=== PATIENT | female | born 1980 | race American Indian/Alaskan Native ===

== ENCOUNTER 2017-07-22 05:12 | Emergency (ER) | payer MEDICAID ==
[2017-07-22 05:52] LABS: Bacteria,Urine 1+ /HPF (Negative); Bilirubin,Urine NEG (Negative); Blood,Urine LG (Negative); Ketones,Urine TR mg/dL (Negative); Leukocyte Esterase,Urine NEG (Negative); Mucus,Urine FEW /HPF; Nitrite,Urine NEG (Negative); Urobilinogen,Urine < 2.0 mg/dL (<2.0)
[2017-07-22 05:56] LABS: RBC,Urine > 182.0 /HPF (0.0-6.0)
[2017-07-22 06:10] LABS: Basophils % (Auto) 0.3 % (0.0-1.8); Eosinophils % (Auto) 0.7 % (0.0-4.3); Hemoglobin 12.7 gm/dl (10.1-14.3); Mean Corpuscular HGB Conc 34 % (30-34); Mean Corpuscular Hemoglobin 32 pg (28-32); Mean Corpuscular Volume 93 fl (79-97); Platelet Count 180 K/mm3 (140-440); Red Blood Count 3.98 M/mm3 (3.65-5.03); Red Cell Distribution Width 14.4 % (13.2-15.2); White Blood Count 7.7 K/mm3 (4.5-11.0)
[2017-07-22 06:19] LABS: Alanine Aminotransferase 16 units/L (7-56); Albumin 4.5 g/dL (3.9-5); Albumin/Globulin Ratio 1.6 %; Alkaline Phosphatase 40 units/L (35-129); Anion Gap 21 mmol/L; BUN/Creatinine Ratio 13; Blood Urea Nitrogen 9 mg/dL (7-17); Calcium 9.1 mg/dL (8.4-10.2); Carbon Dioxide 21 mmol/L (22-30); Chloride 101.2 mmol/L (98-107); Glucose 139 mg/dL (65-100); Lipase 27 units/L (13-60); Potassium 3.6 mmol/L (3.6-5.0); Sodium 140 mmol/L (137-145); Total Protein 7.4 g/dL (6.3-8.2)
[2017-07-22] MEDS ORDERED: ZOFRAN IV ONE (06:39)
[2017-07-22] MEDS ORDERED: DILAUDID IV ONE ×2 (06:39→08:29)
[2017-07-22] MEDS ORDERED: BENADRYL IV ONE (06:39)
[2017-07-22] MEDS ORDERED: NACL 0.9% 1000 ML 1,000 ML IV ONE (06:40)
[2017-07-22 07:08] LABS: Urine Drugs of Abuse Note Disclamer
[2017-07-22 07:11] LABS: Creatine Kinase MB 1.2 ng/mL (0.0-4.0)
--- NOTE | 2017-07-22 08:29 | Emergency Department Report ---
ED General Adult HPI - General Chief complaint: Abdominal Pain Stated complaint: SEIZURE Time Seen by Provider: 07/22/17 06:23 Source: EMS Mode of arrival: Stretcher Limitations: No Limitations - History of Present Illness Initial comments: The patient presents via EMS. Apparently she had quite a bit of inappropriate behavior. She was given 2 mg of Ativan. According to EMS she was yelling. She was sticking her fingers in her mouth to induce vomiting and stated "I have to get it out". Upon my encounter the patient was gyrating in the bed. She and her significant other and child were in the room. He told me that she has had this problem with abdominal pain several times in the past. They deny chronic pain issues. They state that she has to this area from another town in [place] recently. Prior to that they were living in [place]. Apparently she has had multiple emergency department visits for similar presentation. They cannot tell me that she has been formally diagnosed with gastroparesis. They are claiming that she has "diverticulitis". -: hour(s) Location: abdomen Radiation: non-radiation Quality: aching (cramping) Consistency: constant Improves with: none Worsens with: none Associated Symptoms: nausea/vomiting Treatments Prior to Arrival: none - Related Data Previous Rx's Medication Instructions Recorded Last Taken Type Ondansetron [Zofran Odt] 4 mg PO Q6H #10 tab.rapdis 07/22/17 Unknown Rx traMADol [Ultram] 50 mg PO Q6HR PRN #10 tablet 07/22/17 Unknown Rx Allergies Allergy/AdvReac Type Severity Reaction Status Date / Time No Known Allergies Allergy Unverified 07/22/17 05:14 ED Review of Systems ROS: Stated complaint: SEIZURE Other details as noted in HPI Constitutional: denies: chills, fever Eyes: denies: eye pain, eye discharge, vision change ENT: denies: ear pain, throat pain Respiratory: denies: cough, shortness of breath, wheezing Cardiovascular: denies: chest pain, palpitations Endocrine: no symptoms reported Gastrointestinal: abdominal pain, nausea, vomiting. denies: diarrhea Genitourinary: denies: urgency, dysuria, discharge Musculoskeletal: denies: back pain, joint swelling, arthralgia Skin: denies: rash, lesions Neurological: denies: headache, weakness, paresthesias Psychiatric: denies: anxiety, depression Hematological/Lymphatic: denies: easy bleeding, easy bruising ED Past Medical Hx - Past Medical History Previous Medical History?: Yes Hx Seizures: Yes Hx Asthma: Yes - Surgical History Past Surgical History?: Yes Additional Surgical History: c - cect 07/25/06, diverticulitis - Social History Smoking Status: Former Smoker Substance Use Type: None - Medications Home Medications: Home Medications Medication Instructions Recorded Confirmed Last Taken Type Ondansetron [Zofran Odt] 4 mg PO Q6H #10 tab.rapdis 07/22/17 Unknown Rx traMADol [Ultram] 50 mg PO Q6HR PRN #10 tablet 07/22/17 Unknown Rx ED Physical Exam - General Limitations: Altered Mental Status (very hysterical) General appearance: alert, anxious - Head Head exam: Present: atraumatic, normocephalic - Eye Eye exam: Present: normal appearance, PERRL, EOMI. Absent: scleral icterus - ENT ENT exam: Present: mucous membranes moist - Neck Neck exam: Present: normal inspection - Respiratory Respiratory exam: Present: normal lung sounds bilaterally. Absent: respiratory distress - Cardiovascular Cardiovascular Exam: Present: regular rate, normal rhythm. Absent: systolic murmur, diastolic murmur, rubs, gallop - GI/Abdominal GI/Abdominal exam: Present: soft, normal bowel sounds, other (despite the patient's presentation and her abdominal exam is totally normal). Absent: distended, tenderness, guarding, rebound, rigid, organomegaly, mass, bruit, pulsatile mass, hernia - Extremities Exam Extremities exam: Present: normal inspection - Back Exam Back exam: Present: normal inspection. Absent: CVA tenderness (R), CVA tenderness (L), muscle spasm, paraspinal tenderness, vertebral tenderness - Neurological Exam Neurological exam: Present: alert, oriented X3, CN II-XII intact. Absent: motor sensory deficit - Psychiatric Psychiatric exam: Present: agitated, anxious - Skin Skin exam: Present: warm, dry, intact, normal color. Absent: rash ED Course Vital Signs 07/22/17 07/22/17 05:14 05:25 Temperature 98.7 F 98.0 F Pulse Rate 83 87 Respiratory 18 20 Rate Blood Pressure 138/68 Blood Pressure 136/68 [Left] O2 Sat by Pulse 99 100 Oximetry - Reevaluation(s) Reevaluation #1: She was given 0.5 of Dilaudid, Zofran and then a drip. This completely resolved her symptoms. Her labs were completely reassuring. She was discharged in improved condition. This apparently is an acute exacerbation of chronic abdominal problems. She will be referred to GI and a local clinic. She will be given anti-emetics and an analgesic. 07/22/17 09:43 ED Medical Decision Making - Lab Data Result diagrams: 07/22/17 05:40 07/22/17 05:40 Laboratory Results - last 24 hr 07/22/17 07/22/17 07/22/17 05:00 05:40 05:40 WBC 7.7 RBC 3.98 Hgb 12.7 Hct 37.0 MCV 93 MCH 32 MCHC 34 RDW 14.4 Plt Count 180 Lymph % (Auto) 15.5 [place] % (Auto) 3.6 Eos % (Auto) 0.7 Baso % (Auto) 0.3 Lymph # 1.2 [place] # 0.3 Eos # 0.1 Baso # 0.0 Seg Neutrophils % 79.9 H Seg Neutrophils # 6.2 Sodium 140 Potassium 3.6 Chloride 101.2 Carbon Dioxide 21 L Anion Gap 21 BUN 9 Creatinine 0.7 Estimated GFR > 60 BUN/Creatinine Ratio 13 Glucose 139 H Calcium 9.1 Total Bilirubin 0.20 AST 21 ALT 16 Alkaline Phosphatase 40 Total Protein 7.4 Albumin 4.5 Albumin/Globulin Ratio 1.6 Lipase 27 Urine Color Yellow Urine Turbidity Clear Urine pH 7.0 Ur Specific [place] 1.026 Urine Protein 30 mg/dl Urine Glucose (UA) Neg Urine Ketones Tr Urine Blood Lg Urine Nitrite Neg Urine Bilirubin Neg Urine Urobilinogen < 2.0 Ur Leukocyte Esterase Neg Urine WBC (Auto) 3.0 Urine RBC (Auto) > 182.0 U Epithel Cells (Auto) 6.0 Urine Bacteria (Auto) 1+ Urine Mucus Few Urine HCG, Qual Negative Laboratory Results - last 24 hr 07/22/17 07/22/17 07/22/17 05:00 05:00 05:40 WBC 7.7 RBC 3.98 Hgb 12.7 Hct 37.0 MCV 93 MCH 32 MCHC 34 RDW 14.4 Plt Count 180 Lymph % (Auto) 15.5 [place] % (Auto) 3.6 Eos % (Auto) 0.7 Baso % (Auto) 0.3 Lymph # 1.2 [place] # 0.3 Eos # 0.1 Baso # 0.0 Seg Neutrophils % 79.9 H Seg Neutrophils # 6.2 Sodium Potassium Chloride Carbon Dioxide Anion Gap BUN Creatinine Estimated GFR BUN/Creatinine Ratio Glucose Calcium Total Bilirubin AST ALT Alkaline Phosphatase Total Creatine Kinase CK-MB (CK-2) CK-MB (CK-2) Rel Index Total Protein Albumin Albumin/Globulin Ratio Lipase Urine Color Yellow Urine Turbidity Clear Urine pH 7.0 Ur Specific [place] 1.026 Urine Protein 30 mg/dl Urine Glucose (UA) Neg Urine Ketones Tr Urine Blood Lg Urine Nitrite Neg Urine Bilirubin Neg Urine Urobilinogen < 2.0 Ur Leukocyte Esterase Neg Urine WBC (Auto) 3.0 Urine RBC (Auto) > 182.0 U Epithel Cells (Auto) 6.0 Urine Bacteria (Auto) 1+ Urine Mucus Few Urine HCG, Qual Negative Urine Opiates Screen Presumptive negative Urine Methadone Screen Presumptive negative Ur Barbiturates Screen Presumptive negative Ur Phencyclidine Scrn Presumptive negative Ur Amphetamines Screen Presumptive negative U Benzodiazepines Scrn Presumptive negative Urine Cocaine Screen Presumptive negative U Marijuana (THC) Screen Presumptive positive Drugs of Abuse Note Disclamer 07/22/17 07/22/17 05:40 05:40 WBC RBC Hgb Hct MCV MCH MCHC RDW Plt Count Lymph % (Auto) [place] % (Auto) Eos % (Auto) Baso % (Auto) Lymph # [place] # Eos # Baso # Seg Neutrophils % Seg Neutrophils # Sodium 140 Potassium 3.6 Chloride 101.2 Carbon Dioxide 21 L Anion Gap 21 BUN 9 Creatinine 0.7 Estimated GFR > 60 BUN/Creatinine Ratio 13 Glucose 139 H Calcium 9.1 Total Bilirubin 0.20 AST 21 ALT 16 Alkaline Phosphatase 40 Total Creatine Kinase 161 H CK-MB (CK-2) 1.2 CK-MB (CK-2) Rel Index 0.7 Total Protein 7.4 Albumin 4.5 Albumin/Globulin Ratio 1.6 Lipase 27 Urine Color Urine Turbidity Urine pH Ur Specific [place] Urine Protein Urine Glucose (UA) Urine Ketones Urine Blood Urine Nitrite Urine Bilirubin Urine Urobilinogen Ur Leukocyte Esterase Urine WBC (Auto) Urine RBC (Auto) U Epithel Cells (Auto) Urine Bacteria (Auto) Urine Mucus Urine HCG, Qual Urine Opiates Screen Urine Methadone Screen Ur Barbiturates Screen Ur Phencyclidine Scrn Ur Amphetamines Screen U Benzodiazepines Scrn Urine Cocaine Screen U Marijuana (THC) Screen Drugs of Abuse Note Critical care attestation.: If time is entered above; I have spent that time in minutes in the direct care of this critically ill patient, excluding procedure time. ED Disposition Clinical Impression: Acute anxiety Abdominal pain Qualifiers: Abdominal location: generalized Qualified Code(s): R10.84 - Generalized abdominal pain Disposition: TO HOME OR SELFCARE Is pt being admited?: No Does the pt Need Aspirin: No Condition: Stable Instructions: Abdominal Pain (ED), Anxiety (ED) Additional Instructions: Follow up with the referral clinic. I have also given you information about stomach specialist. Rx as needed. Light diet and advance as tolerated. Prescriptions: Ondansetron [Zofran Odt] 4 mg PO Q6H #10 tab.rapdis traMADol [Ultram] 50 mg PO Q6HR PRN #10 tablet PRN Reason: Pain Referrals: [facility] [Provider Group] - 3-5 Days [facility] [Provider Group] - 3-5 Days Time of Disposition: 09:45
[2017-07-22 09:36] VITALS: BP 114/94
== END 2017-07-22 10:10 | disposition home or self-care (01) ==
LOC: ED 05:12
DX: F41.9 Anxiety disorder, unspecified (principal); R10.84 Generalized abdominal pain; J45.909 Unspecified asthma, uncomplicated; R56.9 Unspecified convulsions; Z87.891 Personal history of nicotine dependence; K57.92 Diverticulitis of intestine, part unspecified, without perforation or abscess without bleeding
CPT/HCPCS: 36415; 80053; 80307; 81001; 81025; 82550; 82553; 83690; 85025; 96361; 96374; 96375; 99284; J1170; J1200; J2405; J7030

== ENCOUNTER 2017-08-04 08:53 | Emergency (ER) | payer MEDICAID ==
[2017-08-04 09:38] LABS: Basophils % (Auto) 0.3 % (0.0-1.8); Eosinophils % (Auto) 0.3 % (0.0-4.3); Hemoglobin 13.7 gm/dl (10.1-14.3); Mean Corpuscular HGB Conc 33 % (30-34); Mean Corpuscular Hemoglobin 32 pg (28-32); Mean Corpuscular Volume 96 fl (79-97); Platelet Count 188 K/mm3 (140-440); Red Blood Count 4.29 M/mm3 (3.65-5.03); White Blood Count 10.1 K/mm3 (4.5-11.0)
[2017-08-04 09:52] LABS: Alanine Aminotransferase 14 units/L (7-56); Albumin 4.3 g/dL (3.9-5); Albumin/Globulin Ratio 1.2 %; Alkaline Phosphatase 39 units/L (35-129); Anion Gap 18 mmol/L; BUN/Creatinine Ratio 10; Blood Urea Nitrogen 6 mg/dL (7-17); Calcium 9.3 mg/dL (8.4-10.2); Carbon Dioxide 22 mmol/L (22-30); Chloride 101.6 mmol/L (98-107); Glucose 113 mg/dL (65-100); Potassium 3.7 mmol/L (3.6-5.0); Sodium 138 mmol/L (137-145); Total Protein 7.8 g/dL (6.3-8.2)
--- NOTE | 2017-08-04 10:21 | Cat Scan Report ---
CT scan of the without IV contrast: History: Seizure. Findings: Ventricles are normal in size and midline in location. No evidence of acute ischemia, hemorrhage or mass. No extra-axial fluid collection. Normal brainstem and cerebellum. Normal sinuses and mastoid air cells. Impression: No acute intracranial abnormality .
[2017-08-04] MEDS ORDERED: BENTYL PO ONE (10:42)
[2017-08-04] MEDS ORDERED: CARAFATE PO ONE (10:42)
[2017-08-04] MEDS ORDERED: PEPCID IV ONE (10:42)
[2017-08-04] MEDS ORDERED: ZOFRAN IV ONE (10:42)
[2017-08-04] MEDS ORDERED: NACL 0.9% 1000 ML 1,000 ML IV ONE (10:44)
--- NOTE | 2017-08-04 10:45 | Emergency Department Report ---
ED General Adult HPI - General Chief complaint: Seizure Stated complaint: SEIZURES Time Seen by Provider: 08/04/17 10:33 Source: patient, family, EMS (ems notes not available at time of chart dictation), RN notes reviewed, old records reviewed Mode of arrival: Stretcher Limitations: No Limitations - History of Present Illness Initial comments: This is a 37-year-old female who was previously unknown to this provider, patient recently moved here from [place], and endorses a history of "seizures" and "diverticulitis." Patient is brought to the hospital by EMS for apparent seizure disorder. As per triage documentation, patient had a seizure while lying on the couch at home , grandmother indicates patient foaming at the mouth, denies hitting her head. Patient states this is been going on for years, this is not new, worsening or different. Patient also complains of diffuse sharp abdominal pain and "body shaking." She reports the symptoms are intermittent, they increase with palpation and eating, and a decreased with IV medications such as hydromorphone. Of note, patient seen in this hospital a few days ago for similar symptoms, and was discharged with tramadol. Patient placed of generalized weakness, her symptoms are intermittent, they do not radiate anywhere. -: Gradual, Sudden Location: abdomen Quality: other (per hpi) Consistency: other (per hpi) Improves with: other (per hpi) Worsens with: other (per hpi) Associated Symptoms: loss of appetite, malaise, nausea/vomiting, weakness. denies: chest pain, cough, diaphoresis, fever/chills - Related Data Previous Rx's Medication Instructions Recorded Last Taken Type Ondansetron [Zofran Odt] 4 mg PO Q6H #10 tab.rapdis 07/22/17 Unknown Rx traMADol [Ultram] 50 mg PO Q6HR PRN #10 tablet 07/22/17 Unknown Rx Dicyclomine [Bentyl] 10 mg PO QID PRN #20 capsule 08/04/17 Unknown Rx Metoclopramide [Reglan] 10 mg PO QID PRN #30 tablet 08/04/17 Unknown Rx Promethazine [Phenergan SUPPOS] 50 mg SD Q6H PRN #20 supp.rect 08/04/17 Unknown Rx Allergies Allergy/AdvReac Type Severity Reaction Status Date / Time No Known Allergies Allergy Verified 08/04/17 10:43 ED Review of Systems ROS: Stated complaint: SEIZURES Other details as noted in HPI ED Past Medical Hx - Past Medical History Hx Seizures: Yes Hx Asthma: Yes - Surgical History Additional Surgical History: c - cect 07/25/06, diverticulitis - Social History Smoking Status: Current Some Day Smoker Substance Use Type: Marijuana - Medications Home Medications: Home Medications Medication Instructions Recorded Confirmed Last Taken Type Ondansetron [Zofran Odt] 4 mg PO Q6H #10 tab.rapdis 07/22/17 Unknown Rx traMADol [Ultram] 50 mg PO Q6HR PRN #10 tablet 07/22/17 Unknown Rx Dicyclomine [Bentyl] 10 mg PO QID PRN #20 capsule 08/04/17 Unknown Rx Metoclopramide [Reglan] 10 mg PO QID PRN #30 tablet 08/04/17 Unknown Rx Promethazine [Phenergan SUPPOS] 50 mg SD Q6H PRN #20 supp.rect 08/04/17 Unknown Rx ED Physical Exam - General Limitations: No Limitations General appearance: alert, in no apparent distress - Head Head exam: Present: atraumatic, normocephalic - Eye Eye exam: Present: normal appearance, PERRL, EOMI. Absent: nystagmus - ENT ENT exam: Present: normal exam, normal orophraynx, mucous membranes moist, normal external ear exam - Neck Neck exam: Present: normal inspection, full ROM - Respiratory Respiratory exam: Present: normal lung sounds bilaterally. Absent: respiratory distress - Cardiovascular Cardiovascular Exam: Present: regular rate, normal rhythm, normal heart sounds. Absent: systolic murmur, diastolic murmur, rubs, gallop - GI/Abdominal GI/Abdominal exam: Present: soft, normal bowel sounds. Absent: distended, tenderness, guarding, rebound, rigid, pulsatile mass - Extremities Exam Extremities exam: Present: normal inspection, full ROM, normal capillary refill. Absent: pedal edema, joint swelling, calf tenderness - Back Exam Back exam: Present: normal inspection, full ROM. Absent: tenderness, CVA tenderness (R), paraspinal tenderness, vertebral tenderness - Neurological Exam Neurological exam: Present: alert, oriented X3, CN II-XII intact, normal gait, other (Extraocular movements intact. Tongue midline. No facial droop. Facial sensation intact to light touch in the V1, V2, V3 distribution bilaterally. 5 and 5 strength in 4 extremities.. Sensation is intact to light touch in 4 extremities.). Absent: motor sensory deficit - Psychiatric Psychiatric exam: Present: anxious - Skin Skin exam: Present: warm, dry, intact, normal color. Absent: rash ED Course Vital Signs 08/04/17 09:36 Temperature 98.8 F Pulse Rate 79 Respiratory 25 H Rate Blood Pressure 141/79 [Left] O2 Sat by Pulse 100 Oximetry - Reevaluation(s) Reevaluation #1: 08/04/17 12:31 Patient's abdomen is actually soft and benign with no rebound, guarding or peritoneal signs, based on her history and physical exam, I do not believe the patient requires advanced imaging of her abdomen this time, her presentation today appears to be similar to her prior presentation from 07/22/2017. ED Medical Decision Making - Lab Data Result diagrams: 08/04/17 09:22 08/04/17 09:22 Vital Signs 08/04/17 09:36 Temperature 98.8 F Pulse Rate 79 Respiratory 25 H Rate Blood Pressure 141/79 [Left] O2 Sat by Pulse 100 Oximetry Lab Results 08/04/17 08/04/17 08/04/17 Range/Units 09:22 09:22 09:42 WBC 10.1 (4.5-11.0) K/mm3 RBC 4.29 (3.65-5.03) M/mm3 Hgb 13.7 (10.1-14.3) gm/dl Hct 41.0 (30.3-42.9) % MCV 96 (79-97) fl MCH 32 (28-32) pg MCHC 33 (30-34) % RDW 14.0 (13.2-15.2) % Plt Count 188 (140-440) K/mm3 Lymph % (Auto) 19.6 (13.4-35.0) % [place] % (Auto) 6.2 (0.0-7.3) % Eos % (Auto) 0.3 (0.0-4.3) % Baso % (Auto) 0.3 (0.0-1.8) % Lymph # 2.0 (1.2-5.4) K/mm3 [place] # 0.6 (0.0-0.8) K/mm3 Eos # 0.0 (0.0-0.4) K/mm3 Baso # 0.0 (0.0-0.1) K/mm3 Seg Neutrophils % 73.6 H (40.0-70.0) % Seg Neutrophils # 7.4 (1.8-7.7) K/mm3 Sodium 138 (137-145) mmol/L Potassium 3.7 (3.6-5.0) mmol/L Chloride 101.6 (98-107) mmol/L Carbon Dioxide 22 (22-30) mmol/L Anion Gap 18 mmol/L BUN 6 L (7-17) mg/dL Creatinine 0.6 L (0.7-1.2) mg/dL Estimated GFR > 60 ml/min BUN/Creatinine Ratio 10 % Glucose 113 H (65-100) mg/dL Calcium 9.3 (8.4-10.2) mg/dL Total Bilirubin 0.30 (0.1-1.2) mg/dL AST 28 (5-40) units/L ALT 14 (7-56) units/L Alkaline Phosphatase 39 (35-129) units/L Total Creatine Kinase 435 H (30-135) units/L Total Protein 7.8 (6.3-8.2) g/dL Albumin 4.3 (3.9-5) g/dL Albumin/Globulin Ratio 1.2 % Urine Color (Yellow) Urine Turbidity (Clear) Urine pH (5.0-7.0) Ur Specific [place] (1.003-1.030) Urine Protein (Negative) mg/dL Urine Glucose (UA) (Negative) mg/dL Urine Ketones (Negative) mg/dL Urine Blood (Negative) Urine Nitrite (Negative) Urine Bilirubin (Negative) Urine Urobilinogen (<2.0) mg/dL Ur Leukocyte Esterase (Negative) Urine WBC (Auto) (0.0-6.0) /HPF Urine RBC (Auto) (0.0-6.0) /HPF U Epithel Cells (Auto) (0-13.0) /HPF Urine Mucus /HPF Salicylates (2.8-20.0) mg/dL Acetaminophen (10.0-30.0) ug/mL 08/04/17 08/04/17 08/04/17 Range/Units 11:00 11:00 11:03 WBC (4.5-11.0) K/mm3 RBC (3.65-5.03) M/mm3 Hgb (10.1-14.3) gm/dl Hct (30.3-42.9) % MCV (79-97) fl MCH (28-32) pg MCHC (30-34) % RDW (13.2-15.2) % Plt Count (140-440) K/mm3 Lymph % (Auto) (13.4-35.0) % [place] % (Auto) (0.0-7.3) % Eos % (Auto) (0.0-4.3) % Baso % (Auto) (0.0-1.8) % Lymph # (1.2-5.4) K/mm3 [place] # (0.0-0.8) K/mm3 Eos # (0.0-0.4) K/mm3 Baso # (0.0-0.1) K/mm3 Seg Neutrophils % (40.0-70.0) % Seg Neutrophils # (1.8-7.7) K/mm3 Sodium (137-145) mmol/L Potassium (3.6-5.0) mmol/L Chloride (98-107) mmol/L Carbon Dioxide (22-30) mmol/L Anion Gap mmol/L BUN (7-17) mg/dL Creatinine (0.7-1.2) mg/dL Estimated GFR ml/min BUN/Creatinine Ratio % Glucose (65-100) mg/dL Calcium (8.4-10.2) mg/dL Total Bilirubin (0.1-1.2) mg/dL AST (5-40) units/L ALT (7-56) units/L Alkaline Phosphatase (35-129) units/L Total Creatine Kinase (30-135) units/L Total Protein (6.3-8.2) g/dL Albumin (3.9-5) g/dL Albumin/Globulin Ratio % Urine Color Yellow (Yellow) Urine Turbidity Clear (Clear) Urine pH 9.0 H (5.0-7.0) Ur Specific [place] 1.023 (1.003-1.030) Urine Protein 100 mg/dl (Negative) mg/dL Urine Glucose (UA) Neg (Negative) mg/dL Urine Ketones Neg (Negative) mg/dL Urine Blood Neg (Negative) Urine Nitrite Neg (Negative) Urine Bilirubin Neg (Negative) Urine Urobilinogen < 2.0 (<2.0) mg/dL Ur Leukocyte Esterase Neg (Negative) Urine WBC (Auto) 1.0 (0.0-6.0) /HPF Urine RBC (Auto) 1.0 (0.0-6.0) /HPF U Epithel Cells (Auto) 9.0 (0-13.0) /HPF Urine Mucus Few /HPF Salicylates < 0.3 L (2.8-20.0) mg/dL Acetaminophen < 15.0 (10.0-30.0) ug/mL - Radiology Data Radiology results: report reviewed, image reviewed Noncontrast CT scan of the brain: Negative for acute disease - Medical Decision Making Differential diagnosis, including but not limited to: Seizure, pseudoseizure, psychogenic seizure, urinary tract infection, nonspecific convulsion, cannabinoid hyperemesis syndrome, medication side effect ( tramadol) Assessment and plan: 37-year-old female with complaints of seizure and abdominal pain. In terms of the patient's seizure, there is been no convulsive events in the ER 4 hours, patient has not loss consciousness, patient is having episodes of body shaking but she is awake and conversant. There may be a psychogenic component to this. Urine toxicology screen a few days ago was positive for marijuana, and patient and grandmother admits to marijuana consumption. Patient is encouraged to discontinue cannabis consumption, and is also encouraged to discontinue tramadol consumption. Patient initially would not walk for me, she was then medicated, and is noted by myself and staff to be walking with a steady gait. Patient alert to name, place, location with a nonfocal neurologic examination, and is tolerating oral feeds. It is not appear to be an emergent condition at this time, patient should follow up with outpatient neurology and primary care, and she is also instructed to not drive or operate motor vehicles. Given her history and chronic cannabis use, I do not believe the patient will benefit from antiepileptic drug therapy, and will defer this to outpatient management. Critical care attestation.: If time is entered above; I have spent that time in minutes in the direct care of this critically ill patient, excluding procedure time. ED Disposition Clinical Impression: Abdominal pain, History of convulsions Disposition: TO HOME OR SELFCARE Is pt being admited?: No Does the pt Need Aspirin: No Condition: Stable Additional Instructions: I recommended the patient discontinue consumption of marijuana, and any illegal drugs of the patient may be consuming. Marijuana is most likely a significant concern being factor to the patient's presentation. Do not drive or operate motor vehicles for the next 6 months. Follow up with the neurology specialist within the next 7-10 days. Local neurology specialists include the following Sam.: Anthony Rosa Kozin Discontinue the tramadol prescription that was prescribed few the other day, this medication may make the patient more prone to having convulsions. Instead, take the prescribed pain medication and nausea medication as needed/ directed. Follow up with a primary care doctor or mat weaver within the next 2 weeks. [facility] has a local patient service hotline which can be contacted to obtain expedited appointment: [phone] ([phone]) Return to the ER right away with new pain, worsened pain, migration of pain, fevers, chills, lethargy, irritability, projectile vomiting, change in mental status, confusion, inability to tolerate liquid feeds. Referrals: TEENA PAULA MD [Primary Care Provider] - 3-5 Days [facility] [Provider Group] - 3-5 Days DMITRY ROSA MD [Referring] - 3-5 Days PIETRO MEZA MD [Staff Physician] - 3-5 Days NAUN BERG MD [Staff Physician] - 3-5 Days
[2017-08-04 11:37] LABS: Bilirubin,Urine NEG (Negative); Blood,Urine NEG (Negative); Ketones,Urine NEG (Negative); Leukocyte Esterase,Urine NEG (Negative); Mucus,Urine FEW /HPF; Nitrite,Urine NEG (Negative); Urobilinogen,Urine < 2.0 mg/dL (<2.0)
[2017-08-04 12:48] VITALS: BP 145/90
== END 2017-08-04 12:47 | disposition home or self-care (01) ==
LOC: ED 08:53
DX: R10.9 Unspecified abdominal pain (principal); R56.9 Unspecified convulsions; R53.1 Weakness; J45.909 Unspecified asthma, uncomplicated; F12.10 Cannabis abuse, uncomplicated; F17.200 Nicotine dependence, unspecified, uncomplicated
CPT/HCPCS: 36415; 70450; 80053; 81001; 82550; 85025; 96361; 96374; 96375; 99285; G0480; J2405; J7030; 80320

== ENCOUNTER 2017-12-19 10:44 | Emergency (ER) | payer MEDICAID ==
[2017-12-19 13:19] LABS: Basophils % (Auto) 0.2 % (0.0-1.8); Hematocrit 40.7 % (30.3-42.9); Hemoglobin 13.6 gm/dl (10.1-14.3); Lymphocytes # (Auto) 1.3 K/mm3 (1.2-5.4); Mean Corpuscular HGB Conc 33 % (30-34); Mean Corpuscular Hemoglobin 31 pg (28-32); Mean Corpuscular Volume 93 fl (79-97); Monocytes # (Auto) 0.7 K/mm3 (0.0-0.8); Monocytes % (Auto) 6.6 % (0.0-7.3); Platelet Count 197 K/mm3 (140-440); Red Blood Count 4.37 M/mm3 (3.65-5.03); Red Cell Distribution Width 13.8 % (13.2-15.2)
--- NOTE | 2017-12-19 13:32 | Emergency Department Report ---
<TEQUILA ALONSO - Last Filed: 12/19/17 16:11> ED Abdominal Pain HPI - General Chief Complaint: Abdominal Pain Stated Complaint: ABDOMINAL PAIN Time Seen by Provider: 12/19/17 13:32 Source: patient Mode of arrival: Wheelchair Limitations: No Limitations - History of Present Illness Initial Comments: Patient is said she's been having left upper quadrant abdominal pain for the past 60 days. She has been evaluated multiple times without finding the cause. Patient says she has an [employer] appointment in February for surgery. She has a sister vomited several times today and had seizures today. MD Complaint: abdominal pain -: year(s) (6 years) Location: LUQ Radiation: LLQ Migration to: no migration Severity: moderate Severity scale (0 -10): 7 Quality: sharp Consistency: constant Improves With: nothing Worsens With: nothing Associated Symptoms: nausea, vomiting. denies: diarrhea, constipation - Related Data LMP (females 10-50): unknown Previous Rx's Medication Instructions Recorded Last Taken Type Ondansetron [Zofran Odt] 4 mg PO Q6H #10 tab.rapdis 07/22/17 Unknown Rx traMADol [Ultram] 50 mg PO Q6HR PRN #10 tablet 07/22/17 Unknown Rx Dicyclomine [Bentyl] 10 mg PO QID PRN #20 capsule 08/04/17 Unknown Rx Metoclopramide [Reglan] 10 mg PO QID PRN #30 tablet 08/04/17 Unknown Rx Promethazine [Phenergan SUPPOS] 50 mg [place] Q6H PRN #20 supp.rect 08/04/17 Unknown Rx Allergies Allergy/AdvReac Type Severity Reaction Status Date / Time No Known Allergies Allergy Verified 08/04/17 10:43 ED Review of Systems ROS: Stated complaint: ABDOMINAL PAIN Other details as noted in HPI Comment: All other systems reviewed and negative Constitutional: denies: chills, diaphoresis, fever, weakness Eyes: denies: eye pain ENT: denies: ear pain Respiratory: denies: cough, shortness of breath Cardiovascular: denies: chest pain, palpitations, edema, syncope Endocrine: no symptoms reported Gastrointestinal: abdominal pain, nausea, vomiting. denies: diarrhea Genitourinary: denies: urgency, frequency Musculoskeletal: denies: back pain, joint swelling Skin: denies: rash, change in color Neurological: denies: headache, numbness, paresthesias Psychiatric: anxiety, depression Hematological/Lymphatic: denies: easy bleeding, easy bruising ED Past Medical Hx - Past Medical History Hx Seizures: Yes Hx Asthma: Yes - Surgical History Additional Surgical History: c - cect 07/25/06, diverticulitis - Social History Smoking Status: Never Smoker Substance Use Type: None - Medications Home Medications: Home Medications Medication Instructions Recorded Confirmed Last Taken Type Ondansetron [Zofran Odt] 4 mg PO Q6H #10 tab.rapdis 07/22/17 Unknown Rx traMADol [Ultram] 50 mg PO Q6HR PRN #10 tablet 07/22/17 Unknown Rx Dicyclomine [Bentyl] 10 mg PO QID PRN #20 capsule 08/04/17 Unknown Rx Metoclopramide [Reglan] 10 mg PO QID PRN #30 tablet 08/04/17 Unknown Rx Promethazine [Phenergan SUPPOS] 50 mg [place] Q6H PRN #20 supp.rect 08/04/17 Unknown Rx ED Physical Exam - General Limitations: No Limitations General appearance: alert, in no apparent distress - Head Head exam: Present: atraumatic, normocephalic, normal inspection - Eye Eye exam: Present: normal appearance, PERRL, EOMI Pupils: Present: normal accommodation - ENT ENT exam: Present: normal exam, normal orophraynx, mucous membranes moist - Neck Neck exam: Present: normal inspection, full ROM. Absent: tenderness - Respiratory Respiratory exam: Present: normal lung sounds bilaterally. Absent: respiratory distress, rhonchi - Cardiovascular Cardiovascular Exam: Present: regular rate, normal rhythm, normal heart sounds - GI/Abdominal GI/Abdominal exam: Present: soft, tenderness (LUQ), normal bowel sounds. Absent : guarding, rebound - Extremities Exam Extremities exam: Present: normal inspection, normal capillary refill. Absent: tenderness - Back Exam Back exam: Present: normal inspection. Absent: full ROM, tenderness, muscle spasm, vertebral tenderness - Neurological Exam Neurological exam: Present: alert, oriented X3, CN II-XII intact - Psychiatric Psychiatric exam: Present: normal affect, anxious - Skin Skin exam: Present: warm, dry, intact, normal color. Absent: rash ED Course Vital Signs 12/19/17 12/19/17 12/19/17 10:50 13:12 15:53 Temperature 98.0 F 98.8 F Pulse Rate 91 H 63 Respiratory 17 16 Rate Blood Pressure 119/64 Blood Pressure 115/55 [Left] O2 Sat by Pulse 99 100 Oximetry - Reevaluation(s) Reevaluation #1: 12/19/17 16:11 Patient care was transferred to Dr Underwood at shift change pending CT of the abdomen and pelvis with PO and IV contrast. ED Medical Decision Making - Lab Data Result diagrams: 12/19/17 13:05 12/19/17 13:05 - Radiology Data Radiology results: report reviewed - Medical Decision Making Chronic abdominal pain. Critical care attestation.: If time is entered above; I have spent that time in minutes in the direct care of this critically ill patient, excluding procedure time. ED Disposition Clinical Impression: Abdominal pain Qualifiers: Abdominal location: left upper quadrant Qualified Code(s): R10.12 - Left upper quadrant pain Disposition: Z-07 ELOPED Does the pt Need Aspirin: No Condition: Stable Instructions: Abdominal Pain (ED) Referrals: [facility] [Outside] - 3-5 Days PRIMARY CARE, [Referring] - 3-5 Days <HUMA UNDERWOOD - Last Filed: 12/19/17 17:28> ED Course - Reevaluation(s) Reevaluation #2: 12/19/17 17:20 pt left the department, I was informed by RN that nurse refused ct, removed IV, and left the dept ED Medical Decision Making - Lab Data Result diagrams: 12/19/17 13:05 12/19/17 13:05 ED Disposition Is pt being admited?: No Time of Disposition: 17:20 (pt refused ct, took out line and left)
[2017-12-19 13:44] LABS: Alanine Aminotransferase 15 units/L (7-56); Albumin 4.9 g/dL (3.9-5); BUN/Creatinine Ratio 17; Blood Urea Nitrogen 10 mg/dL (7-17); Calcium 9.7 mg/dL (8.4-10.2); Hemolysis Index 6
[2017-12-19] MEDS ORDERED: NACL 0.9% 1000 ML 1,000 ML IV ONE (13:44)
[2017-12-19] MEDS ORDERED: REGLAN IV ONE (13:57)
[2017-12-19] MEDS ORDERED: TORADOL IV ONE (13:57)
[2017-12-19 14:08] LABS: Bilirubin,Urine NEG (Negative); Blood,Urine NEG (Negative); Color,Urine Yellow (Yellow); Mucus,Urine 2+ /HPF; Urobilinogen,Urine < 2.0 mg/dL (<2.0)
[2017-12-19] MEDS ORDERED: POTASSIUM CHLORIDE FEEDTUBE ONE (15:36)
[2017-12-19 15:54] VITALS: BP 115/55
== END 2017-12-19 17:21 | disposition left against medical advice (07) ==
LOC: EDBD → ED 10:44
DX: R10.12 Left upper quadrant pain (principal); J45.909 Unspecified asthma, uncomplicated
CPT/HCPCS: 36415; 80053; 81001; 83690; 84703; 85025; 96361; 96374; 96375; 99283; J1885; J2765; J7030

== ENCOUNTER 2018-01-31 09:59 | Emergency (ER) | payer MEDICAID ==
[2018-01-31 11:11] LABS: Basophils % (Auto) 0.3 % (0.0-1.8); Eosinophils % (Auto) 0.6 % (0.0-4.3); Hematocrit 38.3 % (30.3-42.9); Hemoglobin 12.7 gm/dl (10.1-14.3); Lymphocytes # (Auto) 1.7 K/mm3 (1.2-5.4); Lymphocytes % (Auto) 23.7 % (13.4-35.0); Mean Corpuscular HGB Conc 33 % (30-34); Mean Corpuscular Hemoglobin 31 pg (28-32); Mean Corpuscular Volume 94 fl (79-97); Monocytes # (Auto) 0.4 K/mm3 (0.0-0.8); Platelet Count 171 K/mm3 (140-440); Red Blood Count 4.05 M/mm3 (3.65-5.03); Red Cell Distribution Width 13.6 % (13.2-15.2)
[2018-01-31 11:22] LABS: Alanine Aminotransferase 11 units/L (7-56); Albumin 3.9 g/dL (3.9-5); BUN/Creatinine Ratio 13; Blood Urea Nitrogen 9 mg/dL (7-17); Hemolysis Index 36
[2018-01-31 11:31] LABS: Bacteria,Urine 1+ /HPF (Negative); Bilirubin,Urine NEG (Negative); Blood,Urine NEG (Negative); Color,Urine Yellow (Yellow); Mucus,Urine FEW /HPF; Protein,Urine <15 mg/dL mg/dL (Negative); Urobilinogen,Urine < 2.0 mg/dL (<2.0)
[2018-01-31 11:58] VITALS: BP 127/64
[2018-01-31] MEDS ORDERED: KEPPRA 1,000 MG/NS 0.75% 100ML 1,000 MG/100 ML BAG IV ONE ×2 (12:13→12:21)
[2018-01-31] MEDS ORDERED: KEPPRA PO ONE (12:20)
[2018-01-31] MEDS ORDERED: NACL 0.9% 1000 ML 1,000 ML IV ONE (12:21)
--- NOTE | 2018-01-31 12:21 | Emergency Department Report ---
ED Seizure HPI - General Chief Complaint: Seizure Stated Complaint: SEIZURES, Time Seen by Provider: 01/31/18 12:19 Source: patient, EMS Mode of arrival: Stretcher Limitations: No Limitations - History of Present Illness Initial Comments: Patient said she has been taking "old" Keppra for her seizure disorder. Complaint: seizure -: Sudden Description of Episode: tonic-clonic movement -: minutes(s) (1) Witnessed:: Yes Trauma: No Seizure History: known seizure disorder Place: home Possible Precipitating Event: none Associated Symptoms: other (abdominal pain) Treatments Prior to Arrival: other (Ativan) - Related Data Previous Rx's Medication Instructions Recorded Last Taken Type Ondansetron [Zofran Odt] 4 mg PO Q6H #10 tab.rapdis 07/22/17 Unknown Rx traMADol [Ultram] 50 mg PO Q6HR PRN #10 tablet 07/22/17 Unknown Rx Dicyclomine [Bentyl] 10 mg PO QID PRN #20 capsule 08/04/17 Unknown Rx Metoclopramide [Reglan] 10 mg PO QID PRN #30 tablet 08/04/17 Unknown Rx Promethazine [Phenergan SUPPOS] 50 mg [place] Q6H PRN #20 supp.rect 08/04/17 Unknown Rx levETIRAcetam [Keppra TAB] 750 mg PO BID #60 tablet 01/31/18 Unknown Rx Allergies Allergy/AdvReac Type Severity Reaction Status Date / Time No Known Allergies Allergy Verified 08/04/17 10:43 ED Review of Systems ROS: Stated complaint: SEIZURES, Other details as noted in HPI Comment: All other systems reviewed and negative Constitutional: denies: chills, fever Eyes: denies: eye pain ENT: denies: ear pain Respiratory: denies: cough, shortness of breath Cardiovascular: denies: chest pain, palpitations Endocrine: no symptoms reported Gastrointestinal: abdominal pain. denies: nausea, vomiting, diarrhea Genitourinary: denies: dysuria, frequency Musculoskeletal: denies: back pain, joint swelling Skin: denies: rash, change in color Neurological: denies: headache, weakness Psychiatric: denies: anxiety, depression Hematological/Lymphatic: denies: easy bleeding, easy bruising ED Past Medical Hx - Past Medical History Hx Seizures: Yes Hx Asthma: Yes - Surgical History Additional Surgical History: c - cect 07/25/06, diverticulitis - Social History Smoking Status: Current Every Day Smoker Substance Use Type: Marijuana, Prescribed - Medications Home Medications: Home Medications Medication Instructions Recorded Confirmed Last Taken Type Ondansetron [Zofran Odt] 4 mg PO Q6H #10 tab.rapdis 07/22/17 Unknown Rx traMADol [Ultram] 50 mg PO Q6HR PRN #10 tablet 07/22/17 Unknown Rx Dicyclomine [Bentyl] 10 mg PO QID PRN #20 capsule 08/04/17 Unknown Rx Metoclopramide [Reglan] 10 mg PO QID PRN #30 tablet 08/04/17 Unknown Rx Promethazine [Phenergan SUPPOS] 50 mg [place] Q6H PRN #20 supp.rect 08/04/17 Unknown Rx levETIRAcetam [Keppra TAB] 750 mg PO BID #60 tablet 01/31/18 Unknown Rx ED Physical Exam - General Limitations: No Limitations General appearance: alert, in no apparent distress - Head Head exam: Present: atraumatic, normocephalic, normal inspection - Eye Eye exam: Present: normal appearance, PERRL, EOMI Pupils: Present: normal accommodation - ENT ENT exam: Present: normal exam, normal orophraynx, mucous membranes moist - Neck Neck exam: Present: normal inspection, full ROM. Absent: tenderness - Respiratory Respiratory exam: Present: normal lung sounds bilaterally. Absent: respiratory distress, wheezes, rhonchi - Cardiovascular Cardiovascular Exam: Present: regular rate, normal rhythm, normal heart sounds - GI/Abdominal GI/Abdominal exam: Present: soft, normal bowel sounds. Absent: distended, tenderness, guarding, rebound - Extremities Exam Extremities exam: Present: normal inspection, full ROM, normal capillary refill - Back Exam Back exam: Present: normal inspection, full ROM. Absent: tenderness - Neurological Exam Neurological exam: Present: alert, oriented X3, CN II-XII intact - Psychiatric Psychiatric exam: Present: normal affect, normal mood. Absent: depressed - Skin Skin exam: Present: warm, dry, intact, normal color ED Course Vital Signs 01/31/18 01/31/18 01/31/18 10:50 11:00 11:16 Temperature Pulse Rate 68 73 57 L Respiratory 11 L 13 Rate Blood Pressure [Right] O2 Sat by Pulse 100 100 Oximetry 01/31/18 01/31/18 01/31/18 11:30 11:46 11:57 Temperature 99.2 F Pulse Rate 58 L 46 L 66 Respiratory 10 L 22 18 Rate Blood Pressure 127/64 [Right] O2 Sat by Pulse 100 99 100 Oximetry - Reevaluation(s) Reevaluation #1: 01/31/18 13:[address] scan of the abdomen and pelvis. She signed and left against medical advice.She verbalized understanding the risks which I explained to her. She is A & O x 4 and she has a medical decision making capacity. ED Medical Decision Making - Lab Data Result diagrams: 01/31/18 10:45 01/31/18 10:45 - Radiology Data Radiology results: report reviewed, image reviewed - Medical Decision Making Abdominal Pain. Seizure Disorder. Critical care attestation.: If time is entered above; I have spent that time in minutes in the direct care of this critically ill patient, excluding procedure time. ED Disposition Clinical Impression: Seizure disorder Abdominal pain Qualifiers: Abdominal location: generalized Qualified Code(s): R10.84 - Generalized abdominal pain Disposition: DC-07 LEFT AGAINST MED ADVICE Is pt being admited?: No Does the pt Need Aspirin: No Condition: Stable Instructions: Recurrent Seizures Adult (ED), Abdominal Pain (ED) Additional Instructions: Return to the ED for evaluation as soon as possible. Prescriptions: levETIRAcetam [Keppra TAB] 750 mg PO BID #60 tablet Referrals: PRIMARY CARE, [Primary Care Provider] - 3-5 Days Time of Disposition: 13:51
[2018-01-31] MEDS ORDERED: K-DUR PO NR (12:24)
--- NOTE | 2018-01-31 13:05 | XRay Report ---
PORTABLE CHEST: SOB. An AP portable view of the chest demonstrates a normal cardiac contour considering the limits of this technique. The lungs are clear with no evidence of infiltrate, fluid or failure. IMPRESSION: Normal portable chest.
== END 2018-01-31 13:57 | disposition left against medical advice (07) ==
LOC: ED 09:59
DX: G40.909 Epilepsy, unspecified, not intractable, without status epilepticus (principal); R10.84 Generalized abdominal pain; J45.909 Unspecified asthma, uncomplicated; F17.200 Nicotine dependence, unspecified, uncomplicated; F12.90 Cannabis use, unspecified, uncomplicated
CPT/HCPCS: 36415; 71045; 80053; 81001; 82962; 83690; 85025; 96361; 96374; 99285; J1953; J7030

== ENCOUNTER 2018-02-08 16:27 | Emergency (ER) | payer MEDICAID ==
[2018-02-08] MEDS ORDERED: DILAUDID IM ONE (18:02)
[2018-02-08] MEDS ORDERED: NACL 0.9% 1000 ML 1,000 ML IV ONE (18:02)
[2018-02-08] MEDS ORDERED: HALDOL IM ONE (18:02)
[2018-02-08 18:55] LABS: Basophils # (Auto) 0.1 K/mm3 (0.0-0.1); Basophils % (Auto) 0.9 % (0.0-1.8); Eosinophils # (Auto) 0.1 K/mm3 (0.0-0.4); Eosinophils % (Auto) 1.1 % (0.0-4.3); Hematocrit 36.8 % (30.3-42.9); Hemoglobin 12.4 gm/dl (10.1-14.3); Lymphocytes # (Auto) 2.3 K/mm3 (1.2-5.4); Lymphocytes % (Auto) 27.9 % (13.4-35.0); Mean Corpuscular HGB Conc 34 % (30-34); Mean Corpuscular Hemoglobin 31 pg (28-32); Mean Corpuscular Volume 93 fl (79-97); Monocytes # (Auto) 0.4 K/mm3 (0.0-0.8); Monocytes % (Auto) 5.1 % (0.0-7.3); Platelet Count 169 K/mm3 (140-440); Red Blood Count 3.95 M/mm3 (3.65-5.03); Red Cell Distribution Width 13.5 % (13.2-15.2)
[2018-02-08 19:40] LABS: Bilirubin,Urine NEG (Negative); Blood,Urine NEG (Negative); Color,Urine Yellow (Yellow); Mucus,Urine FEW /HPF; Protein,Urine <15 mg/dL mg/dL (Negative); Urobilinogen,Urine < 2.0 mg/dL (<2.0)
--- NOTE | 2018-02-08 19:47 | XRay Report ---
FINAL REPORT EXAM: XR CHEST 1V AP HISTORY: chest pain TECHNIQUE: upright single view chest PRIORS: None. FINDINGS: Cardiac and mediastinal contours are unremarkable. No focal pulmonary infiltrate is identified. No pleural fluid collection seen. Pulmonary vasculature is unremarkable. IMPRESSION: Negative single-view chest
--- NOTE | 2018-02-08 19:47 | XRay Report ---
FINAL REPORT EXAM: XR ABDOMEN 1V AP HISTORY: LUQ abd pain TECHNIQUE: Supine abdomen PRIORS: None. FINDINGS: Moderate amount of stool and gas present within the colon. No evidence of colonic or small bowel dilatation. No signs of free air. No abnormal calcifications are identified. IMPRESSION: Nonobstructive bowel gas pattern. No acute abnormality seen.
[2018-02-08 20:00] LABS: Alanine Aminotransferase 10 units/L (7-56); Albumin 4.3 g/dL (3.9-5); BUN/Creatinine Ratio 10; Blood Urea Nitrogen 6 mg/dL (7-17); Calcium 8.9 mg/dL (8.4-10.2); Hemolysis Index 2; Lipase 67 units/L (13-60)
[2018-02-08] MEDS ORDERED: K-DUR PO ONE (20:01)
--- NOTE | 2018-02-08 20:02 | Emergency Department Report ---
ED Abdominal Pain HPI - General Chief Complaint: Abdominal Pain Stated Complaint: SEIZURE Time Seen by Provider: 02/08/18 16:48 Source: patient, EMS Mode of arrival: Stretcher Limitations: No Limitations - History of Present Illness Severity scale (0 -10): 0 - Related Data Previous Rx's Medication Instructions Recorded Last Taken Type Ondansetron [Zofran Odt] 4 mg PO Q6H #10 tab.rapdis 07/22/17 Unknown Rx traMADol [Ultram] 50 mg PO Q6HR PRN #10 tablet 07/22/17 Unknown Rx Dicyclomine [Bentyl] 10 mg PO QID PRN #20 capsule 08/04/17 Unknown Rx Metoclopramide [Reglan] 10 mg PO QID PRN #30 tablet 08/04/17 Unknown Rx Promethazine [Phenergan SUPPOS] 50 mg [place] Q6H PRN #20 supp.rect 08/04/17 Unknown Rx levETIRAcetam [Keppra TAB] 750 mg PO BID #60 tablet 01/31/18 Unknown Rx Allergies Allergy/AdvReac Type Severity Reaction Status Date / Time No Known Allergies Allergy Verified 08/04/17 10:43 ED Review of Systems ROS: Stated complaint: SEIZURE Other details as noted in HPI ED Past Medical Hx - Past Medical History Hx Seizures: Yes Hx Asthma: Yes - Surgical History Additional Surgical History: c - cect 07/25/06, diverticulitis - Social History Smoking Status: Never Smoker Substance Use Type: None - Medications Home Medications: Home Medications Medication Instructions Recorded Confirmed Last Taken Type Ondansetron [Zofran Odt] 4 mg PO Q6H #10 tab.rapdis 07/22/17 Unknown Rx traMADol [Ultram] 50 mg PO Q6HR PRN #10 tablet 07/22/17 Unknown Rx Dicyclomine [Bentyl] 10 mg PO QID PRN #20 capsule 08/04/17 Unknown Rx Metoclopramide [Reglan] 10 mg PO QID PRN #30 tablet 08/04/17 Unknown Rx Promethazine [Phenergan SUPPOS] 50 mg [place] Q6H PRN #20 supp.rect 08/04/17 Unknown Rx levETIRAcetam [Keppra TAB] 750 mg PO BID #60 tablet 01/31/18 Unknown Rx ED Physical Exam - General Limitations: No Limitations General appearance: alert, in no apparent distress - Head Head exam: Present: atraumatic, normocephalic - Eye Eye exam: Present: normal appearance - ENT ENT exam: Present: mucous membranes moist - Neck Neck exam: Present: normal inspection - Respiratory Respiratory exam: Present: normal lung sounds bilaterally. Absent: respiratory distress - Cardiovascular Cardiovascular Exam: Present: regular rate, normal rhythm. Absent: systolic murmur, diastolic murmur, rubs, gallop - GI/Abdominal GI/Abdominal exam: Present: soft, tenderness (LUQ), normal bowel sounds. Absent : guarding, rebound - Extremities Exam Extremities exam: Present: normal inspection - Back Exam Back exam: Present: normal inspection - Neurological Exam Neurological exam: Present: alert, oriented X3 - Psychiatric Psychiatric exam: Present: normal mood, anxious - Skin Skin exam: Present: warm, dry, intact, normal color. Absent: rash ED Course Vital Signs 02/08/18 02/08/18 16:59 20:03 Temperature 98.3 F Pulse Rate 55 L 74 Respiratory 17 16 Rate Blood Pressure 124/73 Blood Pressure 127/57 [Left] O2 Sat by Pulse 100 97 Oximetry ED Medical Decision Making - Lab Data Result diagrams: 02/08/18 18:28 02/08/18 18:28 - Medical Decision Making 27-year-old female with past medical history of chronic abdominal pain that presents with acute on chronic abdominal pain. Vital signs stable. Patient is in severe distress on presentation. She was crying and rolling around in the bed screaming that her belly hurt. 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 Her abdominal pain seems to be distractible. Lab work significant for potassium at 3.1. I gave the patient oral potassium for repletion, but she refused it. Chest and abdominal x -rays were unremarkable. An concern for possible drug-seeking behavior versus conversion disorder. Patient has had these episodes every day for the past 6 years. Low concern for emergent pathology. Patient was given 5 mg IM Haldol and 1 mg IM Dilaudid. On reevaluation, patient says that she feels much better. She has a follow-up appointment scheduled with the pain clinic, as well as [employer] [employer]. Patient is cleared for discharge. I told her to take potassium supplements [id number] daily for the next week. - Differential Diagnosis ischemic colitis versus gastritis, hiatal hernia, GERD, uti, pyelo, acs Critical care attestation.: If time is entered above; I have spent that time in minutes in the direct care of this critically ill patient, excluding procedure time. ED Disposition Clinical Impression: Hypokalemia, Abdominal pain Disposition: TO HOME OR SELFCARE Is pt being admited?: No Does the pt Need Aspirin: No Condition: Stable Instructions: Abdominal Pain (ED) Additional Instructions: Please follow up with your family doctor and your team of specialists for further work up of your abdominal pain. Referrals: PRIMARY CARE, [Primary Care Provider] - 3-5 Days
[2018-02-08 20:03] VITALS: BP 127/57
== END 2018-02-08 21:07 | disposition left against medical advice (07) ==
LOC: ED 16:27 → EDBD 16:27 → ED 21:07
DX: E87.6 Hypokalemia (principal); R10.12 Left upper quadrant pain; J45.909 Unspecified asthma, uncomplicated
CPT/HCPCS: 36415; 71045; 74018; 80053; 81001; 82140; 83690; 84703; 85025; 96372; 99284; J1170; J1630; J7030

== ENCOUNTER 2018-02-11 04:35 | Emergency (ER) | payer MEDICAID ==
[2018-02-11] MEDS ORDERED: NACL 0.9% 1000 ML 1,000 ML IV ONE ×2 (04:45→07:31)
[2018-02-11 05:36] LABS: Basophils # (Auto) 0.1 K/mm3 (0.0-0.1); Basophils % (Auto) 0.7 % (0.0-1.8); Eosinophils # (Auto) 0.1 K/mm3 (0.0-0.4); Eosinophils % (Auto) 0.7 % (0.0-4.3); Hematocrit 39.2 % (30.3-42.9); Hemoglobin 13.5 gm/dl (10.1-14.3); Lymphocytes # (Auto) 4.1 K/mm3 (1.2-5.4); Lymphocytes % (Auto) 39.8 % (13.4-35.0); Mean Corpuscular HGB Conc 34 % (30-34); Mean Corpuscular Hemoglobin 32 pg (28-32); Mean Corpuscular Volume 94 fl (79-97); Monocytes # (Auto) 0.8 K/mm3 (0.0-0.8); Monocytes % (Auto) 8.1 % (0.0-7.3); Red Blood Count 4.18 M/mm3 (3.65-5.03); Red Cell Distribution Width 13.8 % (13.2-15.2)
[2018-02-11 05:49] LABS: Platelet Count 173 K/mm3 (140-440)
[2018-02-11 05:57] LABS: Alanine Aminotransferase 12 units/L (7-56); Albumin 3.3 g/dL (3.9-5); BUN/Creatinine Ratio 9; Blood Urea Nitrogen 6 mg/dL (7-17); Calcium 9.7 mg/dL (8.4-10.2)
[2018-02-11 06:16] LABS: Bilirubin,Urine NEG (Negative); Blood,Urine NEG (Negative); Color,Urine Yellow (Yellow); Mucus,Urine FEW /HPF; Urobilinogen,Urine < 2.0 mg/dL (<2.0)
[2018-02-11] MEDS ORDERED: PEPCID IV ONE (07:19)
[2018-02-11] MEDS ORDERED: MORPHINE IV ONE (07:19)
[2018-02-11] MEDS ORDERED: ZOFRAN IV ONE (07:19)
[2018-02-11] MEDS ORDERED: ATIVAN IV ONE (07:19)
--- NOTE | 2018-02-11 07:29 | Emergency Department Report ---
ED Abdominal Pain HPI - General Chief Complaint: Abdominal Pain Stated Complaint: SEIZURES/ABD PAIN Source: patient, EMS Mode of arrival: Stretcher Limitations: No Limitations - History of Present Illness Initial Comments: Ms. Rich has hx of seizure and recurrent abdominal pain. Pain is present for 6 years. She does not yet have a diagnosis. She has seen multiple specialists. She recently changed from PCP Dr. Gabby Bailey. She had previously been followed by the [facility] system. She is attempting to establish primary care with a new physician. She also has been referred to pain management. Currently she has severe left upper quadrant pain. Gradual onset over the few days. MD Complaint: abdominal pain -: Gradual, year(s) (6) Location: LUQ Radiation: none Severity: severe Severity scale (0 -10): 10 Quality: cramping, sharp Consistency: constant Improves With: nothing Worsens With: nothing Associated Symptoms: nausea, vomiting - Related Data Previous Rx's Medication Instructions Recorded Last Taken Type Ondansetron [Zofran Odt] 4 mg PO Q6H #10 tab.rapdis 07/22/17 Unknown Rx traMADol [Ultram] 50 mg PO Q6HR PRN #10 tablet 07/22/17 Unknown Rx Dicyclomine [Bentyl] 10 mg PO QID PRN #20 capsule 08/04/17 Unknown Rx Metoclopramide [Reglan] 10 mg PO QID PRN #30 tablet 08/04/17 Unknown Rx Promethazine [Phenergan SUPPOS] 50 mg [place] Q6H PRN #20 supp.rect 08/04/17 Unknown Rx levETIRAcetam [Keppra TAB] 750 mg PO BID #60 tablet 01/31/18 Unknown Rx traMADol [Ultram 50 MG tab] 50 mg PO Q6HR PRN #10 tablet 02/11/18 Unknown Rx Allergies Allergy/AdvReac Type Severity Reaction Status Date / Time No Known Allergies Allergy Verified 08/04/17 10:43 ED Review of Systems ROS: Stated complaint: SEIZURES/ABD PAIN Other details as noted in HPI Comment: All other systems reviewed and negative Constitutional: denies: fever, malaise Cardiovascular: denies: chest pain Gastrointestinal: abdominal pain, nausea, vomiting ED Past Medical Hx - Past Medical History Previous Medical History?: Yes Hx Seizures: Yes Hx Asthma: Yes - Surgical History Additional Surgical History: c - cect 12/13/06, diverticulitis - Social History Smoking Status: Current Every Day Smoker Substance Use Type: None - Medications Home Medications: Home Medications Medication Instructions Recorded Confirmed Last Taken Type Ondansetron [Zofran Odt] 4 mg PO Q6H #10 tab.rapdis 07/22/17 Unknown Rx traMADol [Ultram] 50 mg PO Q6HR PRN #10 tablet 07/22/17 Unknown Rx Dicyclomine [Bentyl] 10 mg PO QID PRN #20 capsule 08/04/17 Unknown Rx Metoclopramide [Reglan] 10 mg PO QID PRN #30 tablet 08/04/17 Unknown Rx Promethazine [Phenergan SUPPOS] 50 mg AL Q6H PRN #20 supp.rect 08/04/17 Unknown Rx levETIRAcetam [Keppra TAB] 750 mg PO BID #60 tablet 01/31/18 Unknown Rx traMADol [Ultram 50 MG tab] 50 mg PO Q6HR PRN #10 tablet 02/11/18 Unknown Rx ED Physical Exam - General Limitations: No Limitations General appearance: alert, other (appears in severe pain, actively vomiting, sitting up rocking tearful) - Head Head exam: Present: atraumatic, normocephalic - Eye Eye exam: Present: normal appearance. Absent: scleral icterus, conjunctival injection - ENT ENT exam: Present: mucous membranes moist - Neck Neck exam: Present: normal inspection. Absent: tenderness, meningismus - Respiratory Respiratory exam: Present: normal lung sounds bilaterally. Absent: respiratory distress, wheezes, rales, rhonchi - Cardiovascular Cardiovascular Exam: Present: regular rate, normal rhythm, normal heart sounds - GI/Abdominal GI/Abdominal exam: Present: soft. Absent: distended, tenderness, guarding, rebound - Neurological Exam Neurological exam: Present: alert, oriented X3 - Psychiatric Psychiatric exam: Present: normal affect, normal mood, other (appropriate to situation) - Skin Skin exam: Present: warm, dry, intact, normal color ED Course Vital Signs 02/11/18 02/11/18 05:08 05:25 Temperature 97.7 F Pulse Rate 89 Respiratory 22 20 Rate Blood Pressure 148/91 [Left] O2 Sat by Pulse 95 95 Oximetry ED Medical Decision Making - Lab Data Result diagrams: 02/11/18 04:57 02/11/18 04:57 Laboratory Results - last 24 hr 02/11/18 02/11/18 02/11/18 04:57 04:57 05:24 WBC 10.4 RBC 4.18 Hgb 13.5 Hct 39.2 MCV 94 MCH 32 MCHC 34 RDW 13.8 Plt Count 173 Lymph % (Auto) 39.8 H [place] % (Auto) 8.1 H Eos % (Auto) 0.7 Baso % (Auto) 0.7 Lymph # 4.1 [place] # 0.8 Eos # 0.1 Baso # 0.1 Seg Neutrophils % 50.7 Seg Neutrophils # 5.3 Sodium 141 Potassium 3.6 Chloride 102.5 Carbon Dioxide 16 L D Anion Gap 26 BUN 6 L Creatinine 0.7 Estimated GFR > 60 BUN/Creatinine Ratio 9 Glucose 123 H Calcium 9.7 Total Bilirubin 0.50 AST 23 ALT 12 Alkaline Phosphatase 37 Total Protein 7.2 Albumin 3.3 L Albumin/Globulin Ratio 0.8 Urine Color Yellow Urine Turbidity Clear Urine pH 7.0 Ur Specific [place] 1.017 Urine Protein 30 mg/dl Urine Glucose (UA) Neg Urine Ketones 20 Urine Blood Neg Urine Nitrite Neg Urine Bilirubin Neg Urine Urobilinogen < 2.0 Ur Leukocyte Esterase Tr Urine WBC (Auto) 2.0 Urine RBC (Auto) 3.0 U Epithel Cells (Auto) 14.0 H Urine Mucus Few Vital Signs - 24 hr 02/11/18 02/11/18 05:08 05:25 Temperature 97.7 F Pulse Rate 89 Respiratory 22 20 Rate Blood Pressure 148/91 [Left] O2 Sat by Pulse 95 95 Oximetry - Medical Decision Making Ms. Redd is presents with recurrent abdominal pain. Has a history of similar pain. She does have elevated anion gap with ketonuria indicative of mild starvation ketosis. Grandmother is here. She was able to give the hx provided above. Grandmother requested prescription for tramadol. Klarissa has referral to pain mamagement. I have referred her to outpatient clinics. Critical care attestation.: If time is entered above; I have spent that time in minutes in the direct care of this critically ill patient, excluding procedure time. ED Disposition Clinical Impression: Abdominal pain Disposition: DC-01 TO HOME OR SELFCARE Is pt being admited?: No Does the pt Need Aspirin: No Condition: Stable Instructions: Abdominal Pain (ED) Prescriptions: traMADol [Ultram 50 MG tab] 50 mg PO Q6HR PRN #10 tablet PRN Reason: Pain Referrals: [facility] [Outside] - 3-5 Days JANETH BATEMAN MD [Staff Physician] - 3-5 Days Time of Disposition: 10:38
[2018-02-11 14:09] VITALS: BP 134/74
== END 2018-02-11 10:50 | disposition home or self-care (01) ==
LOC: ED 04:35
DX: R10.12 Left upper quadrant pain (principal); J45.909 Unspecified asthma, uncomplicated; F17.200 Nicotine dependence, unspecified, uncomplicated
CPT/HCPCS: 36415; 80053; 81001; 85025; 96361; 96374; 96375; 99284; J2060; J2270; J2405; J7030

== ENCOUNTER 2018-03-21 07:42 | Emergency (ER) | payer MEDICAID ==
[2018-03-21 09:37] LABS: Hematocrit 37.3 % (30.3-42.9); Hemoglobin 12.6 gm/dl (10.1-14.3); Mean Corpuscular HGB Conc 34 % (30-34); Mean Corpuscular Hemoglobin 32 pg (28-32); Mean Corpuscular Volume 95 fl (79-97); Platelet Count 168 K/mm3 (140-440); Red Blood Count 3.95 M/mm3 (3.65-5.03); Red Cell Distribution Width 13.8 % (13.2-15.2)
[2018-03-21 09:49] LABS: BUN/Creatinine Ratio 12; Blood Urea Nitrogen 7 mg/dL (7-17); Calcium 8.8 mg/dL (8.4-10.2); Hemolysis Index 20
[2018-03-21] MEDS ORDERED: KEPPRA 1,000 MG/NS 0.75% 100ML 1,000 MG/100 ML BAG IV ONE (10:27)
[2018-03-21] MEDS ORDERED: K-DUR PO ONE (10:29)
[2018-03-21] MEDS ORDERED: ZOFRAN IV ONE (10:44)
[2018-03-21] MEDS ORDERED: DILAUDID IV ONE (10:44)
--- NOTE | 2018-03-21 12:15 | Emergency Department Report ---
ED Seizure HPI - General Chief Complaint: Seizure Stated Complaint: SEIZURE Time Seen by Provider: 03/21/18 10:26 Source: patient, EMS, old records reviewed (several visits in the last 3 months for either abdominal pain or seizure ) Mode of arrival: Stretcher Limitations: Other - History of Present Illness Initial Comments: 28-year-old female with a past medical history of asthma, seizures, and chronic abdominal pain currently under pain management presents to Hospital with complaints of seizure and abdominal pain. Patient had one seizure prior to arrival and one in route witnessed by EMS. Patient received Ativan 2 mg IM prior to arrival him drowsy. History of present illness is obtained from grandmother at the bedside. Patient initially with eyes closed and not waking up to answer questions with intermittent shaking due to her chronic left upper quadrant abdominal pain. Patient has received recent injections due to this pain. Grandmother reports the patient is not currently taking any seizure medication and not currently taking any pain medication at home. Patient does wake up to ask for pain medication otherwise not have a conversation at this time. Grandmother states that the pain seems to trigger her seizures. - Related Data Previous Rx's Medication Instructions Recorded Last Taken Type Ondansetron [Zofran Odt] 4 mg PO Q6H #10 tab.rapdis 07/22/17 Unknown Rx traMADol [Ultram] 50 mg PO Q6HR PRN #10 tablet 07/22/17 Unknown Rx Dicyclomine [Bentyl] 10 mg PO QID PRN #20 capsule 08/04/17 Unknown Rx Metoclopramide [Reglan] 10 mg PO QID PRN #30 tablet 08/04/17 Unknown Rx Promethazine [Phenergan SUPPOS] 50 mg ID Q6H PRN #20 supp.rect 08/04/17 Unknown Rx traMADol [Ultram 50 MG tab] 50 mg PO Q6HR PRN #10 tablet 02/11/18 Unknown Rx levETIRAcetam [Keppra TAB] 750 mg PO BID #60 tablet 03/21/18 Unknown Rx Allergies Allergy/AdvReac Type Severity Reaction Status Date / Time No Known Allergies Allergy Verified 08/04/17 10:43 ED Review of Systems ROS: Stated complaint: SEIZURE Other details as noted in HPI Comment: All other systems reviewed and negative ED Past Medical Hx - Past Medical History Previous Medical History?: Yes Hx Seizures: Yes (Not taking meds at present - has new appt with neurologist) Hx Asthma: Yes - Surgical History Past Surgical History?: No Additional Surgical History: c - cect 07/25/06, diverticulitis - Social History Smoking Status: Former Smoker Substance Use Type: None - Medications Home Medications: Home Medications Medication Instructions Recorded Confirmed Last Taken Type Ondansetron [Zofran Odt] 4 mg PO Q6H #10 tab.rapdis 07/22/17 Unknown Rx traMADol [Ultram] 50 mg PO Q6HR PRN #10 tablet 07/22/17 Unknown Rx Dicyclomine [Bentyl] 10 mg PO QID PRN #20 capsule 08/04/17 Unknown Rx Metoclopramide [Reglan] 10 mg PO QID PRN #30 tablet 08/04/17 Unknown Rx Promethazine [Phenergan SUPPOS] 50 mg ID Q6H PRN #20 supp.rect 08/04/17 Unknown Rx traMADol [Ultram 50 MG tab] 50 mg PO Q6HR PRN #10 tablet 02/11/18 Unknown Rx levETIRAcetam [Keppra TAB] 750 mg PO BID #60 tablet 03/21/18 Unknown Rx ED Physical Exam - General Limitations: Other - Other Other exam information: General: No limitations, patient is alert in no acute distress Head exam: Atraumatic, normocephalic Eyes exam: Normal appearance, pupils equal reactive to light, extraocular movements intact ENT: Moist mucous membrane, normal oropharynx Neck exam: Normal inspection, full range of motion, no meningismus nontender Respiratory exam: Clear to auscultation bilateral, no wheezes, rales, crackles Cardiovascular: Normal rate and rhythm, normal heart sounds Abdomen: Soft, nondistended, left upper quadrant tenderness, with normal bowel sounds, no rebound, or guarding Extremity: Full range of motion normal inspection no deformity Back: Normal Inspection, full range of motion, no tenderness Neurologic: Drowsy but arousable. No facial droop. Speech clear. Equal hand pearl peller and foot dorsiflexion. Sensation grossly intact Psychiatric: normal affect, normal mood Skin: Warm, dry, intact ED Course Vital Signs 03/21/18 03/21/18 03/21/18 07:54 08:00 08:20 Temperature 98.2 F Pulse Rate 66 75 Respiratory 29 H 22 Rate Blood Pressure 138/77 147/80 O2 Sat by Pulse 100 99 100 Oximetry 03/21/18 03/21/18 03/21/18 08:30 09:58 10:00 Temperature Pulse Rate 67 69 68 Respiratory 21 24 13 Rate Blood Pressure 133/89 133/89 133/89 O2 Sat by Pulse 99 94 99 Oximetry 03/21/18 03/21/18 03/21/18 11:00 12:00 12:32 Temperature 98.4 F Pulse Rate 86 50 L Respiratory 21 17 Rate Blood Pressure 131/86 126/68 O2 Sat by Pulse 99 100 Oximetry 03/21/18 03/21/18 13:00 14:00 Temperature Pulse Rate 67 58 L Respiratory 22 15 Rate Blood Pressure 105/44 105/44 O2 Sat by Pulse 99 98 Oximetry - Reevaluation(s) Reevaluation #1: 03/21/18 16:37 She has been resting in the ED and now feels better and gait was stable after receiving 1 L of normal saline. ED Medical Decision Making - Lab Data Result diagrams: 03/21/18 09:16 03/21/18 09:16 Lab Results 03/21/18 03/21/18 03/21/18 Range/Units 09:16 09:16 09:16 WBC 8.7 (4.5-11.0) K/mm3 RBC 3.95 (3.65-5.03) M/mm3 Hgb 12.6 (10.1-14.3) gm/dl Hct 37.3 (30.3-42.9) % MCV 95 (79-97) fl MCH 32 (28-32) pg MCHC 34 (30-34) % RDW 13.8 (13.2-15.2) % Plt Count 168 (140-440) K/mm3 Sodium 140 (137-145) mmol/L Potassium 3.3 L (3.6-5.0) mmol/L Chloride 103.3 (98-107) mmol/L Carbon Dioxide 20 L (22-30) mmol/L Anion Gap 20 mmol/L BUN 7 (7-17) mg/dL Creatinine 0.6 L (0.7-1.2) mg/dL Estimated GFR > 60 ml/min BUN/Creatinine Ratio 12 % Glucose 116 H (65-100) mg/dL Calcium 8.8 (8.4-10.2) mg/dL Magnesium 1.90 (1.7-2.3) mg/dL HCG, Qual (Negative) 03/21/18 Range/Units 10:31 WBC (4.5-11.0) K/mm3 RBC (3.65-5.03) M/mm3 Hgb (10.1-14.3) gm/dl Hct (30.3-42.9) % MCV (79-97) fl MCH (28-32) pg MCHC (30-34) % RDW (13.2-15.2) % Plt Count (140-440) K/mm3 Sodium (137-145) mmol/L Potassium (3.6-5.0) mmol/L Chloride (98-107) mmol/L Carbon Dioxide (22-30) mmol/L Anion Gap mmol/L BUN (7-17) mg/dL Creatinine (0.7-1.2) mg/dL Estimated GFR ml/min BUN/Creatinine Ratio % Glucose (65-100) mg/dL Calcium (8.4-10.2) mg/dL Magnesium (1.7-2.3) mg/dL HCG, Qual Negative (Negative) - Medical Decision Making Seizure Noncompliant with seizure medication Patient alert and oriented at time of discharge was stable gait Received IV Keppra in the ED Be discharged on additional meds Chronic pain Chronic left upper quadrant abdominal pain Treated with Dilaudid and Zofran in the ED 1 dose Will be encouraged to continue her pain management follow-up Hypokalemia received kcl 40 meq - Differential Diagnosis seizure, conversion disorder, chronic pain, medication noncompliance Critical Care Time: No Critical care attestation.: If time is entered above; I have spent that time in minutes in the direct care of this critically ill patient, excluding procedure time. ED Disposition Clinical Impression: Seizure, Chronic abdominal pain, Hypokalemia Disposition: - TO HOME OR SELFCARE Is pt being admited?: No Does the pt Need Aspirin: No Condition: Stable Instructions: Epilepsy (ED), Chronic Pain (ED), Hypokalemia (ED) Additional Instructions: Take the medication as prescribed. Follow up with neurology. Return is symptoms worsen as indicated by your discharge instructions Prescriptions: levETIRAcetam [Keppra TAB] 750 mg PO BID #60 tablet Referrals: NAUN BERG MD [Staff Physician] - 3-5 Days (neurology) PIETRO MEZA MD [Staff Physician] - 3-5 Days (neurology) KARLIE DELAROSA MD [Staff Physician] - 3-5 Days (primary care doctor) [facility] [Provider Group] - 3-5 Days (primary care clinic) Time of Disposition: 16:40
[2018-03-21] MEDS ORDERED: NACL 0.9% 1000 ML 1,000 ML IV ONE (15:28)
[2018-03-21 16:10] VITALS: BP 105/44
== END 2018-03-21 17:24 | disposition home or self-care (01) ==
LOC: ED 07:42
DX: E87.6 Hypokalemia (principal); R56.9 Unspecified convulsions; G89.29 Other chronic pain; R10.12 Left upper quadrant pain; J45.909 Unspecified asthma, uncomplicated; Z87.891 Personal history of nicotine dependence
CPT/HCPCS: 36415; 80048; 83735; 84703; 85027; 96361; 96374; 96375; 99284; J1170; J1953; J2405

== ENCOUNTER 2018-03-26 08:46 | Emergency (ER) | payer MEDICAID ==
[2018-03-26 09:21] VITALS: BP 160/110
== END 2018-03-26 10:15 | disposition left against medical advice (07) ==
LOC: ED 08:46
DX: R10.9 Unspecified abdominal pain (principal); R11.2 Nausea with vomiting, unspecified; Z53.21 Procedure and treatment not carried out due to patient leaving prior to being seen by health care provider

== ENCOUNTER 2018-11-24 07:49 | Emergency (ER) | payer MEDICAID ==
[2018-11-24 07:54] VITALS: BP 127/67
--- NOTE | 2018-11-24 09:39 | Emergency Department Report ---
ED ENT HPI - General Chief complaint: Earache Stated complaint: CANT HEAR IN LEFT EAR Time Seen by Provider: 11/24/18 09:21 Source: patient Mode of arrival: Ambulatory Limitations: No Limitations - History of Present Illness Initial comments: Klarissa is a healthy 20-year-old female who has had her left ear plugged for 2 days. After washing and showering, she felt that her left ear was congested. She had decreased hearing. No trauma to the area. She did use Q-tips. She also uses hairdryer and hydroperoxide to dry and clean out her ear. MD complaint: other (ear pressure decreased hearing) -: Gradual, days(s) (2) Location: L ear Severity: moderate Improves with: none Worsens with: none Context- Ear: other (recent shower) Associated Symptoms: denies: fever, cough, toothache, pain with swallowing, tinnitus, hearing loss, discharge from ear, rhinorrhea - Related Data Previous Rx's Medication Instructions Recorded Last Taken Type Ondansetron [Zofran Odt] 4 mg PO Q6H #10 tab.rapdis 07/22/17 Unknown Rx traMADol [Ultram] 50 mg PO Q6HR PRN #10 tablet 07/22/17 Unknown Rx Dicyclomine [Bentyl] 10 mg PO QID PRN #20 capsule 08/04/17 Unknown Rx Metoclopramide [Reglan] 10 mg PO QID PRN #30 tablet 08/04/17 Unknown Rx Promethazine [Phenergan SUPPOS] 50 mg ID Q6H PRN #20 supp.rect 08/04/17 Unknown Rx traMADol [Ultram 50 MG tab] 50 mg PO Q6HR PRN #10 tablet 02/11/18 Unknown Rx levETIRAcetam [Keppra TAB] 750 mg PO BID #60 tablet 03/21/18 Unknown Rx Allergies Allergy/AdvReac Type Severity Reaction Status Date / Time No Known Allergies Allergy Verified 11/24/18 07:52 ED Dental HPI - General Chief complaint: Earache Stated complaint: CANT HEAR IN LEFT EAR Time Seen by Provider: 11/24/18 09:21 Source: patient Mode of arrival: Ambulatory Limitations: No Limitations - Related Data Previous Rx's Medication Instructions Recorded Last Taken Type Ondansetron [Zofran Odt] 4 mg PO Q6H #10 tab.rapdis 07/22/17 Unknown Rx traMADol [Ultram] 50 mg PO Q6HR PRN #10 tablet 07/22/17 Unknown Rx Dicyclomine [Bentyl] 10 mg PO QID PRN #20 capsule 08/04/17 Unknown Rx Metoclopramide [Reglan] 10 mg PO QID PRN #30 tablet 08/04/17 Unknown Rx Promethazine [Phenergan SUPPOS] 50 mg ID Q6H PRN #20 supp.rect 08/04/17 Unknown Rx traMADol [Ultram 50 MG tab] 50 mg PO Q6HR PRN #10 tablet 02/11/18 Unknown Rx levETIRAcetam [Keppra TAB] 750 mg PO BID #60 tablet 03/21/18 Unknown Rx Allergies Allergy/AdvReac Type Severity Reaction Status Date / Time No Known Allergies Allergy Verified 11/24/18 07:52 ED Review of Systems ROS: Stated complaint: CANT HEAR IN LEFT EAR Other details as noted in HPI Constitutional: denies: fever, malaise ENT: hearing loss. denies: ear pain, throat pain, dental pain Respiratory: denies: cough, shortness of breath ED Past Medical Hx - Past Medical History Hx Seizures: Yes Hx Asthma: Yes - Surgical History Additional Surgical History: c/s - Social History Smoking Status: Never Smoker Substance Use Type: None - Medications Home Medications: Home Medications Medication Instructions Recorded Confirmed Last Taken Type Ondansetron [Zofran Odt] 4 mg PO Q6H #10 tab.rapdis 07/22/17 Unknown Rx traMADol [Ultram] 50 mg PO Q6HR PRN #10 tablet 07/22/17 Unknown Rx Dicyclomine [Bentyl] 10 mg PO QID PRN #20 capsule 08/04/17 Unknown Rx Metoclopramide [Reglan] 10 mg PO QID PRN #30 tablet 08/04/17 Unknown Rx Promethazine [Phenergan SUPPOS] 50 mg ID Q6H PRN #20 supp.rect 08/04/17 Unknown Rx traMADol [Ultram 50 MG tab] 50 mg PO Q6HR PRN #10 tablet 02/11/18 Unknown Rx levETIRAcetam [Keppra TAB] 750 mg PO BID #60 tablet 03/21/18 Unknown Rx ED Physical Exam - General Limitations: No Limitations General appearance: alert, in no apparent distress - Eye Eye exam: Present: normal appearance. Absent: scleral icterus, conjunctival injection - ENT ENT exam: Present: other (right tympanic membrane within normal limits, cerumen impaction left ear) - Respiratory Respiratory exam: Absent: respiratory distress - Neurological Exam Neurological exam: Present: alert, oriented X3 - Psychiatric Psychiatric exam: Present: normal affect, normal mood - Skin Skin exam: Present: warm, dry, intact, normal color ED Course Vital Signs 11/24/18 07:52 Temperature 98.6 F Pulse Rate 88 Respiratory 18 Rate Blood Pressure 127/67 O2 Sat by Pulse 99 Oximetry - Ear Wax Removal Left Ear Cerumenolytic Used: 5-10% Sodium Bicarb solution (use prior to arrival by patient) Ear Canal Irrigated by: Ear Canal(s) Curettaged: plastic scoops Results: Re-examined: cerumen removed completel TM Visible: TM(s) intact, normal appe Ear Canal: bleeding Noted Patient Tolerated Procedure: well Complications: no problems Additional Comments: Large amount 3 ml of dense cerumen removed from right ear ED Medical Decision Making - Medical Decision Making Left ear cerumen impaction: Please see procedure note for earwax removal. Tympanic membrane intact with mild irritation and bleeding of the left auditory canal. Patient's hearing has returned completely. Supportive home therapy recommended. Critical care attestation.: If time is entered above; I have spent that time in minutes in the direct care of this critically ill patient, excluding procedure time. ED Disposition Clinical Impression: Impacted cerumen of left ear Disposition: - TO HOME OR SELFCARE Is pt being admited?: No Does the pt Need Aspirin: No Condition: Stable Instructions: Cerumen Impaction (ED) Referrals: COREY HANSON [Primary Care Provider] - 3-5 Days
== END 2018-11-24 09:45 | disposition home or self-care (01) ==
LOC: ED 07:49
DX: H61.22 Impacted cerumen, left ear (principal); J45.909 Unspecified asthma, uncomplicated

== ENCOUNTER 2018-12-22 06:15 | Emergency (ER) | payer MEDICAID ==
[2018-12-22] MEDS ORDERED: ATIVAN IV ONE (06:30)
[2018-12-22] MEDS ORDERED: ATIVAN ONE (06:32)
[2018-12-22] MEDS ORDERED: NACL 0.9% 1000 ML 1,000 ML IV ONE (06:50)
[2018-12-22 07:13] LABS: Basophils % (Auto) 0.4 % (0.0-1.8); Eosinophils % (Auto) 0.6 % (0.0-4.3); Hematocrit 37.9 % (30.3-42.9); Hemoglobin 13.1 gm/dl (10.1-14.3); Lymphocytes % (Auto) 13.8 % (13.4-35.0); Mean Corpuscular HGB Conc 35 % (30-34); Mean Corpuscular Volume 94 fl (79-97); Monocytes # (Auto) 0.4 K/mm3 (0.0-0.8); Monocytes % (Auto) 5.8 % (0.0-7.3); Platelet Count 173 K/mm3 (140-440); Red Blood Count 4.02 M/mm3 (3.65-5.03); Red Cell Distribution Width 13.8 % (13.2-15.2)
--- NOTE | 2018-12-22 07:30 | Emergency Department Report ---
ED General Adult HPI - General Chief complaint: Seizure Stated complaint: SEIZURE Time Seen by Provider: 12/22/18 06:48 Source: family, EMS Mode of arrival: Stretcher Limitations: No Limitations - History of Present Illness Initial comments: Patient presents to the ED via EMS. Initial call was for abdominal pain but the patient had a seizure. Patient received IV Versed and Ativan intranasally. The patient has a history of seizures and has not been taking her Keppra. Patient otherwise still have a seizure activity and received 2 Ativan for anesthesia. All the medications given for seizures the patient remained lucid and was able to give me history. Patient complains of abdominal pain that she's had for the last 7 years and states that no one has been able to find out why she is having the pain. Patient has a EGD scheduled for this coming Sunday at [facility]. -: Gradual Location: abdomen Radiation: non-radiation Severity scale (0 -10): 3 Quality: dull Consistency: constant Improves with: none Worsens with: none Associated Symptoms: denies other symptoms Treatments Prior to Arrival: none - Related Data Previous Rx's Medication Instructions Recorded Last Taken Type Ondansetron [Zofran Odt] 4 mg PO Q6H #10 tab.rapdis 07/22/17 Unknown Rx traMADol [Ultram] 50 mg PO Q6HR PRN #10 tablet 07/22/17 Unknown Rx Dicyclomine [Bentyl] 10 mg PO QID PRN #20 capsule 08/04/17 Unknown Rx Metoclopramide [Reglan] 10 mg PO QID PRN #30 tablet 08/04/17 Unknown Rx Promethazine [Phenergan SUPPOS] 50 mg MO Q6H PRN #20 supp.rect 08/04/17 Unknown Rx traMADol [Ultram 50 MG tab] 50 mg PO Q6HR PRN #10 tablet 02/11/18 Unknown Rx levETIRAcetam [Keppra TAB] 750 mg PO BID #60 tablet 03/21/18 Unknown Rx Allergies Allergy/AdvReac Type Severity Reaction Status Date / Time No Known Allergies Allergy Verified 11/24/18 07:52 ED Review of Systems ROS: Stated complaint: SEIZURE Other details as noted in HPI Comment: All other systems reviewed and negative Constitutional: denies: chills, fever Eyes: denies: eye pain, eye discharge, vision change ENT: denies: ear pain, throat pain Respiratory: denies: cough, shortness of breath, wheezing Cardiovascular: denies: chest pain, palpitations Endocrine: no symptoms reported Gastrointestinal: abdominal pain. denies: nausea, diarrhea Genitourinary: denies: urgency, dysuria, discharge Musculoskeletal: denies: back pain, joint swelling, arthralgia Skin: denies: rash, lesions Neurological: denies: headache, weakness, paresthesias Psychiatric: denies: anxiety, depression Hematological/Lymphatic: denies: easy bleeding, easy bruising ED Past Medical Hx - Past Medical History Previous Medical History?: Yes Hx Seizures: Yes Hx Asthma: Yes - Surgical History Past Surgical History?: Yes Additional Surgical History: c/s x 2 - Social History Smoking Status: Current Every Day Smoker Substance Use Type: None, Marijuana - Medications Home Medications: Home Medications Medication Instructions Recorded Confirmed Last Taken Type Ondansetron [Zofran Odt] 4 mg PO Q6H #10 tab.rapdis 07/22/17 Unknown Rx traMADol [Ultram] 50 mg PO Q6HR PRN #10 tablet 07/22/17 Unknown Rx Dicyclomine [Bentyl] 10 mg PO QID PRN #20 capsule 08/04/17 Unknown Rx Metoclopramide [Reglan] 10 mg PO QID PRN #30 tablet 08/04/17 Unknown Rx Promethazine [Phenergan SUPPOS] 50 mg MO Q6H PRN #20 supp.rect 08/04/17 Unknown Rx traMADol [Ultram 50 MG tab] 50 mg PO Q6HR PRN #10 tablet 02/11/18 Unknown Rx levETIRAcetam [Keppra TAB] 750 mg PO BID #60 tablet 03/21/18 Unknown Rx ED Physical Exam - General Limitations: No Limitations General appearance: alert, in no apparent distress - Head Head exam: Present: atraumatic, normocephalic - Eye Eye exam: Present: normal appearance, PERRL, EOMI - ENT ENT exam: Present: mucous membranes dry - Neck Neck exam: Present: normal inspection - Respiratory Respiratory exam: Present: normal lung sounds bilaterally. Absent: respiratory distress, wheezes, rales - Cardiovascular Cardiovascular Exam: Present: regular rate, normal rhythm. Absent: systolic murmur, diastolic murmur, rubs, gallop - GI/Abdominal GI/Abdominal exam: Present: soft, normal bowel sounds. Absent: distended, tenderness - Extremities Exam Extremities exam: Present: normal inspection - Back Exam Back exam: Present: normal inspection - Neurological Exam Neurological exam: Present: alert, oriented X3, CN II-XII intact. Absent: motor sensory deficit - Psychiatric Psychiatric exam: Present: normal affect, normal mood - Skin Skin exam: Present: warm, dry, intact, normal color. Absent: rash ED Course Vital Signs 12/22/18 12/22/18 12/22/18 06:33 06:41 06:45 Temperature 97.9 F Pulse Rate 79 78 80 Respiratory 8 L 16 17 Rate Blood Pressure 105/82 Blood Pressure 105/82 [Left] O2 Sat by Pulse 100 100 Oximetry 12/22/18 12/22/18 12/22/18 07:00 07:15 07:30 Temperature Pulse Rate 75 68 72 Respiratory 14 18 23 Rate Blood Pressure 116/60 116/60 106/57 Blood Pressure [Left] O2 Sat by Pulse 100 100 Oximetry 12/22/18 12/22/18 12/22/18 07:45 08:00 08:15 Temperature Pulse Rate 68 72 80 Respiratory 22 20 21 Rate Blood Pressure 111/58 114/65 115/67 Blood Pressure [Left] O2 Sat by Pulse 100 100 100 Oximetry 12/22/18 12/22/18 12/22/18 08:30 08:45 09:08 Temperature Pulse Rate 76 88 Respiratory 14 13 Rate Blood Pressure 112/63 116/65 116/65 Blood Pressure [Left] O2 Sat by Pulse 99 100 98 Oximetry 12/22/18 12/22/18 09:15 09:30 Temperature Pulse Rate Respiratory 10 L 23 Rate Blood Pressure 116/62 110/56 Blood Pressure [Left] O2 Sat by Pulse 100 97 Oximetry ED Medical Decision Making - Lab Data Result diagrams: 12/22/18 07:02 12/22/18 07:02 - Medical Decision Making The patient was informed of the findings of bilateral pulmonary emboli and the mass on the left ovary at approximately 9:55 AM at that time the patient became very belligerent and began to curse at staff and her grandmother. Patient refused any IV heparin and threatened to leave. The patient's workup was prolonged because the patient continued to be belligerent with staff and would not allow them to do the orders that were requested. She was verbally aggressive with her grandmother as well condition and her and threatening her. Patient stated that she was on a leave AGAINST MEDICAL ADVICE because she was tired of being here and does not want to wait for her results I discussed in detail with patient my concerns about her medical condition and she voiced understanding of her medical condition to stated that she was still going to leave and stated almost touch her or she was not signing paperwork. I discussed with patient again that her condition could lead to was verbally stated she understood and that was not going change her mind about leaving. The patient out her IV's and would not allow anybody to take them out Critical care attestation.: If time is entered above; I have spent that time in minutes in the direct care of this critically ill patient, excluding procedure time. ED Disposition Clinical Impression: Bilateral pulmonary embolism, Ovarian mass, left, Seizure Disposition: [id number] LEFT AGAINST MED ADVICE Is pt being admited?: No Does the pt Need Aspirin: No Condition: Stable Referrals: JUAN LUIS REAL MD [Primary Care Provider] - 3-5 Days
[2018-12-22 07:37] LABS: Alanine Aminotransferase 8 units/L (7-56); Albumin 3.9 g/dL (3.9-5); BUN/Creatinine Ratio 11; Blood Urea Nitrogen 8 mg/dL (7-17); Calcium 8.6 mg/dL (8.4-10.2); Hemolysis Index 9
[2018-12-22 08:34] LABS: Bacteria,Urine 1+ /HPF (Negative); Bilirubin,Urine NEG (Negative); Blood,Urine LG (Negative); Color,Urine Yellow (Yellow); Mucus,Urine FEW /HPF; Protein,Urine <15 mg/dL mg/dL (Negative); Urobilinogen,Urine < 2.0 mg/dL (<2.0)
[2018-12-22 08:36] LABS: HCG Qualitative,Urine Negative (Negative)
[2018-12-22 09:31] VITALS: BP 110/56
--- NOTE | 2018-12-22 09:55 | Cat Scan Report ---
EXAM: CT ABDOMEN PELVIS W CON HISTORY: abdominal pain TECHNIQUE: Spiral axial CT images are obtained through the abdomen and pelvis with the administration of oral contrast and with intravenous contrast. Additional coronal and sagittal reformatted images a re reconstructed. DOSIMETRY: Total DLP: 1169 mGycm COMPARISON: None available. FINDINGS: GASTROINTESTINAL TRACT: There are no stigmata of bowel obstruction, colitis or diverticulitis. A norm al-appearing appendix is seen. GENITOURINARY SYSTEM: The kidneys are unremarkable. There is no ureteral calculus or stigmata of obst ructive uropathy. The urinary bladder is grossly unremarkable for a non-dedicated exam. CT ABDOMEN: The liver, spleen, pancreas, adrenal glands, gallbladder, aorta, and inferior vena cava a re within normal limits for a noncontrast CT scan. There is no intra-abdominal or retroperitoneal ly mphadenopathy, free fluid, or free air seen. No abdominal herniation is noted. CT PELVIS: There is a large (approximately 5.7 cm transverse by 5.3 cm CC by 5.3 cm AP) left ovarian cyst, in keeping with a pathological lesion based on size criteria. Consider [facility] for further characterization as clinically warranted. Small amount of free fluid withi n the dependent pelvis/cul-de-sac; DDX includes (but is not limited to) physiologic change and/or seq uela of occult ovarian cyst leakage or rupture in the appropriate clinical setting. Clinical correlat ion is advised. The visualized bony structures are within normal limits. No pelvic sidewall or ingui nal lymphadenopathy is seen. No inguinal herniation is noted. No free air is seen. LUNG BASES: There are intravascular filling defects/PE is seen within the visualized posterior right lower lobe pulmonary arteries. There is a small subpleural parenchymal consolidation in the posterior lateral right lung base in keeping with atelectasis, but cannot rule out developing pulmonary infarc tion in the appropriate clinical setting. IMPRESSION: 1. Large (approximately 5.7 cm transverse by 5.3 cm CC by 5.3 cm AP) left ovarian cyst, in keeping w ith a pathological lesion based on size criteria. Consider correlation with a followup ultrasound for further characterization as clinically warranted. 2. Small amount of free fluid within the dependent pelvis/cul-de-sac; DDX includes (but is not limit ed to) physiologic change and/or sequela of occult ovarian cyst leakage or rupture in the appropriate clinical setting. Clinical correlation is advised. 3. No evidence for renal stone disease or obstructive uropathy. 4. No evidence for acute appendicitis, bowel obstruction, colitis or diverticulitis seen. 5. No free air, mass lesions, or lymphadenopathy seen. 6. Intravascular filling defects/PE is seen within the visualized posterior right lower lobe pulmona ry arteries. 7. Small subpleural parenchymal consolidation in the posterior lateral right lung base in keeping wi th atelectasis, but cannot rule out developing pulmonary infarction in the appropriate clinical setti ng. This document is electronically signed by Avinash Albert MD., Dec 22 2018 09:53:59 AM ET
[2018-12-22] MEDS ORDERED: PERCOCET 5/325 PO ONE (11:30)
[2018-12-22] MEDS ORDERED: PERCOCET 5/325 ONE (11:43)
--- NOTE | 2018-12-22 15:22 | Ultrasound Report ---
PROCEDURE: US TRANSVAGINAL, US PELVIC COMPLETE TECHNIQUE: Real-time transabdominal sonography in multiple planes of the pelvis was performed. The p elvic structures, especially the ovaries, were not optimally visualized. Transvaginal sonography was then performed to better evaluate the structures and/or abnormalities described below with image docu mentation. HISTORY: ovarian mass COMPARISONS: CT of the abdomen and pelvis performed on 12/22/2018 . FINDINGS: UTERUS Size: 10.4 x 3.4 x 4.6 cm. Endometrial thickness: 3 mm. Orientation: anteverted. Cervix: Normal. Fibroids/masses: None. RIGHT Ovary: 2.5 x 1 x 1.6 cm. Appearance: Normal morphology. Intact flow on color Doppler imaging. LEFT Ovary: The left ovary is not definitively identified. There is an irregular, ill-defined 6 x 3.2 x 4.5 cm lesion in the left adnexa with posterior shadowing. Pelvic fluid: Small amount of free fluid in the cul-de-sac. Other: None. IMPRESSION: Left ovary is not definitively identified. Irregular, ill-defined 6 x 3.2 x 4.5 cm lesion in the left adnexa with posterior shadowing. Different ial diagnosis includes a dermoid, ill-defined hemorrhagic cyst or endometrioma, or adjacent bowel loo p with internal air. Recommend further evaluation with MRI. Uterus and right ovary are normal in appearance. Small amount of free fluid in the cul-de-sac. This document is electronically signed by Genet Mazariegos MD., Dec 22 2018 03:20:52 PM ET
== END 2018-12-22 15:45 | disposition left against medical advice (07) ==
LOC: ED 06:15
DX: R56.9 Unspecified convulsions (principal); N83.202 Unspecified ovarian cyst, left side; I26.99 Other pulmonary embolism without acute cor pulmonale; J45.909 Unspecified asthma, uncomplicated; F17.200 Nicotine dependence, unspecified, uncomplicated; F12.10 Cannabis abuse, uncomplicated; Z79.899 Other long term (current) drug therapy
CPT/HCPCS: 36415; 74177; 76830; 76856; 80053; 81001; 81025; 82962; 83690; 85025; 93005; 93010; 96374; 99285; J2060; J7030; Q9967

== ENCOUNTER 2019-01-10 11:46 | Emergency (ER) | payer MEDICAID ==
--- NOTE | 2019-01-10 12:10 | Event Note ---
ED Screening Note ED Screening Note: HERE FOR LLQ PAIN DX WITH 5.3 CM CYST 12/26 HERE SAW PCP REFERRED TO NEW [facility]; SHES NOT SEEN CANT TAKE THE PAIN N/V NO FEVER STARTED BLEEDING THIS AM ALSO NEED RX FOR HER LIQUID KEPPRA RX ELOQUIS FOR PE DX HERE RECENTLY PMH PE SZ- OFF KEPPRA OVARIAN CYSTS THC NO CIG NO ETOH ALLERGIES LATEX PSH CSEC ECTOPIC This initial assessment/diagnostic orders/clinical plan/treatment(s) is/are subject to change based on patients health status, clinical progression and re- assessment by fellow clinical providers in the ED. Further treatment and workup at subsequent clinical providers discretion. Patient/guardian urged not to elope from the ED as their condition may be serious if not clinically assessed and hellen boland. Initial orders include: URINE BLOOD AJAY JOSE
[2019-01-10 12:13] VITALS: BP 117/53
[2019-01-10 12:52] LABS: Hematocrit 39.6 % (30.3-42.9); Hemoglobin 13.6 gm/dl (10.1-14.3); Mean Corpuscular HGB Conc 34 % (30-34); Mean Corpuscular Volume 96 fl (79-97); Platelet Count 172 K/mm3 (140-440); Red Blood Count 4.12 M/mm3 (3.65-5.03); Red Cell Distribution Width 13.6 % (13.2-15.2)
[2019-01-10 13:01] LABS: HCG Qualitative,Urine Negative (Negative)
[2019-01-10 13:07] LABS: Bacteria,Urine 1+ /HPF (Negative); Bilirubin,Urine NEG (Negative); Blood,Urine MOD (Negative); Color,Urine Yellow (Yellow); Mucus,Urine FEW /HPF; Protein,Urine <15 mg/dL mg/dL (Negative); Urobilinogen,Urine < 2.0 mg/dL (<2.0)
[2019-01-10 13:13] LABS: BUN/Creatinine Ratio 13; Blood Urea Nitrogen 8 mg/dL (7-17); Calcium 9.1 mg/dL (8.4-10.2); Hemolysis Index 28
[2019-01-10] MEDS ORDERED: PERCOCET 5/325 PO STA (14:56)
--- NOTE | 2019-01-10 17:25 | Emergency Department Report ---
ED Female HPI - General Chief complaint: Abdominal Pain Stated complaint: CYST ON L OVARIES/PAIN/BLEEDING Time Seen by Provider: 01/10/19 12:10 Source: patient Mode of arrival: Ambulatory Limitations: No Limitations - History of Present Illness MD Complaint: pelvic pain -: month(s) Location: suprapubic Radiation: non-radiating Severity: mild, moderate Quality: sharp, aching Consistency: constant Improves with: none Worsens with: none Are you Now?: No - Related Data Previous Rx's Medication Instructions Recorded Last Taken Type levETIRAcetam [Keppra TAB] 750 mg PO BID #60 tablet 02/16/19 Unknown Rx levETIRAcetam [Keppra] 750 mg PO BID #450 ml 02/16/19 Unknown Rx Allergies Allergy/AdvReac Type Severity Reaction Status Date / Time latex Allergy Rash Verified 02/16/19 14:21 ED Review of Systems ROS: Stated complaint: CYST ON L OVARIES/PAIN/BLEEDING Other details as noted in HPI Comment: All other systems reviewed and negative ED Past Medical Hx - Past Medical History Previous Medical History?: Yes Hx Pulmonary Embolism: Yes (2019) Hx Seizures: Yes Hx Asthma: Yes Additional medical history: DIVERTICULITIS, OVARIAN CYST, - Surgical History Past Surgical History?: Yes Additional Surgical History: c/s x 2, ectopic - Social History Smoking Status: Never Smoker Substance Use Type: Marijuana - Medications Home Medications: Home Medications Medication Instructions Recorded Confirmed Last Taken Type levETIRAcetam [Keppra TAB] 750 mg PO BID #60 tablet 02/16/19 Unknown Rx levETIRAcetam [Keppra] 750 mg PO BID #450 ml 02/16/19 Unknown Rx ED Physical Exam - General Limitations: No Limitations General appearance: alert, in no apparent distress - Head Head exam: Present: atraumatic, normocephalic - Eye Eye exam: Present: normal appearance, PERRL, EOMI - ENT ENT exam: Present: mucous membranes moist - Neck Neck exam: Present: normal inspection - Respiratory Respiratory exam: Present: normal lung sounds bilaterally. Absent: respiratory distress - Cardiovascular Cardiovascular Exam: Present: regular rate, normal rhythm. Absent: systolic murmur, diastolic murmur, rubs, gallop - GI/Abdominal GI/Abdominal exam: Present: soft, normal bowel sounds - Extremities Exam Extremities exam: Present: normal inspection - Back Exam Back exam: Present: normal inspection - Neurological Exam Neurological exam: Present: alert, oriented X3 - Psychiatric Psychiatric exam: Present: normal affect, normal mood - Skin Skin exam: Present: warm, dry, intact, normal color. Absent: rash ED Course Vital Signs 01/10/19 12:11 Temperature 98.5 F Pulse Rate 64 Respiratory 16 Rate Blood Pressure 117/53 [Right] O2 Sat by Pulse 100 Oximetry ED Medical Decision Making - Lab Data Result diagrams: 01/10/19 12:21 01/10/19 12:21 Critical care attestation.: If time is entered above; I have spent that time in minutes in the direct care of this critically ill patient, excluding procedure time. ED Disposition Clinical Impression: Pelvic pain Disposition: DC-07 LEFT AGAINST MED ADVICE Condition: Undetermined Instructions: Abdominal Pain (ED) Referrals: COREY HANSON [Primary Care Provider] - 3-5 Days Forms: AMA Form
--- NOTE | 2019-01-10 17:26 | Ultrasound Report ---
PROCEDURE: Transabdominal pelvic ultrasound. TECHNIQUE: Real-time transabdominal sonography in multiple planes of pelvis was performed with image documentation. HISTORY: severe adnexa pain. hx of large cyst COMPARISONS: Pelvic ultrasound 12/26/2018. FINDINGS: The uterus measures approximately 7.7 cm x 3.4 cm x 4.8 cm. The myometrium is unremarkable. The endom etrial echo complex appears normal. The right ovary appears normal in size and contains small follicl es. There is a large cyst in the left ovary measuring 7.6 cm in maximum dimension. There is no free f luid in the cul-de-sac. IMPRESSION: Large simple left ovarian cyst. This document is electronically signed by Pb Walden MD., Jan 10 2019 06:24:26 PM ET
--- NOTE | 2019-01-10 17:29 | Ultrasound Report ---
PROCEDURE: Transvaginal pelvic ultrasound with Doppler. TECHNIQUE: Real-time transvaginal sonography in multiple planes of the pelvis was performed with wilfredo ge documentation. Grayscale, color flow Doppler imaging and velocity spectral waveform analysis of th e ovaries was employed (duplex imaging). HISTORY: severe adnexa pain. hx of large cyst COMPARISONS: Pelvic ultrasound 12/26/2018. FINDINGS: The uterine myometrium appears homogeneous. There are no focal uterine masses. The endometrial echo c omplex is thin and uniform. The endometrium measures 2.4 mm. The right ovary appears normal in size. There is a large cyst in the left ovary with a maximum diameter of 6.3 cm. There is normal ovarian bl ood flow demonstrated in the left ovary by Doppler spectral analysis. There is a small amount of free fluid in the cul-de-sac. IMPRESSION: Large simple left ovarian cyst. This document is electronically signed by Pb Walden MD., Jan 10 2019 06:28:05 PM ET
== END 2019-01-10 17:25 ==
LOC: ED 11:46
DX: R10.32 Left lower quadrant pain (principal); R10.2 Pelvic and perineal pain; J45.909 Unspecified asthma, uncomplicated; F12.10 Cannabis abuse, uncomplicated; Z86.711 Personal history of pulmonary embolism; Z87.42 Personal history of other diseases of the female genital tract; Z91.040 Latex allergy status
CPT/HCPCS: 36415; 76830; 76856; 80048; 81001; 81025; 85027

== ENCOUNTER 2019-02-16 14:05 | Emergency (ER) | payer MEDICAID ==
[2019-02-16] MEDS ORDERED: KEPPRA 1,000 MG/NS 0.75% 100ML 1,000 MG/100 ML BAG IV ONE ×2 (14:13→14:22)
[2019-02-16] MEDS ORDERED: ATIVAN ONE (14:14)
[2019-02-16] MEDS ORDERED: ATIVAN IV ONE (14:21)
--- NOTE | 2019-02-16 16:36 | Emergency Department Report ---
HPI - General Chief Complaint: Seizure Time Seen by Provider: 02/16/19 16:25 - HPI HPI: Room 2 The patient is a 28-year-old female presenting with a chief complaint of seizure. The patient reportedly told family to call EMS because she felt as if she was going to have seizure. The patient was brought in by EMS to the ED having active seizure. Patient was administered 2 mg Ativan IV and 1 g of Keppra right to my evaluation. Patient is currently postictal and history is obtained from grandmother who lives with the patient. Grandmother states the patient has not had her Keppra approximately one year Location: [facility] Duration: [See above] Quality: [See above] Severity: [See above] Modifying factors: [see above] Context: [see above] Mode of transportation: [not driving] ED Past Medical Hx - Past Medical History Hx Pulmonary Embolism: Yes (2019) Hx Seizures: Yes Hx Asthma: Yes Additional medical history: DIVERTICULITIS, OVARIAN CYST, - Surgical History Past Surgical History?: Yes Additional Surgical History: c/s x 2, ectopic - Family History Family history: no significant - Social History Smoking Status: Never Smoker Substance Use Type: Marijuana - Medications Home Medications: Home Medications Medication Instructions Recorded Confirmed Last Taken Type levETIRAcetam [Keppra TAB] 750 mg PO BID #60 tablet 02/16/19 Unknown Rx ED Review of Systems ROS: Stated complaint: SEIZURES Other details as noted in HPI Comment: Unobtainable due to pts medical conditions (postictal) Physical Exam - Physical Exam Vital Signs: Vital Signs 02/16/19 14:11 Temperature 98.1 F Pulse Rate 56 L Respiratory 16 Rate Blood Pressure 147/69 O2 Sat by Pulse 100 Oximetry Physical Exam: GENERAL: The patient is well-developed well-nourished female lying on stretcher postictal. [] HEENT: Normocephalic. Atraumatic. Extraocular motions are intact. Patient has moist mucous membranes. NECK: Supple. Trachea midline CHEST/LUNGS: Clear to auscultation. There is no respiratory distress noted. HEART/CARDIOVASCULAR: Regular. There is no tachycardia. There is no gallop rub or murmur. ABDOMEN: Abdomen is soft, nontender. Patient has normal bowel sounds. There is no abdominal distention. SKIN: There is no rash. There is no edema. There is no diaphoresis. NEURO: The patient is postictal MUSCULOSKELETAL: There is no evidence of acute injury. ED Course Vital Signs 02/16/19 14:11 Temperature 98.1 F Pulse Rate 56 L Respiratory 16 Rate Blood Pressure 147/69 O2 Sat by Pulse 100 Oximetry - Reevaluation(s) Reevaluation #1: 02/16/19 17:33 Patient remains postictal. Patient arousable but very groggy. Will continue to observe Reevaluation #2: 02/16/19 18:31 Patient now awake and able to cooperate with neurologic exam. Cranial nerves II through XII grossly intact, no drift ED Medical Decision Making - Lab Data Result diagrams: 02/16/19 16:44 02/16/19 16:44 Laboratory Tests 02/16/19 02/16/19 02/16/19 16:44 16:44 16:44 WBC 8.1 RBC 3.80 Hgb 12.4 Hct 36.4 MCV 96 MCH 33 H MCHC 34 RDW 13.1 L Plt Count 143 Lymph % (Auto) Careers Adviser [place] % (Auto) Careers Adviser Eos % (Auto) Careers Adviser Baso % (Auto) Careers Adviser Lymph # Careers Adviser [place] # Careers Adviser Eos # Careers Adviser Baso # Careers Adviser Seg Neutrophils % Careers Adviser Seg Neutrophils # Careers Adviser Sodium 139 Potassium 3.8 Chloride 104.0 Carbon Dioxide 26 Anion Gap 13 BUN 8 Creatinine 0.7 Estimated GFR > 60 BUN/Creatinine Ratio 11 Glucose 103 H Calcium 9.3 Magnesium 2.20 HCG, Qual Negative - Differential Diagnosis seizure Critical care attestation.: If time is entered above; I have spent that time in minutes in the direct care of this critically ill patient, excluding procedure time. ED Disposition Clinical Impression: Seizure Disposition: DC-01 TO HOME OR SELFCARE Is pt being admited?: No Does the pt Need Aspirin: No Condition: Stable Instructions: Epilepsy (ED) Additional Instructions: Return to the emergency department immediately should you develop worsening symptoms, fever, inability to tolerate food or liquid or any other concerns. Prescriptions: levETIRAcetam [Keppra TAB] 750 mg PO BID #60 tablet Referrals: TRENT HERRERA MD [Primary Care Provider] - 3-5 Days NAUN SOMMER MD [Staff Physician] - 3-5 Days (Dr Sommer is a neurologist. Please follow-up with him to be established as a patient) Time of Disposition: 18:32
[2019-02-16 16:50] VITALS: BP 122/66
[2019-02-16 17:02] LABS: Hematocrit 36.4 % (30.3-42.9); Hemoglobin 12.4 gm/dl (10.1-14.3); Mean Corpuscular HGB Conc 34 % (30-34); Mean Corpuscular Volume 96 fl (79-97); Platelet Count 143 K/mm3 (140-440); Red Cell Distribution Width 13.1 % (13.2-15.2)
[2019-02-16 17:29] LABS: BUN/Creatinine Ratio 11; Blood Urea Nitrogen 8 mg/dL (7-17); Calcium 9.3 mg/dL (8.4-10.2); Hemolysis Index 6
== END 2019-02-16 18:56 | disposition home or self-care (01) ==
LOC: ED 14:05
DX: R56.9 Unspecified convulsions (principal); J45.909 Unspecified asthma, uncomplicated; F12.90 Cannabis use, unspecified, uncomplicated; Z79.899 Other long term (current) drug therapy; Z91.040 Latex allergy status
CPT/HCPCS: 36415; 80048; 83735; 84703; 85025; 96374; 96375; 99283; J1953; J2060

== ENCOUNTER 2019-03-20 07:08 | Emergency (ER) | payer MEDICAID ==
[2019-03-20 07:18] VITALS: BP 121/37
[2019-03-20 07:56] LABS: Basophils % (Auto) 0.6 % (0.0-1.8); Eosinophils # (Auto) 0.1 K/mm3 (0.0-0.4); Eosinophils % (Auto) 1.5 % (0.0-4.3); Hematocrit 37.2 % (30.3-42.9); Hemoglobin 12.8 gm/dl (10.1-14.3); Lymphocytes # (Auto) 2.2 K/mm3 (1.2-5.4); Lymphocytes % (Auto) 42.4 % (13.4-35.0); Mean Corpuscular HGB Conc 34 % (30-34); Mean Corpuscular Volume 94 fl (79-97); Monocytes # (Auto) 0.6 K/mm3 (0.0-0.8); Monocytes % (Auto) 10.7 % (0.0-7.3); Platelet Count 164 K/mm3 (140-440); Red Blood Count 3.96 M/mm3 (3.65-5.03); Red Cell Distribution Width 13.1 % (13.2-15.2)
[2019-03-20] MEDS ORDERED: NACL 0.9% 1000 ML 1,000 ML IV ONE (08:01)
[2019-03-20] MEDS ORDERED: ZOFRAN IV ONE (08:01)
[2019-03-20 08:07] LABS: INR 1.09 (0.87-1.13); Partial Thromboplastin Time 28.6 Sec. (24.2-36.6)
--- NOTE | 2019-03-20 08:07 | Emergency Department Report ---
ED General Adult HPI - General Chief complaint: Dizziness Stated complaint: /PE/DIZZINESS/LOWER ABD/VAG BLEEDING Time Seen by Provider: 03/20/19 07:48 Source: patient, old records reviewed Mode of arrival: Ambulatory Limitations: No Limitations - History of Present Illness Initial comments: 29-year-old female currently with a recently diagnosed pulmonary embolism, asthma, and seizures presents to the hospital with multiple complaints. She complains of dizziness, intermittent chest pain with shortness of breath, and abdominal cramps with vaginal bleeding. Dizziness. Patient has been feeling lightheaded and dizzy for several days. She complains of mild intermittent spinning sensation worse with sitting up. She feels rather than lying supine. Positive nausea with decreased fluid intake. Patient states she is drinking a lot of liquids. No vomiting or diarrhea reported. She also also reports history of a hiatal hernia. Chest pain and shortness of breath: Patient had an intermittent sternal sharp chest pain with shortness of breath worse on exertion. Symptoms have been intermittent since diagnosis of pulmonary embolism. Patient was diagnosed with a pulmonary embolism December 2018. She is a marijuana smoker and was on control during her ED diagnosis. She is currently on Elquis and has been compliant. Patient expresses concern that she is unsure if she still has a clot in her lung. Abdominal cramps with vaginal bleeding: Patient has had intermittent suprapubic cramping with vaginal spotting times one week. Patient has a history of C- section 2 and ectopic with unilateral salpingectomy. She was recently treated with vaginal suppositories for the bacterial vaginosis. Patient was seen here on March 11 had a hCG Quant of 512 and a right ovarian cyst on ultrasound. Patient had a repeat Quant as outpatient with her FIELD AGENT last week and reports a Quant of 814 at that time. She is unsure of her blood type. FIELD AGENT: Dr. Cook with mild FIELD AGENT Patient also takes Keppra for seizures - Related Data Previous Rx's Medication Instructions Recorded Last Taken Type levETIRAcetam [Keppra TAB] 750 mg PO BID #60 tablet 02/16/19 Unknown Rx levETIRAcetam [Keppra] 750 mg PO BID #450 ml 02/16/19 Unknown Rx Ondansetron [Zofran Odt] 4 mg PO Q8HR PRN #20 tab.rapdis 03/20/19 Unknown Rx Allergies Allergy/AdvReac Type Severity Reaction Status Date / Time latex Allergy Rash Verified 02/16/19 14:21 ED Review of Systems ROS: Stated complaint: /PE/DIZZINESS/LOWER ABD/VAG BLEEDING Other details as noted in HPI Comment: All other systems reviewed and negative ED Past Medical Hx - Past Medical History Hx Pulmonary Embolism: Yes (2019) Hx Seizures: Yes Hx Asthma: Yes Additional medical history: DIVERTICULITIS, OVARIAN CYST, - Surgical History Additional Surgical History: c/s x 2, ectopic - Social History Smoking Status: Never Smoker Substance Use Type: Marijuana - Medications Home Medications: Home Medications Medication Instructions Recorded Confirmed Last Taken Type levETIRAcetam [Keppra TAB] 750 mg PO BID #60 tablet 02/16/19 Unknown Rx levETIRAcetam [Keppra] 750 mg PO BID #450 ml 02/16/19 Unknown Rx Ondansetron [Zofran Odt] 4 mg PO Q8HR PRN #20 tab.rapdis 03/20/19 Unknown Rx ED Physical Exam - General Limitations: No Limitations - Other Other exam information: General: No limitations, patient is alert in no acute distress Head exam: Atraumatic, normocephalic Eyes exam: Normal appearance, pupils equal reactive to light, extraocular movements intact ENT: Moist mucous membrane, normal oropharynx Neck exam: Normal inspection, full range of motion, no meningismus nontender Respiratory exam: Clear to auscultation bilateral, no wheezes, rales, crackles Cardiovascular: Normal rate and rhythm, normal heart sounds, sternum nontender Abdomen: Soft, nondistended, and nontender, with normal bowel sounds, no rebound, or guarding Extremity: Full range of motion normal inspection no deformity Back: Normal Inspection, full range of motion, no tenderness Neurologic: Alert, oriented x3, cranial nerves intact, no motor or sensory deficit Psychiatric: normal affect, normal mood Skin: Warm, dry, intact ED Course Vital Signs 03/20/19 07:16 Temperature 98.2 F Pulse Rate 73 Respiratory 16 Rate Blood Pressure 121/37 O2 Sat by Pulse 98 Oximetry - Consultations Consultation #1: 03/20/19 11:18 case d/w Louise (covering Dr ortiz who is covering dr Bonds for My/OBgyn). INformed of ed tx, diagnosis and plan. Diagnosis of threatened ab, will d/c with f/u. She has an apt scheduled for 03/27/19. ED Medical Decision Making - Lab Data Result diagrams: 03/20/19 07:29 03/20/19 07:29 Lab Results 03/20/19 03/20/19 03/20/19 Range/Units 07:29 07:29 07:29 WBC 5.2 (4.5-11.0) K/mm3 RBC 3.96 (3.65-5.03) M/mm3 Hgb 12.8 (10.1-14.3) gm/dl Hct 37.2 (30.3-42.9) % MCV 94 (79-97) fl MCH 32 (28-32) pg MCHC 34 (30-34) % RDW 13.1 L (13.2-15.2) % Plt Count 164 (140-440) K/mm3 Lymph % (Auto) 42.4 H (13.4-35.0) % [place] % (Auto) 10.7 H (0.0-7.3) % Eos % (Auto) 1.5 (0.0-4.3) % Baso % (Auto) 0.6 (0.0-1.8) % Lymph # 2.2 (1.2-5.4) K/mm3 [place] # 0.6 (0.0-0.8) K/mm3 Eos # 0.1 (0.0-0.4) K/mm3 Baso # 0.0 (0.0-0.1) K/mm3 Seg Neutrophils % 44.8 (40.0-70.0) % Seg Neutrophils # 2.3 (1.8-7.7) K/mm3 PT 13.8 (12.2-14.9) Sec. INR 1.09 (0.87-1.13) APTT 28.6 (24.2-36.6) Sec. Sodium 136 L (137-145) mmol/L Potassium 3.6 (3.6-5.0) mmol/L Chloride 103.7 (98-107) mmol/L Carbon Dioxide 23 (22-30) mmol/L Anion Gap 13 mmol/L BUN 7 (7-17) mg/dL Creatinine 0.6 L (0.7-1.2) mg/dL Estimated GFR > 60 ml/min BUN/Creatinine Ratio 12 % Glucose 70 (65-100) mg/dL Calcium 8.9 (8.4-10.2) mg/dL Total Creatine Kinase 111 (30-135) units/L CK-MB (CK-2) 1.1 (0.0-4.0) ng/mL CK-MB (CK-2) Rel Index 0.9 (0-4) Troponin T < 0.010 (0.00-0.029) ng/mL HCG, Quant (0-4) mIU/mL Blood Type Antibody Screen 03/20/19 03/20/19 Range/Units 07:29 07:29 WBC (4.5-11.0) K/mm3 RBC (3.65-5.03) M/mm3 Hgb (10.1-14.3) gm/dl Hct (30.3-42.9) % MCV (79-97) fl MCH (28-32) pg MCHC (30-34) % RDW (13.2-15.2) % Plt Count (140-440) K/mm3 Lymph % (Auto) (13.4-35.0) % [place] % (Auto) (0.0-7.3) % Eos % (Auto) (0.0-4.3) % Baso % (Auto) (0.0-1.8) % Lymph # (1.2-5.4) K/mm3 [place] # (0.0-0.8) K/mm3 Eos # (0.0-0.4) K/mm3 Baso # (0.0-0.1) K/mm3 Seg Neutrophils % (40.0-70.0) % Seg Neutrophils # (1.8-7.7) K/mm3 PT (12.2-14.9) Sec. INR (0.87-1.13) APTT (24.2-36.6) Sec. Sodium (137-145) mmol/L Potassium (3.6-5.0) mmol/L Chloride (98-107) mmol/L Carbon Dioxide (22-30) mmol/L Anion Gap mmol/L BUN (7-17) mg/dL Creatinine (0.7-1.2) mg/dL Estimated GFR ml/min BUN/Creatinine Ratio % Glucose (65-100) mg/dL Calcium (8.4-10.2) mg/dL Total Creatine Kinase (30-135) units/L CK-MB (CK-2) (0.0-4.0) ng/mL CK-MB (CK-2) Rel Index (0-4) Troponin T (0.00-0.029) ng/mL HCG, Quant 70884 H (0-4) mIU/mL Blood Type O POSITIVE Antibody Screen Negative - EKG Data -: EKG Interpreted by Me EKG shows normal: sinus rhythm, axis (qrs 49), QRS complexes (qrsd 79) Rate: normal (69) - Radiology Data Radiology results: report reviewed CHEST 1 VIEW INDICATION: chest pain. COMPARISON: FINDINGS: Support devices: None. Heart: Within normal limits. Lungs/Pleura: No acute air space or interstitial disease. Additional findings: Mild thoracolumbar scoliosis is suspected. IMPRESSION: No acute findings. - Medical Decision Making Other differential: Threatened AB Patient complains of intermittent chest pain and shortness of breath. EKG, chest x-ray, troponin unremarkable. She is currently on Eliquis for recent diagnosis of pulmonary embolism. Patient has normal pulse ox, heart rate, a BP does not warrant any further imaging at this time. Patient received 1 L normal saline portable [facility]. She reports improvement in symptoms with IV fluid. Zofran for nausea. She declined offer for pain medication and did not have any abdominal tenderness, pain, or chest pain during my examination. Patient with intermittent cramps with associated perisplenic with diagnosis of threatened miscarriage. She is O+ and does not require RhoGAM. Hemoglobin is normal. Patient has increased hCG Quant with a intrauterine gestational sac with yolk sac on ultrasound. Case discussed with ONCOLOGY NAVIGATOR and follow up as scheduled for March 27. - Differential Diagnosis pneumonia, pneumothorax, pulmonary embolism, dehydration, anemia, ectopic Critical Care Time: No Critical care attestation.: If time is entered above; I have spent that time in minutes in the direct care of this critically ill patient, excluding procedure time. ED Disposition Clinical Impression: Intrauterine , Threatened , Light-headed feeling, History of pulmonary embolism, Anticoagulant long-term use Disposition: - TO HOME OR SELFCARE Is pt being admited?: No Does the pt Need Aspirin: No Condition: Stable Instructions: Threatened Miscarriage (ED), Pulmonary Embolism (GEN), Lightheadedness (ED) Additional Instructions: Take the medication as prescribed. Take Tylenol as needed for pain. Follow up with your doctor or the clinic/doctor provided. Return if symptoms worsen as indicated by your discharge instructions Prescriptions: Ondansetron [Zofran Odt] 4 mg PO Q8HR PRN #20 tab.rapdis PRN Reason: Nausea And Vomiting Referrals: CODI GARCIA MD [Staff Physician] - 03/27/19 Time of Disposition: 11:28
[2019-03-20] MEDS ORDERED: PEPCID IV ONE (08:08)
[2019-03-20 08:12] LABS: BUN/Creatinine Ratio 12; Blood Urea Nitrogen 7 mg/dL (7-17); Calcium 8.9 mg/dL (8.4-10.2); Creatine Kinase MB 1.1 ng/mL (0.0-4.0); Hemolysis Index 6
--- NOTE | 2019-03-20 10:03 | XRay Report ---
CHEST 1 VIEW INDICATION: chest pain. COMPARISON: FINDINGS: Support devices: None. Heart: Within normal limits. Lungs/Pleura: No acute air space or interstitial disease. Additional findings: Mild thoracolumbar scoliosis is suspected. IMPRESSION: No acute findings. Signer Name: Isaiah Harris Jr, MD Signed: 03/20/2019 9:59 AM Workstation Name: [id number]
--- NOTE | 2019-03-20 10:45 | Ultrasound Report ---
ULTRASOUND OB LESS THAN 14 WEEKS FETUS ULTRASOUND OB TRANSVAGINAL HISTORY: Abdominal pain and bleeding during , history of ectopic. COMPARISON: 03/11/2019 TECHNIQUE: Routine transabdominal and transvaginal OB ultrasound performed. FINDINGS: Uterus: Mildly enlarged measuring 8.9 x 4.7 x 5.8 cm. Gestational Sac: Well-defined oval shape and intrauterine in location. Yolk Sac: Normal in appearance. Fetus/Embryo: No pole is confidently identified at this time. No heart tones could be dem onstrated. Placenta: Too small for evaluation. Amniotic fluid volume: Subjectively appropriate for gestational age. Ovaries: The right ovary is normal in size and appearance with normal blood flow, measuring 3.4 x 1. 6 x 2.5 cm. The left ovary is normal in size and appearance with normal blood flow, measuring 2.3 x 1.2 x 1.6 cm. Hypoechoic space-occupying mass in the left ovary with peripheral vascularity is most likely the corpus luteum. Additional findings: None. IMPRESSION An intrauterine gestational sac containing a yolk sac is identified. No convincing pole or feta l cardiac activity could be demonstrated at this time. This could represent a normal early . Close interval follow-up is recommended. Signer Name: Isaiah Harris Jr, MD Signed: 03/20/2019 10:41 AM Workstation Name: [id number]
== END 2019-03-20 11:48 | disposition home or self-care (01) ==
LOC: ED 07:08
DX: O20.0 Threatened abortion (principal); O26.891 Other specified pregnancy related conditions, first trimester; R42 Dizziness and giddiness; O99.511 Diseases of the respiratory system complicating pregnancy, first trimester; J45.909 Unspecified asthma, uncomplicated; O99.321 Drug use complicating pregnancy, first trimester; F12.90 Cannabis use, unspecified, uncomplicated; Z86.711 Personal history of pulmonary embolism; Z79.01 Long term (current) use of anticoagulants; Z98.890 Other specified postprocedural states; Z91.040 Latex allergy status; Z3A.01 Less than 8 weeks gestation of pregnancy
CPT/HCPCS: 36415; 71045; 76801; 76817; 80048; 82550; 82553; 84484; 84702; 85025; 85610; 85730; 86850; 86900; 86901; 93005; 93010; 96361; 96374; 96375; 99284; J2405; J7030

== ENCOUNTER 2019-03-29 06:50 | Emergency (ER) | payer MEDICAID ==
[2019-03-29] MEDS ORDERED: NACL 0.9% 1000 ML 1,000 ML IV ONE (07:01)
[2019-03-29] MEDS ORDERED: MORPHINE IV ONE (07:01)
[2019-03-29] MEDS ORDERED: ZOFRAN IV ONE (07:01)
--- NOTE | 2019-03-29 07:08 | Emergency Department Report ---
ED Abdominal Pain HPI - General Stated Complaint: ABD PAIN/POSSIBLY Time Seen by Provider: 03/29/19 07:00 Source: patient Mode of arrival: Stretcher Limitations: No Limitations - History of Present Illness Initial Comments: Klarissa is a 29 yo female with hx of pulmonary embolism on lovenox, seizure, asthma, ovarian cyst, chronic abdominal pain who presents with severe LUQ pain. She recently discovered that she is present. Sharp pain in LUQ. Denies chest pain. Denies dyspnea. +vaginal spotting MD Complaint: abdominal pain -: Gradual, days(s) (1) Location: LUQ Radiation: none Migration to: no migration Severity scale (0 -10): 10 Quality: aching, sharp Consistency: constant Improves With: nothing Worsens With: nothing Associated Symptoms: other (vaginal spotting) - Related Data Previous Rx's Medication Instructions Recorded Last Taken Type levETIRAcetam [Keppra TAB] 750 mg PO BID #60 tablet 02/16/19 Unknown Rx levETIRAcetam [Keppra] 750 mg PO BID #450 ml 02/16/19 Unknown Rx Ondansetron [Zofran Odt] 4 mg PO Q8HR PRN #20 tab.rapdis 03/20/19 Unknown Rx Enoxaparin [Lovenox] 40 mg SQ QDAY #30 syringe 03/22/19 Unknown Rx Pyridoxine [Vitamin B-6 50MG TAB] 100 mg PO QDAY #30 tablet 03/23/19 Unknown Rx Allergies Allergy/AdvReac Type Severity Reaction Status Date / Time latex Allergy Rash Verified 03/22/19 02:52 ED Review of Systems ROS: Stated complaint: ABD PAIN/POSSIBLY Other details as noted in HPI Comment: All other systems reviewed and negative Constitutional: denies: fever, malaise Respiratory: denies: cough, shortness of breath Cardiovascular: denies: chest pain Gastrointestinal: abdominal pain Genitourinary: abnormal menses ED Past Medical Hx - Past Medical History Previous Medical History?: Yes Hx Congestive Heart Failure: No Hx Diabetes: No Hx Pulmonary Embolism: Yes (2019) Hx Seizures: Yes Hx Asthma: Yes Hx COPD: No Additional medical history: DIVERTICULITIS, OVARIAN CYST, - Surgical History Additional Surgical History: c/s x 2, ectopic - Social History Smoking Status: Never Smoker - Medications Home Medications: Home Medications Medication Instructions Recorded Confirmed Last Taken Type levETIRAcetam [Keppra TAB] 750 mg PO BID #60 tablet 02/16/19 03/22/19 Unknown Rx levETIRAcetam [Keppra] 750 mg PO BID #450 ml 02/16/19 03/22/19 Unknown Rx Ondansetron [Zofran Odt] 4 mg PO Q8HR PRN #20 tab.rapdis 03/20/19 03/22/19 Unknown Rx Enoxaparin [Lovenox] 40 mg SQ QDAY #30 syringe 03/22/19 Unknown Rx Pyridoxine [Vitamin B-6 50MG TAB] 100 mg PO QDAY #30 tablet 03/23/19 Unknown Rx ED Physical Exam - General General appearance: alert, other (appears in severe pain, crying, yelling, constantly pounding LUQ) - Head Head exam: Present: atraumatic, normocephalic - Eye Eye exam: Present: normal appearance - ENT ENT exam: Present: mucous membranes moist - Neck Neck exam: Present: normal inspection - Respiratory Respiratory exam: Present: normal lung sounds bilaterally. Absent: respiratory distress, wheezes, rales, rhonchi - Cardiovascular Cardiovascular Exam: Present: regular rate, normal rhythm, normal heart sounds. Absent: systolic murmur, diastolic murmur, rubs, gallop - GI/Abdominal GI/Abdominal exam: Present: soft, normal bowel sounds. Absent: distended, tenderness, guarding, rebound - Extremities Exam Extremities exam: Present: normal inspection - Back Exam Back exam: Present: normal inspection - Neurological Exam Neurological exam: Present: alert, oriented X3 - Psychiatric Psychiatric exam: Present: agitated, anxious, other (extremely tearful, yelling) - Skin Skin exam: Present: warm, dry, intact, normal color. Absent: rash ED Course Vital Signs 03/29/19 03/29/19 03/29/19 07:15 07:18 07:46 Temperature 98.1 F Pulse Rate 88 Respiratory 18 Rate Blood Pressure 121/70 103/75 115/60 O2 Sat by Pulse 96 Oximetry 03/29/19 08:00 Temperature Pulse Rate Respiratory Rate Blood Pressure 121/70 O2 Sat by Pulse Oximetry ED Medical Decision Making - Lab Data Result diagrams: 03/29/19 07:31 03/29/19 07:31 - Radiology Data Ultrasound reveals single living intrauterine which estimated 6 sonographic age 6 weeks 1 day - Medical Decision Making Accordance electronic medical record, blood type O+. Klarissa presents with recurrent LUQ pain. No indication of peritonitis or acute thoracic condition. She has been compliant with lovenox therapy. Threatened miscarriage with reported spotting IUP present, LEAH according to US November 23, 2019 dc'd home Critical care attestation.: If time is entered above; I have spent that time in minutes in the direct care of this critically ill patient, excluding procedure time. ED Disposition Clinical Impression: Threatened , Recurrent abdominal pain Disposition: DC-01 TO HOME OR SELFCARE Is pt being admited?: No Does the pt Need Aspirin: No Condition: Stable Instructions: Threatened Miscarriage (ED) Referrals: COREY HANSON [Primary Care Provider] - 3-5 Days ARELIS SHAIKH MD [Staff Physician] - 3-5 Days
[2019-03-29] MEDS ORDERED: ATIVAN IV ONE (07:18)
[2019-03-29 08:00] LABS: Basophils # (Auto) 0.1 K/mm3 (0.0-0.1); Eosinophils % (Auto) 0.7 % (0.0-4.3); Hematocrit 39.5 % (30.3-42.9); Hemoglobin 13.5 gm/dl (10.1-14.3); Lymphocytes # (Auto) 2.7 K/mm3 (1.2-5.4); Lymphocytes % (Auto) 37.5 % (13.4-35.0); Mean Corpuscular HGB Conc 34 % (30-34); Mean Corpuscular Volume 94 fl (79-97); Monocytes # (Auto) 0.9 K/mm3 (0.0-0.8); Monocytes % (Auto) 12.7 % (0.0-7.3); Platelet Count 183 K/mm3 (140-440); Red Blood Count 4.22 M/mm3 (3.65-5.03)
[2019-03-29 08:26] LABS: BUN/Creatinine Ratio 2; Blood Urea Nitrogen 2 mg/dL (7-17); Calcium 9.7 mg/dL (8.4-10.2); Hemolysis Index 8
--- NOTE | 2019-03-29 10:02 | Ultrasound Report ---
ULTRASOUND OBSTETRIC INDICATION / CLINICAL INFORMATION: new vaginal spotting. TECHNIQUE: Transabdominal and transvaginal. COMPARISON: None available. FINDINGS: GESTATIONAL SAC: Well-defined oval shape and intrauterine in location. YOLK SAC: No significant abnormality. EMBRYO/FETUS: No significant abnormality. - [place]-Rump Length = 0.72 cm = 6 weeks, 1 day(s). - Heart Rate, beats per minute (if present) = 124 ADNEXA: No significant abnormality. FREE FLUID: None. ADDITIONAL FINDINGS: None. IMPRESSION: 1. Single, living intrauterine with estimated sonographic age of 6 weeks, 1 day(s). Signer Name: Esteban Antonio MD Signed: 03/29/2019 9:57 AM Workstation Name: [id number]
--- NOTE | 2019-03-29 10:02 | Ultrasound Report ---
ULTRASOUND OBSTETRIC INDICATION / CLINICAL INFORMATION: new vaginal spotting. TECHNIQUE: Transabdominal and transvaginal. COMPARISON: None available. FINDINGS: GESTATIONAL SAC: Well-defined oval shape and intrauterine in location. YOLK SAC: No significant abnormality. EMBRYO/FETUS: No significant abnormality. - [place]Rump Length = 0.72 cm = 6 weeks, 1 day(s). - Heart Rate, beats per minute (if present) = 124 ADNEXA: No significant abnormality. FREE FLUID: None. ADDITIONAL FINDINGS: None. IMPRESSION: 1. Single, living intrauterine with estimated sonographic age of 6 weeks, 1 day(s). Signer Name: Esteban Antonio MD Signed: 03/29/2019 9:57 AM Workstation Name: [id number]
[2019-03-29 10:16] LABS: Alanine Aminotransferase 15 units/L (7-56); Albumin 4.5 g/dL (3.9-5)
[2019-03-29 10:26] LABS: Bilirubin,Direct < 0.2 mg/dL (0-0.2)
[2019-03-29 10:55] LABS: Bilirubin,Urine NEG (Negative); Blood,Urine SM (Negative); Color,Urine Yellow (Yellow); Mucus,Urine FEW /HPF; Protein,Urine <15 mg/dL mg/dL (Negative); Urobilinogen,Urine < 2.0 mg/dL (<2.0)
[2019-03-29 11:10] LABS: Amphetamine Screen,Urine PRESUMPTIVE NEGATIVE; Benzodiazepines Screen,Urine PRESUMPTIVE NEGATIVE; Cocaine Screen,Urine PRESUMPTIVE NEGATIVE; Methadone Screen,Urine PRESUMPTIVE NEGATIVE
[2019-03-29 11:15] VITALS: BP 99/46
[2019-03-29 11:22] LABS: Cannabinoid Screen,Urine PRESUMPTIVE POSITIVE; Opiate Screen,Urine PRESUMPTIVE POSITIVE
== END 2019-03-29 12:16 | disposition home or self-care (01) ==
LOC: ED 06:50
DX: O20.0 Threatened abortion (principal); O99.511 Diseases of the respiratory system complicating pregnancy, first trimester; J45.909 Unspecified asthma, uncomplicated; O34.81 Maternal care for other abnormalities of pelvic organs, first trimester; N83.209 Unspecified ovarian cyst, unspecified side; Z86.711 Personal history of pulmonary embolism; Z91.040 Latex allergy status; Z3A.01 Less than 8 weeks gestation of pregnancy
CPT/HCPCS: 36415; 76801; 76817; 80048; 80076; 80307; 81001; 83690; 84702; 85025; 96374; 96375; 99285; J2060; J2270; J2405; J7030

== ENCOUNTER 2019-03-31 01:41 | Emergency (ER) | payer MEDICAID ==
[2019-03-31] MEDS ORDERED: KEPPRA 1,000 MG/NS 0.75% 100ML 1,000 MG/100 ML BAG IV ONE (02:04)
[2019-03-31 02:22] LABS: Hematocrit 35.6 % (30.3-42.9); Hemoglobin 12.5 gm/dl (10.1-14.3); Mean Corpuscular HGB Conc 35 % (30-34); Mean Corpuscular Volume 92 fl (79-97); Platelet Count 170 K/mm3 (140-440); Red Blood Count 3.86 M/mm3 (3.65-5.03)
--- NOTE | 2019-03-31 02:32 | Emergency Department Report ---
ED General Adult HPI - General Chief complaint: Abdominal Pain Stated complaint: ABDOMINAL PAIN Time Seen by Provider: 03/31/19 01:59 Source: patient, EMS Mode of arrival: Stretcher Limitations: No Limitations - History of Present Illness Initial comments: 29-year-old female 6 weeks presents admitting brought in by EMS with complaint of abdominal pain and seizures. Patient initially had called EMS with complaint of abdominal pain in route had a seizure and was given Ativan therapy. Patient is 6 weeks had multiple visits to the emergency department was she's been given a diagnosis of threatened miscarriage. Patient is compliant with her Lovenox therapy she statesthat she missed her Keppra dose earlier today. Patient states that she has a follow-up with her OB tomorrow. Patient continues to complain of vaginal spotting for which she received an ultrasound yesterday which showed 6 week . Per EMS patient had no head trauma during the seizure activity. - Related Data Previous Rx's Medication Instructions Recorded Last Taken Type levETIRAcetam [Keppra TAB] 750 mg PO BID #60 tablet 02/16/19 Unknown Rx levETIRAcetam [Keppra] 750 mg PO BID #450 ml 02/16/19 Unknown Rx Ondansetron [Zofran Odt] 4 mg PO Q8HR PRN #20 tab.rapdis 03/20/19 Unknown Rx Enoxaparin [Lovenox] 40 mg SQ QDAY #30 syringe 03/22/19 Unknown Rx Pyridoxine [Vitamin B-6 50MG TAB] 100 mg PO QDAY #30 tablet 03/23/19 Unknown Rx Allergies Allergy/AdvReac Type Severity Reaction Status Date / Time latex Allergy Rash Verified 03/22/19 02:52 ED Review of Systems ROS: Stated complaint: ABDOMINAL PAIN Other details as noted in HPI Constitutional: denies: chills, fever Eyes: denies: eye pain, eye discharge, vision change ENT: denies: ear pain, throat pain Respiratory: denies: cough, shortness of breath, wheezing Cardiovascular: denies: chest pain, palpitations Endocrine: no symptoms reported Gastrointestinal: abdominal pain Genitourinary: denies: urgency, dysuria, discharge Musculoskeletal: denies: back pain, joint swelling, arthralgia Skin: denies: rash, lesions Neurological: other (seizure) Psychiatric: denies: anxiety, depression Hematological/Lymphatic: denies: easy bleeding, easy bruising ED Past Medical Hx - Past Medical History Previous Medical History?: Yes Hx Congestive Heart Failure: No Hx Diabetes: No Hx Pulmonary Embolism: Yes (2019) Hx Seizures: Yes Hx Asthma: Yes Hx COPD: No Additional medical history: DIVERTICULITIS, OVARIAN CYST, - Surgical History Past Surgical History?: Yes Additional Surgical History: c/s x 2, ectopic - Social History Smoking Status: Never Smoker Substance Use Type: Marijuana - Medications Home Medications: Home Medications Medication Instructions Recorded Confirmed Last Taken Type levETIRAcetam [Keppra TAB] 750 mg PO BID #60 tablet 02/16/19 03/22/19 Unknown Rx levETIRAcetam [Keppra] 750 mg PO BID #450 ml 02/16/19 03/22/19 Unknown Rx Ondansetron [Zofran Odt] 4 mg PO Q8HR PRN #20 tab.rapdis 03/20/19 03/22/19 Unknown Rx Enoxaparin [Lovenox] 40 mg SQ QDAY #30 syringe 03/22/19 Unknown Rx Pyridoxine [Vitamin B-6 50MG TAB] 100 mg PO QDAY #30 tablet 03/23/19 Unknown Rx ED Physical Exam - General Limitations: No Limitations General appearance: alert, in no apparent distress - Head Head exam: Present: atraumatic, normocephalic - Eye Eye exam: Present: normal appearance - ENT ENT exam: Present: mucous membranes moist - Neck Neck exam: Present: normal inspection - Respiratory Respiratory exam: Present: normal lung sounds bilaterally. Absent: respiratory distress - Cardiovascular Cardiovascular Exam: Present: regular rate, normal rhythm. Absent: systolic murmur, diastolic murmur, rubs, gallop - GI/Abdominal GI/Abdominal exam: Present: soft, tenderness (mild tenderness noted in LUQ), normal bowel sounds. Absent: guarding, rebound - Extremities Exam Extremities exam: Present: normal inspection - Back Exam Back exam: Present: normal inspection - Neurological Exam Neurological exam: Present: alert, oriented X3 - Psychiatric Psychiatric exam: Present: normal affect, normal mood - Skin Skin exam: Present: warm, dry, intact, normal color. Absent: rash ED Course Vital Signs 03/31/19 03/31/19 03/31/19 01:56 02:00 02:07 Temperature 98.3 F Pulse Rate 84 78 Respiratory 23 15 Rate Blood Pressure 118/82 119/81 Blood Pressure 119/81 [Left] O2 Sat by Pulse 92 99 100 Oximetry 03/31/19 03/31/19 03/31/19 02:30 03:00 03:30 Temperature Pulse Rate 82 81 84 Respiratory 22 24 24 Rate Blood Pressure 118/79 111/67 108/66 Blood Pressure [Left] O2 Sat by Pulse 100 100 100 Oximetry 03/31/19 03/31/19 03/31/19 04:00 04:30 05:00 Temperature Pulse Rate 91 H 103 H 85 Respiratory 14 24 24 Rate Blood Pressure 112/71 120/70 109/67 Blood Pressure [Left] O2 Sat by Pulse 99 100 100 Oximetry ED Medical Decision Making - Lab Data Result diagrams: 03/31/19 02:07 03/31/19 02:07 - Medical Decision Making Patient is resting comfortably. No acute distress. Patient's had no subsequent seizure activity or vomiting while in the emergency department. The patient to be discharged to follow up with her [facility]. - Differential Diagnosis electrolyte abnormality; anemia; seizures; Critical care attestation.: If time is entered above; I have spent that time in minutes in the direct care of this critically ill patient, excluding procedure time. ED Disposition Clinical Impression: Abdominal pain, Threatened , Seizure Disposition: -01 TO HOME OR SELFCARE Is pt being admited?: No Condition: Stable Instructions: Abdominal Pain (ED) Referrals: PRIMARY CARE, [Primary Care Provider] - 3-5 Days Time of Disposition: 06:37 Print Language: AMHARIC
[2019-03-31 02:35] LABS: Alanine Aminotransferase 13 units/L (7-56); Albumin 3.9 g/dL (3.9-5); BUN/Creatinine Ratio 14; Blood Urea Nitrogen 7 mg/dL (7-17); Calcium 9.3 mg/dL (8.4-10.2); Hemolysis Index 5
[2019-03-31] MEDS ORDERED: TYLENOL PO ONE (05:05)
[2019-03-31 05:32] VITALS: BP 109/67
== END 2019-03-31 05:10 | disposition home or self-care (01) ==
LOC: ED 01:41
DX: O20.0 Threatened abortion (principal); O99.351 Diseases of the nervous system complicating pregnancy, first trimester; G40.909 Epilepsy, unspecified, not intractable, without status epilepticus; O99.511 Diseases of the respiratory system complicating pregnancy, first trimester; J45.909 Unspecified asthma, uncomplicated; F12.10 Cannabis abuse, uncomplicated; Z91.040 Latex allergy status; Z79.899 Other long term (current) drug therapy; Z86.711 Personal history of pulmonary embolism; Z3A.01 Less than 8 weeks gestation of pregnancy
CPT/HCPCS: 36415; 80053; 83690; 85027; 96374; 99283; J1953

== ENCOUNTER 2019-04-01 13:24 | Emergency (ER) | payer MEDICAID ==
--- NOTE | 2019-04-01 13:35 | Emergency Department Report ---
Blank Doc - Documentation Documentation: This is a 29-year-old female that presents with left sided abdominal pain. St deepika is 6 weeks . This initial assessment/diagnostic orders/clinical plan/treatment(s) is/are subject to change based on patient's health status, clinical progression and re- assessment by fellow clinical providers in the ED. Further treatment and workup at subsequent clinical providers discretion. Patient/guardians urged not to elope from the ED as their condition may be serious if not clinically assessed and managed. Initial orders include: 1- Patient sent to [facility] for further evaluation and treatment 2- labs 3- US OB 4- UA
[2019-04-01] MEDS ORDERED: ZOFRAN ODT PO ONE (13:36)
[2019-04-01] MEDS ORDERED: ZOFRAN ODT ONE (13:39)
[2019-04-01 13:55] LABS: Bacteria,Urine 1+ /HPF (Negative); Bilirubin,Urine NEG (Negative); Blood,Urine NEG (Negative); Color,Urine Yellow (Yellow); Mucus,Urine 2+ /HPF; Protein,Urine <15 mg/dL mg/dL (Negative); Urobilinogen,Urine < 2.0 mg/dL (<2.0)
[2019-04-01 14:03] LABS: Basophils # (Auto) 0.1 K/mm3 (0.0-0.1); Basophils % (Auto) 0.6 % (0.0-1.8); Eosinophils % (Auto) 0.3 % (0.0-4.3); Hematocrit 37.9 % (30.3-42.9); Hemoglobin 13.2 gm/dl (10.1-14.3); Lymphocytes # (Auto) 2.6 K/mm3 (1.2-5.4); Lymphocytes % (Auto) 29.3 % (13.4-35.0); Mean Corpuscular HGB Conc 35 % (30-34); Mean Corpuscular Volume 93 fl (79-97); Monocytes % (Auto) 11.8 % (0.0-7.3); Platelet Count 207 K/mm3 (140-440); Red Blood Count 4.06 M/mm3 (3.65-5.03)
[2019-04-01 14:15] LABS: Alanine Aminotransferase 16 units/L (7-56); Albumin 4.2 g/dL (3.9-5); BUN/Creatinine Ratio 13; Blood Urea Nitrogen 8 mg/dL (7-17); Calcium 9.7 mg/dL (8.4-10.2); Hemolysis Index 2
[2019-04-01] MEDS ORDERED: NACL 0.9% 1000 ML 1,000 ML IV ONE (14:19)
[2019-04-01] MEDS ORDERED: REGLAN IV ONE (14:19)
[2019-04-01] MEDS ORDERED: MORPHINE IV ONE (14:20)
--- NOTE | 2019-04-01 16:07 | Emergency Department Report ---
ED Abdominal Pain HPI - General Chief Complaint: Seizure Stated Complaint: 6WKS /VOMITING/BLEEDING Time Seen by Provider: 04/01/19 13:34 Source: patient Mode of arrival: Ambulatory Limitations: No Limitations - History of Present Illness Initial Comments: 29-year-old female with history of chronic abdominal pain and is currently 6 weeks presents to ED with her usual abdominal pain, nausea and vomiting. Patient has history of seizures, states she had a seizure on yesterday while being evaluated at [place] for her abdominal pain. Patient reports she has been having vaginal spotting for the last 4 weeks. States ultrasound done yesterday show "bleeding around the ." Patient is unsure if a heartbeat was detected, has been previously detected on her previous ultrasounds. Patient states she is considering terminating the due to the increased amount of pain on top of her chronic abdominal pain that she has been experiencing since she found out she was . OB: Lindsay AVELAR Complaint: abdominal pain -: days(s) (1) Location: diffuse Migration to: no migration Severity: severe Severity scale (0 -10): 5 Quality: cramping, aching Consistency: constant Improves With: nothing Worsens With: nothing Context: other (chronic abdominal pain, ) Associated Symptoms: nausea, vomiting. denies: diarrhea - Related Data Previous Rx's Medication Instructions Recorded Last Taken Type levETIRAcetam [Keppra TAB] 750 mg PO BID #60 tablet 02/16/19 Unknown Rx levETIRAcetam [Keppra] 750 mg PO BID #450 ml 02/16/19 Unknown Rx Ondansetron [Zofran Odt] 4 mg PO Q8HR PRN #20 tab.rapdis 03/20/19 Unknown Rx Enoxaparin [Lovenox] 40 mg SQ QDAY #30 syringe 03/22/19 Unknown Rx Pyridoxine [Vitamin B-6 50MG TAB] 100 mg PO QDAY #30 tablet 03/23/19 Unknown Rx Allergies Allergy/AdvReac Type Severity Reaction Status Date / Time latex Allergy Rash Verified 03/22/19 02:52 ED Review of Systems ROS: Stated complaint: 6WKS /VOMITING/BLEEDING Other details as noted in HPI Comment: All other systems reviewed and negative Constitutional: denies: chills, fever Gastrointestinal: abdominal pain, nausea, vomiting Genitourinary: other (reports vag spotting) ED Past Medical Hx - Past Medical History Previous Medical History?: Yes Hx Congestive Heart Failure: No Hx Diabetes: No Hx Pulmonary Embolism: (2019) Hx Seizures: Yes Hx Asthma: Yes Hx COPD: No Additional medical history: DIVERTICULITIS, OVARIAN CYST, - Surgical History Past Surgical History?: Yes Additional Surgical History: c/s x 2, ectopic - Social History Smoking Status: Never Smoker Substance Use Type: None - Medications Home Medications: Home Medications Medication Instructions Recorded Confirmed Last Taken Type levETIRAcetam [Keppra TAB] 750 mg PO BID #60 tablet 02/16/19 03/22/19 Unknown Rx levETIRAcetam [Keppra] 750 mg PO BID #450 ml 02/16/19 03/22/19 Unknown Rx Ondansetron [Zofran Odt] 4 mg PO Q8HR PRN #20 tab.rapdis 03/20/19 03/22/19 Unknown Rx Enoxaparin [Lovenox] 40 mg SQ QDAY #30 syringe 03/22/19 Unknown Rx Pyridoxine [Vitamin B-6 50MG TAB] 100 mg PO QDAY #30 tablet 03/23/19 Unknown Rx ED Physical Exam - General Limitations: No Limitations ED Course Vital Signs 04/01/19 04/01/19 04/01/19 11:17 11:30 11:54 Temperature Pulse Rate 79 76 Respiratory 20 13 Rate Blood Pressure 126/79 126/79 111/64 Blood Pressure [Left] O2 Sat by Pulse 100 98 79 L Oximetry 04/01/19 04/01/19 04/01/19 13:34 14:00 14:08 Temperature 98.5 F Pulse Rate 104 H Respiratory 24 17 Rate Blood Pressure 124/79 111/64 Blood Pressure [Left] O2 Sat by Pulse 99 100 100 Oximetry 04/01/19 04/01/19 04/01/19 14:15 14:24 14:30 Temperature Pulse Rate 112 H 69 105 H Respiratory 28 H 18 14 Rate Blood Pressure 134/78 Blood Pressure 125/62 [Left] O2 Sat by Pulse 100 100 100 Oximetry 04/01/19 04/01/19 04/01/19 14:45 15:00 15:15 Temperature Pulse Rate 76 76 74 Respiratory 17 20 19 Rate Blood Pressure 132/82 126/76 124/74 Blood Pressure [Left] O2 Sat by Pulse 100 100 100 Oximetry 04/01/19 04/01/19 04/01/19 15:30 15:45 16:01 Temperature Pulse Rate 91 H 88 105 H Respiratory 13 18 13 Rate Blood Pressure 144/75 134/70 134/67 Blood Pressure [Left] O2 Sat by Pulse 98 98 100 Oximetry ED Medical Decision Making - Lab Data Result diagrams: 04/01/19 13:43 04/01/19 13:43 - Medical Decision Making - pt feeling much better at this time, no further emesis, pain improved - pt had US on yesterday at [place], will not repeat today - pt has appt w/ OB tomorrow - return precautions given - Differential Diagnosis gastroparesis, chronic abdominal pain, threatened miscarriage Critical care attestation.: If time is entered above; I have spent that time in minutes in the direct care of this critically ill patient, excluding procedure time. ED Disposition Clinical Impression: Threatened , Recurrent abdominal pain Disposition: - TO HOME OR SELFCARE Is pt being admited?: No Condition: Stable Instructions: Threatened Miscarriage (ED), Abdominal Pain (ED) Referrals: BEATRIZ PERDOMO MD [Staff Physician] - 04/02/19 Time of Disposition: 16:06
[2019-04-01 16:41] VITALS: BP 134/67
== END 2019-04-01 16:59 | disposition home or self-care (01) ==
LOC: ED 13:24
DX: O20.0 Threatened abortion (principal); O21.9 Vomiting of pregnancy, unspecified; O99.351 Diseases of the nervous system complicating pregnancy, first trimester; G40.909 Epilepsy, unspecified, not intractable, without status epilepticus; O99.511 Diseases of the respiratory system complicating pregnancy, first trimester; J45.909 Unspecified asthma, uncomplicated; Z91.040 Latex allergy status; Z3A.01 Less than 8 weeks gestation of pregnancy; Z79.899 Other long term (current) drug therapy; Z86.711 Personal history of pulmonary embolism
CPT/HCPCS: 36415; 80053; 81001; 84702; 85025; 96361; 96374; 96375; 99284; J2270; J2765; J7030; Q0162

== ENCOUNTER 2019-04-02 10:08 | Inpatient (IN) | payer MEDICAID ==
[2019-04-02] MEDS ORDERED: REGLAN IV SCH (11:00)
[2019-04-02] MEDS ORDERED: D5LR 1,000 ML IV SCH ×2 (11:00→15:00)
[2019-04-02 11:54] LABS: BUN/Creatinine Ratio 14; Blood Urea Nitrogen 7 mg/dL (7-17); Calcium 9.6 mg/dL (8.4-10.2); Hemolysis Index 1
--- NOTE | 2019-04-02 13:04 | History and Physical Report ---
<MERCEDES FERRIS - Last Filed: 04/02/19 16:24> History of Present Illness Date of examination: 04/02/19 Date of admission: 04/02/19 10:26 Chief complaint: severe n/v, sent from office History of present illness: . 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 no EDC Calculations LMP: 11/17/2019 EDC Confirmation: 11/17/2019 Gestational Age: 4 2/7 weeks Past History : 4 Term Births: 2 Living Children: 2 Para: 2 Ectopics: 1 # 1 Delivery date: 2006 Weeks Gestation: 38 Delivery type: Anesthesia type: epidural Delivery location: [place] Infant Sex: Male weight: 7-14 # 2 Delivery date: 2012 Weeks Gestation: 5-0 Delivery type: Anesthesia type: epidural Delivery location: [place] Infant Sex: Male weight: 5-0 Comments: hyperemesis Past Medical History: Seizures- taking [id number] [place] Asthma-no meds pulmonary embolism-on blood thinners now. diagnosed was taking OCPs Past Surgical History: Past Medical History Surgery (Non-supervisor hydrochloric area): Abnormal PAP: negative EFRAÍN Exposure: negative Infertility: negative Uterine Anomaly: negative Uterine Surgery (not C/S): negative Other Gynecologic Problems: negative Medical History Comments: seiures Infection History Hx of STD: chlamydia, gc,trich Partner hx. of genital herpes: no Varicella/Chicken Pox Status: Previous Disease Genetic History Congenital Heart Defect: Mom: no Dad: unknown Neli Disease: Mom: no Dad: unknown Thalassemia Mom: no Dad: unknown Neural Tube Defect Mom: no Dad: unknown Down's Syndrome Mom: no Dad: unknown Alonso-Sachs Mom: no Dad: unknown Sickle Cell Disease/Trait Mom: no Dad: unknown Hemophilia Mom: no Dad: unknown Muscular Dystrophy Mom: no Dad: unknown Cystic Fibrosis Mom: no Dad: unknown Dewey Chorea Mom: no Dad: unknown Mental Retardation Mom: no Dad: unknown Fragile X Mom: no Dad: unknown Other Genetic/Chromosomal Disorder Mom: no Dad: unknown Child w/other defect Mom: no Dad: unknown Enviromental Exposures Xray Exposure: no Medication, drug, or alcohol use since LMP: no Chemical/Other Exposure: no Exposure to Cat Liter: no Hx of Parvovirus (Fifth Disease): no Occupational Exposure to Children: none Comments: MRI Active Medications (reviewed today): ELIQUIS TABLET (APIXABAN TABS) KEPPRA TABLET (LEVETIRACETAM TABS) Current Allergies (reviewed today): No known allergies Past History Past Medical History: asthma (h/o. last exacerbation/inhaler use "over 10 years ago"), seizure (Pt reports followed by Dr. Henry Maharaj in [place]. Takes keppra 500mg PO BID. last dose was give to her while she was admitted at [place] on 03/31. She reports "I don't take it at home like I'm supposed to"), thyroid disease (was managed by Tasha Suárez at [facility], not taking medications since November d/t PE, meds discontinued by PCP Gabby Bailey), deep vein thrombosis (followed by sourcing manager at [place], pt does not know providers name. last dose of lovenox was lastnight at 5 pm), other (depression- pt reports history of. denies any current thoughts or self harm or harm to others.) Past Surgical History: other (see HPI) FORMING ACID DUMPER History: other (see HPI) Family/Genetic History: other (see HPI) Social history: other (see HPI) - Obstetrical History Expected Date of Delivery: 11/17/19 Actual Gestation: 7 Week(s) 2 Day(s) : 4 Para: 2 Medications and Allergies Allergies Allergy/AdvReac Type Severity Reaction Status Date / Time latex Allergy Rash Verified 03/22/19 02:52 Home Medications Medication Instructions Recorded Confirmed Last Taken Type levETIRAcetam [Keppra TAB] 750 mg PO BID #60 tablet 02/16/19 03/22/19 Unknown Rx levETIRAcetam [Keppra] 750 mg PO BID #450 ml 02/16/19 03/22/19 Unknown Rx Ondansetron [Zofran Odt] 4 mg PO Q8HR PRN #20 tab.rapdis 03/20/19 03/22/19 Unkn own Rx Enoxaparin [Lovenox] 40 mg SQ QDAY #30 syringe 03/22/19 Unknown Rx Pyridoxine [Vitamin B-6 50MG TAB] 100 mg PO QDAY #30 tablet 03/23/19 Unknown Rx Active Meds: Active Medications Dextrose/Lactated Ringer's (D5lr) 1,000 mls @ 500 mls/hr IV DIRECT MARIUM Stop: 04/03/19 12:59 Dextrose/Lactated Ringer's (D5lr) 1,000 mls @ 150 mls/hr IV DIRECT MARIUM Metoclopramide HCl (Reglan) 10 mg IV Q6H MARIUM Review of Systems All systems: negative Constitutional: chronic pain Gastrointestinal: nausea, vomiting Genitourinary: vaginal bleeding ("spotting for 4 weeks") Psychiatric: no suicidal ideation, no hallucinations, no paranoia, no depression - Physical Exam Breasts: Cardiovascular: Regular rate, Normal S1, Normal S2 Lungs: Positive: Clear to auscultation, Normal air movement Abdomen: Positive: normal appearance, soft, normal bowel sounds. Negative: distention, tenderness Vagina: Negative: discharge Cervix: Negative: lesion, discharge Uterus: Positive: normal size, normal contour Anus/Rectum: Negative: rectal mass, hemorrhoids Extremities: Positive: normal Deep Tendon Reflex Grade: Normal +2 Results Result Diagrams: 04/02/19 10:49 Abnormal lab results 04/02/19 Range/Units 10:49 Sodium 136 L (137-145) mmol/L Creatinine 0.5 L (0.7-1.2) mg/dL All other labs normal. Assessment and Plan 29 y.o. IUP at 7 w 2d presents to office for f/u appointment from hospital admission at [place] 2 days ago for n/v. Pt reports while she was in the ambulance being transported from her home to [place] she had a seizure. During office appointment this morning, patient found lying on her side on exam table holding her abdomen, retching and complaining of nonstop n/v for more than 3 days, inability to keep any food or fluids down. She reports severe abdominal pain "its the same pain I've felt for years, it doesn't feel like anything to do with the baby, its the pain that I had before I was , if this is going to continue I can't continue this ". Patient reports she "cant deal with the chronic pain and the n/v at the same time". Discussed pt assessment and c/o with Dr. Mercado and POC determined. will direct admit pt to [facility] MB unit. hyperemesis orders placed in chart. will continue keppra and lovenox as pt prescribed. pt to be on telemetry for uncontrolled seizures. neuro consult placed. On f/u assessment at [facility], patient is sitting upright in bed, reports she just finished eating eggs, sausage, with apple juice and multiple cups of w ater and she denies any n/v at this time. Reports she has not vomited since office appt this morning and currently rates her abdominal pain 3/10 stating "I feel better". At this time, no IV started and no medications given. Assessment of CMP results WNL, reviewed with pt. Patient states she would like to go home at this time since she was able to eat and her pain is lower. Discussed pt assessment with Dr Mercado, orders to DC patient home to f/u with providers outpatient. RN then reports to Dr. Mercado that patient is now c/o severe pain again, and is now vomiting. Updated orders placed in EMR. <DESTINY MERCADO D - Last Filed: 04/02/19 21:48> History of Present Illness Date of admission: 04/02/19 14:41 Medications and Allergies Active Meds: Active Medications Enoxaparin Sodium (Lovenox) 40 mg SUB-Q DAILY MARIUM Dextrose/Lactated Ringer's (D5lr) 1,000 mls @ 500 mls/hr IV DIRECT MARIUM Stop: 04/03/19 12:59 Last Admin: 04/02/19 16:48 Dose: 500 mls/hr Documented by: Dextrose/Lactated Ringer's (D5lr) 1,000 mls @ 500 mls/hr IV DIRECT MARIUM Stop: 04/03/19 16:59 Dextrose/Lactated Ringer's (D5lr) 1,000 mls @ 150 mls/hr IV DIRECT MARIUM Levetiracetam (Keppra) 500 mg PO BID MARIUM Ondansetron HCl (Zofran) 4 mg IV Q6H PRN PRN Reason: N/V unrelieved by Reglan Promethazine HCl (Phenergan) 12.5 mg NC Q6H PRN PRN Reason: Nausea And Vomiting Propylthiouracil (Propylthiouracil) 100 mg PO TID MARIUM - Vital Signs Vital signs: Vital Signs Temp Pulse Resp BP 97.8 F 87 18 107/77 04/02/19 10:10 04/02/19 10:10 04/02/19 10:10 04/02/19 10:10 Temp Pulse Resp BP Pulse Ox 98.5 F 102 H 18 124/69 99 04/02/19 15:56 04/02/19 15:56 04/02/19 15:56 04/02/19 15:56 04/02/19 15:56 Results Result Diagrams: 04/02/19 10:49 Abnormal lab results 04/02/19 04/02/19 04/02/19 Range/Units 10:49 13:16 13:16 Sodium 136 L (137-145) mmol/L Creatinine 0.5 L (0.7-1.2) mg/dL TSH 0.031 L (0.270-4.200) mlU/mL Free T4 1.49 H (0.76-1.46) ng/dL Urine WBC (Auto) (0.0-6.0) /HPF U Epithel Cells (Auto) (0-13.0) /HPF 04/02/19 Range/Units 13:59 Sodium (137-145) mmol/L Creatinine (0.7-1.2) mg/dL TSH (0.270-4.200) mlU/mL Free T4 (0.76-1.46) ng/dL Urine WBC (Auto) 7.0 H (0.0-6.0) /HPF U Epithel Cells (Auto) 22.0 H (0-13.0) /HPF All other labs normal. Assessment and Plan Pat - Patient Problems (1) Nausea and vomiting during Current Visit: Yes Status: Acute Plan to address problem: Continue NPO, patient's pain along with N/V appears to return after she eats, start Pepcid (2) History of pulmonary embolism Current Visit: Yes Status: Chronic Plan to address problem: Continue Lovernox (3) Seizure Current Visit: Yes Status: Chronic Plan to address problem: Continue Keppra (4) Thyroid disorder Current Visit: Yes Status: Chronic Plan to address problem: Now states she had been on "thyroid medication" that was stopped after she was diagnosed with the pulmonary embolism Now with significantly low TSH and slightly elevated Free T4, will start PTU (5) Abdominal pain Current Visit: No Status: Acute Qualifiers: Abdominal location: left upper quadrant Qualified Code(s): R10.12 - Left upper quadrant pain Plan to address problem: Uncertain etiology, this pain is chronic, surgery consulted (6) Asthma Current Visit: No Status: Acute Qualifiers: Asthma severity: mild
[2019-04-02] MEDS ORDERED: LOVENOX SUB-Q ONE (14:05)
[2019-04-02] MEDS ORDERED: PHENERGAN PR PRN (14:12)
[2019-04-02 14:31] LABS: Bacteria,Urine 2+ /HPF (Negative); Bilirubin,Urine NEG (Negative); Blood,Urine SM (Negative); Color,Urine Yellow (Yellow); Mucus,Urine 1+ /HPF; Protein,Urine <15 mg/dL mg/dL (Negative); Urobilinogen,Urine < 2.0 mg/dL (<2.0)
[2019-04-02 14:38] LABS: Amphetamine Screen,Urine PRESUMPTIVE NEGATIVE; Benzodiazepines Screen,Urine PRESUMPTIVE NEGATIVE; Cocaine Screen,Urine PRESUMPTIVE NEGATIVE; Methadone Screen,Urine PRESUMPTIVE NEGATIVE; Opiate Screen,Urine PRESUMPTIVE NEGATIVE
[2019-04-02 14:53] LABS: Cannabinoid Screen,Urine PRESUMPTIVE POSITIVE
[2019-04-02] MEDS ORDERED: MORPHINE IV ONE (16:13)
[2019-04-02] MEDS: D5LR 1,000 ML IV SCH ×2 (16:48→19:02)
--- NOTE | 2019-04-02 17:33 | Consultation ---
History of Present Illness Consult date: 04/02/19 Reason for consult: abdominal pain Requesting physician: DESTINY SEO Chief complaint: recurrent left sided abdominal pain - History of present illness History of present illness: 29yo F who is 7 weeks has a recurrent history of left-sided abdominal pain since 2011. She reports that it began about 3 months into her last . There was no specific complication or trauma at that time. Does not recall any illnesses. However, even after the delivery, she continued to have episodic bouts of severe pain. There being no specific triggers. She would have pain and cramping ultimately followed by vomiting. Vomiting is described as being yellow. On occasion this would trigger a seizure. The only thing that would help would be very hot moist towels and strong patting on the back. Medicines have not helped. She has tried ibuprofen, naproxen, gabapentin. She does not recall the dose of gabapentin. She used it for only a month. She has also been seen by pain management. A DEON block was attempted but that caused her severe pain of a different nature. It ultimately required her to go to the emergency room. She has had multiple imaging studies including a CT scan. She has had colonoscopies and upper scopes. She has also had a pelvic MRI. No specific etiology was found for her pain. She does report chills and sweats. She has not had foreign travel. He does not recall any sick contacts. Interestingly, between the years of 2013 and 2015 when she was incarcerated, she may have had only one episode of pain. She cannot say what was different. However, her pain had essentially resolved during the time that she was in jail. We are being asked to see her for evaluation and management of her pain. Past History Past Medical History: pulmonary embolism, seizures, other (asthma, thyroid ab normality, ) Past Surgical History: (times 2), Other (ectopic; cyst removal) Social history: other (see HPI). denies: smoking, alcohol abuse Family history: no significant family history Medications and Allergies Allergies Allergy/AdvReac Type Severity Reaction Status Date / Time latex Allergy Rash Verified 03/22/19 02:52 Home Medications Medication Instructions Recorded Confirmed Last Taken Type RX: levETIRAcetam [Keppra TAB] 750 mg PO BID #60 tablet 02/16/19 03/22/19 Unknown Rx levETIRAcetam [Keppra] 750 mg PO BID #450 ml 02/16/19 03/22/19 Unknown Rx Ondansetron [Zofran Odt] 4 mg PO Q8HR PRN #20 tab.rapdis 03/20/19 03/22/19 Unknown Rx Enoxaparin [Lovenox] 40 mg SQ QDAY #30 syringe 03/22/19 Unknown Rx RX: Pyridoxine [Vitamin B-6 50MG 100 mg PO QDAY #30 tablet 03/23/19 Unknown Rx TAB] Active Meds: Active Medications Enoxaparin Sodium (Lovenox) 40 mg SUB-Q DAILY MARIUM Dextrose/Lactated Ringer's (D5lr) 1,000 mls @ 500 mls/hr IV DIRECT MARIUM Stop: 04/03/19 12:59 Last Admin: 04/02/19 16:48 Dose: 500 mls/hr Documented by: Dextrose/Lactated Ringer's (D5lr) 1,000 mls @ 500 mls/hr IV DIRECT MARIUM Stop: 04/03/19 16:59 Dextrose/Lactated Ringer's (D5lr) 1,000 mls @ 150 mls/hr IV DIRECT MARIUM Levetiracetam (Keppra) 500 mg PO BID MARIUM Ondansetron HCl (Zofran) 4 mg IV Q6H PRN PRN Reason: N/V unrelieved by Regmike Promethazine HCl (Phenergan) 12.5 mg [place] Q6H PRN PRN Reason: Nausea And Vomiting Propylthiouracil (Propylthiouracil) 100 mg PO TID [facility] Review of Systems - Constitutional chills, sweats, chronic pain, no weight loss, no weight gain, no fever - Cardiovascular no chest pain, no shortness of breath - Respiratory no cough - Gastrointestinal abdominal pain, nausea, vomiting, no hematemesis, no coffee ground emesis, no BRBPR, no melena, no hematochezia - Genitourinary Genitourinary: pelvic pain, flank pain (left sided) - Muskuloskeletal no low back pain - Integumentary no rash, no pruritis, no sores, no wounds, no boils - Neurological head injury Exam Vital Signs Temp Pulse Resp BP 97.8 F 87 18 107/77 04/02/19 10:10 04/02/19 10:10 04/02/19 10:10 04/02/19 10:10 - General physical appearance Positive: well developed, well nourished, no distress, no pain - Eyes Positive: normal occular movement - Respiratory Positive: normal expansion, normal respiratory effort - Cardiovascular Rhythm: regular - Abdomen Abdomen: Present: soft. Absent: tender, distended, masses, rebound, guarding, rigid, wound - Integumentary no rash, no growths, no abnormal pigmentation - Neurologic Neurologic: alert and oriented to time, place and person, motor strength and sensation are grossly intact - Psychiatric Psychiatric: appropriate mood/affect, intact judgment & insight, cooperative Results - Labs 04/02/19 10:49 Abnormal lab results 04/02/19 04/02/19 04/02/19 Range/Units 10:49 13:16 13:16 Sodium 136 L (137-145) mmol/L Creatinine 0.5 L (0.7-1.2) mg/dL TSH 0.031 L (0.270-4.200) mlU/mL Free T4 1.49 H (0.76-1.46) ng/dL Urine WBC (Auto) (0.0-6.0) /HPF U Epithel Cells (Auto) (0-13.0) /HPF 04/02/19 Range/Units 13:59 Sodium (137-145) mmol/L Creatinine (0.7-1.2) mg/dL TSH (0.270-4.200) mlU/mL Free T4 (0.76-1.46) ng/dL Urine WBC (Auto) 7.0 H (0.0-6.0) /HPF U Epithel Cells (Auto) 22.0 H (0-13.0) /HPF Diabetes panel 04/02/19 Range/Units 10:49 Sodium 136 L (137-145) mmol/L Potassium 3.8 (3.6-5.0) mmol/L Chloride 102.1 (98-107) mmol/L Carbon Dioxide 22 (22-30) mmol/L BUN 7 (7-17) mg/dL Creatinine 0.5 L (0.7-1.2) mg/dL Glucose 86 (65-100) mg/dL Calcium 9.6 (8.4-10.2) mg/dL Thyroid panel 04/02/19 Range/Units 13:16 TSH 0.031 L (0.270-4.200) mlU/mL Calcium panel 04/02/19 Range/Units 10:49 Calcium 9.6 (8.4-10.2) mg/dL Pituitary panel 04/02/19 04/02/19 Range/Units 10:49 13:16 Sodium 136 L (137-145) mmol/L Potassium 3.8 (3.6-5.0) mmol/L Chloride 102.1 (98-107) mmol/L Carbon Dioxide 22 (22-30) mmol/L BUN 7 (7-17) mg/dL Creatinine 0.5 L (0.7-1.2) mg/dL Glucose 86 (65-100) mg/dL Calcium 9.6 (8.4-10.2) mg/dL TSH 0.031 L (0.270-4.200) mlU/mL Adrenal panel 04/02/19 Range/Units 10:49 Sodium 136 L (137-145) mmol/L Potassium 3.8 (3.6-5.0) mmol/L Chloride 102.1 (98-107) mmol/L Carbon Dioxide 22 (22-30) mmol/L BUN 7 (7-17) mg/dL Creatinine 0.5 L (0.7-1.2) mg/dL Glucose 86 (65-100) mg/dL Calcium 9.6 (8.4-10.2) mg/dL - Imaging CT scan - abdomen: report reviewed CT scan - pelvis: report reviewed Assessment and Plan - Patient Problems (1) Recurrent abdominal pain Current Visit: No Status: Acute Plan to address problem: Pt stable. Her history suggests that the pain is not related to internal organ abnormality. Pain seems to be related to some process in the wall of the torso on the left. I think our answer lies in figuring out what was different during the time of her incarceration that essentially resolved her pain. The pain was present prior and after the incarceration. I have asked her to think about what may have been different and to compile a list. We will review that tomorrow. I am unable to see the images on this computer. I will find another computer and review the CT images as well. For now, I would treat the pain as we normally do with pain medications until we hopefully are able to get a better handle on the situation. Case discussed with Dr. Seo. We'll follow along. Please call with questions. Time=45min
[2019-04-02] MEDS: PROPYLTHIOURACIL PO SCH (19:02)
[2019-04-02] MEDS: PEPCID PO SCH (21:11)
[2019-04-02] MEDS: KEPPRA PO SCH ×2 (21:11→21:15)
[2019-04-02] MEDS ORDERED: KEPPRA PO SCH (22:00)
[2019-04-03] MEDS ORDERED: ATIVAN ONE (00:36)
[2019-04-03] MEDS: ZOFRAN IV PRN ×2 (00:45→06:14)
[2019-04-03] MEDS ORDERED: ATIVAN IV PRN (01:06)
[2019-04-03] MEDS: KEPPRA 1,000 MG in D5W 100 ML IV SCH ×3 (01:23→23:19)
[2019-04-03] MEDS: ATIVAN IV ONE ×2 (01:24→01:27)
--- NOTE | 2019-04-03 01:44 | Event Note ---
Date: 04/03/19 Received call at 1231 from KENN Frazier stating patient had a seizure, when asked if she was stable the phone was given to Dr. Figueroa who stated the patient was actively seizing. Explained she has a 7week IUP and may have Ativan and Keppra, En route to hospital again called and spoke with Karin HAWK who stated patient seized again, ordered hospitalist consultation. At my arrival patient had been transferred to 4th floor telemetry and receiving Keppra IV bolus, she was postictal with normal vital signs, normal O2 sat 100% on 2L NC. She was obtunded but responded to command to inhale deeply. No incontinence, no bleeding. S/w Dr. Hopper who agreed with transfer to ICU for close observation. Patient transferred to 262. Moved to ICU with minimal assistance. Once again in bed lying on her left side complaining of severe pain and requesting pain "strong" medication. States she ate some wings although she was given instructions not to eat anything d/t n/v. States she LUQ pain started suddenly and unprovoked ~7years ago. She usually takes Tramadol for her pain with she is not . She states she does smoke marijuana. Explained concern for narcotic interaction with marijuana and unknown /maternal risks with marijuana use. Instructed to stop using marijuana immediately.
[2019-04-03] MEDS: D5LR 1,000 ML IV SCH ×2 (02:23→09:54)
[2019-04-03] MEDS: PROPYLTHIOURACIL PO SCH ×4 (08:10→20:26)
--- NOTE | 2019-04-03 09:16 | Progress Note ---
Assessment and Plan - Patient Problems (1) Recurrent abdominal pain Current Visit: No Status: Acute Plan to address problem: Pt stable. Her chronic pain persists. Patient had another seizure last night. No surgical intervention is recommended at this time. It may be helpful to have a psychiatric evaluation as well. We'll follow along. Please call with questions. Time=10min Subjective Date of service: 04/03/19 Patient Reports: Positive: no new complaints, still having pain Objective Vital Signs - 12hr 04/02/19 04/03/19 04/03/19 23:23 00:27 00:35 Temperature 98.9 F Pulse Rate 92 H 124 H 91 H Respiratory 16 Rate Blood Pressure 135/60 Blood Pressure 138/88 141/84 [Left] O2 Sat by Pulse 98 100 Oximetry 04/03/19 04/03/19 04/03/19 01:00 01:36 01:40 Temperature 98.5 F Pulse Rate 101 H 96 H 82 Respiratory 17 25 H Rate Blood Pressure 140/80 Blood Pressure 140/80 [Left] O2 Sat by Pulse 100 Oximetry 04/03/19 04/03/19 04/03/19 01:51 01:56 02:01 Temperature Pulse Rate 91 H 82 Respiratory 22 18 25 H Rate Blood Pressure 73/40 Blood Pressure [Left] O2 Sat by Pulse 100 100 100 Oximetry 04/03/19 04/03/19 04/03/19 02:10 02:21 02:31 Temperature Pulse Rate 99 H 83 110 H Respiratory 17 28 H 15 Rate Blood Pressure 129/69 129/69 Blood Pressure [Left] O2 Sat by Pulse 100 100 99 Oximetry 04/03/19 04/03/19 04/03/19 02:41 02:51 03:01 Temperature Pulse Rate 132 H 144 H 112 H Respiratory 22 28 H 23 Rate Blood Pressure 129/69 129/69 129/69 Blood Pressure [Left] O2 Sat by Pulse 99 97 99 Oximetry 04/03/19 04/03/19 04/03/19 03:11 03:21 03:31 Temperature Pulse Rate 92 H 97 H 92 H Respiratory 28 H 25 H 18 Rate Blood Pressure 129/69 129/69 129/69 Blood Pressure [Left] O2 Sat by Pulse 100 100 100 Oximetry 04/03/19 04/03/19 04/03/19 03:41 03:51 03:55 Temperature 97.9 F Pulse Rate 101 H 96 H Respiratory 26 H 21 Rate Blood Pressure 129/69 129/69 Blood Pressure [Left] O2 Sat by Pulse 100 100 Oximetry 04/03/19 04/03/19 04/03/19 04:01 04:11 04:21 Temperature Pulse Rate 80 101 H 90 Respiratory 28 H 21 25 H Rate Blood Pressure 129/69 129/69 129/69 Blood Pressure [Left] O2 Sat by Pulse 100 98 100 Oximetry 04/03/19 04/03/19 04/03/19 04:31 04:41 04:51 Temperature Pulse Rate 84 100 H 107 H Respiratory 22 32 H 19 Rate Blood Pressure 129/69 129/69 129/69 Blood Pressure [Left] O2 Sat by Pulse 100 99 100 Oximetry 04/03/19 04/03/19 04/03/19 05:01 05:11 05:21 Temperature Pulse Rate 130 H 108 H 92 H Respiratory 27 H 28 H 19 Rate Blood Pressure 129/69 129/69 133/85 Blood Pressure [Left] O2 Sat by Pulse 98 96 99 Oximetry 04/03/19 04/03/19 04/03/19 05:31 05:41 05:51 Temperature Pulse Rate 93 H 134 H 139 H Respiratory 36 H 14 18 Rate Blood Pressure 117/72 133/85 133/85 Blood Pressure [Left] O2 Sat by Pulse 98 98 97 Oximetry 04/03/19 04/03/19 04/03/19 05:56 06:01 06:11 Temperature Pulse Rate 92 H Respiratory 18 13 17 Rate Blood Pressure 126/72 114/75 Blood Pressure [Left] O2 Sat by Pulse 100 85 Oximetry 04/03/19 04/03/19 04/03/19 06:21 06:30 06:41 Temperature Pulse Rate 91 H 90 86 Respiratory 29 H 29 H 27 H Rate Blood Pressure 114/75 130/71 114/75 Blood Pressure [Left] O2 Sat by Pulse 100 100 Oximetry 04/03/19 04/03/19 04/03/19 06:51 07:01 07:03 Temperature 98.1 F Pulse Rate 82 86 Respiratory 26 H 25 H Rate Blood Pressure 114/75 103/54 Blood Pressure [Left] O2 Sat by Pulse 99 99 Oximetry 04/03/19 04/03/19 04/03/19 07:11 07:21 07:30 Temperature Pulse Rate 85 86 100 H Respiratory 25 H 25 H 23 Rate Blood Pressure 130/71 130/71 106/61 Blood Pressure [Left] O2 Sat by Pulse 100 100 100 Oximetry 04/03/19 04/03/19 04/03/19 07:41 07:51 08:00 Temperature Pulse Rate 79 86 112 H Respiratory 25 H 24 25 H Rate Blood Pressure 106/61 106/61 102/61 Blood Pressure [Left] O2 Sat by Pulse 100 100 100 Oximetry 04/03/19 04/03/19 04/03/19 08:11 08:21 08:30 Temperature Pulse Rate 89 79 83 Respiratory 22 24 23 Rate Blood Pressure 102/61 102/61 105/66 Blood Pressure [Left] O2 Sat by Pulse 100 100 99 Oximetry - General physical appearance moderate distress, moderate pain - Respiratory normal expansion, normal respiratory effort - Abdomen soft - Psychiatric oriented to time, oriented to person, oriented to place, speech is normal, memory intact - Labs 04/02/19 10:49 Diabetes panel 04/02/19 Range/Units 10:49 Sodium 136 L (137-145) mmol/L Potassium 3.8 (3.6-5.0) mmol/L Chloride 102.1 (98-107) mmol/L Carbon Dioxide 22 (22-30) mmol/L BUN 7 (7-17) mg/dL Creatinine 0.5 L (0.7-1.2) mg/dL Glucose 86 (65-100) mg/dL Calcium 9.6 (8.4-10.2) mg/dL Thyroid panel 04/02/19 Range/Units 13:16 TSH 0.031 L (0.270-4.200) mlU/mL Calcium panel 04/02/19 Range/Units 10:49 Calcium 9.6 (8.4-10.2) mg/dL Pituitary panel 04/02/19 04/02/19 Range/Units 10:49 13:16 Sodium 136 L (137-145) mmol/L Potassium 3.8 (3.6-5.0) mmol/L Chloride 102.1 (98-107) mmol/L Carbon Dioxide 22 (22-30) mmol/L BUN 7 (7-17) mg/dL Creatinine 0.5 L (0.7-1.2) mg/dL Glucose 86 (65-100) mg/dL Calcium 9.6 (8.4-10.2) mg/dL TSH 0.031 L (0.270-4.200) mlU/mL Adrenal panel 04/02/19 Range/Units 10:49 Sodium 136 L (137-145) mmol/L Potassium 3.8 (3.6-5.0) mmol/L Chloride 102.1 (98-107) mmol/L Carbon Dioxide 22 (22-30) mmol/L BUN 7 (7-17) mg/dL Creatinine 0.5 L (0.7-1.2) mg/dL Glucose 86 (65-100) mg/dL Calcium 9.6 (8.4-10.2) mg/dL
[2019-04-03] MEDS ORDERED: TYLENOL PO PRN (09:26)
--- NOTE | 2019-04-03 09:31 | History and Physical Report ---
History of Present Illness Date of examination: 04/03/19 Date of admission: 04/02/19 14:41 Chief complaint: Breakthrough seizure History of present illness: 29-year-old -Nepalese female with a history of seizure disorder on Keppra, chronic abdominal pain since 2011 status post extensive workup including endoscopy - EGD/colonoscopy, CT and MRI abdomen and pelvis without any obvious cause, chronic pain syndrome was on pain management, substance abuse with jose carlos lopez, history of incarceration, who is currently 7 weeks was admitted under WHEEL ROLLER service for intractable nausea and vomiting. Following admission last night she noted to have witnessed seizure, she was given Ativan and started on Keppra IV. Off note per obg/offbearer patient stopped taking Keppra but currently she denies that and states that she has been compliant with her medications. Hospitalist medicine service requested to take over her care as her admission now got complicated with intractable abdominal pain and the breakthrough seizure. Patient's UDS was positive for marijuana and she admits taking marijuana and states she doesn't have to stop it as she believes that has nothing to do with any abnormalities. Dr. Riojas evaluated the patient for abdominal pain and recommended medical Mx. Patient is currently alert and oriented, continue to seek for pain medications. No further nausea vomiting has been observed. Discussed with Grandmother in details about plan of care. Review of System: Constitutional: no fever, no chills, Ears, eyes, nose, mouth and throat: no nasal congestion, no nasal discharge, no sinus pressure, no vision change, no red eye. Neck: No neck pain or rigidity. Cardiovascular: No chest pain, no orthopnea, no palpitations, no leg swelling Respiratory: No shortness of breath, no cough, no congestion, no wheezing Gastrointestinal: + abdominal pain, + nausea, + vomiting Genitourinary : no dysuria, no hematuria Musculoskeletal: no joint swelling or muscle ache Integumentary: no rash, no pruritis Neurological: no parathesias, no numbness, no tingling, + seizure Endocrine: no cold or heat intolerance, no polyuria or polydipsia Hematologic/Lymphatic: no easy bruising, no easy bleeding, no gland swelling Allergic/Immunologic: no urticaria, no angioedema. Past History Past Medical History: pulmonary embolism, seizures, other (asthma, thyroid abnormality, ) Past Surgical History: (times 2), Other (ectopic; cyst removal) Social history: other (marijuana). denies: smoking, alcohol abuse Family history: denies: CAD, cancer, diabetes, stroke Medications and Allergies Allergies Allergy/AdvReac Type Severity Reaction Status Date / Time latex Allergy Rash Verified 03/22/19 02:52 Home Medications Medication Instructions Recorded Confirmed Last Taken Type levETIRAcetam [Keppra TAB] 750 mg PO BID #60 tablet 02/16/19 03/22/19 Unknown Rx levETIRAcetam [Keppra] 750 mg PO BID #450 ml 02/16/19 03/22/19 Unknown Rx Ondansetron [Zofran Odt] 4 mg PO Q8HR PRN #20 tab.rapdis 03/20/19 03/22/19 Unkn own Rx Enoxaparin [Lovenox] 40 mg SQ QDAY #30 syringe 03/22/19 Unknown Rx Pyridoxine [Vitamin B-6 50MG TAB] 100 mg PO QDAY #30 tablet 03/23/19 Unknown Rx Active Meds: Active Medications Acetaminophen (Tylenol) 650 mg PO Q4H PRN PRN Reason: Pain MILD(1-3)/Fever >100.5/TRONCOSO Enoxaparin Sodium (Lovenox) 40 mg SUB-Q DAILY [facility] Famotidine (Pepcid) 20 mg PO BID [facility] Last Admin: 04/02/19 21:11 Dose: 20 mg Documented by: Folic Acid (Folvite) 1 mg PO QDAY [facility] Dextrose/Lactated Ringer's (D5lr) 1,000 mls @ 500 mls/hr IV DIRECT [facility] Stop: 04/03/19 16:59 Dextrose/Lactated Ringer's (D5lr) 1,000 mls @ 150 mls/hr IV DIRECT [facility] Last Admin: 04/03/19 02:23 Dose: 150 mls/hr Documented by: Levetiracetam 1,000 mg/ (Dextrose) 110 mls @ 400 mls/hr IV Q12HR [facility] Last Admin: 04/03/19 01:23 Dose: 400 mls/hr Documented by: Lorazepam (Ativan) 2 mg IV Q4H PRN PRN Reason: Agitation Last Admin: 04/03/19 06:10 Dose: 2 mg Documented by: Ondansetron HCl (Zofran) 4 mg IV Q6H PRN PRN Reason: N/V unrelieved by Reglan Last Admin: 04/03/19 06:14 Dose: 4 mg Documented by: Promethazine HCl (Phenergan) 12.5 mg [place] Q6H PRN PRN Reason: Nausea And Vomiting Propylthiouracil (Propylthiouracil) 100 mg PO TID [facility] Last Admin: 04/02/19 19:02 Dose: 100 mg Documented by: Exam - Constitutional Vitals: Temp Pulse Resp BP Pulse Ox 98.1 F 83 23 105/66 99 04/03/19 07:03 04/03/19 08:30 04/03/19 08:30 04/03/19 08:30 04/03/19 08:30 General appearance: Present: well-nourished, other (restless) - EENT Eyes: Present: PERRL ENT: hearing intact, clear oral mucosa - Neck Neck: Present: supple, normal ROM - Respiratory Respiratory effort: normal Respiratory: bilateral: CTA - Cardiovascular Heart Sounds: Present: S1 & S2. Absent: rub, click - Extremities Extremities: pulses symmetrical, No edema Peripheral Pulses: within normal limits - Abdominal General gastrointestinal: Present: soft, non-distended, normal bowel sounds, other (diffuse tenderness whereever palpated but no rebound or guarding) - Integumentary Integumentary: Present: clear, warm, dry - Musculoskeletal Musculoskeletal: gait normal, strength equal bilaterally - Psychiatric Psychiatric: memory intact, other (very restless) - Neurologic Neurologic: CNII-XII intact, moves all extremities Results - Labs CBC & Chem 7: 04/02/19 10:49 Labs: Abnormal lab results 04/02/19 04/02/19 04/02/19 Range/Units 10:49 13:16 13:16 Sodium 136 L (137-145) mmol/L Creatinine 0.5 L (0.7-1.2) mg/dL TSH 0.031 L (0.270-4.200) mlU/mL Free T4 1.49 H (0.76-1.46) ng/dL Urine WBC (Auto) (0.0-6.0) /HPF U Epithel Cells (Auto) (0-13.0) /HPF 04/02/19 Range/Units 13:59 Sodium (137-145) mmol/L Creatinine (0.7-1.2) mg/dL TSH (0.270-4.200) mlU/mL Free T4 (0.76-1.46) ng/dL Urine WBC (Auto) 7.0 H (0.0-6.0) /HPF U Epithel Cells (Auto) 22.0 H (0-13.0) /HPF Assessment and Plan Intractable nausea and vomiting - Treat with antiemetics as needed, start on GI soft diet Breakthrough seizure - Doubt about compliance - Start back on Keppra, Ativan as needed Consult neurology if any medication dose adjustment necessary Severe abdominal pain, appears to be chronic - Pain going on form 2011, status post extensive workup in the past showed no clear etiology - Patient also exhausted Sarvice from different pain management clinic - Dr. Riojas following, appreciate recommendation Substance abuse, counseled, but patient did not promise to quit DVT prophylaxis, SCD
[2019-04-03] MEDS ORDERED: LOVENOX SUB-Q SCH ×2 (10:00→22:00)
--- NOTE | 2019-04-03 10:45 | Event Note ---
Date: 04/03/19 Phone call received at office from RN, patient requesting to speak to me. Pt is on the phone screaming hysterically stating "I'm in so much pain and I had 3 huge seizures last night and everyone is just trying to send me home". Explained to patient that consults have been placed to appropriate specialties to assist in managing her care, including pain management, as deemed appropriate. Encouraged pt to follow orders from providers, including NPO if ordered, as it was reported that she continues to eat despite being aware of orders not to and that her complaints of severe abdominal pain seems to follow eating, which she agrees. Patient is calmed. Assured patient that I would notify population health coach MD of her complaints and forward her request to appropriate care provider. Dr. Lindsay gates.
[2019-04-03] MEDS: PEPCID PO SCH ×2 (11:10→23:40)
[2019-04-03] MEDS: FOLVITE PO SCH (11:10)
--- NOTE | 2019-04-03 11:37 | Consultation ---
History of Present Illness Consult date: 04/03/19 Requesting physician: DESTINY MERCADO Reason for consult: other (Seizures) History of present illness: PULMONARY/CCM CONSULT NOTE (Full dictation # [id number]) Please see dictated notes for full details Past History Past Medical History: pulmonary embolism, seizures, other (asthma, thyroid abnormality, ) Past Surgical History: (times 2), Other (ectopic; cyst removal) Social history: other (marijuana). denies: smoking, alcohol abuse Family history: denies: CAD, cancer, diabetes, stroke Medications and Allergies Allergies Allergy/AdvReac Type Severity Reaction Status Date / Time latex Allergy Rash Verified 03/22/19 02:52 Home Medications Medication Instructions Recorded Confirmed Last Taken Type levETIRAcetam [Keppra TAB] 750 mg PO BID #60 tablet 02/16/19 03/22/19 Unknown Rx levETIRAcetam [Keppra] 750 mg PO BID #450 ml 02/16/19 03/22/19 Unknown Rx Ondansetron [Zofran Odt] 4 mg PO Q8HR PRN #20 tab.rapdis 03/20/19 03/22/19 Unknown Rx Enoxaparin [Lovenox] 40 mg SQ QDAY #30 syringe 03/22/19 Unknown Rx Pyridoxine [Vitamin B-6 50MG TAB] 100 mg PO QDAY #30 tablet 03/23/19 Unknown Rx Active Meds: Active Medications Acetaminophen (Tylenol) 650 mg PO Q4H PRN PRN Reason: Pain MILD(1-3)/Fever >100.5/TRONCOSO Enoxaparin Sodium (Lovenox) 40 mg SUB-Q DAILY [facility] Last Admin: 04/03/19 10:57 Dose: 40 mg Documented by: Famotidine (Pepcid) 20 mg PO BID [facility] Last Admin: 04/03/19 11:10 Dose: Not Given Documented by: Folic Acid (Folvite) 1 mg PO QDAY [facility] Last Admin: 04/03/19 11:10 Dose: Not Given Documented by: Dextrose/Lactated Ringer's (D5lr) 1,000 mls @ 500 mls/hr IV DIRECT [facility] Stop: 04/03/19 16:59 Dextrose/Lactated Ringer's (D5lr) 1,000 mls @ 150 mls/hr IV DIRECT [facility] Last Admin: 04/03/19 02:23 Dose: 150 mls/hr Documented by: Levetiracetam 1,000 mg/ (Dextrose) 110 mls @ 400 mls/hr IV Q12HR [facility] Last Admin: 04/03/19 10:56 Dose: 400 mls/hr Documented by: Lorazepam (Ativan) 2 mg IV Q4H PRN PRN Reason: Agitation Last Admin: 04/03/19 06:10 Dose: 2 mg Documented by: Ondansetron HCl (Zofran) 4 mg IV Q6H PRN PRN Reason: N/V unrelieved by Reglan Last Admin: 04/03/19 06:14 Dose: 4 mg Documented by: Promethazine HCl (Phenergan) 12.5 mg [place] Q6H PRN PRN Reason: Nausea And Vomiting Propylthiouracil (Propylthiouracil) 100 mg PO TID [facility] Last Admin: 04/03/19 08:10 Dose: Not Given Documented by: Physical Examination Vital signs: Vital Signs Temp Pulse Resp BP 97.8 F 87 18 107/77 04/02/19 10:10 04/02/19 10:10 04/02/19 10:10 04/02/19 10:10 Results - Laboratory Findings CBC and BMP: 04/02/19 10:49 Abnormal lab findings: Abnormal Labs 04/02/19 04/02/19 04/02/19 10:49 13:16 13:16 Sodium 136 L Creatinine 0.5 L TSH 0.031 L Free T4 1.49 H Urine WBC (Auto) U Epithel Cells (Auto) 04/02/19 13:59 Sodium Creatinine TSH Free T4 Urine WBC (Auto) 7.0 H U Epithel Cells (Auto) 22.0 H
[2019-04-03 15:19] LABS: Alanine Aminotransferase 12 units/L (7-56); Albumin 3.6 g/dL (3.9-5); Bilirubin,Direct < 0.2 mg/dL (0-0.2)
[2019-04-03 15:40] LABS: Hematocrit 35.3 % (30.3-42.9); Hemoglobin 11.7 gm/dl (10.1-14.3); Mean Corpuscular HGB Conc 33 % (30-34); Mean Corpuscular Volume 96 fl (79-97); Platelet Count 171 K/mm3 (140-440); Red Blood Count 3.66 M/mm3 (3.65-5.03)
--- NOTE | 2019-04-03 17:40 | Event Note ---
Date: 04/03/19 Patient eating bed with family members. Patient states she feels better. This patient's with him multiple chronic medical problems unrelated to her . Appreciate help from the hospitalist team, surgery and pulmonary injury this patient would complex problems.
--- NOTE | 2019-04-03 20:10 | Consultation ---
History of Present Illness Consult date: 04/03/19 Chief complaint: seizure History of present illness: This is a 29 YO F who presented to the hospital with seizure. Pt is 7 weeks . She is also having severe abdominal pain, for 7 years now but worse on admission. Says when the abdominal pain is bad it throws her into a seizure. Also admits to non compliance with Keppra. Says that she does not keep up with meds when she is in pain. Past History Past Medical History: pulmonary embolism, seizures, other (asthma, thyroid abnormality, ) Past Surgical History: (times 2), Other (ectopic; cyst removal) Social history: other (marijuana). denies: smoking, alcohol abuse Family history: denies: CAD, cancer, diabetes, stroke Medications and Allergies Allergies Allergy/AdvReac Type Severity Reaction Status Date / Time latex Allergy Rash Verified 03/22/19 02:52 Home Medications Medication Instructions Recorded Confirmed Last Taken Type levETIRAcetam [Keppra TAB] 750 mg PO BID #60 tablet 02/16/19 03/22/19 Unknown Rx levETIRAcetam [Keppra] 750 mg PO BID #450 ml 02/16/19 03/22/19 Unknown Rx Ondansetron [Zofran Odt] 4 mg PO Q8HR PRN #20 tab.rapdis 03/20/19 03/22/19 Unknown Rx Enoxaparin [Lovenox] 40 mg SQ QDAY #30 syringe 03/22/19 Unknown Rx Pyridoxine [Vitamin B-6 50MG TAB] 100 mg PO QDAY #30 tablet 03/23/19 Unknown Rx Active Meds: Active Medications Acetaminophen (Tylenol) 650 mg PO Q4H PRN PRN Reason: Pain MILD(1-3)/Fever >100.5/TRONCOSO Enoxaparin Sodium (Lovenox) 40 mg SUB-Q DAILY [facility] Last Admin: 04/03/19 10:57 Dose: 40 mg Documented by: Famotidine (Pepcid) 20 mg PO BID [facility] Last Admin: 04/03/19 11:10 Dose: Not Given Documented by: Folic Acid (Folvite) 1 mg PO QDAY [facility] Last Admin: 04/03/19 11:10 Dose: Not Given Documented by: Dextrose/Lactated Ringer's (D5lr) 1,000 mls @ 150 mls/hr IV DIRECT [facility] Last Admin: 04/03/19 09:54 Dose: 150 mls/hr Documented by: Levetiracetam 1,000 mg/ (Dextrose) 110 mls @ 400 mls/hr IV Q12HR [facility] Last Admin: 04/03/19 10:56 Dose: 400 mls/hr Documented by: Lorazepam (Ativan) 2 mg IV Q4H PRN PRN Reason: Agitation Last Admin: 04/03/19 06:10 Dose: 2 mg Documented by: Ondansetron HCl (Zofran) 4 mg IV Q6H PRN PRN Reason: N/V unrelieved by Reglan Last Admin: 04/03/19 06:14 Dose: 4 mg Documented by: Promethazine HCl (Phenergan) 12.5 mg [place] Q6H PRN PRN Reason: Nausea And Vomiting Propylthiouracil (Propylthiouracil) 100 mg PO TID [facility] Last Admin: 04/03/19 13:53 Dose: 100 mg Documented by: Review of Systems Gastrointestinal: abdominal pain Neurological: seizures Physical Examination - Vital Signs Vital Signs: Vital Signs Temp Pulse Resp BP 97.8 F 87 18 107/77 04/02/19 10:10 04/02/19 10:10 04/02/19 10:10 04/02/19 10:10 - Constitutional General appearance: comfortable - EENT EENT: Present: PERRL, mucous membranes moist - Respiratory Respiratory: Present: lungs clear - Cardiovascular Cardiovascular: Present: regular rate - Gastrointestinal Gastrointestinal: Present: normoactive bowel sounds - Neurologic Cranial nerve examination: PERRL, EOMI, V1/V2/V3 grossly intact, face symmetric, tongue midline Motor examination - right side: 5/5: biceps, triceps, wrist flexion, wrist extension, collection team lead, hip flexors, knee extensors, dorsiflexion, toe extension (EHL), plantarflexion Motor examination - left side: 5/5: biceps, triceps, wrist flexion, wrist extension, collection team lead, hip flexors, knee extensors, dorsiflexion, toe extension (EHL), plantarflexion Reflexes: 1+: ankle, bicep, knee, tricep Results - Laboratory Findings CBC and BMP: 04/03/19 14:45 04/02/19 10:49 Abnormal Lab Findings: Abnormal Labs 04/02/19 04/02/19 04/02/19 10:49 13:16 13:16 RDW Sodium 136 L Creatinine 0.5 L Alkaline Phosphatase Albumin TSH 0.031 L Free T4 1.49 H Urine WBC (Auto) U Epithel Cells (Auto) 04/02/19 04/03/19 04/03/19 13:59 14:45 14:45 RDW 13.0 L Sodium Creatinine Alkaline Phosphatase 28 L Albumin 3.6 L TSH Free T4 Urine WBC (Auto) 7.0 H U Epithel Cells (Auto) 22.0 H Assessment and Plan This is a 29 YO F who presented with abdominal pain and seizures. Admits to medication non compliance. Recommend: Agree with Keppra 1 g BID, continue at discharge Pt does not need work up for seizures, had had these for some time now Continue work up for abdominal pain as you are doing No further neuro work up needed. Follow up with neurology outpatient.
--- NOTE | 2019-04-04 00:47 | Consultation ---
CONSULTING PHYSICIAN: Dr. Seo. REASON FOR CONSULTATION: Seizure disorder. CHIEF COMPLAINT AND HISTORY OF PRESENT ILLNESS: The patient is a 29-year-old -[place] female with past medical history significant for a diagnosis of seizure disorder for which she is on Keppra, but also with a history of abdominal pain since about 2011 for which she has had a workup that includes endoscopy, colonoscopy, CT and MRI of the abdomen and pelvis according to the records. The patient denies any history of that being done at least in this particular hospital. She also has a history of chronic pain syndrome, had been on pain management in the past. She has a history of polysubstance abuse. She is currently 7 weeks , admitted under TELEPHONE REPAIRER for intractable nausea and vomiting. During the admission on the night of consult which is last night she was found to have a witnessed seizure. She was given Ativan, started on IV Keppra and it sounds that the patient had stopped taking her Keppra according to the notes, but the patient denies this and states that she has been taking the Keppra. Whatever the case, because of the seizures, , she was brought into the Intensive Care Unit for close observation. She did have a positive drug screen for marijuana and admitted to using that. When I stopped by to see her, she was feeling better. She did not have any more seizure activity. She said the pain was better, it does come and go, but at the time I saw her, it was better. She denied any real alleviating or relieving factors. She kind of describes the pain as in the left subcostal/left lower chest wall region. She denied any pleuritic nature to the pain when it does come out. When asked about tobacco use or abuse history, she denied history of tobacco use or abuse. This really is as much of the history of presentation as I have. PAST MEDICAL HISTORY: History of pulmonary embolism, history of seizure disorder, history of asthma and history of thyroid abnormality. PAST SURGICAL HISTORY: She has had sections in the past and she has had an ectopic cyst removed. MEDICATIONS: She was on at the time I stopped by to see were reviewed, pertinent medications include the following: Tylenol 650 mg p.o. q. 4 hours p.r.n. mild pain or fevers, she had been on a dextrose LR at 150 mL per hour, Lovenox 40 mg subcutaneous daily, Pepcid 20 mg p.o. b.i.d., Folvite 1 mg p.o. daily, Keppra 1 gram IV q. 12 hours, Ativan 2 mg IV q.4 hours p.r.n. agitation, Zofran 4 mg IV q. 6 hours p.r.n. nausea and vomiting and propylthiouracil PTU 100 mg p.o. t.i.d. ALLERGIES: LATEX. Nature of this allergy is unknown. DIET: Well-built lady. Denies acute weight loss or gain history in the preceding few weeks to months. FAMILY AND SOCIAL HISTORY: Lives in the community now. Denies current alcohol or tobacco use or abuse. She denies any IV drug use or abuse or prescription medication abuse. Otherwise noncontributory. REVIEW OF SYSTEMS: No loss of consciousness. No new onset focal weakness. Denies gross hematochezia or melena. Denies gross hematuria or dysuria. She has had the abdominal pain. She had a witnessed seizure reportedly. There was a question of pseudoseizures. Denies heat or cold intolerance. Denies polydipsia or polyuria. Denies any new rash on her body. Denies orthopnea. Denies paroxysmal nocturnal dyspnea. Complete 13-system review of systems obtained. Pertinent positives and/or negatives as in body of history above, otherwise noncontributory. PHYSICAL EXAMINATION: VITAL SIGNS: At presentation, she was afebrile, temperature 97.8 degrees Fahrenheit, pulse 87, respiratory rate 18, blood pressure 107/77, O2 sats were 99%, inspired oxygen concentration at that time was not recorded. When I stopped by to see her, O2 sats were 99% initially on 2 liters nasal cannula. GENERAL: Well-built young female, normocephalic, atraumatic, talking to me in full sentences without significant respiratory distress. HEAD, EYES, EARS, NOSE AND THROAT: She is anicteric. No conjunctival erythema. Oropharynx is moist. Mallampati #2 oropharynx. No gross jugular venous distention, no thyromegaly. Grossly, no palpable lymph nodes in the supraclavicular or submandibular lymph node chains. LUNGS: Auscultation of both lung lópez unremarkable. Lungs were clear bilaterally. HEART: Heart sounds 1 and 2 are heard. They were regular in rate and rhythm at the time of my evaluation without overt rubs or murmurs. ABDOMEN: Soft, full, bowel sounds are positive. Mild tenderness in the left upper quadrant region. Otherwise, no palpable hepatosplenomegaly. EXTREMITIES: Without overt digital clubbing, no cyanosis and no pedal edema. Pedal pulses are strong 2+ bilaterally. NEUROLOGIC: Pupils are equal, round, about 4 mm, reactive to light. Extraocular muscle movements are intact. She moves all 4 extremities spontaneously. No fasciculations, no spasticity. SKIN: Normal turgor without overt cellulitis or rash. LABORATORY DATA: From my review are as follows: Serum sodium 136, potassium 3.8, chloride 102, bicarbonate 22, BUN 7, creatinine 0.5, glucose was 86. TSH was low at 0.031. Free T4 was high at 1.49. Urinalysis showed small leukocyte esterase, 7 white cells per high power field, 2+ bacteremia. Urine drug screen presumptive positive for THC. No radiographic studies for my review. ASSESSMENT: 1. Seizure disorder with breakthrough seizure. 2. Likely medication noncompliance. 3. Chronic abdominal pain. 4. Chronic pain syndrome. 5. History of venous thromboembolic disorder, pulmonary embolism. 6. History of asthma. PLAN: I do feel that this is likely breakthrough seizure as a result of medication noncompliance. She has responded to the reinstitution of Keppra and she has p.r.n. Ativan. I will leave any further workup to a neurologist. I will defer to the attending physician in terms of her consult. I do believe that consult has been placed. Analgesic will be p.r.n. Continued tobacco abstinence has been counseled. She is appropriately on GI prophylaxis as well as DVT prophylaxis. Flu and pneumonia vaccination will be addressed per protocol. Thank you very much for the consult. We will follow along and make further recommendations as picture progresses/becomes clearer. She is stable enough to be transferred out of the Intensive Care Unit. JOB# [id number] CLAUDIO/VAN
[2019-04-04 06:35] VITALS: BP 119/41
[2019-04-04] MEDS: PROPYLTHIOURACIL PO SCH (08:36)
--- NOTE | 2019-04-04 08:41 | Discharge Summary ---
Providers - Providers Date of Admission: 04/02/19 14:41 Date of discharge: 04/04/19 Attending physician: LAILA HOUSER 04/02/19 10:13 Consult to Dietitian/Nutrition [CONS] Routine Physician Instructions: Reason For Exam: Reason for Consult: hyper grav Reason for Consult: Diet education 04/02/19 14:53 Consult to Physician [CONS] Routine Comment: Consulting Provider: JODI STRANGE Physician Instructions: Reason For Exam: abdominal pain 04/03/19 01:27 Consult to Physician [CONS] Stat Comment: Consulting Provider: ASIYA MCGINNIS Physician Instructions: Reason For Exam: seizures Consult to Physician [CONS] Stat Comment: Consulting Provider: GURWINDER BOTELLO Physician Instructions: Reason For Exam: seizures 04/03/19 11:07 Consult to Physician [CONS] Routine Comment: Consulting Provider: BOSTON ZAPIEN Physician Instructions: Reason For Exam: breakthrough seizure Primary care physician: JUAN LUIS REAL Hospitalization Hospital course: 29-year-old -[place] female with a history of seizure disorder on Keppra, chronic abdominal pain since 2011 status post extensive workup including endoscopy - EGD/colonoscopy, CT and MRI abdomen and pelvis without any obvious cause, chronic pain syndrome was on pain management, substance abuse with marijuana, history of incarceration, who is currently 7 weeks was admitted under [facility] service for intractable nausea and vomiting. Following admission last night she noted to have witnessed seizure, she was given Ativan and started on Keppra IV. Off note per obg/supervisor webbing patient stopped taking Keppra but currently she denies that and states that she has been compliant with her medications. Hospitalist medicine service requested to take over her care as her admission now got complicated with intractable abdominal pain and the breakthrough seizure. Patient's UDS was positive for marijuana and she admits taking marijuana and states she doesn't have to stop it as she believes that has nothing to do with any abnormalities. Dr. Riojas evaluated the patient for abdominal pain and recommended medical Mx. Patient is currently alert and oriented, continue to seek for pain medications. No further nausea vomiting has been observed. Discussed with Grandmother in details about plan of care. Discharge diagnosis: Intractable nausea and vomiting - Treat with antiemetics as needed, start on GI soft diet Breakthrough seizure - Doubt about compliance - Start back on Keppra, Ativan as needed Consult neurology if any medication dose adjustment necessary Severe abdominal pain, appears to be chronic - Pain going on form 2011, status post extensive workup in the past showed no clear etiology - Patient also exhausted Tamrae from different pain management clinic - Dr. Riojas following, appreciate recommendation Hyperthyroidism, started on propylthiouracil, further mx outpt Substance abuse, counseled, but patient did not promise to quit DVT prophylaxis, SCD Disposition: DC- TO HOME OR SELFCARE Time spent for discharge: 34 minutes Core Measure Documentation - Palliative Care Palliative Care/ Comfort Measures: Not Applicable - Core Measures Any of the following diagnoses?: none Exam - Physical Exam Narrative exam: General appearance: Present: well-nourished, - EENT Eyes: Present: PERRL ENT: hearing intact, clear oral mucosa - Neck Neck: Present: supple, normal ROM - Respiratory Respiratory effort: normal Respiratory: bilateral: CTA - Cardiovascular Heart Sounds: Present: S1 & S2. Absent: rub, click - Extremities Extremities: pulses symmetrical, No edema Peripheral Pulses: within normal limits - Abdominal General gastrointestinal: Present: soft, non-distended, normal bowel sounds, - Integumentary Integumentary: Present: clear, warm, dry - Musculoskeletal Musculoskeletal: gait normal, strength equal bilaterally - Psychiatric Psychiatric: memory intact, - Neurologic Neurologic: CNII-XII intact, moves all extremities - Constitutional Vitals: Temp Pulse Resp BP Pulse Ox 98.9 F 70 23 119/41 99 04/04/19 05:14 04/04/19 05:31 04/04/19 05:31 04/04/19 05:31 04/04/19 05:31 Plan Activity: advance as tolerated, fall precautions Weight Bearing Status: Non-Weight Bearing Diet: advance as tolerated Follow up with: JUAN LUIS REAL MD [Primary Care Provider] - 7 Days Prescriptions: Folic Acid [Folvite] 1 mg PO QDAY #30 tablet levETIRAcetam [Keppra] 1,000 mg PO BID #450 ml Propylthiouracil 100 mg PO TID #90 tablet Pyridoxine [Vitamin B-6 50MG TAB] 100 mg PO QDAY #30 tablet Ondansetron [Zofran ODT TAB] 4 mg PO Q8HR PRN #20 tab.rapdis PRN Reason: Nausea And Vomiting
[2019-04-04] MEDS: FOLVITE PO SCH (09:36)
[2019-04-04] MEDS: KEPPRA 1,000 MG in D5W 100 ML IV SCH (09:36)
[2019-04-04] MEDS: PEPCID PO SCH (09:37)
[2019-04-04] MEDS ORDERED: LOVENOX SUB-Q SCH (10:00)
== END 2019-04-04 11:40 | disposition home or self-care (01) | DRG 781 ==
LOC: UNDOADMIN 10:08 → 3A 10:08 → OB 10:26 → INTOOBSV 10:26 → OBSVTOIN 14:41 → OB 14:41 → 3A 14:51 → 4A 04-03 00:42 → CC1 04-03 01:16 → 3A 04-03 12:26
PROVIDERS: ADMIT Obstetrics & Gynecology; ATTEND Internal Medicine
DX: O99.351 Diseases of the nervous system complicating pregnancy, first trimester (principal); O26.891 Other specified pregnancy related conditions, first trimester; O99.281 Endocrine, nutritional and metabolic diseases complicating pregnancy, first trimester; O99.511 Diseases of the respiratory system complicating pregnancy, first trimester; O21.9 Vomiting of pregnancy, unspecified; G40.909 Epilepsy, unspecified, not intractable, without status epilepticus; J45.909 Unspecified asthma, uncomplicated; G89.4 Chronic pain syndrome; F19.10 Other psychoactive substance abuse, uncomplicated; E05.90 Thyrotoxicosis, unspecified without thyrotoxic crisis or storm; Z91.040 Latex allergy status; Z3A.01 Less than 8 weeks gestation of pregnancy; Z86.711 Personal history of pulmonary embolism; Z79.899 Other long term (current) drug therapy; Z71.51 Drug abuse counseling and surveillance of drug abuser
CPT/HCPCS: 36415; 80048; 80076; 80307; 81001; 82150; 83690; 84439; 84443; 84481; 85027; G0378; G0379; J1650; J1953; J2060; J2270; J2405; J7121

== ENCOUNTER 2019-04-04 15:33 | Inpatient (IN) | payer MEDICAID ==
[2019-04-04] MEDS ORDERED: KEPPRA 1,000 MG/NS 0.75% 100ML 1,000 MG/100 ML BAG IV ONE (15:35)
[2019-04-04] MEDS ORDERED: NACL 0.9% 1000 ML 1,000 ML IV ONE (15:38)
[2019-04-04 16:08] LABS: Basophils % (Auto) 0.5 % (0.0-1.8); Eosinophils % (Auto) 0.4 % (0.0-4.3); Hematocrit 34.9 % (30.3-42.9); Hemoglobin 12.2 gm/dl (10.1-14.3); Lymphocytes # (Auto) 2.6 K/mm3 (1.2-5.4); Lymphocytes % (Auto) 25.2 % (13.4-35.0); Mean Corpuscular HGB Conc 35 % (30-34); Mean Corpuscular Volume 93 fl (79-97); Monocytes # (Auto) 0.9 K/mm3 (0.0-0.8); Monocytes % (Auto) 8.9 % (0.0-7.3); Platelet Count 199 K/mm3 (140-440); Red Blood Count 3.76 M/mm3 (3.65-5.03)
[2019-04-04 16:23] LABS: Alanine Aminotransferase 12 units/L (7-56); Albumin 3.5 g/dL (3.9-5); BUN/Creatinine Ratio 10; Blood Urea Nitrogen 5 mg/dL (7-17); Calcium 8.7 mg/dL (8.4-10.2); Hemolysis Index 35
[2019-04-04] MEDS ORDERED: MORPHINE IV ONE ×2 (16:50→17:42)
[2019-04-04] MEDS ORDERED: ZOFRAN IV ONE ×2 (16:57→22:49)
--- NOTE | 2019-04-04 17:25 | Emergency Department Report ---
HPI - General Chief Complaint: Seizure Time Seen by Provider: 04/04/19 15:35 - HPI HPI: 29-year-old female presents to the emergency department EMS from home with a complaint of seizures and severe abdominal pain. The patient is about 7 weeks' and she just was discharged from this facility yesterday after spending 2 days here for the same symptoms. At that time she saw medicine, STEWARD/STEWARDESS NIGHT, neurology and Gen. surgery. Neurology recommended increasing Keppra to 1000 g twice daily. The patient has a known history of chronic pain syndrome with this abdominal pain going on for the past 7 years but it has been worsened or exacerbated since the patient became . The patient says that the pain causes the seizures to come on. She was given 2.5 mg of Versed in route with EMS. ED Past Medical Hx - Past Medical History Previous Medical History?: Yes Hx Congestive Heart Failure: No Hx Diabetes: No Hx Pulmonary Embolism: Yes (Present) Hx Seizures: Yes Hx Asthma: Yes Hx COPD: No Additional medical history: DIVERTICULITIS, OVARIAN CYST, - Surgical History Past Surgical History?: Yes Additional Surgical History: c/s x 2, ectopic - Social History Smoking Status: Unknown if ever smoked - Medications Home Medications: Home Medications Medication Instructions Recorded Confirmed Last Taken Type Folic Acid [Folvite] 1 mg PO QDAY #30 tablet 04/04/19 04/04/19 04/03/19 Rx Propylthiouracil 100 mg PO TID #90 tablet 04/04/19 04/04/19 04/03/19 Rx Pyridoxine [Vitamin B-6 50MG TAB] 100 mg PO QDAY #30 tablet 04/04/19 04/04/19 04/03/19 Rx levETIRAcetam [Keppra] 1,000 mg PO BID #450 ml 04/04/19 04/04/19 04/03/19 Rx ED Review of Systems ROS: Stated complaint: SEIZURE Other details as noted in HPI Comment: All other systems reviewed and negative Constitutional: denies: chills, fever Eyes: denies: eye pain, vision change ENT: denies: ear pain, throat pain Respiratory: denies: cough, shortness of breath Cardiovascular: denies: chest pain, palpitations Gastrointestinal: abdominal pain, nausea, vomiting Genitourinary: denies: dysuria, discharge Musculoskeletal: denies: joint swelling, arthralgia Skin: denies: rash, lesions Neurological: other (seizures). denies: numbness, paresthesias Physical Exam - Physical Exam Vital Signs: Vital Signs 04/04/19 15:35 Temperature 98.7 F Pulse Rate 100 H Respiratory 16 Rate Blood Pressure 160/88 O2 Sat by Pulse 100 Oximetry Physical Exam: GENERAL: The patient is rolling around on the gurney, screaming out. HENT: Normocephalic. Atraumatic. Patient has moist mucous membranes. EYES: Extraocular motions are intact. NECK: Supple. Trachea is midline. CHEST/LUNGS: Clear to auscultation. There is no respiratory distress noted. HEART/CARDIOVASCULAR: Regular. There is no tachycardia. There is no murmur. ABDOMEN: Abdomen is soft. Upper TTP to palpation. No guarding. Patient has normal bowel sounds. There is no abdominal distention. SKIN: Skin is warm and dry. NEURO: The patient is awake, alert. The patient has no obvious focal neurologic deficits. Normal speech. MUSCULOSKELETAL: No tenderness to palpation of the extremities or any deformity. Full ROM. ED Course Vital Signs 04/04/19 15:35 Temperature 98.7 F Pulse Rate 100 H Respiratory 16 Rate Blood Pressure 160/88 O2 Sat by Pulse 100 Oximetry - Consultations Consultation #1: 04/04/19 22:47 I spoke earlier in the evening with Dr Seo, the patient's OBGYN. She is familiar with the patient and says she is happy to consult but since the patient is not having any vaginal bleeding and has been recently evaluated regarding her , the patient should be admitted to the medicine service. ED Medical Decision Making - Lab Data Result diagrams: 04/04/19 15:55 04/04/19 15:55 - EKG Data -: EKG Interpreted by Nc EKG shows normal: sinus rhythm, axis, intervals, QRS complexes, ST-T waves Rate: normal - EKG Data When compared to previous EKG there are: previous EKG unavailable Interpretation: normal EKG - Radiology Data Radiology results: report reviewed ULTRASOUND OBSTETRIC INDICATION: Abdominal and pelvic pain. Clinical gestational age of 7 weeks. TECHNIQUE: Transvaginal. COMPARISON: Pelvic ultrasound from 03/29/2019. FINDINGS: GESTATIONAL SAC: Well-defined oval shape and intrauterine in location. YOLK SAC: No significant abnormality. EMBRYO/FETUS: No significant abnormality. - [place]-Rump Length = 1.39 cm = 7 weeks, 5 day(s). - Heart Rate = 156 beats per minute. ADNEXA: No significant abnormality. FREE FLUID: None. ADDITIONAL FINDINGS: None. IMPRESSION: 1. Single, living intrauterine with estimated sonographic age of 7 weeks, 5 day(s). - Medical Decision Making Initially this patient presented with a seizure at home, and then two seizures, or seizure like activity in the emergency department. The patient allgedly has a seizure disorder history and was also just seen by neurology two days ago for similar symptoms. The neurologist at the time says the patient has a seizure disorder and no new seizure workup was warranted. The patient may very well have a seizure disorder, but her seizures witnessed in the ED were atypical as she appeared to stop seizing when she was asked something by the nursing staff, and when she was asked a question about pain medication. After the seizures stopped, the patient began screaming and writhing around on the gurney regarding her abdominal pain. This continued despite pain medication being given. Labs were mostly unremarkable except for mild hypokalemia, that was replaced with potassium chloride, mile ketones in the U/A and positive . I obtained a U/S that shows IUP without any obvious abnormalities. Given the recurrent seizures, or seizure like activity, and her intractable abdominal pain, the patient will be re-admitted to the hospital. - Differential Diagnosis pseudoseizures, pain syndrome, epilepsy, Critical Care Time: No Critical care attestation.: If time is entered above; I have spent that time in minutes in the direct care of this critically ill patient, excluding procedure time. ED Disposition Clinical Impression: Seizure, Intractable abdominal pain Abdominal pain Qualifiers: Abdominal location: left upper quadrant Qualified Code(s): R10.12 - Left upper quadrant pain Nausea & vomiting Qualifiers: Vomiting type: unspecified Vomiting Intractability: intractable Qualified Code(s): R11.2 - Nausea with vomiting, unspecified Qualifiers: Weeks of gestation: less than 8 weeks Qualified Code(s): Z3A.01 - Less than 8 weeks gestation of Disposition: OP ADMIT IP TO THIS HOSP Is pt being admited?: Yes Condition: Fair Referrals: PRIMARY CARE, [Primary Care Provider] - 3-5 Days Time of Disposition: 22:56
[2019-04-04] MEDS: KCL 10MEQ/100ML 10 MEQ/100 ML BAG IV SCH ×2 (17:38→19:58)
[2019-04-04 20:00] LABS: Bacteria,Urine 2+ /HPF (Negative); Bilirubin,Urine NEG (Negative); Blood,Urine NEG (Negative); Color,Urine Yellow (Yellow); Mucus,Urine FEW /HPF; Protein,Urine <15 mg/dL mg/dL (Negative); Urobilinogen,Urine < 2.0 mg/dL (<2.0)
[2019-04-04 20:03] LABS: WBC,Urine < 1.0 /HPF (0.0-6.0)
[2019-04-04 20:08] LABS: Amphetamine Screen,Urine PRESUMPTIVE NEGATIVE; Cocaine Screen,Urine PRESUMPTIVE NEGATIVE; Methadone Screen,Urine PRESUMPTIVE NEGATIVE; Opiate Screen,Urine PRESUMPTIVE NEGATIVE
[2019-04-04 20:22] LABS: Benzodiazepines Screen,Urine PRESUMPTIVE POSITIVE; Cannabinoid Screen,Urine PRESUMPTIVE POSITIVE
--- NOTE | 2019-04-04 20:29 | Ultrasound Report ---
ULTRASOUND OBSTETRIC INDICATION: Abdominal and pelvic pain. Clinical gestational age of 7 weeks. TECHNIQUE: Transvaginal. COMPARISON: Pelvic ultrasound from 03/29/2019. FINDINGS: GESTATIONAL SAC: Well-defined oval shape and intrauterine in location. YOLK SAC: No significant abnormality. EMBRYO/FETUS: No significant abnormality. - [place]-Rump Length = 1.39 cm = 7 weeks, 5 day(s). - Heart Rate = 156 beats per minute. ADNEXA: No significant abnormality. FREE FLUID: None. ADDITIONAL FINDINGS: None. IMPRESSION: 1. Single, living intrauterine with estimated sonographic age of 7 weeks, 5 day(s). Signer Name: Avinash Baptiste MD Signed: 04/04/2019 8:25 PM Workstation Name: [id number]
--- NOTE | 2019-04-04 22:08 | History and Physical Report ---
<KELLY FLORES - Last Filed: 04/05/19 04:02> History of Present Illness Date of examination: 04/04/19 History of present illness: 29-year-old lady with a history of seizure, 7 weeks' , chronic abdominal pain 7 years, hypothyroidism, PE on Lovenox, who have undergone numerous workup, but no causes found for the abdominal pain. She was admitted on April 02 and discharged this morning for abdominal pain and seizure. She comes back to the emergency room today because she stated that she had multiple seizures today. Also state that her pain in the left upper abdomen/chest, sharp pain, intermittent. Hours, intensity 02/19 final radiation patient stated that when she gets the pain, she gets worked up and then have a seizure. She takes tramadol for the pain at home, sometimes she'll buy Percocet from her friends or smoke marijuana. Stated that she'll continue to smoke ma rijuana because it will not affect her baby, she smoked marijuana what her previous and her baby turned out fine Review Of Systems: Constitutional: no weight loss, fever, chills Ears, eyes, nose, mouth and throat: no nasal congestion, no nasal discharge, no sinus pressure, blurry vision, diplopia Neck: No neck pain or rigidity. Cardiovascular: No palpitations, chest pain Respiratory: No shortness of breath, cough Gastrointestinal: No hematochezia Genitourinary : no dysuria, frequency , hematuria Musculoskeletal: no muscle ache , joint pain Integumentary: no rash, no pruritis Neurological: no parathesias, focal weakness Endocrine: no cold or heat intolerance, no polyuria or polydipsia Hematologic/Lymphatic: no easy bruising, no easy bleeding, no gland swelling Allergic/Immunologic: no urticaria, no angioedema. PAST MEDICAL HISTORY:seizure, 7 weeks' , chronic abdominal pain 7 years, hypothyroidism, PE on Lovenox, PAST SURGICAL HISTORY: c/Section x2 FAMILY HISTORY:hypertension, diabetes SOCIAL HISTORY: Denies tobacco, melena, alcohol Medications and Allergies Allergies Allergy/AdvReac Type Severity Reaction Status Date / Time latex Allergy Rash Verified 03/22/19 02:52 Home Medications Medication Instructions Recorded Confirmed Last Taken Type Folic Acid [Folvite] 1 mg PO QDAY #30 tablet 04/04/19 04/04/19 04/03/19 Rx Propylthiouracil 100 mg PO TID #90 tablet 04/04/19 04/04/19 04/03/19 Rx Pyridoxine [Vitamin B-6 50MG TAB] 100 mg PO QDAY #30 tablet 04/04/19 04/04/19 04/03/19 Rx levETIRAcetam [Keppra] 1,000 mg PO BID #450 ml 04/04/19 04/04/19 04/03/19 Rx Active Meds: Active Medications Enoxaparin Sodium (Lovenox) 80 mg 1 mg/kg (80 mg) SUB-Q Q12H MARIUM Morphine Sulfate (Morphine) 2 mg IV Q4H PRN PRN Reason: Pain, Moderate (4-6) Exam - Physical Exam Narrative exam: Physical exam - Constitutional Vitals: Temp Pulse Resp BP Pulse Ox 98.7 F 79 17 112/77 98 04/04/19 15:35 04/04/19 22:07 04/04/19 22:07 04/04/19 22:07 04/04/19 22:07 Results - Labs CBC & Chem 7: 04/04/19 15:55 04/04/19 15:55 Labs: Abnormal lab results 04/04/19 04/04/19 04/04/19 Range/Units 15:55 15:55 15:55 MCH 33 H (28-32) pg MCHC 35 H (30-34) % RDW 13.0 L (13.2-15.2) % [place] % (Auto) 8.9 H (0.0-7.3) % [place] # 0.9 H (0.0-0.8) K/mm3 Sodium 134 L (137-145) mmol/L Potassium 3.3 L (3.6-5.0) mmol/L Carbon Dioxide 18 L (22-30) mmol/L BUN 5 L (7-17) mg/dL Creatinine 0.5 L (0.7-1.2) mg/dL Alkaline Phosphatase 30 L (35-129) units/L Albumin 3.5 L (3.9-5) g/dL TSH (0.270-4.200) mlU/mL Urine pH (5.0-7.0) Acetaminophen < 5.0 L (10.0-30.0) ug/mL 04/04/19 04/04/19 Range/Units 19:30 Unknown MCH (28-32) pg MCHC (30-34) % RDW (13.2-15.2) % [place] % (Auto) (0.0-7.3) % [place] # (0.0-0.8) K/mm3 Sodium (137-145) mmol/L Potassium (3.6-5.0) mmol/L Carbon Dioxide (22-30) mmol/L BUN (7-17) mg/dL Creatinine (0.7-1.2) mg/dL Alkaline Phosphatase (35-129) units/L Albumin (3.9-5) g/dL TSH 0.023 L (0.270-4.200) mlU/mL Urine pH 8.0 H (5.0-7.0) Acetaminophen (10.0-30.0) ug/mL Assessment and Plan ultrasound. Assessment Seizure vs pseudoseizure, acute on chronic, most likely secondary to noncompliance chronic pain Asthma Hypothyroidism pulmonary emboli Continue IV Keppra, consult neurology Continue appropiate medications, IV morphine DVT prophylaxis, marijuana cessation discussed with patient <ZACHERY NUNEZ S - Last Filed: 04/06/19 21:58> History of Present Illness Date of admission: 04/04/19 22:05 Exam - Constitutional Vitals: Temp Pulse Resp BP Pulse Ox 99.9 F H 89 18 119/64 97 04/05/19 05:59 04/05/19 05:59 04/05/19 05:59 04/05/19 05:59 04/05/19 05:59 Results - Labs CBC & Chem 7: 04/04/19 15:55 04/04/19 15:55
--- NOTE | 2019-04-04 22:45 | Consultation ---
History of Present Illness Consult date: 04/04/19 Reason for consult: other (seizures, LUQ pain w/ nausea and vomiting) History of present illness: 29-year-old female presents to the emergency department EMS from home with a complaint of seizures and severe abdominal pain. She has a 7week viable IUP and has no obstetric complaints. Past History : 4 Term Births: 2 Living Children: 2 Para: 2 Ectopics: 1 # 1 Delivery date: 2005 Weeks Gestation: 38 Delivery type: Anesthesia type: epidural Delivery location: [place] Sex: Male weight: 7-14 # 2 Delivery date: 2011 Weeks Gestation: 5-0 Delivery type: Anesthesia type: epidural Delivery location: [place] Infant Sex: Male weight: 5-0 Comments: hyperemesis Past Medical History: Seizures- taking [id number]-[facility]. [facility] [place] Asthma-no meds pulmonary embolism-on blood thinners now. diagnosed was taking OCPs Thyroid disease Diverticulosis Chronic LUQ pain since 2011 Depression Past Surgical History: C-sectionx2 Past Medical History Surgery (Non-rehab liaison): Abnormal PAP: negative EFRAÍN Exposure: negative Infertility: negative Uterine Anomaly: negative Uterine Surgery (not C/S): negative Other Gynecologic Problems: negative Medical History Comments: seiures Infection History Hx of STD: chlamydia, gc,trich Partner hx. of genital herpes: no Varicella/Chicken Pox Status: Previous Disease Genetic History Congenital Heart Defect: Mom: no Dad: unknown Neli Disease: Mom: no Dad: unknown Thalassemia Mom: no Dad: unknown Neural Tube Defect Mom: no Dad: unknown Down's Syndrome Mom: no Dad: unknown Alonso-Sachs Mom: no Dad: unknown Sickle Cell Disease/Trait Mom: no Dad: unknown Hemophilia Mom: no Dad: unknown Muscular Dystrophy Mom: no Dad: unknown Cystic Fibrosis Mom: no Dad: unknown [place] Chorea Mom: no Dad: unknown Mental Retardation Mom: no Dad: unknown Fragile X Mom: no Dad: unknown Other Genetic/Chromosomal Disorder Mom: no Dad: unknown Child w/other defect Mom: no Dad: unknown Enviromental Exposures Xray Exposure: no Medication, drug, or alcohol use since LMP: no Chemical/Other Exposure: no Exposure to Cat Liter: no Hx of Parvovirus (Fifth Disease): no Occupational Exposure to Children: none Comments: MRI Active Medications (reviewed today): LOVENOX 40MG SQ DAILY KEPPRA TABLET (LEVETIRACETAM TABS) PROPYLTHIOURACIL 100MG PO TID VITAMINS Current Allergies (reviewed today): No known allergies Past History - Obstetrical History : 4 Medications and Allergies Allergies Allergy/AdvReac Type Severity Reaction Status Date / Time latex Allergy Rash Verified 03/22/19 02:52 Home Medications Medication Instructions Recorded Confirmed Last Taken Type Folic Acid [Folvite] 1 mg PO QDAY #30 tablet 04/04/19 04/04/19 04/03/19 Rx Propylthiouracil 100 mg PO TID #90 tablet 04/04/19 04/04/19 04/03/19 Rx Pyridoxine [Vitamin B-6 50MG TAB] 100 mg PO QDAY #30 tablet 04/04/19 04/04/19 04/03/19 Rx levETIRAcetam [Keppra] 1,000 mg PO BID #450 ml 04/04/19 04/04/19 04/03/19 Rx Active Meds: Active Medications Enoxaparin Sodium (Lovenox) 80 mg SUB-Q Q12HR MARIUM Sodium Chloride (Nacl 0.9% 1000 Ml) 1,000 mls @ 100 mls/hr IV DIRECT MARIUM Morphine Sulfate (Morphine) 2 mg IV Q4H PRN PRN Reason: Pain, Moderate (4-6) - Vital Signs Vital signs: Vital Signs Pulse Ox 100 04/04/19 15:34 Temp Pulse Resp BP Pulse Ox 98.7 F 79 17 112/77 98 04/04/19 15:35 04/04/19 22:07 04/04/19 22:07 04/04/19 22:07 04/04/19 22:07 Results Result Diagrams: 04/04/19 15:55 04/04/19 15:55 Abnormal lab results 04/04/19 04/04/19 04/04/19 Range/Units 15:55 15:55 15:55 MCH 33 H (28-32) pg MCHC 35 H (30-34) % RDW 13.0 L (13.2-15.2) % [place] % (Auto) 8.9 H (0.0-7.3) % [place] # 0.9 H (0.0-0.8) K/mm3 Sodium 134 L (137-145) mmol/L Potassium 3.3 L (3.6-5.0) mmol/L Carbon Dioxide 18 L (22-30) mmol/L BUN 5 L (7-17) mg/dL Creatinine 0.5 L (0.7-1.2) mg/dL Alkaline Phosphatase 30 L (35-129) units/L Albumin 3.5 L (3.9-5) g/dL TSH (0.270-4.200) mlU/mL Urine pH (5.0-7.0) Acetaminophen < 5.0 L (10.0-30.0) ug/mL 04/04/19 04/04/19 Range/Units 19:30 Unknown MCH (28-32) pg MCHC (30-34) % RDW (13.2-15.2) % [place] % (Auto) (0.0-7.3) % [place] # (0.0-0.8) K/mm3 Sodium (137-145) mmol/L Potassium (3.6-5.0) mmol/L Carbon Dioxide (22-30) mmol/L BUN (7-17) mg/dL Creatinine (0.7-1.2) mg/dL Alkaline Phosphatase (35-129) units/L Albumin (3.9-5) g/dL TSH 0.023 L (0.270-4.200) mlU/mL Urine pH 8.0 H (5.0-7.0) Acetaminophen (10.0-30.0) ug/mL All other labs normal. Ultrasound: report reviewed Assessment and Plan - Patient Problems (1) 7 weeks gestation of Current Visit: Yes Status: Acute Plan to address problem: No obstetric complaints US revealed viable normal appearing IUP@7 7wga Please do no hesitate to call for any questions or obstetric concerns (2) Seizure Current Visit: No Status: Chronic (3) Asthma Current Visit: No Status: Acute Qualifiers: Asthma severity: mild (4) History of depression Current Visit: No Status: Acute (5) Thyroid disorder Current Visit: No Status: Chronic
[2019-04-04] MEDS ORDERED: ZOFRAN ONE (22:46)
[2019-04-04] MEDS: MORPHINE IV PRN (22:48)
[2019-04-04] MEDS ORDERED: NACL 0.9% 1000 ML 1,000 ML IV SCH (23:00)
[2019-04-04] MEDS ORDERED: NACL 0.9% 1000 ML 1,000 ML ONE (23:07)
[2019-04-04] MEDS ORDERED: LOVENOX SUB-Q ONE (23:07)
[2019-04-04] MEDS: LOVENOX SUB-Q SCH (23:08)
[2019-04-05 06:01] VITALS: BP 119/64
[2019-04-05] MEDS: MORPHINE IV PRN (06:26)
[2019-04-05] MEDS ORDERED: PROPYLTHIOURACIL PO SCH (08:00)
[2019-04-05] MEDS: LOVENOX SUB-Q SCH (09:55)
[2019-04-05] MEDS ORDERED: VITAMIN B-6 PO SCH (10:00)
[2019-04-05] MEDS ORDERED: KEPPRA PO SCH (10:00)
[2019-04-05] MEDS ORDERED: FOLVITE PO SCH (10:00)
--- NOTE | 2019-04-05 10:38 | Progress Note ---
Subjective Date of service: 04/05/19 Interval history: see my note these are likely not seizures suspect she is emotionally deranged based on lengthy interview... there is a subtype of pseudoseizures thta present with uncontrolable abdominal pain ( Charcot described as vignette ) Objective - Vital Sign Vital Signs - 12hr 04/04/19 04/04/19 04/05/19 22:47 23:00 00:14 Temperature 97.6 F Pulse Rate 67 Respiratory 18 Rate Blood Pressure 136/70 116/50 118/53 O2 Sat by Pulse 100 Oximetry 04/05/19 05:59 Temperature 99.9 F H Pulse Rate 89 Respiratory 18 Rate Blood Pressure 119/64 O2 Sat by Pulse 97 Oximetry - Laboratory Findings CBC and BMP: 04/04/19 15:55 04/04/19 15:55 Abnormal Lab Findings: Abnormal Labs 04/04/19 04/04/19 04/04/19 15:55 15:55 15:55 MCH 33 H MCHC 35 H RDW 13.0 L [place] % (Auto) 8.9 H [place] # 0.9 H Sodium 134 L Potassium 3.3 L Carbon Dioxide 18 L BUN 5 L Creatinine 0.5 L Alkaline Phosphatase 30 L Albumin 3.5 L TSH Urine pH Acetaminophen < 5.0 L 04/04/19 04/04/19 19:30 Unknown MCH MCHC RDW [place] % (Auto) [place] # Sodium Potassium Carbon Dioxide BUN Creatinine Alkaline Phosphatase Albumin TSH 0.023 L Urine pH 8.0 H Acetaminophen
--- NOTE | 2019-04-05 12:01 | Consultation ---
HISTORY OF PRESENT ILLNESS: This is a 29-year-old black female who I had previously seen. Prior to admission, the patient at the point I saw her during her last admission had a very unusual history of starting to have left upper abdominal pain and underwent many medical evaluations over the ensuing years when she was living in [place], [place]. She was recently moved to the [place] and area does not have any local family members. During her prior admission, it was found that she was and she began then to complain of this abdominal pain again and sees OB doctors about this. She also states that she has been on Keppra therapy for seizures. What is interesting was while I was talking to her, she began to get really agitated and got a phone call from was described as her boyfriend and she began to get extremely agitated, cursing and acting very belligerent towards him over the phone. Grandmother was in the room and did communicate to me that she felt that this were some of the issues with emotional lability, agitation overall, but I would call a rage attack directed at other individuals. During that time, the patient was also observed to having a shaking in her legs, which was rhythmical, which was clearly not a seizure, but some form of agitated behavior. IMPRESSION: From a direct observation, this patient is emotionally very disturbed obviously has anger issues and directing verbal verbiage at other individuals, which I would consider to be inappropriate. Given the medical setting in the midst of neurological assessment engaged in a phone call with her boyfriend, so given her situation it is not really clear that she is cooperative. I do not think she has insight into her issue, is quite unaware of her problem with maintaining emotional control and whether this is somewhat related to her epilepsy is not clear. Usually patients of this type are best managed in an epilepsy monitoring center and have a psychiatric evaluation because there is a very strong possibility that these are pseudoseizures or some other form of what I would call intentional display of rage, which the epilepsy medicines have very little potential for helping and I think this patient is by my direct observation of her behavior is emotionally very labile and not in control of her behavior, which makes her care difficult because of lack of insight into her mood control. JOB# [id number] SHAWN/VAN
--- NOTE | 2019-04-06 21:55 | Discharge Summary ---
Providers - Providers Date of Admission: 04/04/19 22:05 Date of discharge: 04/06/19 Attending physician: ZACHERY NUNEZ 04/04/19 21:02 Consult to Physician [CONS] Routine Comment: Dr. Cooley spoke with Dr. Seo @ 1861 (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 Hospitalization Condition: Fair Hospital course: Seizure vs pseudoseizure, acute on chronic, most likely secondary to noncompliance chronic pain Asthma Hypothyroidism pulmonary emboli Patient left AMA without any prescriptions Disposition: DC-07 LEFT AGAINST MED ADVICE Core Measure Documentation - Palliative Care Palliative Care/ Comfort Measures: Not Applicable - Core Measures Any of the following diagnoses?: none, history only Exam - Constitutional Vitals: Temp Pulse Resp BP Pulse Ox 99.9 F H 89 18 119/64 97 04/05/19 05:59 04/05/19 05:59 04/05/19 05:59 04/05/19 05:59 04/05/19 05:59 General appearance: Present: no acute distress, well-nourished - EENT Eyes: Present: PERRL ENT: hearing intact, clear oral mucosa - Neck Neck: Present: supple, normal ROM - Respiratory Respiratory effort: normal Respiratory: bilateral: CTA - Cardiovascular Heart rate: 78 Rhythm: regular Heart Sounds: Present: S1 & S2. Absent: rub, click - Extremities Extremities: pulses symmetrical, No edema Peripheral Pulses: within normal limits - Abdominal General gastrointestinal: Present: soft, non-tender, non-distended, normal bowel sounds Female genitourinary: Present: normal - Integumentary Integumentary: Present: clear, warm, dry - Musculoskeletal Musculoskeletal: gait normal, strength equal bilaterally - Psychiatric Psychiatric: appropriate mood/affect, intact judgment & insight - Neurologic Neurologic: CNII-XII intact, moves all extremities Plan Activity: no restrictions Diet: regular Follow up with: PRIMARY MD SAI [Primary Care Provider] - 3-5 Days SINAI ROCK MD [Staff Physician] - 7 Days
--- NOTE | 2019-04-06 21:56 | Progress Note ---
Assessment and Plan ultrasound. Assessment Seizure vs pseudoseizure, acute on chronic, most likely secondary to noncompliance chronic pain Asthma Hypothyroidism pulmonary emboli Continue IV Keppra, consult neurology Continue appropiate medications, IV morphine DVT prophylaxis, marijuana cessation discussed with patient Subjective Date of service: 04/05/19 Principal diagnosis: Seizures Interval history: 29-year-old lady with a history of seizure, 7 weeks' , chronic abdominal pain 7 years, hypothyroidism, PE on Lovenox, who have undergone numerous workup, but no causes found for the abdominal pain. She was admitted on April 02 and discharged this morning for abdominal pain and seizure. She comes back to the emergency room today because she stated that she had multiple seizures today. Also state that her pain in the left upper abdomen/chest, sharp pain, intermittent. Hours, intensity 7/10 final radiation patient stated that when she gets the pain, she gets worked up and then have a seizure. She takes tramadol for the pain at home, sometimes she'll buy Percocet from her friends or smoke marijuana. Stated that she'll continue to smoke marijuana because it will not affect her baby, she smoked marijuana what her previous and her baby turned out fine Objective - Constitutional General appearance: Present: no acute distress, well-nourished - EENT Eyes: PERRL, EOM intact ENT: hearing intact, clear oral mucosa Ears: bilateral: normal - Neck Neck: supple, normal ROM - Respiratory Respiratory effort: normal Respiratory: bilateral: CTA - Breasts Breasts: normal - Cardiovascular Heart rate: 78 Rhythm: regular Heart Sounds: Present: S1 & S2. Absent: gallop, rub Extremities: no ischemia, pulses intact, No edema, normal color, Full ROM - Gastrointestinal General gastrointestinal: Present: soft, non-tender, non-distended, normal bowel sounds - Genitourinary Female genitourinary: normal - Integumentary Integumentary: clear, warm, dry - Musculoskeletal Musculoskeletal: 1, strength equal bilaterally - Neurologic Neurologic: moves all extremities - Psychiatric Psychiatric: memory intact, appropriate mood/affect, intact judgment & insight - Labs CBC & Chem 7: 04/04/19 15:55 04/04/19 15:55
== END 2019-04-05 11:17 | disposition left against medical advice (07) | DRG 781 ==
LOC: ED 15:33 → 3A 22:05
PROVIDERS: ADMIT Internal Medicine; ATTEND Internal Medicine
DX: O99.351 Diseases of the nervous system complicating pregnancy, first trimester (principal); G89.4 Chronic pain syndrome; G40.89 Other seizures; J45.909 Unspecified asthma, uncomplicated; R10.12 Left upper quadrant pain; E03.9 Hypothyroidism, unspecified; O99.321 Drug use complicating pregnancy, first trimester; O99.513 Diseases of the respiratory system complicating pregnancy, third trimester; O99.281 Endocrine, nutritional and metabolic diseases complicating pregnancy, first trimester; Z53.21 Procedure and treatment not carried out due to patient leaving prior to being seen by health care provider; O99.341 Other mental disorders complicating pregnancy, first trimester; F32.9 Major depressive disorder, single episode, unspecified; F12.90 Cannabis use, unspecified, uncomplicated; Z3A.01 Less than 8 weeks gestation of pregnancy; Z86.711 Personal history of pulmonary embolism; Z82.49 Family history of ischemic heart disease and other diseases of the circulatory system; Z83.3 Family history of diabetes mellitus; Z79.01 Long term (current) use of anticoagulants; Z91.19 Patient's noncompliance with other medical treatment and regimen
CPT/HCPCS: 36415; 76801; 80053; 80307; 80320; 81001; 82962; 84443; 84703; 85025; 93005; 93010; 96365; 96375; G0378; G0480; J1650; J1953; J2270; J2405; J3480; J7030

== ENCOUNTER 2019-04-08 01:29 | Emergency (ER) | payer MEDICAID ==
[2019-04-08 01:48] VITALS: BP 124/79
[2019-04-08] MEDS ORDERED: BENADRYL IV ONE (02:09)
[2019-04-08] MEDS ORDERED: NACL 0.9% 1000 ML 1,000 ML IV ONE (02:09)
[2019-04-08] MEDS ORDERED: REGLAN IV ONE (02:09)
[2019-04-08 02:30] LABS: Basophils % (Auto) 0.3 % (0.0-1.8); Eosinophils % (Auto) 0.4 % (0.0-4.3); Hemoglobin 12.4 gm/dl (10.1-14.3); Lymphocytes # (Auto) 2.1 K/mm3 (1.2-5.4); Mean Corpuscular HGB Conc 35 % (30-34); Mean Corpuscular Volume 93 fl (79-97); Monocytes # (Auto) 0.8 K/mm3 (0.0-0.8); Monocytes % (Auto) 8.3 % (0.0-7.3); Red Blood Count 3.88 M/mm3 (3.65-5.03)
[2019-04-08 02:42] LABS: BUN/Creatinine Ratio 13; Blood Urea Nitrogen 8 mg/dL (7-17); Calcium 9.3 mg/dL (8.4-10.2); Hemolysis Index 4
[2019-04-08 03:07] LABS: Platelet Count 225 K/mm3 (140-440)
--- NOTE | 2019-04-08 06:49 | Emergency Department Report ---
ED General Adult HPI - General Chief complaint: Seizure Stated complaint: SEIZURE Time Seen by Provider: 04/08/19 01:40 Source: EMS Mode of arrival: Stretcher Limitations: No Limitations - History of Present Illness Initial comments: 29 yo F w/ hx seizures, chronic abdominal pain, and . Pt has had multiple ER visits and admissions for her abdominal pain. EMS states they were called out for seizure. Pt reportedly had multiple seizures at home, also had a seizure while in their care. They gave magnesium, did not want to give ativan b/c pt is . Upon seeing pt, pt is awake and alert, crying, rocking back and forth in bed, complaining of her usual abdominal pain, N/V. Pt is currently 8 wks . OB: Rayray -: This evening Location: abdomen Severity scale (0 -10): 10 Quality: aching Consistency: constant Improves with: none Worsens with: none Associated Symptoms: nausea/vomiting - Related Data Previous Rx's Medication Instructions Recorded Last Taken Type Folic Acid [Folvite] 1 mg PO QDAY #30 tablet 04/04/19 04/03/19 Rx Propylthiouracil 100 mg PO TID #90 tablet 04/04/19 04/03/19 Rx Pyridoxine [Vitamin B-6 50MG TAB] 100 mg PO QDAY #30 tablet 04/04/19 04/03/19 Rx levETIRAcetam [Keppra] 1,000 mg PO BID #450 ml 04/04/19 04/03/19 Rx Allergies Allergy/AdvReac Type Severity Reaction Status Date / Time latex Allergy Rash Verified 03/22/19 02:52 ED Review of Systems ROS: Stated complaint: SEIZURE Other details as noted in HPI Comment: All other systems reviewed and negative Constitutional: denies: chills, fever Gastrointestinal: abdominal pain, nausea, vomiting Neurological: other (reports seizure) ED Past Medical Hx - Past Medical History Hx Congestive Heart Failure: No Hx Diabetes: No Hx Pulmonary Embolism: Yes (Present) Hx Seizures: Yes Hx Asthma: Yes Hx COPD: No Additional medical history: DIVERTICULITIS, OVARIAN CYST, - Surgical History Past Surgical History?: Yes Additional Surgical History: c/s x 2, ectopic - Social History Smoking Status: Light Tobacco Smoker Substance Use Type: Marijuana - Medications Home Medications: Home Medications Medication Instructions Recorded Confirmed Last Taken Type Folic Acid [Folvite] 1 mg PO QDAY #30 tablet 04/04/19 04/04/19 04/03/19 Rx Propylthiouracil 100 mg PO TID #90 tablet 04/04/19 04/04/19 04/03/19 Rx Pyridoxine [Vitamin B-6 50MG TAB] 100 mg PO QDAY #30 tablet 04/04/19 04/04/19 04/03/19 Rx levETIRAcetam [Keppra] 1,000 mg PO BID #450 ml 04/04/19 04/04/19 04/03/19 Rx ED Physical Exam - General Limitations: No Limitations General appearance: alert, in no apparent distress, other (appears uncomfortable) - Head Head exam: Present: atraumatic, normocephalic - Eye Eye exam: Present: normal appearance, PERRL, EOMI - ENT ENT exam: Present: mucous membranes moist - Neck Neck exam: Present: normal inspection - Respiratory Respiratory exam: Present: normal lung sounds bilaterally. Absent: respiratory distress - Cardiovascular Cardiovascular Exam: Present: normal rhythm, tachycardia - GI/Abdominal GI/Abdominal exam: Present: soft, tenderness (diffuse tenderness). Absent: distended - Extremities Exam Extremities exam: Present: normal inspection - Neurological Exam Neurological exam: Present: alert, oriented X3. Absent: motor sensory deficit - Psychiatric Psychiatric exam: Present: normal affect, normal mood - Skin Skin exam: Present: warm, dry, intact, normal color ED Course Vital Signs 04/08/19 01:36 Temperature 98.5 F Pulse Rate 112 H Respiratory 22 Rate Blood Pressure 124/79 Blood Pressure 124/79 [Right] O2 Sat by Pulse 100 Oximetry ED Medical Decision Making - Lab Data Result diagrams: 04/08/19 02:16 04/08/19 02:16 - Medical Decision Making Pt eloped. Reglan, benadryl, IV fluids were ordered for pt. RN states pt became angry and belligerent, was screaming and yelling because there were no pain meds ordered. Before RN could come and inform me, pt left the ER. - Differential Diagnosis gastroparesis, drug-seeking behavior, pseudoseizures Critical care attestation.: If time is entered above; I have spent that time in minutes in the direct care of this critically ill patient, excluding procedure time. ED Disposition Clinical Impression: Recurrent abdominal pain Disposition: Z-07 ELOPED Is pt being admited?: No Condition: Stable Referrals: PRIMARY CARE, [Primary Care Provider] - 3-5 Days
== END 2019-04-08 03:19 | disposition left against medical advice (07) ==
LOC: ED 01:29
DX: O99.351 Diseases of the nervous system complicating pregnancy, first trimester (principal); R56.9 Unspecified convulsions; O99.511 Diseases of the respiratory system complicating pregnancy, first trimester; J45.909 Unspecified asthma, uncomplicated; O99.331 Smoking (tobacco) complicating pregnancy, first trimester; O21.9 Vomiting of pregnancy, unspecified; Z86.711 Personal history of pulmonary embolism; Z3A.08 8 weeks gestation of pregnancy; Z91.040 Latex allergy status
CPT/HCPCS: 36415; 80048; 84702; 85025; 99283; J1200; J2765; J7030

== ENCOUNTER 2019-04-15 17:35 | Emergency (ER) | payer MEDICAID ==
[2019-04-15] MEDS ORDERED: ATIVAN ONE (17:42)
[2019-04-15] MEDS ORDERED: ATIVAN IV ONE (17:49)
[2019-04-15] MEDS ORDERED: KEPPRA 1,000 MG/NS 0.75% 100ML 1,000 MG/100 ML BAG IV ONE (17:49)
[2019-04-15 19:05] LABS: Basophils # (Auto) 0.1 K/mm3 (0.0-0.1); Basophils % (Auto) 0.8 % (0.0-1.8); Eosinophils # (Auto) 0.1 K/mm3 (0.0-0.4); Eosinophils % (Auto) 0.8 % (0.0-4.3); Lymphocytes # (Auto) 1.9 K/mm3 (1.2-5.4); Lymphocytes % (Auto) 23.4 % (13.4-35.0); Mean Corpuscular HGB Conc 34 % (30-34); Mean Corpuscular Volume 93 fl (79-97); Monocytes % (Auto) 12.6 % (0.0-7.3); Platelet Count 222 K/mm3 (140-440); Red Blood Count 3.75 M/mm3 (3.65-5.03); Red Cell Distribution Width 13.4 % (13.2-15.2)
--- NOTE | 2019-04-15 19:11 | Emergency Department Report ---
ED General Adult HPI - General Chief complaint: Seizure Stated complaint: SEIZURES Time Seen by Provider: 04/15/19 17:45 Source: patient, EMS Mode of arrival: Stretcher Limitations: No Limitations - History of Present Illness Initial comments: Patient presents to the emergency department with seizure activity. Patient has a history of seizures and was also possibly 9 weeks . Upon arrival the patient still seizing after receiving 0.5 mg of Ativan and 2.5 mg of Versed via EMS. -: Sudden Consistency: constant Improves with: none Worsens with: none Associated Symptoms: denies other symptoms Treatments Prior to Arrival: none - Related Data Previous Rx's Medication Instructions Recorded Last Taken Type Folic Acid [Folvite] 1 mg PO QDAY #30 tablet 04/04/19 04/03/19 Rx Propylthiouracil 100 mg PO TID #90 tablet 04/04/19 04/03/19 Rx Pyridoxine [Vitamin B-6 50MG TAB] 100 mg PO QDAY #30 tablet 04/04/19 04/03/19 Rx levETIRAcetam [Keppra] 1,000 mg PO BID #450 ml 04/04/19 04/03/19 Rx Allergies Allergy/AdvReac Type Severity Reaction Status Date / Time latex Allergy Rash Verified 03/22/19 02:52 ED Review of Systems ROS: Stated complaint: SEIZURES Other details as noted in HPI Comment: Unobtainable due to pts medical conditions ED Past Medical Hx - Past Medical History Previous Medical History?: Yes Hx Congestive Heart Failure: No Hx Diabetes: No Hx Pulmonary Embolism: Yes (Present) Hx Seizures: Yes Hx Asthma: Yes Hx COPD: No Additional medical history: DIVERTICULITIS, OVARIAN CYST, - Surgical History Past Surgical History?: Yes Additional Surgical History: c/s x 2, ectopic - Social History Smoking Status: Unknown if ever smoked Substance Use Type: None - Medications Home Medications: Home Medications Medication Instructions Recorded Confirmed Last Taken Type Folic Acid [Folvite] 1 mg PO QDAY #30 tablet 04/04/19 04/04/19 04/03/19 Rx Propylthiouracil 100 mg PO TID #90 tablet 04/04/19 04/04/19 04/03/19 Rx Pyridoxine [Vitamin B-6 50MG TAB] 100 mg PO QDAY #30 tablet 04/04/19 04/04/19 04/03/19 Rx levETIRAcetam [Keppra] 1,000 mg PO BID #450 ml 04/04/19 04/04/19 04/03/19 Rx ED Physical Exam - General Limitations: No Limitations General appearance: other (active seizures) - Head Head exam: Present: atraumatic, normocephalic - Eye Eye exam: Present: PERRL - ENT ENT exam: Present: mucous membranes moist - Neck Neck exam: Present: normal inspection - Respiratory Respiratory exam: Present: normal lung sounds bilaterally, respiratory distress. Absent: wheezes, rales - Cardiovascular Cardiovascular Exam: Present: regular rate, normal rhythm - GI/Abdominal GI/Abdominal exam: Present: soft, normal bowel sounds. Absent: distended, tenderness - Extremities Exam Extremities exam: Present: normal inspection - Back Exam Back exam: Present: normal inspection - Neurological Exam Neurological exam: Present: other (not able to assess due to the patient's seizure activity) - Psychiatric Psychiatric exam: Present: other (able to assess due to the patient's seizure activity) - Skin Skin exam: Present: warm, dry, intact, normal color. Absent: rash ED Course Vital Signs 04/15/19 17:59 Temperature 99.5 F Pulse Rate 99 H Respiratory 16 Rate Blood Pressure 113/51 O2 Sat by Pulse 100 Oximetry ED Medical Decision Making - Lab Data Result diagrams: 04/15/19 18:22 04/15/19 18:22 Lab Results 04/15/19 04/15/19 04/15/19 Range/Units 17:47 18:22 18:22 WBC 8.3 (4.5-11.0) K/mm3 RBC 3.75 (3.65-5.03) M/mm3 Hgb 12.0 (10.1-14.3) gm/dl Hct 35.0 (30.3-42.9) % MCV 93 (79-97) fl MCH 32 (28-32) pg MCHC 34 (30-34) % RDW 13.4 (13.2-15.2) % Plt Count 222 (140-440) K/mm3 Lymph % (Auto) 23.4 (13.4-35.0) % [place] % (Auto) 12.6 H (0.0-7.3) % Eos % (Auto) 0.8 (0.0-4.3) % Baso % (Auto) 0.8 (0.0-1.8) % Lymph # 1.9 (1.2-5.4) K/mm3 [place] # 1.0 H (0.0-0.8) K/mm3 Eos # 0.1 (0.0-0.4) K/mm3 Baso # 0.1 (0.0-0.1) K/mm3 Seg Neutrophils % 62.4 (40.0-70.0) % Seg Neutrophils # 5.2 (1.8-7.7) K/mm3 PT 12.9 (12.2-14.9) Sec. INR 1.00 (0.87-1.13) APTT 24.5 (24.2-36.6) Sec. Sodium (137-145) mmol/L Potassium (3.6-5.0) mmol/L Chloride (98-107) mmol/L Carbon Dioxide (22-30) mmol/L Anion Gap mmol/L BUN (7-17) mg/dL Creatinine (0.7-1.2) mg/dL Estimated GFR ml/min BUN/Creatinine Ratio % Glucose (65-100) mg/dL POC Glucose 165 H (70-105) Calcium (8.4-10.2) mg/dL Total Bilirubin (0.1-1.2) mg/dL AST (5-40) units/L ALT (7-56) units/L Alkaline Phosphatase (35-129) units/L Total Protein (6.3-8.2) g/dL Albumin (3.9-5) g/dL Albumin/Globulin Ratio % HCG, Quant (0-4) mIU/mL Urine Bilirubin (Negative) Urine RBC (Auto) (0.0-6.0) /HPF U Epithel Cells (Auto) (0-13.0) /HPF 04/15/19 04/15/19 04/15/19 Range/Units 18:22 18:22 19:02 WBC (4.5-11.0) K/mm3 RBC (3.65-5.03) M/mm3 Hgb (10.1-14.3) gm/dl Hct (30.3-42.9) % MCV (79-97) fl MCH (28-32) pg MCHC (30-34) % RDW (13.2-15.2) % Plt Count (140-440) K/mm3 Lymph % (Auto) (13.4-35.0) % [place] % (Auto) (0.0-7.3) % Eos % (Auto) (0.0-4.3) % Baso % (Auto) (0.0-1.8) % Lymph # (1.2-5.4) K/mm3 [place] # (0.0-0.8) K/mm3 Eos # (0.0-0.4) K/mm3 Baso # (0.0-0.1) K/mm3 Seg Neutrophils % (40.0-70.0) % Seg Neutrophils # (1.8-7.7) K/mm3 PT (12.2-14.9) Sec. INR (0.87-1.13) APTT (24.2-36.6) Sec. Sodium 133 L (137-145) mmol/L Potassium 3.3 L (3.6-5.0) mmol/L Chloride 97.3 L (98-107) mmol/L Carbon Dioxide 22 (22-30) mmol/L Anion Gap 17 mmol/L BUN 5 L (7-17) mg/dL Creatinine 0.5 L (0.7-1.2) mg/dL Estimated GFR > 60 ml/min BUN/Creatinine Ratio 10 % Glucose 64 L (65-100) mg/dL POC Glucose (70-105) Calcium 9.3 (8.4-10.2) mg/dL Total Bilirubin 0.20 (0.1-1.2) mg/dL AST 17 (5-40) units/L ALT 10 (7-56) units/L Alkaline Phosphatase 30 L (35-129) units/L Total Protein 6.8 (6.3-8.2) g/dL Albumin 4.0 (3.9-5) g/dL Albumin/Globulin Ratio 1.4 % HCG, Quant [id number] H (0-4) mIU/mL Urine Bilirubin Neg (Negative) Urine RBC (Auto) 2.0 (0.0-6.0) /HPF U Epithel Cells (Auto) 2.0 (0-13.0) /HPF 04/15/19 Range/Units 20:16 WBC (4.5-11.0) K/mm3 RBC (3.65-5.03) M/mm3 Hgb (10.1-14.3) gm/dl Hct (30.3-42.9) % MCV (79-97) fl MCH (28-32) pg MCHC (30-34) % RDW (13.2-15.2) % Plt Count (140-440) K/mm3 Lymph % (Auto) (13.4-35.0) % [place] % (Auto) (0.0-7.3) % Eos % (Auto) (0.0-4.3) % Baso % (Auto) (0.0-1.8) % Lymph # (1.2-5.4) K/mm3 [place] # (0.0-0.8) K/mm3 Eos # (0.0-0.4) K/mm3 Baso # (0.0-0.1) K/mm3 Seg Neutrophils % (40.0-70.0) % Seg Neutrophils # (1.8-7.7) K/mm3 PT (12.2-14.9) Sec. INR (0.87-1.13) APTT (24.2-36.6) Sec. Sodium (137-145) mmol/L Potassium (3.6-5.0) mmol/L Chloride (98-107) mmol/L Carbon Dioxide (22-30) mmol/L Anion Gap mmol/L BUN (7-17) mg/dL Creatinine (0.7-1.2) mg/dL Estimated GFR ml/min BUN/Creatinine Ratio % Glucose (65-100) mg/dL POC Glucose 103 (70-105) Calcium (8.4-10.2) mg/dL Total Bilirubin (0.1-1.2) mg/dL AST (5-40) units/L ALT (7-56) units/L Alkaline Phosphatase (35-129) units/L Total Protein (6.3-8.2) g/dL Albumin (3.9-5) g/dL Albumin/Globulin Ratio % HCG, Quant (0-4) mIU/mL Urine Bilirubin (Negative) Urine RBC (Auto) (0.0-6.0) /HPF U Epithel Cells (Auto) (0-13.0) /HPF - Radiology Data Radiology results: report reviewed - Medical Decision Making Upon the patient's seizures resolving the patient's tells us that she has not taken her Keppra as prescribed Patient also smokes marijuana Discussed with patient that no one can cause increase in seizure threshold and hyperemesis Patient denies any pelvic pain, abdominal pain, vaginal discharge or bleeding patient has Zofran, Reglan, Phenergan at home Critical care attestation.: If time is entered above; I have spent that time in minutes in the direct care of this critically ill patient, excluding procedure time. ED Disposition Clinical Impression: Seizure, Disposition: DC- TO HOME OR SELFCARE Is pt being admited?: No Does the pt Need Aspirin: No Condition: Stable Instructions: Recurrent Seizures Adult (ED), (ED) Additional Instructions: return if worse Referrals: PRIMARY CAREMD [Primary Care Provider] - 3-5 Days [facility] [Provider Group] - 3-5 Days [facility] [Provider Group] - 3-5 Days DMITRY ROSA MD [Referring] - 3-5 Days Time of Disposition: 20:52
[2019-04-15 19:15] LABS: Partial Thromboplastin Time 24.5 Sec. (24.2-36.6)
[2019-04-15 19:38] LABS: Alanine Aminotransferase 10 units/L (7-56); BUN/Creatinine Ratio 10; Blood Urea Nitrogen 5 mg/dL (7-17); Calcium 9.3 mg/dL (8.4-10.2); Hemolysis Index 27
[2019-04-15 20:46] LABS: Amorphous Crystals,Urine Few; Bilirubin,Urine NEG (Negative); Blood,Urine NEG (Negative); Color,Urine Yellow (Yellow); Protein,Urine <15 mg/dL mg/dL (Negative); Urobilinogen,Urine < 2.0 mg/dL (<2.0)
[2019-04-15 20:48] LABS: WBC,Urine < 1.0 /HPF (0.0-6.0)
[2019-04-15 20:53] LABS: Amphetamine Screen,Urine PRESUMPTIVE NEGATIVE; Cocaine Screen,Urine PRESUMPTIVE NEGATIVE; Methadone Screen,Urine PRESUMPTIVE NEGATIVE; Opiate Screen,Urine PRESUMPTIVE NEGATIVE
[2019-04-15 21:07] LABS: Benzodiazepines Screen,Urine PRESUMPTIVE POSITIVE; Cannabinoid Screen,Urine PRESUMPTIVE POSITIVE
[2019-04-15 21:48] VITALS: BP 97/68
== END 2019-04-15 21:25 | disposition home or self-care (01) ==
LOC: ED 17:35
DX: O26.891 Other specified pregnancy related conditions, first trimester (principal); R56.9 Unspecified convulsions; O99.511 Diseases of the respiratory system complicating pregnancy, first trimester; J45.909 Unspecified asthma, uncomplicated; Z79.899 Other long term (current) drug therapy; Z91.040 Latex allergy status; Z3A.09 9 weeks gestation of pregnancy
CPT/HCPCS: 36415; 80053; 80307; 81001; 82962; 84702; 85025; 85610; 85730; 96374; 96375; 99284; J1953; J2060

== ENCOUNTER 2019-04-17 14:32 | Emergency (ER) | payer MEDICAID ==
[2019-04-17] MEDS ORDERED: KEPPRA PO ONE (15:36)
[2019-04-17] MEDS ORDERED: ATIVAN PO ONE (15:36)
--- NOTE | 2019-04-17 15:45 | Emergency Department Report ---
ED General Adult HPI - General Chief complaint: Seizure Stated complaint: SEIZURE/10 WKS PREG Time Seen by Provider: 04/17/19 15:13 Source: EMS Mode of arrival: Stretcher Limitations: No Limitations - History of Present Illness Initial comments: H and presents to the emergency department with a chief complaint of seizures. Patient was brought by EMS was seen at this facility yesterday for seizures as well. Patient is known to this physician and the pt has a history of marijuana use and noncompliance with seizure medications -: Sudden Severity scale (0 -10): 0 Improves with: none Worsens with: none Associated Symptoms: denies other symptoms Treatments Prior to Arrival: none - Related Data Previous Rx's Medication Instructions Recorded Last Taken Type Folic Acid [Folvite] 1 mg PO QDAY #30 tablet 04/04/19 04/03/19 Rx Propylthiouracil 100 mg PO TID #90 tablet 04/04/19 04/03/19 Rx Pyridoxine [Vitamin B-6 50MG TAB] 100 mg PO QDAY #30 tablet 04/04/19 04/03/19 Rx levETIRAcetam [Keppra] 1,000 mg PO BID #450 ml 04/04/19 04/03/19 Rx Allergies Allergy/AdvReac Type Severity Reaction Status Date / Time latex Allergy Rash Verified 03/22/19 02:52 ED Review of Systems ROS: Stated complaint: SEIZURE/10 WKS PREG Other details as noted in HPI Comment: All other systems reviewed and negative Constitutional: denies: chills, fever Eyes: denies: eye pain, eye discharge, vision change ENT: denies: ear pain, throat pain Respiratory: denies: cough, shortness of breath, wheezing Cardiovascular: denies: chest pain, palpitations Endocrine: no symptoms reported Gastrointestinal: denies: abdominal pain, nausea, diarrhea Genitourinary: denies: urgency, dysuria, discharge Musculoskeletal: denies: back pain, joint swelling, arthralgia Skin: denies: rash, lesions Neurological: denies: headache, weakness, paresthesias Psychiatric: denies: anxiety, depression Hematological/Lymphatic: denies: easy bleeding, easy bruising ED Past Medical Hx - Past Medical History Previous Medical History?: Yes Hx Congestive Heart Failure: No Hx Diabetes: No Hx Pulmonary Embolism: Yes (Present) Hx Seizures: Yes Hx Asthma: Yes Hx COPD: No Additional medical history: DIVERTICULITIS, OVARIAN CYST, - Surgical History Past Surgical History?: Yes Additional Surgical History: c/s x 2, ectopic - Social History Smoking Status: Former Smoker Substance Use Type: None - Medications Home Medications: Home Medications Medication Instructions Recorded Confirmed Last Taken Type Folic Acid [Folvite] 1 mg PO QDAY #30 tablet 04/04/19 04/04/19 04/03/19 Rx Propylthiouracil 100 mg PO TID #90 tablet 04/04/19 04/04/19 04/03/19 Rx Pyridoxine [Vitamin B-6 50MG TAB] 100 mg PO QDAY #30 tablet 04/04/19 04/04/19 04/03/19 Rx levETIRAcetam [Keppra] 1,000 mg PO BID #450 ml 04/04/19 04/04/19 04/03/19 Rx ED Physical Exam - General Limitations: No Limitations General appearance: alert, in no apparent distress - Head Head exam: Present: atraumatic, normocephalic - Eye Eye exam: Present: normal appearance, PERRL, EOMI - ENT ENT exam: Present: mucous membranes moist - Neck Neck exam: Present: normal inspection - Respiratory Respiratory exam: Present: normal lung sounds bilaterally. Absent: respiratory distress - Cardiovascular Cardiovascular Exam: Present: regular rate, normal rhythm. Absent: systolic murmur, diastolic murmur, rubs, gallop - GI/Abdominal GI/Abdominal exam: Present: soft, normal bowel sounds. Absent: distended, tenderness - Extremities Exam Extremities exam: Present: normal inspection - Back Exam Back exam: Present: normal inspection - Neurological Exam Neurological exam: Present: alert, oriented X3, CN II-XII intact, normal gait. Absent: motor sensory deficit - Psychiatric Psychiatric exam: Present: normal affect, normal mood - Skin Skin exam: Present: warm, dry, intact, normal color. Absent: rash ED Course Vital Signs 04/17/19 14:35 Temperature 98.1 F Pulse Rate 84 Respiratory 16 Rate Blood Pressure 121/69 O2 Sat by Pulse 99 Oximetry ED Medical Decision Making - Medical Decision Making The patient is back to her baseline was seen in the emergency department and states this seizure is no different than the seizures she's had in the past Critical care attestation.: If time is entered above; I have spent that time in minutes in the direct care of this critically ill patient, excluding procedure time. ED Disposition Clinical Impression: Seizure Disposition: DC-01 TO HOME OR SELFCARE Is pt being admited?: No Does the pt Need Aspirin: No Condition: Stable Instructions: Recurrent Seizures Adult (ED) Additional Instructions: return if worse Referrals: [facility] [Provider Group] - 3-5 Days [facility] [Provider Group] - 3-5 Days DMITRY ROSA MD [Referring] - 3-5 Days Time of Disposition: 15:45
[2019-04-17 16:20] VITALS: BP 112/68
== END 2019-04-17 15:55 | disposition home or self-care (01) ==
LOC: ED 14:32
DX: O26.891 Other specified pregnancy related conditions, first trimester (principal); R56.9 Unspecified convulsions; Z3A.10 10 weeks gestation of pregnancy

== ENCOUNTER 2019-04-25 02:41 | Emergency (ER) | payer MEDICAID ==
[2019-04-25] MEDS ORDERED: NORCO 10/325 PO ONE (03:35)
[2019-04-25] MEDS ORDERED: NORCO 10/325 ONE (03:38)
== END 2019-04-25 03:43 | disposition left against medical advice (07) ==
LOC: ED 02:41
DX: R07.89 Other chest pain (principal); Z53.21 Procedure and treatment not carried out due to patient leaving prior to being seen by health care provider
CPT/HCPCS: 93005; 93010

== ENCOUNTER 2019-10-15 03:12 | Inpatient (IN) | payer MEDICAID ==
[2019-10-15] MEDS ORDERED: LACTATED RINGERS 2,000 ML ONE (03:27)
[2019-10-15] MEDS ORDERED: ONDANSETRON 4 MG/2 ML INJ ONE (03:28)
[2019-10-15] MEDS ORDERED: LACTATED RINGERS 1,000 ML IV ONE (03:44)
[2019-10-15] MEDS ORDERED: ONDANSETRON 4 MG/2 ML INJ IV PRN (03:45)
[2019-10-15 03:49] LABS: Hemoglobin 11.3 gm/dl (10.1-14.3); Mean Corpuscular HGB Conc 34 % (30-34); Mean Corpuscular Volume 97 fl (79-97); Platelet Count 258 K/mm3 (140-440); Red Cell Distribution Width 15.2 % (13.2-15.2)
[2019-10-15] MEDS ORDERED: LACTATED RINGERS 1,000 ML IV SCH ×2 (04:00→08:00)
[2019-10-15] MEDS ORDERED: TERBUTALINE 1 MG/1 ML INJ SUB-Q ONE (04:09)
[2019-10-15] MEDS ORDERED: METOCLOPRAMIDE 10 MG/2 ML INJ IV ONE (04:09)
[2019-10-15 04:16] LABS: Alanine Aminotransferase 10 units/L (7-56); Albumin 3.6 g/dL (3.9-5); BUN/Creatinine Ratio 13; Blood Urea Nitrogen 5 mg/dL (7-17); Hemolysis Index 18
--- NOTE | 2019-10-15 04:48 | Ultrasound Report ---
ULTRASOUND ABDOMEN, LIMITED (RIGHT UPPER QUADRANT) INDICATION: severe nausea/vomiting. COMPARISON: None available. FINDINGS: Pancreas: Visualized portion shows no significant abnormality. Liver: Normal. Gallbladder: Normal. Bile ducts: Normal. Common Bile Duct measures 3.6 mm. Free fluid: None. Additional Findings: None. IMPRESSION: 1. No sonographic abnormality of the right upper quadrant. Signer Name: Michael Biggs MD Signed: 10/15/2019 4:43 AM Workstation Name: [id number]
[2019-10-15 05:32] LABS: Amorphous Crystals,Urine 1+; Bacteria,Urine 4+ /HPF (Negative); Bilirubin,Urine NEG (Negative); Blood,Urine NEG (Negative); Color,Urine Yellow (Yellow); Mucus,Urine 1+ /HPF; Urobilinogen,Urine < 2.0 mg/dL (<2.0)
[2019-10-15] MEDS ORDERED: ACETAMINOPHEN 325 MG TAB PO ONE (05:37)
[2019-10-15] MEDS ORDERED: ACETAMINOPHEN 325 MG TAB PO PRN ×2 (06:06→08:00)
--- NOTE | 2019-10-15 07:20 | History and Physical Report ---
History of Present Illness Date of examination: 10/15/19 History of present illness: Patient states that she recently moved back to [place] from [place] to live with her sister and her boyfriend, who were both very ill with a "stomach bug" when she came. Now she has been vomiting and unable to keep anything down in the last two days, and has begun having painful contractions and pressure in her lower abd. She received Reglan and felt better but then complained of severe diffuse body aches. She was moaning and writhing in bed. On review of her VS she was noted to have elevaed BP's andis admitted now to evaluate for GHTN/PreE. She states she received PNC at [place] and [place] however she did not bring th e records with her. States she was admitted for PTL and Pre E evaluation either in [facility] or [place]. 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 no EDC Calculations LMP: 11/19/2019 EDC Confirmation: 11/17/2019 Gestational Age: 4 2/7 weeks Past History : 4 Term Births: 2 Living Children: 2 Para: 2 Ectopics: 1 # 1 Delivery date: 2005 Weeks Gestation: 38 Delivery type: Anesthesia type: epidural Delivery location: [place] Infant Sex: Male weight: 7-14 # 2 Delivery date: 2012 Weeks Gestation: 5-0 Delivery type: Anesthesia type: epidural Delivery location: [place] Infant Sex: Male weight: 5-0 Comments: hyperemesis Past Medical History: Seizures- taking uenrsm-eyanbctodhu-Eq. [facility] [place] Asthma-no meds pulmonary embolism-on blood thinners now. diagnosed was taking OCPs Graves disease Past Surgical History: x2 Past Medical History Surgery (Non-strategic solutions consultant): Abnormal PAP: negative EFRAÍN Exposure: negative Infertility: negative Uterine Anomaly: negative Uterine Surgery (not C/S): negative Other Gynecologic Problems: negative Medical History Comments: seiures Infection History Hx of STD: chlamydia, gc,trich Partner hx. of genital herpes: no Varicella/Chicken Pox Status: Previous Disease Genetic History Congenital Heart Defect: Mom: no Dad: unknown Neli Disease: Mom: no Dad: unknown Thalassemia Mom: no Dad: unknown Neural Tube Defect Mom: no Dad: unknown Down's Syndrome Mom: no Dad: unknown Alonso-Sachs Mom: no Dad: unknown Sickle Cell Disease/Trait Mom: no Dad: unknown Hemophilia Mom: no Dad: unknown Muscular Dystrophy Mom: no Dad: unknown Cystic Fibrosis Mom: no Dad: unknown Josie Chorea Mom: no Dad: unknown Mental Retardation Mom: no Dad: unknown Fragile X Mom: no Dad: unknown Other Genetic/Chromosomal Disorder Mom: no Dad: unknown Child w/other defect Mom: no Dad: unknown Enviromental Exposures Xray Exposure: no Medication, drug, or alcohol use since LMP: no Chemical/Other Exposure: no Exposure to Cat Liter: no Hx of Parvovirus (Fifth Disease): no Occupational Exposure to Children: none Comments: MRI Active Medications (reviewed today): Methimazole 5mg daily KEPPRA TABLET (LEVETIRACETAM TABS) 500mg oral liquid bid Lovenox 40m daily Current Allergies (reviewed today): Latex Past History - Obstetrical History : 4 Medications and Allergies Allergies Allergy/AdvReac Type Severity Reaction Status Date / Time latex Allergy Rash Verified 03/22/19 02:52 Home Medications Medication Instructions Recorded Confirmed Last Taken Type Folic Acid [Folvite] 1 mg PO QDAY #30 tablet 04/04/19 04/04/19 04/03/19 Rx Pyridoxine [Vitamin B-6 50MG TAB] 100 mg PO QDAY #30 tablet 04/04/19 04/04/19 04/03/19 Rx levETIRAcetam [Keppra] 1,000 mg PO BID #450 ml 04/04/19 04/04/19 04/03/19 Rx propylthiouraciL [Propylthiouracil] 100 mg PO TID #90 tablet 04/04/19 04/04/19 04/03/19 Rx Active Meds: Active Medications Acetaminophen (Tylenol) 650 mg PO Q6H PRN PRN Reason: Pain MILD(1-3)/Fever >100.5/TRONCOSO Acetaminophen (Tylenol) 650 mg PO Q6H PRN PRN Reason: Pain, Mild (1-3) Betamethasone Acet/Betameth SodPhos (Celestone Soluspan) 12 mg IM Q24HR MARIUM Stop: 03/05/20 10:01 Docusate Sodium (Colace) 100 mg PO Q12H PRN PRN Reason: Constipation Enoxaparin Sodium (Enoxaparin) 40 mg SUB-Q QDAY MARIUM Famotidine (Pepcid) 20 mg PO BID MARIUM Hydralazine HCl (Apresoline) 5 mg IV ONCE PRN PRN Reason: Hypertension Lactated Ringer's (Lactated Ringers) 1,000 mls @ 125 mls/hr IV DIRECT MARIUM Last Admin: 10/15/19 05:30 Dose: 125 mls/hr Documented by: Lactated Ringer's (Lactated Ringers) 1,000 mls @ 125 mls/hr IV DIRECT MARIUM Magnesium Sulfate (Magnesium Sulfate 4gm/100ml) 4 gm in 100 mls @ 300 mls/hr IV ONCE ONE Stop: 10/15/19 06:25 Magnesium Sulfate (Magnesium Sulfate 40gm/1000ml) 40 gm in 1,000 mls @ 50 mls/hr IV DIRECT MARIUM Levetiracetam (Keppra) 500 mg PO BID MARIUM Methimazole (Tapazole) 5 mg PO DAILY ONE Stop: 10/15/19 06:38 Multivitamins/Iron/Calcium ( Vitamin) 1 each PO QDAY [facility] Ondansetron HCl (Zofran) 4 mg IV Q4H PRN PRN Reason: Nausea And Vomiting - Vital Signs Vital signs: Vital Signs Pulse BP 98 H 179/92 10/15/19 03:17 10/15/19 03:17 Temp Pulse Resp BP Pulse Ox 97.4 F L 110 H 132/62 93 10/15/19 03:45 10/15/19 06:43 10/15/19 06:43 10/15/19 04:15 Results Result Diagrams: 10/15/19 03:43 10/15/19 03:43 Abnormal lab results 10/15/19 10/15/19 10/15/19 Range/Units 03:43 03:43 05:00 RBC 3.40 L (3.65-5.03) M/mm3 MCH 33 H (28-32) pg Sodium 136 L (137-145) mmol/L Chloride 97.6 L (98-107) mmol/L BUN 5 L (7-17) mg/dL Creatinine 0.4 L (0.7-1.2) mg/dL Alkaline Phosphatase 153 H (35-129) units/L Total Protein 6.2 L (6.3-8.2) g/dL Albumin 3.6 L (3.9-5) g/dL Urine WBC (Auto) 15.0 H (0.0-6.0) /HPF All other labs normal. Assessment and Plan - Patient Problems (1) Elevated blood pressure affecting in third trimester, antepartum Status: Acute Plan to address problem: Admit to evaluate for pre E (2) Chronic pain Status: Chronic (3) Graves disease Status: Chronic Plan to address problem: Continue Methimazole (4) History of pulmonary embolism Status: Chronic Plan to address problem: Continue Lovenox (5) Asthma Status: Chronic Qualifiers: Asthma severity: mild (6) History of depression Status: Chronic (7) Seizure Status: Acute Plan to address problem: Continue Keppra
[2019-10-15] MEDS ORDERED: hydrALAZINE 20 MG/1 ML INJ IV PRN (08:00)
[2019-10-15] MEDS ORDERED: DOCUSATE SODIUM 100 MG CAP PO PRN (08:00)
[2019-10-15] MEDS ORDERED: MAGNESIUM SULFATE 4 GM/100 ML BAG IV ONE (08:00)
[2019-10-15] MEDS ORDERED: MAGNESIUM SULFATE 40GM/1000ML 40 GM/1,000 ML BAG IV SCH (08:30)
[2019-10-15] MEDS ORDERED: methIMAzole 5 MG TAB PO SCH (08:30)
[2019-10-15 09:43] VITALS: BP 132/70
[2019-10-15] MEDS ORDERED: FAMOTIDINE 20 MG/2 ML INJ IV SCH (10:00)
[2019-10-15] MEDS ORDERED: PRENATAL VIT27-FE FUMARATE-FOLIC ACID VIT TAB PO SCH (10:00)
[2019-10-15] MEDS ORDERED: ENOXAPARIN 40 MG/0.4 ML INJ SUB-Q SCH (10:00)
[2019-10-15] MEDS ORDERED: BETAMET ACET/BETAMET NA PH 6 MG/ML INJ 5 ML MDV IM SCH (10:00)
[2019-10-15] MEDS ORDERED: levETIRAcetam 500 MG/5 ML ORAL LIQD PO SCH (10:00)
[2019-10-15] MEDS ORDERED: FAMOTIDINE 20 MG TAB PO SCH (10:00)
--- NOTE | 2019-10-15 10:07 | Event Note ---
Date: 10/15/19 Called by charge nurse stating pt plans to sign out AMA due to not having her baby be delivered at this time and due to not being able to have her son stay with her overnight. Earlier this am it was explained to her the importance of complete evaluation and until this has been done decisions on delivery can not be made. At that time pt expressed understanding and questions were addressed and answered.
[2019-10-15 14:53] LABS: Amphetamine Screen,Urine PRESUMPTIVE NEGATIVE; Benzodiazepines Screen,Urine PRESUMPTIVE NEGATIVE; Cocaine Screen,Urine PRESUMPTIVE NEGATIVE; Methadone Screen,Urine PRESUMPTIVE NEGATIVE; Opiate Screen,Urine PRESUMPTIVE NEGATIVE
[2019-10-15 15:55] LABS: Cannabinoid Screen,Urine PRESUMPTIVE POSITIVE
== END 2019-10-15 10:38 | disposition left against medical advice (07) | DRG 781 ==
LOC: TRG 03:12 → LD 03:13 → TRG 03:14
PROVIDERS: ADMIT Obstetrics & Gynecology; ATTEND Obstetrics & Gynecology
DX: O99.511 Diseases of the respiratory system complicating pregnancy, first trimester (principal); J45.909 Unspecified asthma, uncomplicated; O99.341 Other mental disorders complicating pregnancy, first trimester; O99.111 Other diseases of the blood and blood-forming organs and certain disorders involving the immune mechanism complicating pregnancy, first trimester; E05.00 Thyrotoxicosis with diffuse goiter without thyrotoxic crisis or storm; F32.9 Major depressive disorder, single episode, unspecified; Z86.711 Personal history of pulmonary embolism; Z91.040 Latex allergy status; O26.893 Other specified pregnancy related conditions, third trimester; Z3A.36 36 weeks gestation of pregnancy; G89.29 Other chronic pain
CPT/HCPCS: 36415; 59025; 76705; 80053; 80307; 81001; 84156; 84439; 84443; 84481; 85027; 87086; 96360; 96372; 96374; 96375; G0378; J0702; J1650; J2405; J2765; J3105; J3475; J7120

== ENCOUNTER 2020-01-05 20:31 | Emergency (ER) | payer MEDICAID ==
[2020-01-05 20:46] VITALS: BP 138/80
[2020-01-05 21:05] LABS: Basophils % (Auto) 0.4 % (0.0-1.8); Eosinophils # (Auto) 0.1 K/mm3 (0.0-0.4); Eosinophils % (Auto) 0.9 % (0.0-4.3); Hematocrit 35.6 % (30.3-42.9); Hemoglobin 11.7 gm/dl (10.1-14.3); Lymphocytes # (Auto) 2.8 K/mm3 (1.2-5.4); Lymphocytes % (Auto) 41.8 % (13.4-35.0); Mean Corpuscular HGB Conc 33 % (30-34); Mean Corpuscular Volume 93 fl (79-97); Monocytes # (Auto) 0.5 K/mm3 (0.0-0.8); Platelet Count 191 K/mm3 (140-440); Red Blood Count 3.81 M/mm3 (3.65-5.03); Red Cell Distribution Width 14.6 % (13.2-15.2)
[2020-01-05 21:27] LABS: Bilirubin,Urine NEG (Negative); Blood,Urine NEG (Negative); Color,Urine Yellow (Yellow); Mucus,Urine 2+ /HPF; Protein,Urine <15 mg/dL mg/dL (Negative); WBC,Urine < 1.0 /HPF (0.0-6.0)
[2020-01-05 21:28] LABS: Alanine Aminotransferase 10 units/L (7-56); Albumin 4.1 g/dL (3.9-5); BUN/Creatinine Ratio 13; Blood Urea Nitrogen 9 mg/dL (7-17); Calcium 8.8 mg/dL (8.4-10.2); Hemolysis Index 7
[2020-01-05] MEDS ORDERED: LIDOCAINE VISCOUS 2% 15 ML ORAL LIQD PO ONE (21:55)
[2020-01-05] MEDS ORDERED: ALUM-MAG HYDROXIDE-SIMETHICONE 200-200-20MG/5ML ORAL LIQD 30 ML PO STA (21:55)
[2020-01-05] MEDS ORDERED: ONDANSETRON 4 MG ODT TAB PO STA (21:55)
--- NOTE | 2020-01-05 22:09 | Emergency Department Report ---
ED Abdominal Pain HPI - General Chief Complaint: Abdominal Pain Stated Complaint: LEFT LOWER/UPPER PAIN/VOMITING Time Seen by Provider: 01/05/20 21:36 Source: patient Mode of arrival: Ambulatory Limitations: No Limitations - History of Present Illness Initial Comments: 29-year-old -[place] female sent emerge department complaining left upper quadrant left lower quadrant abdominal pain since 10/28/2019 at which point time she had a . Since that time she been having nausea and subjective severe pain to left upper quadrant and left lower quadrant Complaint: abdominal pain Location: LUQ, LLQ Radiation: none Migration to: LUQ, LLQ Severity: moderate, severe Quality: stabbing, aching Consistency: constant Improves With: nothing Worsens With: nothing Associated Symptoms: denies: vomiting, diarrhea, constipation, dysuria, hematemesis, hematuria - Related Data Previous Rx's Medication Instructions Recorded Last Taken Type Folic Acid [Folvite] 1 mg PO QDAY #30 tablet 04/04/19 04/03/19 Rx Pyridoxine [Vitamin B-6 50MG TAB] 100 mg PO QDAY #30 tablet 04/04/19 04/03/19 Rx levETIRAcetam [Keppra] 1,000 mg PO BID #450 ml 04/04/19 04/03/19 Rx propylthiouraciL [Propylthiouracil] 100 mg PO TID #90 tablet 04/04/19 04/03/19 Rx Allergies Allergy/AdvReac Type Severity Reaction Status Date / Time latex Allergy Rash Verified 03/22/19 02:52 ED Review of Systems ROS: Stated complaint: LEFT LOWER/UPPER PAIN/VOMITING Other details as noted in HPI Comment: All other systems reviewed and negative ED Past Medical Hx - Past Medical History Previous Medical History?: Yes Hx Hypertension: No Hx Congestive Heart Failure: No Hx Diabetes: No Hx Deep Vein Thrombosis: No (Pulmonary embolisms since 2014) Hx Pulmonary Embolism: Yes (Noncompliant with blood thinner) Hx Renal Disease: No Hx Sickle Cell Disease: No Hx Seizures: Yes (Since childhood, on keppra) Hx Asthma: No Hx COPD: No Additional medical history: DIVERTICULITIS, OVARIAN CYST, Pulmonary Embolism, Diverticulitis, Graves Disease - Surgical History Past Surgical History?: Yes Additional Surgical History: c/s x 3, ectopic - Social History Smoking Status: Never Smoker - Medications Home Medications: Home Medications Medication Instructions Recorded Confirmed Last Taken Type Folic Acid [Folvite] 1 mg PO QDAY #30 tablet 04/04/19 04/04/19 04/03/19 Rx Pyridoxine [Vitamin B-6 50MG TAB] 100 mg PO QDAY #30 tablet 04/04/19 04/04/19 04/03/19 Rx levETIRAcetam [Keppra] 1,000 mg PO BID #450 ml 04/04/19 04/04/19 04/03/19 Rx propylthiouraciL [Propylthiouracil] 100 mg PO TID #90 tablet 04/04/19 04/04/19 04/03/19 Rx ED Physical Exam - General Limitations: No Limitations General appearance: alert, in no apparent distress - Head Head exam: Present: atraumatic, normocephalic - Eye Eye exam: Present: normal appearance - ENT ENT exam: Present: mucous membranes moist - Neck Neck exam: Present: normal inspection - Respiratory Respiratory exam: Present: normal lung sounds bilaterally. Absent: respiratory distress - Cardiovascular Cardiovascular Exam: Present: regular rate, normal rhythm. Absent: systolic murmur, diastolic murmur, rubs, gallop - GI/Abdominal GI/Abdominal exam: Present: soft, tenderness (Left lower quadrant left lower quadrant. No rebound. No Rovsing, no Jeff Uribe), normal bowel sounds. Absent: rigid, diminished bowel sounds, hyperactive bowel sounds, hypoactive bowel sounds - Extremities Exam Extremities exam: Present: normal inspection - Back Exam Back exam: Present: normal inspection - Neurological Exam Neurological exam: Present: alert, oriented X3 - Psychiatric Psychiatric exam: Present: normal affect, normal mood - Skin Skin exam: Present: warm, dry, intact, normal color. Absent: rash ED Course Vital Signs 01/05/20 20:34 Temperature 99.0 F Pulse Rate 89 Respiratory 18 Rate Blood Pressure 138/80 O2 Sat by Pulse 98 Oximetry ED Medical Decision Making - Lab Data Result diagrams: 01/05/20 20:53 01/05/20 20:53 Lab Results 01/05/20 01/05/20 01/05/20 Range/Units 20:53 20:53 20:53 WBC 6.6 (4.5-11.0) K/mm3 RBC 3.81 (3.65-5.03) M/mm3 Hgb 11.7 (10.1-14.3) gm/dl Hct 35.6 (30.3-42.9) % MCV 93 (79-97) fl MCH 31 (28-32) pg MCHC 33 (30-34) % RDW 14.6 (13.2-15.2) % Plt Count 191 (140-440) K/mm3 Lymph % (Auto) 41.8 H (13.4-35.0) % Desha % (Auto) 8.0 H (0.0-7.3) % Eos % (Auto) 0.9 (0.0-4.3) % Baso % (Auto) 0.4 (0.0-1.8) % Lymph # 2.8 (1.2-5.4) K/mm3 Desha # 0.5 (0.0-0.8) K/mm3 Eos # 0.1 (0.0-0.4) K/mm3 Baso # 0.0 (0.0-0.1) K/mm3 Seg Neutrophils % 48.9 (40.0-70.0) % Seg Neutrophils # 3.2 (1.8-7.7) K/mm3 Sodium 140 (137-145) mmol/L Potassium 4.0 (3.6-5.0) mmol/L Chloride 102.0 (98-107) mmol/L Carbon Dioxide 24 (22-30) mmol/L Anion Gap 18 mmol/L BUN 9 (7-17) mg/dL Creatinine 0.7 (0.7-1.2) mg/dL Estimated GFR > 60 ml/min BUN/Creatinine Ratio 13 % Glucose 106 H (65-100) mg/dL Calcium 8.8 (8.4-10.2) mg/dL Total Bilirubin 0.20 (0.1-1.2) mg/dL AST 15 (5-40) units/L ALT 10 (7-56) units/L Alkaline Phosphatase 50 (35-129) units/L Total Protein 6.9 (6.3-8.2) g/dL Albumin 4.1 (3.9-5) g/dL Albumin/Globulin Ratio 1.5 % Lipase 47 (13-60) units/L HCG, Qual Negative (Negative) Urine Color (Yellow) Urine Turbidity (Clear) Urine pH (5.0-7.0) Ur Specific Strong (1.003-1.030) Urine Protein (Negative) mg/dL Urine Glucose (UA) (Negative) mg/dL Urine Ketones (Negative) mg/dL Urine Blood (Negative) Urine Nitrite (Negative) Urine Bilirubin (Negative) Urine Urobilinogen (<2.0) mg/dL Ur Leukocyte Esterase (Negative) Urine WBC (Auto) (0.0-6.0) /HPF Urine RBC (Auto) (0.0-6.0) /HPF U Epithel Cells (Auto) (0-13.0) /HPF Urine Mucus /HPF 05/25/20 Range/Units 21:03 WBC (4.5-11.0) K/mm3 RBC (3.65-5.03) M/mm3 Hgb (10.1-14.3) gm/dl Hct (30.3-42.9) % MCV (79-97) fl MCH (28-32) pg MCHC (30-34) % RDW (13.2-15.2) % Plt Count (140-440) K/mm3 Lymph % (Auto) (13.4-35.0) % Desha % (Auto) (0.0-7.3) % Eos % (Auto) (0.0-4.3) % Baso % (Auto) (0.0-1.8) % Lymph # (1.2-5.4) K/mm3 Desha # (0.0-0.8) K/mm3 Eos # (0.0-0.4) K/mm3 Baso # (0.0-0.1) K/mm3 Seg Neutrophils % (40.0-70.0) % Seg Neutrophils # (1.8-7.7) K/mm3 Sodium (137-145) mmol/L Potassium (3.6-5.0) mmol/L Chloride (98-107) mmol/L Carbon Dioxide (22-30) mmol/L Anion Gap mmol/L BUN (7-17) mg/dL Creatinine (0.7-1.2) mg/dL Estimated GFR ml/min BUN/Creatinine Ratio % Glucose (65-100) mg/dL Calcium (8.4-10.2) mg/dL Total Bilirubin (0.1-1.2) mg/dL AST (5-40) units/L ALT (7-56) units/L Alkaline Phosphatase (35-129) units/L Total Protein (6.3-8.2) g/dL Albumin (3.9-5) g/dL Albumin/Globulin Ratio % Lipase (13-60) units/L HCG, Qual (Negative) Urine Color Yellow (Yellow) Urine Turbidity Clear (Clear) Urine pH 7.0 (5.0-7.0) Ur Specific Strong 1.029 (1.003-1.030) Urine Protein <15 mg/dl (Negative) mg/dL Urine Glucose (UA) Neg (Negative) mg/dL Urine Ketones Neg (Negative) mg/dL Urine Blood Neg (Negative) Urine Nitrite Neg (Negative) Urine Bilirubin Neg (Negative) Urine Urobilinogen 2.0 (<2.0) mg/dL Ur Leukocyte Esterase Neg (Negative) Urine WBC (Auto) < 1.0 (0.0-6.0) /HPF Urine RBC (Auto) 2.0 (0.0-6.0) /HPF U Epithel Cells (Auto) 12.0 (0-13.0) /HPF Urine Mucus 2+ /HPF - Medical Decision Making This patient presents with abdominal pain of unclear etiology. A CT scan was performed to evaluate for potential causes of the abdominal pain, however, neit her the clinical exam nor the CT has identified an emergent etiology for the abdominal pain. Specifically, given the benign exam, the laboratory studies, and unremarkable CT, I have a very low suspicion for appendicitis, ischemic bowel, bowel perforation, or any other life threatening disease. I have discussed with the patient the level of uncertainty with undifferentiated abdominal pain and clearly explained the need to follow-up as noted on the discharge instructions, or return to the Emergency Department immediately if the pain worsens, develops fever, persistent and uncontrollable vomiting, or for any new symptoms or concerns. Critical care attestation.: If time is entered above; I have spent that time in minutes in the direct care of this critically ill patient, excluding procedure time. ED Disposition Clinical Impression: Abdominal pain Disposition: ELOPED Is pt being admited?: No Does the pt Need Aspirin: No Condition: Undetermined Instructions: Abdominal Pain (ED) Referrals: PRIMARY CARE, [Primary Care Provider] - 3-5 Days
== END 2020-01-05 23:26 | disposition left against medical advice (07) ==
LOC: ED 20:31
DX: R10.12 Left upper quadrant pain (principal); R10.32 Left lower quadrant pain; Z86.711 Personal history of pulmonary embolism; Z79.01 Long term (current) use of anticoagulants; E05.00 Thyrotoxicosis with diffuse goiter without thyrotoxic crisis or storm
CPT/HCPCS: 36415; 80053; 81001; 83690; 84703; 85025; Q0162

== ENCOUNTER 2020-01-29 00:32 | Emergency (ER) | payer MEDICAID ==
[2020-01-29 02:48] LABS: Basophils % (Auto) 0.4 % (0.0-1.8); Eosinophils # (Auto) 0.1 K/mm3 (0.0-0.4); Eosinophils % (Auto) 1.2 % (0.0-4.3); Hematocrit 38.4 % (30.3-42.9); Hemoglobin 12.7 gm/dl (10.1-14.3); Lymphocytes # (Auto) 2.3 K/mm3 (1.2-5.4); Lymphocytes % (Auto) 41.1 % (13.4-35.0); Mean Corpuscular HGB Conc 33 % (30-34); Mean Corpuscular Volume 92 fl (79-97); Monocytes # (Auto) 0.5 K/mm3 (0.0-0.8); Monocytes % (Auto) 9.2 % (0.0-7.3); Platelet Count 204 K/mm3 (140-440); Red Blood Count 4.17 M/mm3 (3.65-5.03)
[2020-01-29 03:12] LABS: Alanine Aminotransferase 9 units/L (7-56); Albumin 4.4 g/dL (3.9-5); BUN/Creatinine Ratio 14; Blood Urea Nitrogen 10 mg/dL (7-17); Calcium 9.5 mg/dL (8.4-10.2); Hemolysis Index 8
[2020-01-29] MEDS ORDERED: DICYCLOMINE 20 MG/2 ML INJ IM ONE (03:50)
[2020-01-29] MEDS ORDERED: LIDOCAINE VISCOUS 2% 15 ML ORAL LIQD PO ONE (03:50)
[2020-01-29] MEDS ORDERED: ALUM-MAG HYDROXIDE-SIMETHICONE 200-200-20MG/5ML ORAL LIQD 30 ML PO ONE (03:50)
[2020-01-29] MEDS ORDERED: FAMOTIDINE 20 MG TAB PO ONE (03:51)
--- NOTE | 2020-01-29 04:00 | Emergency Department Report ---
ED General Adult HPI - General Chief complaint: Abdominal Pain Stated complaint: LT FLANK ABD PAIN Time Seen by Provider: 01/29/20 03:50 Source: patient Mode of arrival: Stretcher Limitations: No Limitations - History of Present Illness Initial comments: Patient is a 29-year-old female presents emergency room with complaints of chronic left upper quadrant pain that began increasing since yesterday. She has associated nausea and vomiting. Patient states that she saw a GI doctor 2 weeks ago and had a biopsy performed and was diagnosed with H. pylori. She states that she has not yet picked up her medications from the GI doctor. Patient was evaluated in the emergency department on 01/21/2020 for the same exact complaints and was prescribed Reglan, Zofran, hydrocodone, she had normal lab work and normal CT abdomen pelvis with contrast at that time. - Related Data Previous Rx's Medication Instructions Recorded Last Taken Type Folic Acid [Folvite] 1 mg PO QDAY #30 tablet 04/04/19 04/03/19 Rx Pyridoxine [Vitamin B-6 50MG TAB] 100 mg PO QDAY #30 tablet 04/04/19 04/03/19 Rx levETIRAcetam [Keppra] 1,000 mg PO BID #450 ml 04/04/19 04/03/19 Rx propylthiouraciL [Propylthiouracil] 100 mg PO TID #90 tablet 04/04/19 04/03/19 Rx HYDROcodone/APAP 5-325 [[place] 1 each PO Q6HR PRN #14 tablet 01/21/20 Unknown Rx 5/325] Metoclopramide [Reglan] 10 mg PO TID PRN #14 tab 01/21/20 Unknown Rx Ondansetron [Zofran Odt] 4 mg PO Q8HR PRN #20 tab.rapdis 01/21/20 Unknown Rx Omeprazole 40 mg PO DAILY #30 capsule. 01/29/20 Unknown Rx Sucralfate [Carafate] 1 gm PO ACHS 7 Days #21 tablet 01/29/20 Unknown Rx Allergies Allergy/AdvReac Type Severity Reaction Status Date / Time latex Allergy Rash Verified 03/22/19 02:52 ED Review of Systems ROS: Stated complaint: LT FLANK ABD PAIN Other details as noted in HPI Comment: All other systems reviewed and negative ED Past Medical Hx - Past Medical History Previous Medical History?: No Hx Hypertension: No Hx Congestive Heart Failure: No Hx Diabetes: No Hx Deep Vein Thrombosis: No (Pulmonary embolisms since 2014) Hx Pulmonary Embolism: Yes (Noncompliant with blood thinner) Hx Renal Disease: No Hx Sickle Cell Disease: No Hx Seizures: Yes (Since childhood, on keppra) Hx Asthma: No Hx COPD: No Additional medical history: DIVERTICULITIS, OVARIAN CYST, Pulmonary Embolism, Diverticulitis, Graves Disease - Surgical History Past Surgical History?: No Additional Surgical History: c/s x 3, ectopic - Social History Smoking Status: Never Smoker Substance Use Type: None - Medications Home Medications: Home Medications Medication Instructions Recorded Confirmed Last Taken Type Folic Acid [Folvite] 1 mg PO QDAY #30 tablet 04/04/19 04/04/19 04/03/19 Rx Pyridoxine [Vitamin B-6 50MG TAB] 100 mg PO QDAY #30 tablet 04/04/19 04/04/19 04/03/19 Rx levETIRAcetam [Keppra] 1,000 mg PO BID #450 ml 04/04/19 04/04/19 04/03/19 Rx propylthiouraciL [Propylthiouracil] 100 mg PO TID #90 tablet 04/04/19 04/04/19 04/03/19 Rx HYDROcodone/APAP 5-325 [[place] 1 each PO Q6HR PRN #14 tablet 01/21/20 Unknown Rx 5/325] Metoclopramide [Reglan] 10 mg PO TID PRN #14 tab 01/21/20 Unknown Rx Ondansetron [Zofran Odt] 4 mg PO Q8HR PRN #20 tab.rapdis 01/21/20 Unknown Rx Omeprazole 40 mg PO DAILY #30 capsule.dr 01/29/20 Unknown Rx Sucralfate [Carafate] 1 gm PO ACHS 7 Days #21 tablet 01/29/20 Unknown Rx ED Physical Exam - General Limitations: No Limitations General appearance: alert, in no apparent distress - Head Head exam: Present: atraumatic, normocephalic - Eye Eye exam: Present: normal appearance - ENT ENT exam: Present: mucous membranes moist - Respiratory Respiratory exam: Present: normal lung sounds bilaterally. Absent: respiratory distress, wheezes, rales, rhonchi, stridor, chest wall tenderness, accessory muscle use, decreased breath sounds, prolonged expiratory - Cardiovascular Cardiovascular Exam: Present: regular rate, normal rhythm, normal heart sounds. Absent: systolic murmur, diastolic murmur, rubs, gallop - GI/Abdominal GI/Abdominal exam: Present: soft, normal bowel sounds. Absent: distended, tenderness, guarding, rebound, rigid - Neurological Exam Neurological exam: Present: alert, oriented X3 - Psychiatric Psychiatric exam: Present: normal affect, normal mood - Skin Skin exam: Present: warm, dry, intact ED Course Vital Signs 01/29/20 05:00 Temperature 97.9 F Pulse Rate 87 Respiratory 17 Rate Blood Pressure 112/83 [Right] O2 Sat by Pulse 99 Oximetry ED Medical Decision Making - Lab Data Result diagrams: 01/29/20 02:31 01/29/20 02:31 Lab Results 01/29/20 01/29/20 01/29/20 Range/Units 02:31 02:31 02:31 WBC 5.7 (4.5-11.0) K/mm3 RBC 4.17 (3.65-5.03) M/mm3 Hgb 12.7 (10.1-14.3) gm/dl Hct 38.4 (30.3-42.9) % MCV 92 (79-97) fl MCH 31 (28-32) pg MCHC 33 (30-34) % RDW 15.0 (13.2-15.2) % Plt Count 204 (140-440) K/mm3 Lymph % (Auto) 41.1 H (13.4-35.0) % [place] % (Auto) 9.2 H (0.0-7.3) % Eos % (Auto) 1.2 (0.0-4.3) % Baso % (Auto) 0.4 (0.0-1.8) % Lymph # 2.3 (1.2-5.4) K/mm3 [place] # 0.5 (0.0-0.8) K/mm3 Eos # 0.1 (0.0-0.4) K/mm3 Baso # 0.0 (0.0-0.1) K/mm3 Seg Neutrophils % 48.1 (40.0-70.0) % Seg Neutrophils # 2.7 (1.8-7.7) K/mm3 Sodium 140 (137-145) mmol/L Potassium 4.0 (3.6-5.0) mmol/L Chloride 104.2 (98-107) mmol/L Carbon Dioxide 21 L (22-30) mmol/L Anion Gap 19 mmol/L BUN 10 (7-17) mg/dL Creatinine 0.7 (0.7-1.2) mg/dL Estimated GFR > 60 ml/min BUN/Creatinine Ratio 14 % Glucose 89 (65-100) mg/dL Calcium 9.5 (8.4-10.2) mg/dL Total Bilirubin 0.30 (0.1-1.2) mg/dL AST 18 (5-40) units/L ALT 9 (7-56) units/L Alkaline Phosphatase 44 (35-129) units/L Total Protein 7.6 (6.3-8.2) g/dL Albumin 4.4 (3.9-5) g/dL Albumin/Globulin Ratio 1.4 % Lipase 38 (13-60) units/L HCG, Qual Negative (Negative) - Medical Decision Making Patient is a 29-year-old female presents emergency room with complaints of chronic left upper quadrant pain that began increasing since yesterday. She has associated nausea and vomiting. Patient states that she saw a GI doctor 2 wee ks ago and had a biopsy performed and was diagnosed with H. pylori. She states that she has not yet picked up her medications from the GI doctor. Patient was evaluated in the emergency department on 01/21/2020 for the same exact complaints and was prescribed Reglan, Zofran, hydrocodone, she had normal lab work and normal CT abdomen pelvis with contrast at that time. Vitals are normal. Labs are normal. hCG is negative. No abnormality on physical exam as documented in chart. Patient given Maalox, Bentyl, viscous lidocaine, Pepcid. Patient was able to tolerate p.o. intake without difficulty. Patient was feeling better and ready to go home. Patient given prescription for omeprazole and Carafate. Advised patient Please take medication as prescribed. Please follow-up with your primary care doctor. Please follow-up with your GI doctor. Please follow the diet for ulcers. Return to emergency room for any new or worsening symptoms. Critical care attestation.: If time is entered above; I have spent that time in minutes in the direct care of this critically ill patient, excluding procedure time. ED Disposition Clinical Impression: LUQ pain, PUD (peptic ulcer disease) Disposition: DC- TO HOME OR SELFCARE Is pt being admited?: No Does the pt Need Aspirin: No Condition: Stable Instructions: Peptic Ulcer (ED), Diet for Ulcers and Gastritis (ED) Additional Instructions: Please take medication as prescribed. Please follow-up with your primary care doctor. Please follow-up with your GI doctor. Please follow the diet for ulcers. Return to emergency room for any new or worsening symptoms. Prescriptions: Sucralfate [Carafate] 1 gm PO ACHS 7 Days #21 tablet Omeprazole 40 mg PO DAILY #30 capsule. Referrals: PRIMARY CARE, [Primary Care Provider] - 3-5 Days your, GI doctor [Other] - 3-5 Days Time of Disposition: 04:44 Print Language: CITIZEN OF [place]
[2020-01-29 05:56] VITALS: BP 112/83
== END 2020-01-29 05:00 | disposition home or self-care (01) ==
LOC: ED 00:32
DX: K27.9 Peptic ulcer, site unspecified, unspecified as acute or chronic, without hemorrhage or perforation (principal); Z79.899 Other long term (current) drug therapy; Z91.040 Latex allergy status
CPT/HCPCS: 36415; 80053; 83690; 84703; 85025; 96372; 99283; J0500

== ENCOUNTER 2020-05-16 07:00 | Emergency (ER) | payer MEDICAID ==
[2020-05-16] MEDS ORDERED: levETIRAcetam 1000 MG/NS 0.75% 1,000 MG/100 ML BAG IV ONE (07:22)
[2020-05-16] MEDS ORDERED: ONDANSETRON 4 MG/2 ML INJ IV ONE ×2 (07:31→08:31)
[2020-05-16] MEDS ORDERED: ONDANSETRON 4 MG/2 ML INJ ONE (07:31)
[2020-05-16 08:00] LABS: Basophils % (Auto) 0.4 % (0.0-1.8); Hematocrit 35.6 % (30.3-42.9); Hemoglobin 12.3 gm/dl (10.1-14.3); Lymphocytes # (Auto) 1.3 K/mm3 (1.2-5.4); Lymphocytes % (Auto) 15.8 % (13.4-35.0); Mean Corpuscular HGB Conc 35 % (30-34); Mean Corpuscular Volume 93 fl (79-97); Monocytes # (Auto) 0.4 K/mm3 (0.0-0.8); Monocytes % (Auto) 5.4 % (0.0-7.3); Platelet Count 186 K/mm3 (140-440); Red Blood Count 3.83 M/mm3 (3.65-5.03); Red Cell Distribution Width 14.6 % (13.2-15.2)
[2020-05-16 08:30] LABS: BUN/Creatinine Ratio 12; Blood Urea Nitrogen 7 mg/dL (7-17); Calcium 9.3 mg/dL (8.4-10.2); Hemolysis Index 18
[2020-05-16] MEDS ORDERED: HYDROmorphone 1 MG/1 ML INJ IV ONE ×2 (08:31→10:44)
[2020-05-16] MEDS ORDERED: FAMOTIDINE 20 MG/2 ML INJ IV ONE (08:31)
[2020-05-16] MEDS ORDERED: SODIUM CHLORIDE 0.9% 1000 ML 1,000 ML IV ONE (08:32)
--- NOTE | 2020-05-16 08:38 | Emergency Department Report ---
ED Seizure HPI - General Chief Complaint: Seizure Stated Complaint: SEIZURE Time Seen by Provider: 05/16/20 07:22 Source: patient, EMS Mode of arrival: Stretcher Limitations: No Limitations - History of Present Illness Initial Comments: 30-year-old female with a past medical history of previous pulmonary embolism, seizures, diverticulitis, ovarian cysts, Graves' disease and x3 presents to the hospital with multiple seizures prior to arrival and also secondary complaint of complaining of chronic left abdominal pain. Patient has been noncompliant with her Keppra since July. Patient was seizing upon EMS arrival and received Versed IM 5 mg. Patient has abdominal pain since 2011 but it has been worse since the of her daughter in October. She has been here multiple times for the same pain. At time of my evaluation patient is rocking around the bed with bilious vomitus on her shirt requesting pain medications and to make the pain go away. Patient states she has been vomiting on average twice a week since October. He states pain management has been recommended. He states despite outpatient evaluation no cause of her pain has been identified. Patient denies fever. - Related Data Previous Rx's Medication Instructions Recorded Last Taken Type Folic Acid [Folvite] 1 mg PO QDAY #30 tablet 04/04/19 04/03/19 Rx Pyridoxine [Vitamin B-6 50MG TAB] 100 mg PO QDAY #30 tablet 04/04/19 04/03/19 Rx levETIRAcetam [Keppra] 1,000 mg PO BID #450 ml 04/04/19 04/03/19 Rx propylthiouraciL [Propylthiouracil] 100 mg PO TID #90 tablet 04/04/19 04/03/19 Rx HYDROcodone/APAP 5-325 [[place] 1 each PO Q6HR PRN #14 tablet 01/21/20 Unknown Rx 5/325] Metoclopramide [Reglan] 10 mg PO TID PRN #14 tab 01/21/20 Unknown Rx Ondansetron [Zofran Odt] 4 mg PO Q8HR PRN #20 tab.rapdis 01/21/20 Unknown Rx Omeprazole 40 mg PO DAILY #30 capsule. 01/29/20 Unknown Rx Sucralfate [Carafate] 1 gm PO ACHS 7 Days #21 tablet 01/29/20 Unknown Rx Promethazine HCl [Phenergan SUPPOS] 25 mg RC BID #30 supp.rect 02/08/20 Unknown Rx Allergies Allergy/AdvReac Type Severity Reaction Status Date / Time latex Allergy Rash Verified 02/18/20 08:22 ED Review of Systems ROS: Stated complaint: SEIZURE Other details as noted in HPI ED Past Medical Hx - Past Medical History Previous Medical History?: Yes Hx Hypertension: No Hx Congestive Heart Failure: No Hx Diabetes: No Hx Deep Vein Thrombosis: (Pulmonary embolisms since 2014) Hx Pulmonary Embolism: Yes (Noncompliant with blood thinner) Hx Renal Disease: No Hx Sickle Cell Disease: No Hx Seizures: Yes (Since childhood, on keppra) Hx Asthma: No Hx COPD: No Additional medical history: DIVERTICULITIS, OVARIAN CYST, Pulmonary Embolism, Diverticulitis, Graves Disease - Surgical History Past Surgical History?: Yes Additional Surgical History: c/s x 3, ectopic - Social History Smoking Status: Never Smoker Substance Use Type: None - Medications Home Medications: Home Medications Medication Instructions Recorded Confirmed Last Taken Type Folic Acid [Folvite] 1 mg PO QDAY #30 tablet 04/04/19 04/04/19 04/03/19 Rx Pyridoxine [Vitamin B-6 50MG TAB] 100 mg PO QDAY #30 tablet 04/04/19 04/04/19 04/03/19 Rx levETIRAcetam [Keppra] 1,000 mg PO BID #450 ml 04/04/19 04/04/19 04/03/19 Rx propylthiouraciL [Propylthiouracil] 100 mg PO TID #90 tablet 04/04/19 04/04/19 04/03/19 Rx HYDROcodone/APAP 5-325 [[place] 1 each PO Q6HR PRN #14 tablet 01/21/20 Unknown Rx 5/325] Metoclopramide [Reglan] 10 mg PO TID PRN #14 tab 01/21/20 Unknown Rx Ondansetron [Zofran Odt] 4 mg PO Q8HR PRN #20 tab.rapdis 01/21/20 Unknown Rx Omeprazole 40 mg PO DAILY #30 capsule. 01/29/20 Unknown Rx Sucralfate [Carafate] 1 gm PO ACHS 7 Days #21 tablet 01/29/20 Unknown Rx Promethazine HCl [Phenergan SUPPOS] 25 mg RC BID #30 supp.rect 02/08/20 Unknown Rx ED Physical Exam - General Limitations: No Limitations ED Course Vital Signs 05/16/20 05/16/20 05/16/20 07:40 07:52 08:59 Temperature 98.8 F Pulse Rate 94 H 18 L Respiratory 22 22 22 Rate Blood Pressure 143/56 Blood Pressure 117/78 [Right] O2 Sat by Pulse 100 100 98 Oximetry - Reevaluation(s) Reevaluation #1: 05/16/20 12:00 Patient informed nurse that she was ready to go. She received the second dose of pain medicine for persistent pain. Told nurse I will prep her discharge papers and write for pain medication and seizure medication. Patient was unable to wait for these prescriptions and signed out AMA ED Medical Decision Making - Lab Data Result diagrams: 05/16/20 07:29 05/16/20 07:29 Lab Results 05/16/20 05/16/20 05/16/20 Range/Units 07:29 07:29 07:29 WBC 8.3 (4.5-11.0) K/mm3 RBC 3.83 (3.65-5.03) M/mm3 Hgb 12.3 (10.1-14.3) gm/dl Hct 35.6 (30.3-42.9) % MCV 93 (79-97) fl MCH 32 (28-32) pg MCHC 35 H (30-34) % RDW 14.6 (13.2-15.2) % Plt Count 186 (140-440) K/mm3 Lymph % (Auto) 15.8 (13.4-35.0) % [place] % (Auto) 5.4 (0.0-7.3) % Eos % (Auto) 0.0 (0.0-4.3) % Baso % (Auto) 0.4 (0.0-1.8) % Lymph # (Auto) 1.3 (1.2-5.4) K/mm3 [place] # (Auto) 0.4 (0.0-0.8) K/mm3 Eos # (Auto) 0.0 (0.0-0.4) K/mm3 Baso # (Auto) 0.0 (0.0-0.1) K/mm3 Seg Neutrophils % 78.4 H (40.0-70.0) % Seg Neutrophils # 6.6 (1.8-7.7) K/mm3 Sodium 141 (137-145) mmol/L Potassium 3.4 L (3.6-5.0) mmol/L Chloride 104.1 (98-107) mmol/L Carbon Dioxide 19 L (22-30) mmol/L Anion Gap 21 mmol/L BUN 7 (7-17) mg/dL Creatinine 0.6 (0.6-1.2) mg/dL Estimated GFR > 60 ml/min BUN/Creatinine Ratio 12 % Glucose 106 H (65-100) mg/dL Calcium 9.3 (8.4-10.2) mg/dL Magnesium 2.00 (1.7-2.3) mg/dL Total Bilirubin (0.1-1.2) mg/dL Direct Bilirubin (0-0.2) mg/dL AST (5-40) units/L ALT (7-56) units/L Alkaline Phosphatase (35-129) units/L Total Protein (6.3-8.2) g/dL Albumin (3.9-5) g/dL Albumin/Globulin Ratio % Lipase (13-60) units/L HCG, Qual Negative (Negative) 05/16/20 Range/Units 07:29 WBC (4.5-11.0) K/mm3 RBC (3.65-5.03) M/mm3 Hgb (10.1-14.3) gm/dl Hct (30.3-42.9) % MCV (79-97) fl MCH (28-32) pg MCHC (30-34) % RDW (13.2-15.2) % Plt Count (140-440) K/mm3 Lymph % (Auto) (13.4-35.0) % [place] % (Auto) (0.0-7.3) % Eos % (Auto) (0.0-4.3) % Baso % (Auto) (0.0-1.8) % Lymph # (Auto) (1.2-5.4) K/mm3 [place] # (Auto) (0.0-0.8) K/mm3 Eos # (Auto) (0.0-0.4) K/mm3 Baso # (Auto) (0.0-0.1) K/mm3 Seg Neutrophils % (40.0-70.0) % Seg Neutrophils # (1.8-7.7) K/mm3 Sodium (137-145) mmol/L Potassium (3.6-5.0) mmol/L Chloride (98-107) mmol/L Carbon Dioxide (22-30) mmol/L Anion Gap mmol/L BUN (7-17) mg/dL Creatinine (0.6-1.2) mg/dL Estimated GFR ml/min BUN/Creatinine Ratio % Glucose (65-100) mg/dL Calcium (8.4-10.2) mg/dL Magnesium (1.7-2.3) mg/dL Total Bilirubin 0.30 (0.1-1.2) mg/dL Direct Bilirubin < 0.2 (0-0.2) mg/dL AST 27 (5-40) units/L ALT 23 (7-56) units/L Alkaline Phosphatase 42 (35-129) units/L Total Protein 6.8 (6.3-8.2) g/dL Albumin 4.2 (3.9-5) g/dL Albumin/Globulin Ratio 1.6 % Lipase 31 (13-60) units/L HCG, Qual (Negative) - Radiology Data Radiology results: report reviewed CT ABDOMEN AND PELVIS WITH IV CONTRAST INDICATION: Abdominal pain TECHNIQUE: Following the administration of intravenous contrast, multiple axial CT images of the abdomen and pelvis were acquired. Sagittal and coronal reformats were obtained. All CT performed at this facility utilize dose reduction techniques including automated exposure control, iterative reconstruction and weight based dosing when appropriate to reduce patient radiation dose to as low as reasonably achievable. COMPARISON: CT of the abdomen and pelvis, 01/21/2020 FINDINGS: Limited imaging of the bilateral lung bases demonstrates no evidence of acute abnormality. Abdomen: The liver, gallbladder, spleen, pancreas, bilateral adrenal glands and bilateral kidneys show no evidence of acute abnormality. The abdominal aorta is normal in caliber. There is no evidence of bowel obstruction. The appendix is not clearly identified, but no right lower quadrant inflammatory changes are seen. Pelvis: There is a small amount of free fluid within the pelvis. The urinary bladder appears normal. Bones and Soft Tissues: Evaluation of bony structures demonstrates no evidence of acute bony abnormality. Soft tissue structures appear grossly normal. IMPRESSION: 1. No evidence of acute inflammatory or obstructive process within the abdomen or pelvis. 2. Trace amount of free pelvic fluid which may be physiologic in this young female patient. - Medical Decision Making Patient presents to the hospital for acute exacerbation of chronic abdominal pain as well as seizures. She received IV Keppra as well as received multiple dose of Dilaudid, Zofran, normal saline during ED stay. CT abdomen pelvis without acute findings. Labs revealed mild hypokalemia. Plan for patient to receive p.o. potassium and discharged on Keppra and pain medication. Patient signed out AGAINST MEDICAL ADVICE because she had to abruptly go home to be with her daughter and therefore did not receive p.o. potassium, Keppra, nausea medication or pain medication prior to discharge as per [place] prescription monitoring site 04/21/2020 1 04/21/2020 TRAMADOL HCL 50 MG PTQMFB59.0 15 NIVIA JACQUES [id number] ROLLY ([id number]) 0 03/02/2020 1 03/02/2020 TRAMADOL HCL 50 MG TABLET4.0 2 JA NIVIA, [id number] ROLLY ([id number]) 0 01/21/2020 1 01/21/2020 HYDROCODONE-ACETAMIN 5-325 MG14.0 6 MA [place] [id number] ROLLY ([id number]) 011.67 MME 12/01/2019 1 12/01/2019 TRAMADOL HCL 50 MG [id number] 8 BAS [id number] ROLLY ([id number]) 0 Critical Care Time: No Critical care attestation.: If time is entered above; I have spent that time in minutes in the direct care of this critically ill patient, excluding procedure time. ED Disposition Clinical Impression: Seizure, Noncompliance with medication regimen, Chronic abdominal pain Disposition: LEFT AGAINST MED ADVICE Is pt being admited?: No Condition: Stable Time of Disposition: 12:04
[2020-05-16 08:59] VITALS: BP 117/78
[2020-05-16 09:04] LABS: Alanine Aminotransferase 23 units/L (7-56); Albumin 4.2 g/dL (3.9-5)
[2020-05-16 09:09] LABS: Bilirubin,Direct < 0.2 mg/dL (0-0.2)
--- NOTE | 2020-05-16 10:10 | Cat Scan Report ---
CT ABDOMEN AND PELVIS WITH IV CONTRAST INDICATION: Abdominal pain TECHNIQUE: Following the administration of intravenous contrast, multiple axial CT images of the abdo men and pelvis were acquired. Sagittal and coronal reformats were obtained. All CT performed at this facility utilize dose reduction techniques including automated exposure control, iterative reconstru ction and weight based dosing when appropriate to reduce patient radiation dose to as low as reasonab ly achievable. COMPARISON: CT of the abdomen and pelvis, 01/21/2020 FINDINGS: Limited imaging of the bilateral lung bases demonstrates no evidence of acute abnormality. Abdomen: The liver, gallbladder, spleen, pancreas, bilateral adrenal glands and bilateral kidneys morena w no evidence of acute abnormality. The abdominal aorta is normal in caliber. There is no evidence of bowel obstruction. The appendix is not clearly identified, but no right lower quadrant inflammatory changes are seen. Pelvis: There is a small amount of free fluid within the pelvis. The urinary bladder appears normal. Bones and Soft Tissues: Evaluation of bony structures demonstrates no evidence of acute bony abnormal ity. Soft tissue structures appear grossly normal. IMPRESSION: 1. No evidence of acute inflammatory or obstructive process within the abdomen or pelvis. 2. Trace amount of free pelvic fluid which may be physiologic in this young female patient. Signer Name: Ely Perry MD Signed: 05/16/2020 10:06 AM Workstation Name: [id number]
[2020-05-16] MEDS ORDERED: diphenhydrAMINE 50 MG/ML VIAL IV ONE (10:44)
[2020-05-16] MEDS ORDERED: METOCLOPRAMIDE 10 MG/2 ML INJ IV ONE (10:44)
== END 2020-05-16 12:00 | disposition left against medical advice (07) ==
LOC: ED 07:00
DX: R56.9 Unspecified convulsions (principal); R10.9 Unspecified abdominal pain; G89.29 Other chronic pain; Z91.14 Patient's other noncompliance with medication regimen; Z86.711 Personal history of pulmonary embolism; Z98.890 Other specified postprocedural states; Z79.899 Other long term (current) drug therapy; Z91.040 Latex allergy status
CPT/HCPCS: 36415; 74177; 80048; 80076; 83690; 83735; 84703; 85025; 96361; 96365; 96375; 96376; 99285; J1170; J1200; J1953; J2405; J2765; J7030; Q9967

== ENCOUNTER 2020-06-18 03:47 | Emergency (ER) | payer MEDICAID ==
[2020-06-18] MEDS ORDERED: SODIUM CHLORIDE 0.9% 1000 ML 1,000 ML IV ONE (04:00)
[2020-06-18] MEDS ORDERED: HYDROmorphone 1 MG/1 ML INJ IV ONE (04:00)
[2020-06-18] MEDS ORDERED: ONDANSETRON 4 MG/2 ML INJ IV ONE (04:00)
--- NOTE | 2020-06-18 04:04 | Emergency Department Report ---
ED Abdominal Pain HPI - General Chief Complaint: Abdominal Pain Stated Complaint: SEIZURE PUI?: No Time Seen by Provider: 06/18/20 04:00 Source: EMS Mode of arrival: Stretcher Limitations: No Limitations - History of Present Illness Initial Comments: Patient is a 30-year-old female that presents emergency room complaints of seiz ure, abdominal pain and nausea and vomiting. Patient states her symptoms started just before arrival. Patient states she had a seizure and her family called EMS. Patient states her abdominal pain is a 10 out of 10 and is severe. Patient states she has vomited 3 or 4 times. Patient denies blood in her vomitus in her stool. Patient states the abdominal pain is her left lower quadrant. Patient denies fever and chills. Patient states she has a history of seizure and she is compliant with her medications. Patient denies recent trauma. Patient denies missing medications. Patient denies neck pain. Patient denies fall. Patient denies recent travel. Patient denies recent international travel. Patient denies exposure to the novel coronavirus. Patient denies sick contacts. Patient denies fever and chills. Patient denies cough. Patient denies diarrhea. Patient denies coming in contact with anybody with symptoms of the novel coronavirus. Report received from EMS. Seizure witnessed by EMS. EMS gave the patient 2 of Vania. MD Complaint: abdominal pain -: Sudden Location: LLQ Radiation: none Migration to: no migration Severity: severe Severity scale (0 -10): 10 Quality: sharp Consistency: constant Improves With: rest Worsens With: vomiting, movement Associated Symptoms: nausea, vomiting. denies: diarrhea, fever, chills, constipation, dysuria, hematemesis, hematochezia, melena, hematuria, anorexia, syncope - Related Data LMP (females 10-50): last week Previous Rx's Medication Instructions Recorded Last Taken Type Folic Acid [Folvite] 1 mg PO QDAY #30 tablet 04/04/19 04/03/19 Rx Pyridoxine [Vitamin B-6 50MG TAB] 100 mg PO QDAY #30 tablet 04/04/19 04/03/19 Rx levETIRAcetam [Keppra] 1,000 mg PO BID #450 ml 04/04/19 04/03/19 Rx propylthiouraciL [Propylthiouracil] 100 mg PO TID #90 tablet 04/04/19 04/03/19 Rx HYDROcodone/APAP 5-325 [[place] 1 each PO Q6HR PRN #14 tablet 01/21/20 Unknown Rx 5/325] Metoclopramide [Reglan] 10 mg PO TID PRN #14 tab 01/21/20 Unknown Rx Omeprazole 40 mg PO DAILY #30 capsule. 01/29/20 Unknown Rx Sucralfate [Carafate] 1 gm PO ACHS 7 Days #21 tablet 01/29/20 Unknown Rx Promethazine HCl [Phenergan SUPPOS] 25 mg RC BID #30 supp.rect 02/08/20 Unknown Rx Ondansetron [Zofran ODT TAB] 4 mg PO Q8HR PRN #20 tab.rapdis 06/18/20 Unknown Rx Allergies Allergy/AdvReac Type Severity Reaction Status Date / Time latex Allergy Rash Verified 02/18/20 08:22 ED Review of Systems ROS: Stated complaint: SEIZURE Other details as noted in HPI Constitutional: denies: chills, fever Eyes: denies: eye pain, eye discharge, vision change ENT: denies: ear pain, throat pain Respiratory: denies: cough, shortness of breath, wheezing Cardiovascular: denies: chest pain, palpitations Endocrine: no symptoms reported Gastrointestinal: abdominal pain. denies: nausea, diarrhea Genitourinary: denies: urgency, dysuria, discharge Musculoskeletal: denies: back pain, joint swelling, arthralgia Skin: denies: rash, lesions Neurological: as per HPI. denies: headache, weakness, paresthesias Psychiatric: denies: anxiety, depression Hematological/Lymphatic: denies: easy bleeding, easy bruising ED Past Medical Hx - Past Medical History Previous Medical History?: Yes Hx Hypertension: No Hx Congestive Heart Failure: No Hx Diabetes: No Hx Deep Vein Thrombosis: No (Pulmonary embolisms since 2014) Hx Pulmonary Embolism: Yes (Noncompliant with blood thinner) Hx Renal Disease: No Hx Sickle Cell Disease: No Hx Seizures: Yes (Since childhood, on keppra) Hx Asthma: No Hx COPD: No Additional medical history: DIVERTICULITIS, OVARIAN CYST, Pulmonary Embolism, Diverticulitis, Graves Disease - Surgical History Past Surgical History?: Yes Additional Surgical History: c/s x 3, ectopic - Family History Family history: no significant - Social History Smoking Status: Never Smoker Substance Use Type: None - Medications Home Medications: Home Medications Medication Instructions Recorded Confirmed Last Taken Type Folic Acid [Folvite] 1 mg PO QDAY #30 tablet 04/04/19 04/04/19 04/03/19 Rx Pyridoxine [Vitamin B-6 50MG TAB] 100 mg PO QDAY #30 tablet 04/04/19 04/04/19 04/03/19 Rx levETIRAcetam [Keppra] 1,000 mg PO BID #450 ml 04/04/19 04/04/19 04/03/19 Rx propylthiouraciL [Propylthiouracil] 100 mg PO TID #90 tablet 04/04/19 04/04/19 04/03/19 Rx HYDROcodone/APAP 5-325 [[place] 1 each PO Q6HR PRN #14 tablet 01/21/20 Unknown Rx 5/325] Metoclopramide [Reglan] 10 mg PO TID PRN #14 tab 01/21/20 Unknown Rx Omeprazole 40 mg PO DAILY #30 capsule. 01/29/20 Unknown Rx Sucralfate [Carafate] 1 gm PO ACHS 7 Days #21 tablet 01/29/20 Unknown Rx Promethazine HCl [Phenergan SUPPOS] 25 mg RC BID #30 supp.rect 02/08/20 Unknown Rx Ondansetron [Zofran ODT TAB] 4 mg PO Q8HR PRN #20 tab.rapdis 06/18/20 Unknown Rx ED Physical Exam - General Limitations: No Limitations General appearance: alert, in no apparent distress - Head Head exam: Present: atraumatic, normocephalic - Eye Eye exam: Present: normal appearance - ENT ENT exam: Present: mucous membranes moist - Neck Neck exam: Present: normal inspection - Respiratory Respiratory exam: Present: normal lung sounds bilaterally. Absent: respiratory distress - Cardiovascular Cardiovascular Exam: Present: regular rate, normal rhythm. Absent: systolic murmur, diastolic murmur, rubs, gallop - GI/Abdominal GI/Abdominal exam: Present: soft, tenderness (Left lower quadrant tenderness), normal bowel sounds - Extremities Exam Extremities exam: Present: normal inspection - Back Exam Back exam: Present: normal inspection - Neurological Exam Neurological exam: Present: alert, oriented X3 - Psychiatric Psychiatric exam: Present: normal affect, normal mood - Skin Skin exam: Present: warm, dry, intact, normal color. Absent: rash ED Course Vital Signs 06/18/20 06/18/20 03:57 04:00 Pulse Rate 88 Respiratory 20 18 Rate Blood Pressure 128/96 [Right] O2 Sat by Pulse 99 99 Oximetry - Reevaluation(s) Reevaluation #1: I discussed all results and clinical findings with patient. I discussed plan of care with patient. Patient agrees with plan of care. Patient is stable for discharge. Patient will be discharged home. Patient given discharge instructions. Patient voiced understanding of discharge instructions. 06/18/20 05:59 ED Medical Decision Making - Lab Data Result diagrams: 06/18/20 04:55 06/18/20 04:55 - Radiology Data Radiology results: report reviewed CT ABDOMEN AND PELVIS WITH IV CONTRAST INDICATION: Pt complains of L.L.Q. abd pain with nausea and vomiting.. COMPARISON: 05/16/2020 TECHNIQUE: Axial CT images were obtained through the abdomen and pelvis after 100 mL IV contrast. All CT scans at this location are performed using CT dose reduction for ALARA by means of automated exposure control. FINDINGS -- ABDOMEN: Lung Bases: No acute abnormality. Liver: Several scattered hypodensities throughout much of the liver too small to accurately characterize.. Gallbladder: Normal. Bile Ducts: Normal. Pancreas: Normal. Spleen: Normal. Adrenals: Normal. Right Kidney and Proximal Ureter: Normal. Left Kidney and Proximal Ureter: Normal. Stomach and Bowel: Normal. Lymph Nodes: No significant adenopathy. Aorta: No significant abnormality. IVC: Normal. Additional Findings: None. FINDINGS -- PELVIS: Urinary Bladder and Distal Ureters: Normal. Reproductive Organs: Grossly unremarkable within the limits of the noncontrast technique.. Appendix: Normal. Bowel: No acute abnormality. Large stool burden identified throughout the colon. Free Fluid: Small free pelvic fluid, similar in overall volume from 05/16/2020.. Lymph Nodes: No significant adenopathy. Additional Findings: None. Skeletal System: No acute abnormality. IMPRESSION: Small free pelvic fluid, similar to the recent exam from 05/16/2020. No significant change in the interim. - Medical Decision Making Patient is a 30-year-old female that presents emergency room with complaints of seizure activity, abdominal pain, nausea, vomiting. Patient's clinical findings are consistent with gastroenteritis, seizure. Patient was given Ativan by EMS. Patient given a gram of Keppra. Patient given fluids and antiemetics. Patient responded well to treatment. Patient has not had any seizure activity in the ER. - Differential Diagnosis Gastroenteritis, nausea, vomiting, abdominal pain, seizure Critical care attestation.: If time is entered above; I have spent that time in minutes in the direct care of this critically ill patient, excluding procedure time. ED Disposition Clinical Impression: Seizure, Gastroenteritis Abdominal pain Qualifiers: Abdominal location: left lower quadrant Qualified Code(s): R10.32 - Left lower quadrant pain Nausea & vomiting Qualifiers: Vomiting type: unspecified Vomiting Intractability: non-intractable Qualified Code(s): R11.2 - Nausea with vomiting, unspecified Disposition: - TO HOME OR SELFCARE Is pt being admited?: No Does the pt Need Aspirin: No Condition: Stable Instructions: Abdominal Pain (ED), Seizure, Adult, [id number], Viral Gastroenteritis, Adult, [id number], Nausea and Vomiting, Adult Additional Instructions: Patient to follow-up with primary care in 2 to 3 days. Patient to follow-up with neurologist in 2 to 3 days. Patient to eat a brat diet. patient to rest. Patient to increase water. Patient to avoid strenuous exercise or heavy lifting until cleared by neurologist. Patient to not drive. Patient to take Tylenol or ibuprofen as needed for pain. Patient to take meds as directed. Patient to return to the ER if condition worsens, changes or new symptoms arise. Prescriptions: Ondansetron [Zofran ODT TAB] 4 mg PO Q8HR PRN #20 tab.rapdis PRN Reason: Nausea And Vomiting Referrals: PRIMARY CARE, [Primary Care Provider] - 2-3 Days Time of Disposition: 05:53
[2020-06-18] MEDS ORDERED: levETIRAcetam 1000 MG/NS 0.75% 1,000 MG/100 ML BAG IV ONE (04:52)
[2020-06-18 05:28] LABS: Basophils % (Auto) 0.5 % (0.0-1.8); Eosinophils % (Auto) 0.9 % (0.0-4.3); Hematocrit 34.4 % (30.3-42.9); Lymphocytes # (Auto) 1.2 K/mm3 (1.2-5.4); Lymphocytes % (Auto) 29.8 % (13.4-35.0); Mean Corpuscular HGB Conc 35 % (30-34); Mean Corpuscular Volume 94 fl (79-97); Monocytes # (Auto) 0.3 K/mm3 (0.0-0.8); Platelet Count 191 K/mm3 (140-440); Red Blood Count 3.67 M/mm3 (3.65-5.03); Red Cell Distribution Width 14.4 % (13.2-15.2)
[2020-06-18 05:29] LABS: Alanine Aminotransferase 17 units/L (7-56); BUN/Creatinine Ratio 12; Bilirubin,Direct < 0.2 mg/dL (0-0.2); Blood Urea Nitrogen 7 mg/dL (7-17); Calcium 8.9 mg/dL (8.4-10.2); Hemolysis Index 8
--- NOTE | 2020-06-18 05:45 | Cat Scan Report ---
CT ABDOMEN AND PELVIS WITH IV CONTRAST INDICATION: Pt complains of L.L.Q. abd pain with nausea and vomiting.. COMPARISON: 05/16/2020 TECHNIQUE: Axial CT images were obtained through the abdomen and pelvis after 100 mL IV contrast. All CT scans a t this location are performed using CT dose reduction for ALARA by means of automated exposure contro l. FINDINGS -- ABDOMEN: Lung Bases: No acute abnormality. Liver: Several scattered hypodensities throughout much of the liver too small to accurately character ize.. Gallbladder: Normal. Bile Ducts: Normal. Pancreas: Normal. Spleen: Normal. Adrenals: Normal. Right Kidney and Proximal Ureter: Normal. Left Kidney and Proximal Ureter: Normal. Stomach and Bowel: Normal. Lymph Nodes: No significant adenopathy. Aorta: No significant abnormality. IVC: Normal. Additional Findings: None. FINDINGS -- PELVIS: Urinary Bladder and Distal Ureters: Normal. Reproductive Organs: Grossly unremarkable within the limits of the noncontrast technique.. Appendix: Normal. Bowel: No acute abnormality. Large stool burden identified throughout the colon. Free Fluid: Small free pelvic fluid, similar in overall volume from 05/16/2020.. Lymph Nodes: No significant adenopathy. Additional Findings: None. Skeletal System: No acute abnormality. IMPRESSION: Small free pelvic fluid, similar to the recent exam from 05/16/2020. No significant change in the inte rim. Signer Name: Jorge Martin MD Signed: 06/18/2020 5:40 AM Workstation Name: [id number]
[2020-06-18 05:56] VITALS: BP 97/51
== END 2020-06-18 06:32 | disposition home or self-care (01) ==
LOC: ED 03:47
DX: G40.909 Epilepsy, unspecified, not intractable, without status epilepticus (principal); R11.2 Nausea with vomiting, unspecified; R10.9 Unspecified abdominal pain; K52.9 Noninfective gastroenteritis and colitis, unspecified; Z98.890 Other specified postprocedural states; Z79.899 Other long term (current) drug therapy; Z91.040 Latex allergy status
CPT/HCPCS: 36415; 74177; 80048; 80076; 83690; 84703; 85025; 96361; 96374; 96375; 99285; J1170; J1953; J2405; J7030; Q9967

== ENCOUNTER 2020-06-30 10:40 | Emergency (ER) | payer MEDICAID ==
[~2020-06-30 10:40] MED LIST: LORazepam 2 MG/ML VIAL IV ONE
[2020-06-30] MEDS ORDERED: LORazepam 2 MG/ML VIAL ONE (10:44)
[2020-06-30] MEDS ORDERED: levETIRAcetam 1000 MG/NS 0.75% 1,000 MG/100 ML BAG IV ONE (10:52)
[2020-06-30] MEDS ORDERED: SODIUM CHLORIDE 0.9% 1000 ML 1,000 ML IV ONE ×2 (10:52→13:39)
--- NOTE | 2020-06-30 10:54 | Emergency Department Report ---
HPI - General Time Seen by Provider: 06/30/20 10:50 - HPI HPI: This is a 30-year-old -[place] female presents to the emergency department by EMS from home with complaint of seizures. The patient had a witnessed seizure at home which prompted family to call for EMS. The patient had 3-4 seizures in route with EMS. She received 2 different doses of 2 mg Ativan in route. The patient is currently postictal and therefore a poor historian. Records show that she does have a seizure disorder, Graves' disease, previous pulmonary emboli on anticoagulation. Patient was here about 2 weeks ago with a complaint of abdominal pain, nausea and vomiting, and a seizure. Apparently, per EMS, the patient does have a neurologist but the appointment continues to be pushed back secondary to the pandemic. ED Past Medical Hx - Past Medical History Hx Hypertension: No Hx Congestive Heart Failure: No Hx Diabetes: No Hx Deep Vein Thrombosis: No (Pulmonary embolisms since 2014) Hx Pulmonary Embolism: Yes (Noncompliant with blood thinner) Hx Renal Disease: No Hx Sickle Cell Disease: No Hx Seizures: Yes (Since childhood, on keppra) Hx Asthma: No Hx COPD: No Additional medical history: DIVERTICULITIS, OVARIAN CYST, Pulmonary Embolism, Diverticulitis, Graves Disease - Surgical History Additional Surgical History: c/s x 3, ectopic - Social History Smoking Status: Never Smoker Substance Use Type: None - Medications Home Medications: Home Medications Medication Instructions Recorded Confirmed Last Taken Type Folic Acid [Folvite] 1 mg PO QDAY #30 tablet 04/04/19 04/04/19 04/03/19 Rx Pyridoxine [Vitamin B-6 50MG TAB] 100 mg PO QDAY #30 tablet 04/04/19 04/04/19 04/03/19 Rx levETIRAcetam [Keppra] 1,000 mg PO BID #450 ml 04/04/19 04/04/19 04/03/19 Rx propylthiouraciL [Propylthiouracil] 100 mg PO TID #90 tablet 04/04/19 04/04/19 04/03/19 Rx HYDROcodone/APAP 5-325 [[place] 1 each PO Q6HR PRN #14 tablet 01/21/20 Unknown Rx 5/325] Metoclopramide [Reglan] 10 mg PO TID PRN #14 tab 01/21/20 Unknown Rx Omeprazole 40 mg PO DAILY #30 capsule. 01/29/20 Unknown Rx Sucralfate [Carafate] 1 gm PO ACHS 7 Days #21 tablet 01/29/20 Unknown Rx Promethazine HCl [Phenergan SUPPOS] 25 mg RC BID #30 supp.rect 02/08/20 Unknown Rx Ondansetron [Zofran ODT TAB] 4 mg PO Q8HR PRN #20 tab.rapdis 06/18/20 Unknown Rx ED Review of Systems ROS: Stated complaint: SEIZURE Other details as noted in HPI Comment: Unobtainable due to pts medical conditions Physical Exam - Physical Exam Physical Exam: GENERAL: The patient is well-developed well-nourished. HENT: Normocephalic. Atraumatic. Patient has moist mucous membranes. EYES: Extraocular motions are intact. NECK: Supple. Trachea is midline. CHEST/LUNGS: Clear to auscultation. There is no respiratory distress noted. HEART/CARDIOVASCULAR: Regular. There is mild tachycardia. There is no murmur. ABDOMEN: Abdomen is soft, nondistended. Patient has normal bowel sounds. SKIN: Skin is warm and dry. NEURO: Patient appears postictal. She is moving all extremities but is not answering questions or following commands. Withdraws from painful stimuli. MUSCULOSKELETAL: There is no tenderness or deformity. There is no limitation range of motion. ED Medical Decision Making - Lab Data Result diagrams: 06/30/20 11:11 06/30/20 11:11 - Radiology Data Radiology results: image reviewed interpreted by me: Abdominal x-ray shows nonspecific nonobstructive bowel gas. - Medical Decision Making This patient initially presented with complaint of multiple seizures prior to arrival. She had received multiple doses of benzodiazepine. Patient allegedly has a seizure history. However the seizure-like activity seen upon was slightly atypical. Patient appeared to have a tremor and was shaking at the waist but would then start reaching down to pull covers over herself and draw up her legs towards her abdomen. However, given the report of a seizure disorder, the patient was given a dose of Ativan upon arrival to the emergency department. She was then loaded with a gram of Keppra. Patient's labs are mostly unremarkable. There was a slightly elevated TSH level but a normal free T4. After the initial seizure-like activity, the patient did not appear to have any further seizures. There were times that the patient was shaking but she was able to stop, converse, and did not appear to have any focal deficits. Patient began complaining of nausea, vomiting and abdominal pain. However, the patient was seen by the nurse, as well as by myself, sticking her fingers in her throat to make herself throw up. The patient has a history of chronic pain, especially chronic abdominal pain and has been worked up for this multiple times in the past. The patient last had a CT scan 10 days ago in this emergency department that did not show any acute process at that time. For this reason I did not want to repeat CT scan imaging, but I did get an x-ray of the abdomen that did not show any acute process and just showed some nonobstructive nonspecific bowel gas. The patient was given 2 different doses of IV analgesia which did appear to improve her symptoms. Patient does not appear to have any emergent medical condition at this time or the need for admission. She has been instructed to follow-up with primary care. She has been given outpatient referrals for both neurology and gastroenterology. She has been instructed to return to the emergency department with any worsening of her symptoms or with any acute distress. Critical Care Time: No Critical care attestation.: If time is entered above; I have spent that time in minutes in the direct care of this critically ill patient, excluding procedure time. ED Disposition Clinical Impression: Seizure-like activity, Self induced vomiting, Chronic abdominal pain Disposition: TO HOME OR SELFCARE Is pt being admited?: No Condition: Stable Instructions: Abdominal Pain, Adult, Seizure, Adult Additional Instructions: Please follow-up with a primary care physician in the next few days. Take your seizure medications as prescribed. I have given you a referral for a local neurologist, Dr. Rosa. I have given you a referral for a local gastroenterology group, [facility], to follow-up regarding your abdominal pains. Return to the emergency department with any worsening of your symptoms, new or concerning symptoms not addressed during this current emergency department visit, or with any acute distress. Referrals: JEANINE GIBBS MD [Primary Care Provider] - 2-3 Days DMITRY ROSA MD [Referring] - 2-3 Days [facility] [Provider Group] - 2-3 Days Time of Disposition: 17:09
[2020-06-30 11:42] LABS: Alanine Aminotransferase 23 units/L (7-56); Albumin 4.4 g/dL (3.9-5); Blood Urea Nitrogen 7 mg/dL (7-17); Calcium 9.5 mg/dL (8.4-10.2); Hemolysis Index 4
[2020-06-30 11:43] LABS: BUN/Creatinine Ratio 10
[2020-06-30 11:53] LABS: Free T4 (Free Thyroxine) 1.06 ng/dL (0.76-1.46)
[2020-06-30 11:54] LABS: Basophils % (Auto) 0.3 % (0.0-1.8); Hematocrit 36.3 % (30.3-42.9); Hemoglobin 12.1 gm/dl (10.1-14.3); Lymphocytes # (Auto) 0.9 K/mm3 (1.2-5.4); Lymphocytes % (Auto) 10.4 % (13.4-35.0); Mean Corpuscular HGB Conc 34 % (30-34); Mean Corpuscular Volume 94 fl (79-97); Monocytes # (Auto) 0.3 K/mm3 (0.0-0.8); Monocytes % (Auto) 3.8 % (0.0-7.3); Platelet Count 258 K/mm3 (140-440); Red Blood Count 3.86 M/mm3 (3.65-5.03); Red Cell Distribution Width 14.7 % (13.2-15.2)
[2020-06-30] MEDS ORDERED: HYDROmorphone 1 MG/1 ML INJ IV ONE ×2 (13:39→16:31)
--- NOTE | 2020-06-30 14:37 | XRay Report ---
ABDOMEN 2 VIEWS INDICATION / CLINICAL INFORMATION: Abd pain. COMPARISON: None available. FINDINGS: Nonspecific bowel gas pattern. No definite evidence of obstruction or pneumoperitoneum. Signer Name: Real Smith MD FACR Signed: 06/30/2020 2:36 PM Workstation Name: [id number]
[2020-06-30] MEDS ORDERED: METOCLOPRAMIDE 10 MG/2 ML INJ IV ONE (16:31)
[2020-06-30 17:09] VITALS: BP 127/70
== END 2020-06-30 17:30 | disposition home or self-care (01) ==
LOC: ED 10:40
DX: G40.909 Epilepsy, unspecified, not intractable, without status epilepticus (principal); R11.10 Vomiting, unspecified; R10.9 Unspecified abdominal pain; Z79.899 Other long term (current) drug therapy; Z91.040 Latex allergy status
CPT/HCPCS: 36415; 74019; 80053; 82550; 82962; 84439; 84443; 84703; 85025; 96361; 96374; 96375; 96376; 99285; J1170; J1953; J2060; J2765; J7030; 80320; G0480

== ENCOUNTER 2020-07-20 06:53 | Emergency (ER) | payer MEDICAID ==
[2020-07-20] MEDS ORDERED: SODIUM CHLORIDE 0.9% 1000 ML 1,000 ML IV ONE (07:23)
--- NOTE | 2020-07-20 07:38 | Emergency Department Report ---
ED Seizure HPI - General Chief Complaint: Seizure Stated Complaint: SEIZURE Time Seen by Provider: 07/20/20 07:15 Source: EMS Mode of arrival: Stretcher Limitations: Altered Mental Status - History of Present Illness Initial Comments: Patient is a 30-year-old female with history of seizure disorder who presents to the emergency department for evaluation of generalized tonic-clonic seizure this morning. Patient complaining of mild crampy left upper quadrant pain for unspecified amount of time. Patient was given 4 mg of Ativan and 5 mg of Versed prior to arrival, consequently somnolent on arrival but otherwise in no acute distress. Patient denies any preceding febrile illness, denies substance abuse and/or misuse. MD Complaint: seizure -: Sudden Description of Episode: tonic-clonic movement Seizure History: known seizure disorder Place: home Possible Precipitating Event: none Associated Symptoms: denies other symptoms Treatments Prior to Arrival: benzodiazepines - Related Data Home Medications Medication Instructions Recorded Confirmed Last Taken Apixaban [Eliquis] 5 mg PO DAILY 07/20/20 07/20/20 Unknown HYDROcodone/ACETAMINOPHEN 5 mg PO Q4H PRN 07/20/20 07/20/20 Unknown [Hydrocodone-Acetamin 5-300 mg] Mirtazapine [Remeron] 15 mg PO DAILY 07/20/20 07/20/20 Unknown methIMAzole [Tapazole] 5 mg PO QDAY 07/20/20 07/20/20 Unknown traMADoL [Ultram] 50 mg PO Q6HR PRN 07/20/20 07/20/20 Unknown Previous Rx's Medication Instructions Recorded Last Taken Type levETIRAcetam [Keppra] 1,000 mg PO BID #450 ml 04/04/19 04/03/19 Rx HYDROcodone/APAP 5-325 [[place] 1 each PO Q6HR PRN #14 tablet 01/21/20 Unknown Rx 5/325] Allergies Allergy/AdvReac Type Severity Reaction Status Date / Time latex Allergy Rash Verified 02/18/20 08:22 ED Review of Systems ROS: Stated complaint: SEIZURE Other details as noted in HPI Comment: All other systems reviewed and negative Gastrointestinal: abdominal pain ED Past Medical Hx - Past Medical History Previous Medical History?: Yes Hx Hypertension: No Hx Congestive Heart Failure: No Hx Diabetes: No Hx Deep Vein Thrombosis: No (Pulmonary embolisms since 2014) Hx Pulmonary Embolism: Yes (Noncompliant with blood thinner) Hx Renal Disease: No Hx Sickle Cell Disease: No Hx Seizures: Yes (Since childhood, on keppra) Hx Asthma: No Hx COPD: No Additional medical history: DIVERTICULITIS, OVARIAN CYST, Pulmonary Embolism, Diverticulitis, Graves Disease - Surgical History Past Surgical History?: Yes Additional Surgical History: c/s x 3, ectopic - Social History Smoking Status: Unknown if ever smoked - Medications Home Medications: Home Medications Medication Instructions Recorded Confirmed Last Taken Type levETIRAcetam [Keppra] 1,000 mg PO BID #450 ml 04/04/19 07/20/20 04/03/19 Rx HYDROcodone/APAP 5-325 [[place] 1 each PO Q6HR PRN #14 tablet 01/21/20 07/20/20 Unknown Rx 5/325] Apixaban [Eliquis] 5 mg PO DAILY 07/20/20 07/20/20 Unknown History HYDROcodone/ACETAMINOPHEN 5 mg PO Q4H PRN 07/20/20 07/20/20 Unknown History [Hydrocodone-Acetamin 5-300 mg] Mirtazapine [Remeron] 15 mg PO DAILY 07/20/20 07/20/20 Unknown History methIMAzole [Tapazole] 5 mg PO QDAY 07/20/20 07/20/20 Unknown History traMADoL [Ultram] 50 mg PO Q6HR PRN 07/20/20 07/20/20 Unknown History ED Physical Exam - General Limitations: Altered Mental Status General appearance: alert, in no apparent distress - Head Head exam: Present: atraumatic, normocephalic - Eye Eye exam: Present: normal appearance - ENT ENT exam: Present: mucous membranes moist - Neck Neck exam: Present: normal inspection - Respiratory Respiratory exam: Present: normal lung sounds bilaterally. Absent: respiratory distress - Cardiovascular Cardiovascular Exam: Present: regular rate, normal rhythm. Absent: systolic murmur, diastolic murmur, rubs, gallop - GI/Abdominal GI/Abdominal exam: Present: soft, normal bowel sounds - Extremities Exam Extremities exam: Present: normal inspection - Back Exam Back exam: Present: normal inspection - Neurological Exam Neurological exam: Present: alert, oriented X3 - Psychiatric Psychiatric exam: Present: normal affect, normal mood - Skin Skin exam: Present: warm, dry, intact, normal color. Absent: rash ED Course Vital Signs 07/20/20 07/20/20 07/20/20 07:16 07:19 07:23 Temperature 97.6 F Pulse Rate 87 83 Respiratory 32 H 18 18 Rate Blood Pressure 150/79 Blood Pressure [Left] O2 Sat by Pulse 100 100 100 Oximetry 07/20/20 07/20/20 07/20/20 07:30 07:46 08:00 Temperature Pulse Rate 91 H 93 H 97 H Respiratory 19 17 18 Rate Blood Pressure 138/77 138/77 138/77 Blood Pressure [Left] O2 Sat by Pulse 100 98 100 Oximetry 07/20/20 07/20/20 07/20/20 08:40 08:44 08:45 Temperature Pulse Rate 95 H Respiratory 18 Rate Blood Pressure 136/75 130/73 Blood Pressure 138/77 [Left] O2 Sat by Pulse 100 97 98 Oximetry 07/20/20 07/20/20 07/20/20 09:00 09:16 09:45 Temperature Pulse Rate Respiratory Rate Blood Pressure 130/73 149/125 Blood Pressure [Left] O2 Sat by Pulse 100 75 L Oximetry 07/20/20 10:00 Temperature Pulse Rate 85 Respiratory 18 Rate Blood Pressure 119/71 Blood Pressure 119/71 [Left] O2 Sat by Pulse 100 Oximetry - Reevaluation(s) Reevaluation #1: 07/20/20 11:36 Patient reevaluated complaining of nausea, given Zofran IV. Reevaluation #2: 07/20/20 11:37 Patient reevaluated complaining of nausea, given Reglan IV. Reevaluation #3: 07/20/20 11:37 Patient reevaluated, complaining of abdominal pain, Toradol IV and CT abdomen pelvis ordered. Reevaluation #4: 07/20/20 11:37 Patient eloped from hospital without further discussion of ongoing evaluation or results. ED Medical Decision Making - Lab Data Result diagrams: 07/20/20 07:40 07/20/20 07:40 Critical care attestation.: If time is entered above; I have spent that time in minutes in the direct care of this critically ill patient, excluding procedure time. ED Disposition Clinical Impression: Chronic abdominal pain Disposition: ELOPED Is pt being admited?: No Condition: Stable Referrals: PRIMARY CARE, [Primary Care Provider] - 3-5 Days
[2020-07-20 08:11] LABS: Basophils % (Auto) 0.6 % (0.0-1.8); Eosinophils % (Auto) 0.2 % (0.0-4.3); Hematocrit 38.2 % (30.3-42.9); Hemoglobin 12.8 gm/dl (10.1-14.3); Lymphocytes # (Auto) 1.3 K/mm3 (1.2-5.4); Lymphocytes % (Auto) 19.7 % (13.4-35.0); Mean Corpuscular HGB Conc 34 % (30-34); Mean Corpuscular Volume 95 fl (79-97); Monocytes # (Auto) 0.4 K/mm3 (0.0-0.8); Monocytes % (Auto) 6.7 % (0.0-7.3); Platelet Count 173 K/mm3 (140-440); Red Blood Count 4.02 M/mm3 (3.65-5.03); Red Cell Distribution Width 14.5 % (13.2-15.2)
[2020-07-20 08:32] LABS: Alanine Aminotransferase 20 units/L (7-56); Albumin 4.5 g/dL (3.9-5); Blood Urea Nitrogen 8 mg/dL (7-17); Calcium 9.5 mg/dL (8.4-10.2); Hemolysis Index 12
[2020-07-20] MEDS ORDERED: ONDANSETRON 4 MG/2 ML INJ ONE (08:46)
[2020-07-20] MEDS ORDERED: ONDANSETRON 4 MG/2 ML INJ IV ONE (08:47)
[2020-07-20 09:07] LABS: BUN/Creatinine Ratio 11
[2020-07-20] MEDS ORDERED: METOCLOPRAMIDE 10 MG/2 ML INJ IV ONE (09:26)
[2020-07-20 09:29] LABS: Amphetamine Screen,Urine Negative; Cocaine Screen,Urine Negative; Methadone Screen,Urine Negative; Opiate Screen,Urine Negative
[2020-07-20] MEDS ORDERED: KETOROLAC 30 MG/1 ML INJ IV ONE (09:42)
[2020-07-20 09:54] LABS: HCG Qualitative,Urine Negative (Negative)
[2020-07-20 09:59] LABS: Bilirubin,Urine NEG (Negative); Blood,Urine NEG (Negative); Color,Urine Yellow (Yellow); Mucus,Urine FEW /HPF; Protein,Urine <15 mg/dL mg/dL (Negative); Urobilinogen,Urine < 2.0 mg/dL (<2.0)
[2020-07-20 10:21] VITALS: BP 119/71
[2020-07-20 10:39] LABS: Benzodiazepines Screen,Urine PRESUMPTIVE POSITIVE; Cannabinoid Screen,Urine PRESUMPTIVE POSITIVE
--- NOTE | 2020-07-20 10:55 | Cat Scan Report ---
CT ABDOMEN AND PELVIS WITHOUT CONTRAST INDICATION / CLINICAL INFORMATION: l flank pain. TECHNIQUE: Axial CT images were obtained through the abdomen and pelvis without IV contrast. All CT scans at [facility] location are performed using CT dose reduction for ALARA by means of automated exposure control. COMPARISON: 06/18/2020 CT abdomen pelvis FINDINGS: LOWER CHEST: No significant abnormality. HEPATOBILIARY: No significant abnormality. PANCREAS: No significant abnormality. SPLEEN: No significant abnormality. ADRENALS: No significant abnormality. GENITOURINARY: No significant abnormality. GASTROINTESTINAL/MESENTERY: Linear high attenuation in the appendix of uncertain etiology. No evidenc e of acute appendicitis. Moderate amount of stool in the rectum and sigmoid colon. No evidence of bow el obstruction or inflammation. No free air or significant free fluid. RETROPERITONEUM: No significant adenopathy. REPRODUCTIVE ORGANS: No significant abnormality. VASCULAR: No significant abnormality. SKELETAL SYSTEM: No significant abnormality. ADDITIONAL FINDINGS: No significant abnormality. IMPRESSION: 1. No acute abdominopelvic abnormality. Signer Name: Uday Devine MD Signed: 07/20/2020 10:51 AM Workstation Name: [id number]
== END 2020-07-20 10:35 | disposition left against medical advice (07) ==
LOC: ED 06:53
DX: R10.12 Left upper quadrant pain (principal); G89.29 Other chronic pain; Z79.899 Other long term (current) drug therapy; Z91.040 Latex allergy status; Z98.890 Other specified postprocedural states
CPT/HCPCS: 36415; 74176; 80053; 80156; 80164; 80185; 80307; 81001; 81025; 83690; 85025; 96361; 96374; 96375; 99285; J1885; J2405; J2765; J7030; 80320; G0480

== ENCOUNTER 2020-08-07 21:50 | Emergency (ER) | payer MEDICAID ==
[2020-08-07] MEDS ORDERED: levETIRAcetam 1,000 MG in SODIUM CHLORIDE 0.9% 100 ML IV ONE (21:57)
--- NOTE | 2020-08-07 22:14 | Emergency Department Report ---
ED Seizure HPI - General Stated Complaint: SEIZURES Time Seen by Provider: 08/07/20 21:55 Source: patient - History of Present Illness Initial Comments: 30-year-old female, with history of seizure disorder, chronic abdominal pain, PE, presents to ED after having seizures at home. Family reported patient had a seizure at around 8:30 PM, then again just prior to calling EMS. EMS reported witnessing seizure-like activity, so 2 mg intranasal Versed was given. Patient arrives in the ED somewhat postictal. Initially not answering questions and having some twitching-like activity in her extremities. However, after repeatedly asking her what medication she takes for her seizures, patient eventually responds "liquid Keppra." Chart review indicates patient actually left AMA from this hospital 2 days ago following admission for status epilepticus in which patient was intubated and placed in the ICU. When asked she left AMA, patient states "I don't know. I just panicked and got scared." It is unclear what patient was afraid of. Patient states she does not have any Keppra at home. MD Complaint: seizure -: This evening Witnessed:: Yes Seizure History: known seizure disorder Place: home Associated Symptoms: denies other symptoms Treatments Prior to Arrival: benzodiazepines (2 mg Ativan intranasal) - Related Data Home Medications Medication Instructions Recorded Confirmed Last Taken Apixaban [Eliquis] 5 mg PO DAILY 07/20/20 08/02/20 Unknown HYDROcodone/ACETAMINOPHEN 5 mg PO Q4H PRN 07/20/20 08/02/20 Unknown [Hydrocodone-Acetamin 5-300 mg] Mirtazapine [Remeron] 15 mg PO DAILY 07/20/20 08/02/20 Unknown methIMAzole [Tapazole] 5 mg PO QDAY 07/20/20 08/02/20 Unknown traMADoL [Ultram] 50 mg PO Q6HR PRN 07/20/20 08/02/20 Unknown Previous Rx's Medication Instructions Recorded Last Taken Type HYDROcodone/APAP 5-325 [[place] 1 each PO Q6HR PRN #14 tablet 01/21/20 Unknown Rx 5/325] levETIRAcetam [Keppra] 5 ml PO BID #300 ml 08/07/20 Unknown Rx Allergies Allergy/AdvReac Type Severity Reaction Status Date / Time latex Allergy Rash Verified 02/18/20 08:22 ED Review of Systems ROS: Stated complaint: SEIZURES Other details as noted in HPI Comment: All other systems reviewed and negative Constitutional: denies: fever Neurological: other (Seizure activity reported) ED Past Medical Hx - Past Medical History Hx Hypertension: No Hx Congestive Heart Failure: No Hx Diabetes: No Hx Deep Vein Thrombosis: No (Pulmonary embolisms since 2014) Hx Pulmonary Embolism: Yes (Noncompliant with blood thinner) Hx Renal Disease: No Hx Sickle Cell Disease: No Hx Seizures: Yes (Since childhood, on keppra) Hx Asthma: No Hx COPD: No Additional medical history: DIVERTICULITIS, OVARIAN CYST, Pulmonary Embolism, Diverticulitis, Graves Disease - Surgical History Additional Surgical History: c/s x 3, ectopic - Social History Smoking Status: Never Smoker - Medications Home Medications: Home Medications Medication Instructions Recorded Confirmed Last Taken Type HYDROcodone/APAP 5-325 [[place] 1 each PO Q6HR PRN #14 tablet 01/21/20 08/02/20 Unknown Rx 5/325] Apixaban [Eliquis] 5 mg PO DAILY 07/20/20 08/02/20 Unknown History HYDROcodone/ACETAMINOPHEN 5 mg PO Q4H PRN 07/20/20 08/02/20 Unknown History [Hydrocodone-Acetamin 5-300 mg] Mirtazapine [Remeron] 15 mg PO DAILY 07/20/20 08/02/20 Unknown History methIMAzole [Tapazole] 5 mg PO QDAY 07/20/20 08/02/20 Unknown History traMADoL [Ultram] 50 mg PO Q6HR PRN 07/20/20 08/02/20 Unknown History levETIRAcetam [Keppra] 5 ml PO BID #300 ml 08/07/20 Unknown Rx ED Physical Exam - General General appearance: alert, in no apparent distress - Head Head exam: Present: atraumatic, normocephalic - Eye Eye exam: Present: normal appearance, PERRL, EOMI - ENT ENT exam: Present: mucous membranes moist - Neck Neck exam: Present: normal inspection - Respiratory Respiratory exam: Present: normal lung sounds bilaterally. Absent: respiratory distress - Cardiovascular Cardiovascular Exam: Present: regular rate, normal rhythm - GI/Abdominal GI/Abdominal exam: Present: soft. Absent: distended, tenderness - Extremities Exam Extremities exam: Present: normal inspection - Neurological Exam Neurological exam: Present: alert, oriented X3, CN II-XII intact, other (No sei zure activity present). Absent: motor sensory deficit - Psychiatric Psychiatric exam: Present: normal affect, normal mood - Skin Skin exam: Present: warm, dry, intact, normal color ED Course Vital Signs 08/07/20 08/07/20 08/07/20 21:55 22:00 23:18 Temperature 98.6 F Pulse Rate 109 H Respiratory 16 Rate Blood Pressure 131/73 Blood Pressure [Left] O2 Sat by Pulse 97 97 Oximetry 08/07/20 23:55 Temperature Pulse Rate 93 H Respiratory 17 Rate Blood Pressure Blood Pressure 118/66 [Left] O2 Sat by Pulse 98 Oximetry ED Medical Decision Making - Lab Data Result diagrams: 08/07/20 22:38 08/07/20 22:38 - Medical Decision Making 30-year-old female presents to the ED via EMS for seizure activity. Patient given IV Keppra. No further seizures here in the ED. Patient has history of noncompliance. She is advised to follow-up on an outpatient basis. Prescriptions given. Return precautions given. - Differential Diagnosis Seizure, medication noncompliance, pseudoseizure Critical care attestation.: If time is entered above; I have spent that time in minutes in the direct care of this critically ill patient, excluding procedure time. ED Disposition Clinical Impression: Seizure Disposition: DC-01 TO HOME OR SELFCARE Is pt being admited?: No Condition: Stable Instructions: Seizure, Adult, [id number] Prescriptions: levETIRAcetam [Keppra] 5 ml PO BID #300 ml Referrals: PRIMARY MD SAI [Primary Care Provider] - 3-5 Days DMITRY ROSA MD [Referring] - 3-5 Days Time of Disposition: 23:49
[2020-08-07 22:57] LABS: Basophils % (Auto) 0.3 % (0.0-1.8); Eosinophils # (Auto) 0.1 K/mm3 (0.0-0.4); Eosinophils % (Auto) 0.4 % (0.0-4.3); Hematocrit 26.8 % (30.3-42.9); Lymphocytes # (Auto) 1.8 K/mm3 (1.2-5.4); Lymphocytes % (Auto) 11.1 % (13.4-35.0); Mean Corpuscular HGB Conc 34 % (30-34); Mean Corpuscular Volume 93 fl (79-97); Monocytes # (Auto) 1.3 K/mm3 (0.0-0.8); Monocytes % (Auto) 7.9 % (0.0-7.3); Platelet Count 240 K/mm3 (140-440); Red Blood Count 2.89 M/mm3 (3.65-5.03); Red Cell Distribution Width 13.6 % (13.2-15.2)
[2020-08-07 23:15] LABS: Blood Urea Nitrogen 10 mg/dL (7-17); Calcium 8.8 mg/dL (8.4-10.2); Hemolysis Index 2
[2020-08-07] MEDS ORDERED: levETIRAcetam 1000 MG/NS 0.75% 1,000 MG/100 ML BAG IV ONE (23:15)
[2020-08-07 23:25] LABS: BUN/Creatinine Ratio 25
[2020-08-07 23:56] VITALS: BP 118/66
== END 2020-08-08 00:08 | disposition home or self-care (01) ==
LOC: ED 21:50
DX: R56.9 Unspecified convulsions (principal); Z98.890 Other specified postprocedural states; Z79.899 Other long term (current) drug therapy; Z91.040 Latex allergy status
CPT/HCPCS: 36415; 80048; 84703; 85025; 96365; 99283; J1953

== ENCOUNTER 2020-08-13 07:44 | Inpatient (IN) | payer MEDICAID ==
[2020-08-13] MEDS ORDERED: HYDROcodone/ACETAMINOPHEN 5-325 MG TAB PO ONE (08:20)
--- NOTE | 2020-08-13 08:22 | Emergency Department Report ---
- General Chief Complaint: Upper Respiratory Infection Stated Complaint: CHEST PAIN Time Seen by Provider: 08/13/20 08:13 Source: patient Mode of arrival: Ambulatory Limitations: No Limitations - History of Present Illness Initial Comments: This is a 30-year-old female with a past medical history of seizure disorder, hiatal hernia and pulmonary embolism she is currently taking Eliquis. She reports a 1 week history of chest pain with coughing and deep breath. She was seen at [facility] she states that she had an chest x-ray done she was told she had slight "pneumonia". She states that she is was not given any other medications. She states at that time she also had a Covid test that was negative. Patient also states she followed up with her primary care doctor and was given no additional treatment. she is using [id number] Mucinex. Patient denies fever no nausea no vomiting no loss of taste and smell no diarrhea. She denies IV drug. She has had multiple admissions related to her seizures. she is in no acute distress her heart rate is 106 oxygen saturation is 98% on room air she reports chest pain 7/10. MD Complaint: cough Severity: moderate Severity scale (0 -10): 7 Quality: sharp Consistency: intermittent Improves With: nothing Worsens With: deep breaths Associated Symptoms: cough, chest pain. denies: fever, chills, myalgias, charlene phoresis, headache, rhinorrhea, nasal congestion, abdominal pain, nausea, vomiting, dysuria, confusion, right sweats, weight loss, epistaxis, hoarseness, ear pain Treatments Prior to Arrival: none, other - Related Data Home Medications Medication Instructions Recorded Confirmed Last Taken Apixaban [Eliquis] 5 mg PO DAILY 07/20/20 08/02/20 Unknown HYDROcodone/ACETAMINOPHEN 5 mg PO Q4H PRN 07/20/20 08/02/20 Unknown [Hydrocodone-Acetamin 5-300 mg] Mirtazapine [Remeron] 15 mg PO DAILY 07/20/20 08/02/20 Unknown methIMAzole [Tapazole] 5 mg PO QDAY 07/20/20 08/02/20 Unknown traMADoL [Ultram] 50 mg PO Q6HR PRN 07/20/20 08/02/20 Unknown Previous Rx's Medication Instructions Recorded Last Taken Type HYDROcodone/APAP 5-325 [[place] 1 each PO Q6HR PRN #14 tablet 01/21/20 Unknown Rx 5/325] levETIRAcetam [Keppra] 5 ml PO BID #300 ml 08/07/20 Unknown Rx Allergies Allergy/AdvReac Type Severity Reaction Status Date / Time latex Allergy Rash Verified 02/18/20 08:22 ED Review of Systems ROS: Stated complaint: CHEST PAIN Other details as noted in HPI Comment: All other systems reviewed and negative Constitutional: no symptoms reported. denies: chills, fever ENT: denies: ear pain, dental pain, hearing loss, congestion Respiratory: cough. denies: wheezing Cardiovascular: chest pain (With cough and deep breath) Endocrine: no symptoms reported Gastrointestinal: denies: abdominal pain, nausea, vomiting, diarrhea, constipation, hematemesis Genitourinary: denies: dysuria Skin: denies: rash Neurological: denies: headache, weakness, numbness, paresthesias Psychiatric: denies: anxiety, depression, auditory hallucinations, visual hallucinations, homicidal thoughts Hematological/Lymphatic: denies: easy bleeding, swollen glands ED Past Medical Hx - Past Medical History Previous Medical History?: Yes Hx Hypertension: No Hx Congestive Heart Failure: No Hx Diabetes: No Hx Deep Vein Thrombosis: (Pulmonary embolisms since 2014) Hx Pulmonary Embolism: Yes (Noncompliant with blood thinner) Hx Renal Disease: No Hx Sickle Cell Disease: No Hx Seizures: Yes (Since childhood, on keppra) Hx Asthma: No Hx COPD: No Additional medical history: DIVERTICULITIS, OVARIAN CYST, Pulmonary Embolism, Diverticulitis, Graves Disease - Surgical History Past Surgical History?: Yes Additional Surgical History: c/s x 3, ectopic - Social History Smoking Status: Never Smoker - Medications Home Medications: Home Medications Medication Instructions Recorded Confirmed Last Taken Type HYDROcodone/APAP 5-325 [[place] 1 each PO Q6HR PRN #14 tablet 01/21/20 08/02/20 Unknown Rx 5/325] Apixaban [Eliquis] 5 mg PO DAILY 07/20/20 08/02/20 Unknown History HYDROcodone/ACETAMINOPHEN 5 mg PO Q4H PRN 07/20/20 08/02/20 Unknown History [Hydrocodone-Acetamin 5-300 mg] Mirtazapine [Remeron] 15 mg PO DAILY 07/20/20 08/02/20 Unknown History methIMAzole [Tapazole] 5 mg PO QDAY 07/20/20 08/02/20 Unknown History traMADoL [Ultram] 50 mg PO Q6HR PRN 07/20/20 08/02/20 Unknown History levETIRAcetam [Keppra] 5 ml PO BID #300 ml 08/07/20 Unknown Rx ED Physical Exam - General Limitations: No Limitations General appearance: alert, in no apparent distress - Head Head exam: Present: atraumatic - Eye Eye exam: Present: normal appearance - ENT ENT exam: Present: normal exam, mucous membranes moist - Neck Neck exam: Present: normal inspection. Absent: lymphadenopathy - Respiratory Respiratory exam: Present: normal lung sounds bilaterally. Absent: respiratory distress, wheezes, chest wall tenderness - Cardiovascular Cardiovascular Exam: Present: regular rate, normal heart sounds - GI/Abdominal GI/Abdominal exam: Present: soft - Rectal Rectal exam: Present: deferred - Extremities Exam Extremities exam: Present: normal inspection - Back Exam Back exam: Present: normal inspection - Neurological Exam Neurological exam: Present: alert, oriented X3, normal gait - Psychiatric Psychiatric exam: Present: normal affect - Skin Skin exam: Present: warm, dry, intact, normal color ED Course Vital Signs 08/13/20 07:51 Temperature 98.6 F Pulse Rate 106 H Respiratory 18 Rate Blood Pressure 126/74 [Right] O2 Sat by Pulse 98 Oximetry - Reevaluation(s) Reevaluation #1: 08/13/20 12:09 Patient in no acute distress. Discussed CAT scan findings and lab results with patient. She is aware that hospitalist will evaluate her for admission ED Medical Decision Making - Lab Data Result diagrams: 08/13/20 08:26 08/13/20 08:26 - Radiology Data Radiology results: report reviewed CT of her chest reveals multiple scattered nodular opacities central cavitation concerning for evolving septic emboli no pulmonary embolism. - Medical Decision Making Findings discussed with Dr. Oksana Torres. Patient also has elevated WBC of 15 her hemoglobin is 8.0 hematocrit 24 platelet 530. Additional work-up included blood cultures x2 lactic acid and hepatic panel. I discussed the case with the hospitalist patient will be evaluated for admission. Patient is a 30-year-old female with a 1 week history of upper respiratory symptoms she was seen at [facility] states she had a chest x-ray done and was told she had pneumonia but did not receive any antibiotics. She also reports having a negative Covid test done at that time patient states she had ongoing cough with chest pain. Today on her evaluation CT of her chest reveals multiple scheduled nodular opacities and central cavitation concerning for evolving septic emboli. Cefepime and vancomycin orde red Critical Care Time: No Critical care attestation.: If time is entered above; I have spent that time in minutes in the direct care of this critically ill patient, excluding procedure time. ED Disposition Clinical Impression: Septic pulmonary embolism Qualifiers: Chronicity: acute Acute cor pulmonale presence: unspecified Qualified Code(s): I26.90 - Septic pulmonary embolism without acute cor pulmonale Disposition: 09 OP ADMIT IP TO THIS HOSP Is pt being admited?: Yes Does the pt Need Aspirin: No Condition: Stable Time of Disposition: 12:17
[2020-08-13 09:35] LABS: Hematocrit 24.3 % (30.3-42.9); Mean Corpuscular HGB Conc 33 % (30-34); Mean Corpuscular Volume 93 fl (79-97); Platelet Count 530 K/mm3 (140-440); Red Blood Count 2.62 M/mm3 (3.65-5.03)
[2020-08-13 09:42] LABS: Blood Urea Nitrogen 6 mg/dL (7-17); Calcium 9.1 mg/dL (8.4-10.2); Hemolysis Index 0
[2020-08-13 09:49] LABS: BUN/Creatinine Ratio 12
[2020-08-13] MEDS ORDERED: KETOROLAC 30 MG/1 ML INJ IV ONE (10:31)
[2020-08-13] MEDS ORDERED: SODIUM CHLORIDE 0.9% 1000 ML 1,000 ML IV ONE (10:31)
--- NOTE | 2020-08-13 11:31 | Cat Scan Report ---
CTA CHEST WITH CONTRAST INDICATION / CLINICAL INFORMATION: chest pain h/o of PE. TECHNIQUE: Axial CT images were obtained through the chest after injection of 100 cc Omnipaque 350 IV contrast. 3 plane MIP and/or 3D reconstructions were produced. All CT scans at this location are per formed using CT dose reduction for ALARA by means of automated exposure control. COMPARISON: 08/02/2020 chest radiograph FINDINGS: PULMONARY ARTERIES: Satisfactory opacification. No evidence of filling defect to suggest pulmonary th romboembolism. THORACIC AORTA: No significant abnormality. HEART: No significant abnormality. CORONARY ARTERY CALCIFICATION: None. MEDIASTINUM / DAKSHA: Mild bilateral perihilar soft tissue thickening likely representing lymphadenopat hy, likely reactive. PLEURA: No pleural effusion. No pneumothorax. LUNGS: Multiple focal nodular opacities of varying sizes measuring up to 3.9 cm and the left upper mylse ng (axial series 2 image 33) and 2.2 cm and the right lower lobe (axial series 2 image 63). The major ity of these measure on the order of 1 cm and smaller. Many of these demonstrate central cavitation. ADDITIONAL FINDINGS: None. UPPER ABDOMEN: No acute findings. SKELETAL STRUCTURES: No significant osseous abnormality. IMPRESSION: 1. No CT evidence for pulmonary embolism. 2. Multiple scattered nodular opacities of varying sizes measuring up to 4 cm. Some these demonstrate central cavitation and are concerning for evolving septic emboli. Recommend clinical correlation and further evaluation as warranted. Signer Name: Uday Devine MD Signed: 08/13/2020 11:27 AM Workstation Name: [id number]
[2020-08-13] MEDS ORDERED: VANCOMYCIN/NS 1 GM/250 ML 1 GM/250 ML BAG IV ONE (11:53)
[2020-08-13] MEDS ORDERED: CEFEPIME/NS 2 GM/100 ML 2 GM/100 ML BAG IV ONE (11:54)
--- NOTE | 2020-08-13 12:45 | History and Physical Report ---
<GIRMABETH - Last Filed: 08/13/20 14:18> History of Present Illness Date of examination: 08/13/20 Date of admission: 08/13/20 Chief complaint: chest pain Cough History of present illness: This is a 30-year-old female with a past medical history of seizure disorder, hiatal hernia and pulmonary embolism she is currently taking Eliquis. She reports a 1 week history of chest pain with coughing and deep breath. She was seen at [facility] she states that she had an chest x-ray done she was told she had slight "pneumonia". She states that she is was not given any other medications. She states at that time she also had a Covid test that was negative. Patient also states she followed up with her primary care doctor and was given no additional treatment. she is using [id number] Mucinex. Patient denies fever no nausea no vomiting no loss of taste and smell no diarrhea. She denies IV drug. She has had multiple admissions related to her seizures. she is in no acute distress her heart rate is 106 oxygen saturation is 98% on room air she reports chest pain 02/19 ED work up shows-WBC 15, hemoglobin 8.0, PLT 530, soidum 135, potassium 3.7 Patient seen at bedside. patient crying-she said she told her person PCP what is going on with her but her PCP did not pay attension-rather told her she needs Psych evaluation. patient reports hx of multiple seizures with admission. She said she takes keppra but still has seizure. Patient advised she needs neurologist follow up out pt. Reviewed lab, mar, and v/s Past History Past Medical History: pulmonary embolism, seizures, other (quinton hernia) Past Surgical History: (time 3) Social history: smoking. denies: alcohol abuse, IV drug use Family history: diabetes (mother), hypertension Medications and Allergies Allergies Allergy/AdvReac Type Severity Reaction Status Date / Time latex Allergy Rash Verified 02/18/20 08:22 Home Medications Medication Instructions Recorded Confirmed Last Taken Type Apixaban [Eliquis] 5 mg PO DAILY 07/20/20 08/13/20 Unknown History methIMAzole [Tapazole] 5 mg PO QDAY 07/20/20 08/13/20 Unknown History levETIRAcetam [Keppra] 5 ml PO BID #300 ml 08/07/20 08/13/20 Unknown Rx Active Meds: Active Medications Vancomycin HCl (Vancomycin/Ns 1 Gm/250 Ml) 1 gm in 250 mls @ 167.007 mls/hr IV ONCE ONE; Protocol Stop: 08/13/20 13:22 Review of Systems Ears, nose, mouth and throat: no epistaxis, no bleeding gums Breasts: no discharge Cardiovascular: chest pain, shortness of breath Respiratory: cough, shortness of breath Gastrointestinal: no abdominal pain, no vomiting Genitourinary Female: no dyspareunia Rectal: no pain Musculoskeletal: no neck stiffness Integumentary: no rash, no pruritis Neurological: seizures Psychiatric: anxiety, depression, hopelessness Endocrine: no heat intolerance, no polydipsia Hematologic/Lymphatic: no easy bruising Allergic/Immunologic: no urticaria Exam - Constitutional Vitals: Temp Pulse Resp BP Pulse Ox 98.6 F 106 H 18 126/74 98 08/13/20 07:51 08/13/20 07:51 08/13/20 07:51 08/13/20 07:51 08/13/20 07:51 General appearance: Present: mild distress - EENT Eyes: Present: PERRL ENT: hearing intact, clear oral mucosa - Neck Neck: Present: supple, normal ROM - Respiratory Respiratory effort: normal Respiratory: bilateral: CTA - Cardiovascular Heart rate: 104 Heart Sounds: Present: S1 & S2. Absent: rub, click - Extremities Extremities: pulses symmetrical, No edema Peripheral Pulses: within normal limits - Abdominal General gastrointestinal: Present: soft, non-tender, non-distended, normal bowel sounds Female genitourinary: Present: normal - Integumentary Integumentary: Present: clear, warm, dry - Musculoskeletal Musculoskeletal: gait normal, strength equal bilaterally - Psychiatric Psychiatric: intact judgment & insight, cooperative, depressed - Neurologic Neurologic: CNII-XII intact, moves all extremities - Allied Health Allied health notes reviewed: nursing Results - Labs CBC & Chem 7: 08/13/20 08:26 08/13/20 08:26 Labs: Abnormal lab results 08/13/20 08/13/20 Range/Units 08:26 08:26 WBC 15.3 H (4.5-11.0) K/mm3 RBC 2.62 L (3.65-5.03) M/mm3 Hgb 8.0 L (10.1-14.3) gm/dl Hct 24.3 L (30.3-42.9) % Plt Count 530 H (140-440) K/mm3 Sodium 135 L (137-145) mmol/L BUN 6 L (7-17) mg/dL Creatinine 0.5 L (0.6-1.2) mg/dL Assessment and Plan - Patient Problems (1) Septic pulmonary embolism Current Visit: Yes Status: Acute Qualifiers: Chronicity: acute Acute cor pulmonale presence: unspecified Qualified Code(s): I26.90 - Septic pulmonary embolism without acute cor pulmonale Plan to address problem: Continue IV antibiotic ID consulted Sputum and blood culture (2) Pulmonary embolism Current Visit: No Status: Acute Plan to address problem: continue eliquis monitor for bleeding (3) Seizure Current Visit: No Status: Acute Plan to address problem: Resume home keppra 1000 mg BID patient advised to follow with neurologist out pt (4) Anemia Current Visit: Yes Status: Acute Plan to address problem: ? cause patient denies heavy mentral bleed Iron studies Iron and MVI supplement (5) Hyponatremia Current Visit: Yes Status: Acute Plan to address problem: gIV hydration with .9NS Monitor sodium level (6) Graves disease Current Visit: Yes Status: Acute Plan to address problem: Patient reports Hx of graves disease Resume home medicine (7) DVT prophylaxis Current Visit: No Status: Acute Plan to address problem: bry <MARY DE LA CRUZ - Last Filed: 08/14/20 11:40> History of Present Illness Date of admission: 08/13/20 12:55 Medications and Allergies Active Meds: Active Medications Acetaminophen (Acetaminophen 325 Mg Tab) 650 mg PO Q4H PRN PRN Reason: Pain MILD(1-3)/Fever >100.5/TRONCOSO Last Admin: 08/13/20 22:16 Dose: 650 mg Documented by: Albuterol (Albuterol 2.5 Mg/3 Ml Nebu) 2.5 mg IH Q4HRT PRN PRN Reason: Shortness Of Breath Apixaban (Apixaban 5 Mg Tab) 5 mg PO Q12HR [facility]; Protocol Last Admin: 08/14/20 10:27 Dose: 5 mg Documented by: Famotidine (Famotidine 20 Mg Tab) 20 mg PO BID [facility] Last Admin: 08/14/20 10:27 Dose: 20 mg Documented by: Ferrous Sulfate (Ferrous Sulfate 325 Mg Tab) 325 mg PO QDAY [facility] Last Admin: 08/14/20 10:27 Dose: 325 mg Documented by: Hydromorphone HCl (Hydromorphone 1 Mg/1 Ml Inj) 0.5 mg IV Q4H PRN PRN Reason: Pain , Severe (7-10) Sodium Chloride (Nacl 0.9% 1000 Ml) 1,000 mls @ 75 mls/hr IV DIRECT [facility] Last Admin: 08/14/20 04:37 Dose: 75 mls/hr Documented by: Ceftriaxone Sodium (Rocephin/Ns 2 Gm/100 Ml) 2 gm in 100 mls @ 200 mls/hr IV Q24H [facility]; Protocol Last Admin: 08/13/20 22:58 Dose: 200 mls/hr Documented by: Vancomycin HCl (Vancomycin/Ns 1 Gm/250 Ml) 1 gm in 250 mls @ 125 mls/hr IV Q12H [facility] Last Admin: 08/14/20 04:37 Dose: 125 mls/hr Documented by: Lorazepam (Lorazepam 2 Mg/Ml Vial) 1 mg IV Q1H PRN PRN Reason: Seizures Methimazole (Methimazole 5 Mg Tab) 5 mg PO Q8HR [facility] Last Admin: 08/14/20 06:21 Dose: 5 mg Documented by: Mirtazapine (Mirtazapine 15 Mg Tab) 15 mg PO QHS [facility] Last Admin: 08/13/20 22:17 Dose: 15 mg Documented by: Multivitamins (Multivitamins ,Therapeutic Tab) 1 each PO QDAY [facility] Last Admin: 08/14/20 10:27 Dose: 1 each Documented by: Ondansetron HCl (Ondansetron 4 Mg/2 Ml Inj) 4 mg IV Q8H PRN PRN Reason: Nausea And Vomiting Last Admin: 08/13/20 16:45 Dose: 4 mg Documented by: Senna (Sennosides 8.6 Mg Tab) 8.6 mg PO Q12HR PRN PRN Reason: Constipation Sodium Chloride (Sodium Chloride 0.9% 10 Ml Flush Syringe) 10 ml IV BID [facility] Last Admin: 08/13/20 22:24 Dose: 10 ml Documented by: Sodium Chloride (Sodium Chloride 0.9% 10 Ml Flush Syringe) 10 ml IV PRN PRN PRN Reason: LINE FLUSH Tramadol HCl (Tramadol 50 Mg Tab) 50 mg PO Q4H PRN PRN Reason: Pain, Moderate (4-6) Last Admin: 08/14/20 06:30 Dose: 50 mg Documented by: Trazodone HCl (Trazodone 50 Mg Tab) 50 mg PO QHS PRN PRN Reason: Insomnia Exam - Constitutional Vitals: Temp Pulse Resp BP Pulse Ox 99.3 F 90 18 108/63 96 08/14/20 07:51 08/14/20 07:51 08/14/20 07:51 08/14/20 07:51 08/14/20 07:51 Results - Labs CBC & Chem 7: 08/14/20 07:01 08/14/20 07:01 Labs: Abnormal lab results 08/13/20 08/13/20 08/14/20 Range/Units 12:05 13:04 07:01 WBC 12.7 H (4.5-11.0) K/mm3 RBC 2.44 L (3.65-5.03) M/mm3 Hgb 7.6 L (10.1-14.3) gm/dl Hct 22.9 L (30.3-42.9) % Plt Count 551 H (140-440) K/mm3 [place] # (Auto) 0.9 H (0.0-0.8) K/mm3 Seg Neutrophils % 78.0 H (40.0-70.0) % Seg Neutrophils # 9.9 H (1.8-7.7) K/mm3 BUN (7-17) mg/dL Creatinine (0.6-1.2) mg/dL Total Protein 8.3 H (6.3-8.2) g/dL Albumin 3.4 L (3.9-5) g/dL Ur Specific [place] > 1.059 H (1.003-1.030) Urine WBC (Auto) 9.0 H (0.0-6.0) /HPF U Epithel Cells (Auto) 14.0 H (0-13.0) /HPF 08/14/20 Range/Units 07:01 WBC (4.5-11.0) K/mm3 RBC (3.65-5.03) M/mm3 Hgb (10.1-14.3) gm/dl Hct (30.3-42.9) % Plt Count (140-440) K/mm3 [place] # (Auto) (0.0-0.8) K/mm3 Seg Neutrophils % (40.0-70.0) % Seg Neutrophils # (1.8-7.7) K/mm3 BUN 6 L (7-17) mg/dL Creatinine 0.5 L (0.6-1.2) mg/dL Total Protein (6.3-8.2) g/dL Albumin (3.9-5) g/dL Ur Specific [place] (1.003-1.030) Urine WBC (Auto) (0.0-6.0) /HPF U Epithel Cells (Auto) (0-13.0) /HPF Assessment and Plan I did not personally evaluate the patient but reviewed chart and provided virtual support to [employer] helping with surge of patients due to covid pandemic
[2020-08-13] MEDS ORDERED: ACETAMINOPHEN 325 MG TAB PO PRN (12:54)
[2020-08-13] MEDS ORDERED: SENNOSIDES 8.6 MG TAB PO PRN (12:54)
[2020-08-13] MEDS ORDERED: IPRATROPIUM/ALBUTEROL SULFATE 3 ML AMPUL.NEB IH PRN (12:54)
[2020-08-13] MEDS ORDERED: AZITHROMYCIN 500 MG in SODIUM CHLORIDE 0.9% 250ML 250 ML IV SCH ×2 (13:00→14:00)
[2020-08-13] MEDS ORDERED: ALBUTEROL 2.5 MG/3 ML NEBU IH PRN (13:05)
[2020-08-13 13:15] LABS: HCG Qualitative,Urine Negative (Negative)
[2020-08-13 13:34] LABS: Alanine Aminotransferase 29 units/L (7-56); Albumin 3.4 g/dL (3.9-5); Bilirubin,Direct < 0.2 mg/dL (0-0.2)
[2020-08-13 14:00] LABS: Bilirubin,Urine NEG (Negative); Blood,Urine NEG (Negative); Color,Urine Yellow (Yellow); Mucus,Urine FEW /HPF; Protein,Urine <15 mg/dL mg/dL (Negative); Urobilinogen,Urine < 2.0 mg/dL (<2.0)
[2020-08-13] MEDS ORDERED: traZODone 50 MG TAB PO PRN (14:00)
[2020-08-13] MEDS ORDERED: INSULIN LISPRO 100 UNIT/ML VIAL 3 mL SUB-Q ONE (14:24)
[2020-08-13] MEDS ORDERED: INSULIN LISPRO 100 UNIT/ML SUB-Q ONE (14:30)
[2020-08-13] MEDS: SODIUM CHLORIDE 0.9% 1000 ML 1,000 ML IV SCH (15:50)
[2020-08-13] MEDS ORDERED: levETIRAcetam 500 MG TAB PO ONE (16:35)
[2020-08-13] MEDS: MULTIVITAMINS ,THERAPEUTIC TAB PO SCH ×2 (16:45→17:19)
[2020-08-13] MEDS: FERROUS SULFATE 325 MG TAB PO SCH ×2 (16:45→17:19)
[2020-08-13] MEDS: ONDANSETRON 4 MG/2 ML INJ IV PRN (16:45)
[2020-08-13] MEDS: levETIRAcetam 500 MG/5 ML ORAL LIQD PO ONE ×2 (16:46→17:19)
[2020-08-13] MEDS: methIMAzole 5 MG TAB PO SCH ×2 (17:18→22:17)
[2020-08-13] MEDS: traMADol 50 MG TAB PO PRN (18:14)
--- NOTE | 2020-08-13 18:27 | Consultation ---
History of Present Illness - Reason for Consult Consult date: 08/13/20 - History of Present Illness 30 old female past medical history seizures, hiatal hernia, PE on Eliquis but to the hospital complaining of 1 week history of chest pain with coughing. She been previously seen at [facility] and chest x-ray there showed pneumonia. She was not given a medication at that time. Covid testing at that time was negative. She denies any history of IV drug abuse. She denies any other sym ptoms at this time. She has been admitted to the hospital repeatedly for seizures which are refractory to Keppra therapy. Afebrile with a white count 15.3. Normal renal function. Currently receiving ceftriaxone azithromycin. Blood cultures currently pending. Imaging personally reviewed: Chest CTA: Multiple scattered opacities up to 4 cm with some possible central cavitation. Concerning for evolving septic emboli. Review of Systems: Bold if positive, otherwise negative General: fevers, chills, rigors HEENT: visual disturbance, diplopia, eye pain Respiratory: cough, sputum, hemoptysis, shortness of breath Cardiovascular: chest pain, syncope Gastrointestinal: nausea, vomiting, diarrhea, abdominal pain Genitourinary: dysuria, hematuria, flank pain Musculoskeletal: neck pain, back pain, joint pain, edema Neurologic: headaches, seizures Hematologic: easy bruising or bleeding Endocrine: night sweats, acute weight loss Skin: rash, jaundice, redness Psychiatric: suicidal, homicidal ideation Past History Past Medical History: pulmonary embolism, seizures, other (quinton hernia) Past Surgical History: (time 3) Social history: smoking. denies: alcohol abuse, IV drug use Family history: diabetes (mother), hypertension Medications and Allergies Allergies Allergy/AdvReac Type Severity Reaction Status Date / Time latex Allergy Rash Verified 02/18/20 08:22 Home Medications Medication Instructions Recorded Confirmed Last Taken Type Apixaban [Eliquis] 5 mg PO DAILY 07/20/20 08/13/20 Unknown History methIMAzole [Tapazole] 5 mg PO QDAY 07/20/20 08/13/20 Unknown History levETIRAcetam [Keppra] 5 ml PO BID #300 ml 08/07/20 08/13/20 Unknown Rx Active Meds: Active Medications Acetaminophen (Acetaminophen 325 Mg Tab) 650 mg PO Q4H PRN PRN Reason: Pain MILD(1-3)/Fever >100.5/TRONCOSO Albuterol (Albuterol 2.5 Mg/3 Ml Nebu) 2.5 mg IH Q4HRT PRN PRN Reason: Shortness Of Breath Apixaban (Apixaban 5 Mg Tab) 5 mg PO Q12HR [facility]; Protocol Famotidine (Famotidine 20 Mg Tab) 20 mg PO BID [facility] Ferrous Sulfate (Ferrous Sulfate 325 Mg Tab) 325 mg PO QDAY [facility] Last Admin: 08/13/20 17:19 Dose: Not Given Documented by: Sodium Chloride (Nacl 0.9% 1000 Ml) 1,000 mls @ 75 mls/hr IV DIRECT [facility] Last Admin: 08/13/20 15:50 Dose: 75 mls/hr Documented by: Azithromycin 500 mg/ Sodium (Chloride) 250 mls @ 250 mls/hr IV Q24H [facility]; Protocol Last Admin: 08/13/20 17:18 Dose: Not Given Documented by: Ceftriaxone Sodium (Rocephin/Ns 2 Gm/100 Ml) 2 gm in 100 mls @ 200 mls/hr IV Q24H [facility]; Protocol Methimazole (Methimazole 5 Mg Tab) 5 mg PO Q8HR [facility] Last Admin: 08/13/20 17:18 Dose: Not Given Documented by: Mirtazapine (Mirtazapine 15 Mg Tab) 15 mg PO QHS [facility] Multivitamins (Multivitamins ,Therapeutic Tab) 1 each PO QDAY [facility] Last Admin: 08/13/20 17:19 Dose: Not Given Documented by: Ondansetron HCl (Ondansetron 4 Mg/2 Ml Inj) 4 mg IV Q8H PRN PRN Reason: Nausea And Vomiting Last Admin: 08/13/20 16:45 Dose: 4 mg Documented by: Senna (Sennosides 8.6 Mg Tab) 8.6 mg PO Q12HR PRN PRN Reason: Constipation Sodium Chloride (Sodium Chloride 0.9% 10 Ml Flush Syringe) 10 ml IV BID [facility] Sodium Chloride (Sodium Chloride 0.9% 10 Ml Flush Syringe) 10 ml IV PRN PRN PRN Reason: LINE FLUSH Tramadol HCl (Tramadol 50 Mg Tab) 50 mg PO Q4H PRN PRN Reason: Pain, Moderate (4-6) Last Admin: 08/13/20 18:14 Dose: 50 mg Documented by: Trazodone HCl (Trazodone 50 Mg Tab) 50 mg PO QHS PRN PRN Reason: Insomnia Physical Examination - Physical Exam Narrative exam: Physical Exam: Constitutional: Alert, cooperative. No acute distress Head, Ears, Nose: Normocephalic, atraumatic. External ears, nose normal Eyes: Conjunctivae/corneas clear. No icterus. No ptosis. Neck: Supple, no meningeal signs Oral: dentition fair, no thrush Cardiovascular: S1, S2 normal. Respiratory: Good air entry, clear to auscultation bilaterally GI: Soft, non-tender; bowel sounds normal. No peritoneal signs. Musculoskeletal: No pedal edema, no cyanosis. Skin: No rash or abscess Hem/Lymphatic: No palpable cervical or supraclavicular nodes. No lymphangitis Psych: Mood ok. Affect normal Neurological: Awake, alert, oriented. No gross abnormality - Constitutional Vitals: Vital Signs Temp Pulse Resp BP Pulse Ox 98.0 F 102 H 18 133/62 99 08/13/20 17:13 08/13/20 17:13 08/13/20 17:13 08/13/20 17:13 08/13/20 17:13 Temperature -Last 24 Hours Temperature 98.0 F Temperature 98.6 F Results - Labs CBC & Chem 7: 08/13/20 08:26 08/13/20 08:26 Labs: Abnormal lab results 08/13/20 08/13/20 08/13/20 Range/Units 08:26 08:26 12:05 WBC 15.3 H (4.5-11.0) K/mm3 RBC 2.62 L (3.65-5.03) M/mm3 Hgb 8.0 L (10.1-14.3) gm/dl Hct 24.3 L (30.3-42.9) % Plt Count 530 H (140-440) K/mm3 Sodium 135 L (137-145) mmol/L BUN 6 L (7-17) mg/dL Creatinine 0.5 L (0.6-1.2) mg/dL Total Protein 8.3 H (6.3-8.2) g/dL Albumin 3.4 L (3.9-5) g/dL Ur Specific [place] (1.003-1.030) Urine WBC (Auto) (0.0-6.0) /HPF U Epithel Cells (Auto) (0-13.0) /HPF 08/13/20 Range/Units 13:04 WBC (4.5-11.0) K/mm3 RBC (3.65-5.03) M/mm3 Hgb (10.1-14.3) gm/dl Hct (30.3-42.9) % Plt Count (140-440) K/mm3 Sodium (137-145) mmol/L BUN (7-17) mg/dL Creatinine (0.6-1.2) mg/dL Total Protein (6.3-8.2) g/dL Albumin (3.9-5) g/dL Ur Specific [place] > 1.059 H (1.003-1.030) Urine WBC (Auto) 9.0 H (0.0-6.0) /HPF U Epithel Cells (Auto) 14.0 H (0-13.0) /HPF Assessment and Plan Cultures: Blood culture pending A/P: 30-year-old female past medical history of refractory seizures admitted with septic emboli #Bilateral pulmonary septic emboli: No history of bacteremia, no history of IVDU. Unclear origin. #Acute sepsis: Present with tachycardia and leukocytosis. Secondary possible septic emboli. #Refractory seizures Recs: -Stop azithromycin -Continue ceftriaxone -Start vancomycin dosed by pharmacy, goal trough 10-20 -Obtain TTE Thank you for the consult, we will continue to follow. Kasia Flanagan MD [facility] O: [phone] F: [phone]
[2020-08-13] MEDS ORDERED: LORazepam 2 MG/ML VIAL ONE (18:52)
[2020-08-13] MEDS ORDERED: VANCOMYCIN PHARMACY TO DOSE IV SCH (19:00)
[2020-08-13] MEDS ORDERED: levETIRAcetam 1000 MG/NS 0.75% 1,000 MG/100 ML BAG IV ONE (20:00)
[2020-08-13] MEDS: FAMOTIDINE 20 MG TAB PO SCH (22:16)
[2020-08-13] MEDS: APIXABAN 5 MG TAB PO SCH (22:16)
[2020-08-13] MEDS: MIRTAZAPINE 15 MG TAB PO SCH (22:17)
[2020-08-13] MEDS: cefTRIAXone/NS 2 GM/100 ML 2 GM/100 ML BAG IV SCH (22:58)
[2020-08-14] MEDS: SODIUM CHLORIDE 0.9% 1000 ML 1,000 ML IV SCH ×2 (04:37→20:20)
[2020-08-14] MEDS: VANCOMYCIN/NS 1 GM/250 ML 1 GM/250 ML BAG IV SCH ×2 (04:37→17:13)
[2020-08-14] MEDS: methIMAzole 5 MG TAB PO SCH ×3 (06:21→21:55)
[2020-08-14] MEDS: traMADol 50 MG TAB PO PRN (06:30)
[2020-08-14 08:23] LABS: Basophils # (Auto) 0.1 K/mm3 (0.0-0.1); Basophils % (Auto) 0.6 % (0.0-1.8); Eosinophils % (Auto) 0.3 % (0.0-4.3); Hematocrit 22.9 % (30.3-42.9); Hemoglobin 7.6 gm/dl (10.1-14.3); Lymphocytes # (Auto) 1.8 K/mm3 (1.2-5.4); Lymphocytes % (Auto) 14.2 % (13.4-35.0); Mean Corpuscular HGB Conc 33 % (30-34); Mean Corpuscular Volume 94 fl (79-97); Monocytes # (Auto) 0.9 K/mm3 (0.0-0.8); Monocytes % (Auto) 6.9 % (0.0-7.3); Platelet Count 551 K/mm3 (140-440); Red Blood Count 2.44 M/mm3 (3.65-5.03)
[2020-08-14 08:33] LABS: Blood Urea Nitrogen 6 mg/dL (7-17); Calcium 8.5 mg/dL (8.4-10.2); Hemolysis Index 10
[2020-08-14 08:35] LABS: BUN/Creatinine Ratio 12
[2020-08-14] MEDS: ONDANSETRON 4 MG/2 ML INJ IV PRN (08:40)
[2020-08-14] MEDS: HYDROmorphone 1 MG/1 ML INJ IV PRN ×3 (09:20→23:34)
[2020-08-14] MEDS: FAMOTIDINE 20 MG TAB PO SCH ×2 (10:27→21:55)
[2020-08-14] MEDS: FERROUS SULFATE 325 MG TAB PO SCH (10:27)
[2020-08-14] MEDS: APIXABAN 5 MG TAB PO SCH ×2 (10:27→21:55)
[2020-08-14] MEDS: MULTIVITAMINS ,THERAPEUTIC TAB PO SCH (10:27)
[2020-08-14] MEDS: LORazepam 2 MG/ML VIAL IV PRN (12:55)
--- NOTE | 2020-08-14 21:29 | Progress Note ---
Assessment and Plan (1) Septic pulmonary embolism Current Visit: Yes Status: Acute Qualifiers: Chronicity: acute Acute cor pulmonale presence: unspecified Qualified Code(s): I26.90 - Septic pulmonary embolism without acute cor pulmonale Plan to address problem: Continue IV antibiotic ID consulted Sputum and blood culture (2) Pulmonary embolism Current Visit: No Status: Acute Plan to address problem: Eliquis can be stopped because the pulmonary embolism has been 1 and half years ago (3) Seizure Current Visit: No Status: Acute Plan to address problem: Resume home keppra 1000 mg BID patient advised to follow with neurologist out pt (4) Anemia Current Visit: Yes Status: Acute Plan to address problem: Iron and MVI supplement (5) Hyponatremia Current Visit: Yes Status: Acute Plan to address problem: Resolved (6) Graves disease Current Visit: Yes Status: Acute Plan to address problem: Patient reports Hx of graves disease Resume home medicine (7) DVT prophylaxis Current Visit: No Status: Acute Plan to address problem: eliqis Subjective Date of service: 08/14/20 Principal diagnosis: Septic emboli Interval history: This is a 30-year-old female with a past medical history of seizure disorder, hiatal hernia and pulmonary embolism she is currently taking Eliquis. She reports a 1 week history of chest pain with coughing and deep breath. She was seen at [facility] she states that she had an chest x-ray done she was told she had slight "pneumonia". She states that she is was not given any other medications. She states at that time she also had a Covid test that was negative. Patient also states she followed up with her primary care doctor and was given no additional treatment. she is using [id number] Mucinex. Patient denies fever no nausea no vomiting no loss of taste and smell no diarrhea. She denies IV drug. She has had multiple admissions related to her seizures. she is in no acute distress her heart rate is 106 oxygen saturation is 98% on room air she reports chest pain 7/10 ED work up shows-WBC 15, hemoglobin 8.0, PLT 530, soidum 135, potassium 3.7 Patient seen at bedside. patient crying-she said she told her person PCP what is going on with her but her PCP did not pay attension-rather told her she needs Psych evaluation. patient reports hx of multiple seizures with admission. She said she takes keppra but still has seizure. Patient advised she needs neurologist follow up out pt. Reviewed lab, mar, and v/s Objective - Constitutional Vitals: Vital Signs - 12hr 08/14/20 08/14/20 08/14/20 11:45 12:58 19:14 Temperature 98.2 F Pulse Rate 99 H Pulse Rate [ Apical] Respiratory 18 26 H Rate Blood Pressure 122/69 O2 Sat by Pulse 98 97 Oximetry 08/14/20 08/14/20 08/14/20 19:44 20:38 20:47 Temperature 99.3 F Pulse Rate 111 H Pulse Rate [ 95 H Apical] Respiratory 16 17 16 Rate Blood Pressure 116/64 O2 Sat by Pulse 98 98 Oximetry General appearance: Present: no acute distress, well-nourished - EENT Eyes: PERRL, EOM intact ENT: hearing intact, clear oral mucosa Ears: bilateral: normal - Neck Neck: supple, normal ROM - Respiratory Respiratory effort: normal Respiratory: bilateral: CTA - Breasts Breasts: normal - Cardiovascular Rhythm: regular Heart Sounds: Present: S1 & S2. Absent: gallop, rub Extremities: pulses intact, No edema, normal color, Full ROM - Gastrointestinal General gastrointestinal: Present: soft, non-tender, non-distended, normal bowel sounds - Genitourinary Female genitourinary: normal - Integumentary Integumentary: clear, warm, dry - Musculoskeletal Musculoskeletal: 1, strength equal bilaterally - Neurologic Neurologic: moves all extremities - Psychiatric Psychiatric: memory intact, appropriate mood/affect, intact judgment & insight - Labs CBC & Chem 7: 08/14/20 07:01 08/14/20 07:01 Labs: Abnormal lab results 08/14/20 08/14/20 Range/Units 07:01 07:01 WBC 12.7 H (4.5-11.0) K/mm3 RBC 2.44 L (3.65-5.03) M/mm3 Hgb 7.6 L (10.1-14.3) gm/dl Hct 22.9 L (30.3-42.9) % Plt Count 551 H (140-440) K/mm3 [place] # (Auto) 0.9 H (0.0-0.8) K/mm3 Seg Neutrophils % 78.0 H (40.0-70.0) % Seg Neutrophils # 9.9 H (1.8-7.7) K/mm3 BUN 6 L (7-17) mg/dL Creatinine 0.5 L (0.6-1.2) mg/dL
[2020-08-14] MEDS: cefTRIAXone/NS 2 GM/100 ML 2 GM/100 ML BAG IV SCH (21:54)
[2020-08-14] MEDS: MIRTAZAPINE 15 MG TAB PO SCH (21:55)
[2020-08-15] MEDS: methIMAzole 5 MG TAB PO SCH ×2 (05:06→13:03)
[2020-08-15] MEDS: VANCOMYCIN/NS 1 GM/250 ML 1 GM/250 ML BAG IV SCH (05:06)
[2020-08-15] MEDS: LORazepam 2 MG/ML VIAL IV PRN (07:18)
[2020-08-15] MEDS: FAMOTIDINE 20 MG TAB PO SCH ×2 (08:41→10:00)
[2020-08-15] MEDS: APIXABAN 5 MG TAB PO SCH ×2 (08:41→16:58)
[2020-08-15] MEDS: FERROUS SULFATE 325 MG TAB PO SCH ×2 (08:41→16:59)
[2020-08-15] MEDS: MULTIVITAMINS ,THERAPEUTIC TAB PO SCH ×2 (08:41→10:00)
[2020-08-15] MEDS: HYDROmorphone 1 MG/1 ML INJ IV PRN ×2 (08:42→13:03)
[2020-08-15 09:13] VITALS: BP 133/72
--- NOTE | 2020-08-15 17:40 | Discharge Summary ---
Providers - Providers Date of Admission: 08/13/20 12:55 Date of discharge: 08/15/20 Attending physician: ZACHERY NUNEZ 08/13/20 12:54 Consult to Physician [CONS] Stat Comment: Consulting Provider: MARYLIN MOORE Physician Instructions: Reason For Exam: PNA 08/14/20 06:40 Consult to Dietitian/Nutrition [CONS] Routine Physician Instructions: Reason For Exam: Reason for Consult: Pt needs oral supplement Primary care physician: BUSINESS SEGMENT MANAGER Hospitalization Condition: Stable Hospital course: Subjective Date of service: 08/15/20 Principal diagnosis: Septic emboli Interval history: This is a 30-year-old female with a past medical history of seizure disorder, hiatal hernia and pulmonary embolism she is currently taking Eliquis. She reports a 1 week history of chest pain with coughing and deep breath. She was seen at [facility] she states that she had an chest x-ray done she was told she had slight "pneumonia". She states that she is was not given any other medications. She states at that time she also had a Covid test that was negative. Patient also states she followed up with her primary care doctor and was given no additional treatment. she is using [id number] Mucinex. Patient denies fever no nausea no vomiting no loss of taste and smell no diarrhea. She denies IV drug. She has had multiple admissions related to her seizures. she is in no acute distress her heart rate is 106 oxygen saturation is 98% on room air she reports chest pain 7/10 ED work up shows-WBC 15, hemoglobin 8.0, PLT 530, soidum 135, potassium 3.7 Patient seen at bedside. patient crying-she said she told her person PCP what is going on with her but her PCP did not pay attension-rather told her she needs Psych evaluation. patient reports hx of multiple seizures with admission. She said she takes keppra but still has seizure. Patient advised she needs neurologist follow up out pt. Reviewed lab, mar, and v/s Patient has been afebrile for the last 48 hours Cultures came negative Patient to be discharged on oral antibiotics (1) Septic pulmonary embolism Current Visit: Yes Status: Acute Qualifiers: Chronicity: acute Acute cor pulmonale presence: unspecified Qualified Code(s): I26.90 - Septic pulmonary embolism without acute cor pulmonale Plan to address problem: Patient to be discharged on oral live Levaquin for 14 days Patient to follow-up with her primary care physician and get a repeat chest x- ray (2) Pulmonary embolism Current Visit: No Status: Acute Plan to address problem: Eliquis can be stopped because the pulmonary embolism has been 1 and half years ago (3) Seizure Current Visit: No Status: Acute Plan to address problem: Resume home keppra 1000 mg BID patient advised to follow with neurologist out pt (4) Anemia Current Visit: Yes Status: Acute Plan to address problem: Iron and MVI supplement (5) Hyponatremia Current Visit: Yes Status: Acute Plan to address problem: Resolved (6) Graves disease Current Visit: Yes Status: Acute Plan to address problem: Patient reports Hx of graves disease Resume home medicine (7) DVT prophylaxis Current Visit: No Status: Acute Plan to address problem: eliqis Disposition: DC-01 TO HOME OR SELFCARE Time spent for discharge: 34 min - Discharge Diagnoses (1) Anemia Status: Acute (2) Septic pulmonary embolism Status: Acute Qualifiers: Chronicity: acute Acute cor pulmonale presence: unspecified Qualified Code(s): I26.90 - Septic pulmonary embolism without acute cor pulmonale Core Measure Documentation - Palliative Care Palliative Care/ Comfort Measures: Not Applicable - Core Measures Any of the following diagnoses?: none Exam - Constitutional Vitals: Temp Pulse Resp BP Pulse Ox 98.0 F 97 H 18 133/72 100 08/15/20 08:20 08/15/20 08:20 08/15/20 08:20 08/15/20 08:20 08/15/20 08:20 General appearance: Present: no acute distress, well-nourished - EENT Eyes: Present: PERRL ENT: hearing intact, clear oral mucosa - Neck Neck: Present: supple, normal ROM - Respiratory Respiratory effort: normal Respiratory: bilateral: CTA - Cardiovascular Heart Sounds: Present: S1 & S2. Absent: rub, click - Extremities Extremities: pulses symmetrical, No edema Peripheral Pulses: within normal limits - Abdominal General gastrointestinal: Present: soft, non-tender, non-distended, normal bowel sounds Female genitourinary: Present: normal - Integumentary Integumentary: Present: clear, warm, dry - Musculoskeletal Musculoskeletal: gait normal, strength equal bilaterally - Psychiatric Psychiatric: appropriate mood/affect, intact judgment & insight - Neurologic Neurologic: CNII-XII intact, moves all extremities Plan Activity: no restrictions Diet: regular Care Plan Goals: Needs repeat chest x-ray after discharge and follow-up with primary care Patient being discharged on oral Levaquin for 10 days Follow up with: PRIMARY CARE, [Primary Care Provider] - 3-5 Days
== END 2020-08-15 18:18 | disposition home or self-care (01) | DRG 871 ==
LOC: ED 07:44 → 3A 12:55 → 4A 13:44
PROVIDERS: ADMIT Internal Medicine; ATTEND Internal Medicine
DX: A41.9 Sepsis, unspecified organism (principal); I26.90 Septic pulmonary embolism without acute cor pulmonale; G40.909 Epilepsy, unspecified, not intractable, without status epilepticus; E87.1 Hypo-osmolality and hyponatremia; D64.9 Anemia, unspecified; E05.00 Thyrotoxicosis with diffuse goiter without thyrotoxic crisis or storm; Z79.899 Other long term (current) drug therapy; Z91.040 Latex allergy status; Z82.49 Family history of ischemic heart disease and other diseases of the circulatory system; Z86.711 Personal history of pulmonary embolism; Z79.01 Long term (current) use of anticoagulants; Z83.3 Family history of diabetes mellitus
CPT/HCPCS: 36415; 71275; 80048; 80076; 80202; 81001; 81025; 82140; 85025; 85027; 87040; 87086; 93306; 96365; 96375; G0378; J0692; J0696; J1170; J1815; J1885; J1953; J2060; J2405; J3370; J7030; Q9967

== ENCOUNTER 2020-08-25 04:09 | Emergency (ER) | payer MEDICAID ==
[2020-08-25 04:31] VITALS: BP 116/71
--- NOTE | 2020-08-25 05:14 | XRay Report ---
CHEST 1 VIEW INDICATION / CLINICAL INFORMATION: Chest Pain. COMPARISON: 08/18/2020 FINDINGS: SUPPORT DEVICES: None. HEART / MEDIASTINUM: No significant abnormality. LUNGS / PLEURA: Previously noted cavitary pulmonary nodules bilaterally persist but have improved gumaro matically. The lungs are otherwise clear. No new findings. No pleural effusion. No pneumothorax. ADDITIONAL FINDINGS: No significant additional findings. IMPRESSION: 1. Marked interval improvement in previously noted cavitary pulmonary nodules felt to have likely rep resented septic emboli. 2. No other significant finding. Signer Name: Debbie Gaston MD Signed: 08/25/2020 5:10 AM Workstation Name: [id number]
[2020-08-25 05:24] LABS: Basophils # (Auto) 0.1 K/mm3 (0.0-0.1); Basophils % (Auto) 1.6 % (0.0-1.8); Eosinophils % (Auto) 0.3 % (0.0-4.3); Hematocrit 28.2 % (30.3-42.9); Hemoglobin 9.4 gm/dl (10.1-14.3); Lymphocytes # (Auto) 1.7 K/mm3 (1.2-5.4); Lymphocytes % (Auto) 36.3 % (13.4-35.0); Mean Corpuscular HGB Conc 33 % (30-34); Mean Corpuscular Volume 92 fl (79-97); Monocytes # (Auto) 0.6 K/mm3 (0.0-0.8); Monocytes % (Auto) 12.6 % (0.0-7.3); Platelet Count 500 K/mm3 (140-440); Red Blood Count 3.06 M/mm3 (3.65-5.03)
[2020-08-25 05:41] LABS: Blood Urea Nitrogen 6 mg/dL (7-17); Calcium 9.6 mg/dL (8.4-10.2); Hemolysis Index 31
[2020-08-25 05:46] LABS: BUN/Creatinine Ratio 10
--- NOTE | 2020-08-25 10:57 | Emergency Department Report ---
ED General Adult HPI - General Chief complaint: Chest Pain Stated complaint: AMS Time Seen by Provider: 08/25/20 10:33 Source: patient, EMS Mode of arrival: Wheelchair Limitations: No Limitations - Related Data Home Medications Medication Instructions Recorded Confirmed Last Taken Duloxetine HCl [Cymbalta] 20 mg PO DAILY 08/22/20 08/22/20 Unknown Mirtazapine [Remeron] 15 mg PO DAILY 08/22/20 08/22/20 Unknown methIMAzole [Tapazole] 5 mg PO QDAY 08/22/20 08/22/20 Unknown Previous Rx's Medication Instructions Recorded Last Taken Type levETIRAcetam [Keppra] 5 ml PO BID 330 Days #300 ml 08/15/20 Unknown Rx methIMAzole [Tapazole] 5 mg PO BID #60 08/15/20 Unknown Rx Docusate Sodium [Colace ORAL LIQ] 50 mg PO BID #100 oralsyr 08/25/20 Unknown Rx Famotidine [Pepcid] 20 mg PO BID #60 tablet 08/25/20 Unknown Rx Allergies Allergy/AdvReac Type Severity Reaction Status Date / Time latex Allergy Rash Verified 02/18/20 08:22 ED Review of Systems ROS: Stated complaint: AMS Other details as noted in HPI Comment: All other systems reviewed and negative ED Past Medical Hx - Past Medical History Previous Medical History?: Yes Hx Hypertension: No Hx Heart Attack/AMI: No Hx Congestive Heart Failure: No Hx Diabetes: No Hx Deep Vein Thrombosis: (unknown) Hx Pulmonary Embolism: Yes Hx Liver Disease: No Hx Renal Disease: No Hx Sickle Cell Disease: No Hx Seizures: Yes Hx Asthma: No Hx COPD: No Hx HIV: No Additional medical history: DIVERTICULITIS, OVARIAN CYST, Pulmonary Embolism, Diverticulitis, Graves Disease - Surgical History Past Surgical History?: Yes Hx Pacemaker: No Hx Internal Defibrillator: No Additional Surgical History: c/s x 3, ectopic - Social History Smoking Status: Never Smoker Substance Use Type: None - Medications Home Medications: Home Medications Medication Instructions Recorded Confirmed Last Taken Type levETIRAcetam [Keppra] 5 ml PO BID 330 Days #300 ml 08/15/20 08/22/20 Unknown Rx methIMAzole [Tapazole] 5 mg PO BID #60 08/15/20 08/22/20 Unknown Rx Duloxetine HCl [Cymbalta] 20 mg PO DAILY 08/22/20 08/22/20 Unknown History Mirtazapine [Remeron] 15 mg PO DAILY 08/22/20 08/22/20 Unknown History methIMAzole [Tapazole] 5 mg PO QDAY 08/22/20 08/22/20 Unknown History Docusate Sodium [Colace ORAL LIQ] 50 mg PO BID #100 oralsyr 08/25/20 Unknown Rx Famotidine [Pepcid] 20 mg PO BID #60 tablet 08/25/20 Unknown Rx ED Physical Exam - General Limitations: No Limitations General appearance: alert, in no apparent distress - Head Head exam: Present: atraumatic, normocephalic - Eye Eye exam: Present: normal appearance - ENT ENT exam: Present: mucous membranes moist - Neck Neck exam: Present: normal inspection - Respiratory Respiratory exam: Present: normal lung sounds bilaterally. Absent: respiratory distress - Cardiovascular Cardiovascular Exam: Present: regular rate, normal rhythm. Absent: systolic murmur, diastolic murmur, rubs, gallop - GI/Abdominal GI/Abdominal exam: Present: soft, normal bowel sounds - Extremities Exam Extremities exam: Present: normal inspection - Back Exam Back exam: Present: normal inspection - Neurological Exam Neurological exam: Present: alert, oriented X3 - Psychiatric Psychiatric exam: Present: normal affect, normal mood - Skin Skin exam: Present: warm, dry, intact, normal color. Absent: rash ED Course Vital Signs 08/25/20 04:27 Temperature 98.0 F Pulse Rate 108 H Respiratory 18 Rate Blood Pressure 116/71 O2 Sat by Pulse 100 Oximetry - Reevaluation(s) Reevaluation #1: 08/25/20 10:59 Patient treated with Toradol IM and alprazolam 0.25 p.o. x1 with resolution of symptoms. Abdomen remains soft and nontender. Previous records requested and reviewed via [facility], patient with admission earlier this month for possible septic emboli, ultimately had negative blood cultures, negative CHONG, suspected possible Mindy's versus other autoimmune origin Patient labs today all improved from admission, x-ray improved from admission. Patient in no acute distress, vital signs reassuring, exam normal. ED Medical Decision Making - Lab Data Result diagrams: 08/25/20 04:48 08/25/20 04:48 Lab Results 08/25/20 08/25/2021 Range/Units 04:48 04:48 08:48 WBC 4.7 (4.5-11.0) K/mm3 RBC 3.06 L (3.65-5.03) M/mm3 Hgb 9.4 L (10.1-14.3) gm/dl Hct 28.2 L (30.3-42.9) % MCV 92 (79-97) fl MCH 31 (28-32) pg MCHC 33 (30-34) % RDW 15.0 (13.2-15.2) % Plt Count 500 H (140-440) K/mm3 Lymph % (Auto) 36.3 H (13.4-35.0) % Dickey % (Auto) 12.6 H (0.0-7.3) % Eos % (Auto) 0.3 (0.0-4.3) % Baso % (Auto) 1.6 (0.0-1.8) % Lymph # (Auto) 1.7 (1.2-5.4) K/mm3 Dickey # (Auto) 0.6 (0.0-0.8) K/mm3 Eos # (Auto) 0.0 (0.0-0.4) K/mm3 Baso # (Auto) 0.1 (0.0-0.1) K/mm3 Seg Neutrophils % 49.2 (40.0-70.0) % Seg Neutrophils # 2.3 (1.8-7.7) K/mm3 Sodium 136 L (137-145) mmol/L Potassium 4.7 (3.6-5.0) mmol/L Chloride 99.2 (98-107) mmol/L Carbon Dioxide 23 (22-30) mmol/L Anion Gap 19 mmol/L BUN 6 L (7-17) mg/dL Creatinine 0.6 (0.6-1.2) mg/dL Estimated GFR > 60 ml/min BUN/Creatinine Ratio 10 % Glucose 103 H (65-100) mg/dL Calcium 9.6 D (8.4-10.2) mg/dL Troponin T < 0.010 < 0.010 (0.00-0.029) ng/mL Vital Signs 08/25/20 04:27 Temperature 98.0 F Pulse Rate 108 H Respiratory 18 Rate Blood Pressure 116/71 O2 Sat by Pulse 100 Oximetry - EKG Data -: EKG Interpreted by Me (Sinus rhythm at 85, no ST-T changes, normal QRS) Critical care attestation.: If time is entered above; I have spent that time in minutes in the direct care of this critically ill patient, excluding procedure time. ED Disposition Clinical Impression: Unspecified abdominal pain Disposition: DC-01 TO HOME OR SELFCARE Is pt being admited?: No Condition: Stable Instructions: Abdominal Pain, Adult, [id number] Prescriptions: Docusate Sodium [Colace ORAL LIQ] 50 mg PO BID #100 oralsyr Famotidine [Pepcid] 20 mg PO BID #60 tablet Referrals: PRIMARY CARE, [Primary Care Provider] - 3-5 Days
[2020-08-25] MEDS: KETOROLAC 30 MG/1 ML INJ IM ONE (11:04)
[2020-08-25] MEDS: ALPRAZolam 0.25 MG TAB PO ONE (11:04)
== END 2020-08-25 11:44 | disposition home or self-care (01) ==
LOC: ED 04:09
DX: R10.9 Unspecified abdominal pain (principal); G40.909 Epilepsy, unspecified, not intractable, without status epilepticus; Z98.890 Other specified postprocedural states; Z79.899 Other long term (current) drug therapy; Z91.040 Latex allergy status
CPT/HCPCS: 36415; 71045; 80048; 84484; 85025; 93005; 96372; 99284; J1885

== ENCOUNTER 2021-05-19 09:10 | Emergency (ER) | payer MEDICAID ==
[2021-05-19] MEDS ORDERED: HYDROmorphone 1 MG/1 ML INJ IV ONE (10:43)
[2021-05-19] MEDS ORDERED: FAMOTIDINE 20 MG/2 ML INJ IV ONE (10:43)
[2021-05-19] MEDS ORDERED: ONDANSETRON 4 MG/2 ML INJ IV ONE (10:43)
--- NOTE | 2021-05-19 10:51 | Emergency Department Report ---
ED Chest Pain HPI - General Chief Complaint: Chest Pain Stated Complaint: CHEST PAIN FEELS LIKE HEART BURN Time Seen by Provider: 05/19/21 10:17 Source: patient Mode of arrival: Ambulatory Limitations: No Limitations - History of Present Illness Initial Comments: 31-year-old female with a past medical history of chronic pain, diverticulitis, ovarian cyst, pulmonary embolism, septic pulmonary emboli with unclear source, Graves' disease, seizures presents to the hospital complaining of acute exacerbation of chronic pain. Upon entry to the room patient is tearful and standing up while lying her upper body on the bed. Patient complains of 10/10 pain to the chest/upper left abdominal area, thoracic spine, and pelvic area. Patient states she has had this pain since she was in October 2019 and has had the spinal pain since she received the epidural during that as well. Patient describes left upper abdominal and chest pain as a severe heartburn type of pain. She is feeling pain in her thoracic spine shooting downward. She is feeling pelvic pressure that is worse when she has to urinate. She denies fever, cough, shortness of breath, focal weakness/numbness, paresthesias, urinary or bowel incontinence, calf pain, leg edema, nausea, vomiting, or urinary frequency. Patient has been worked up by a variety of specialists. And recent GI doctor work-up (including colonoscopy and EGD) did not reveal any acute abnormality other than a hiatal hernia and therefore patient is now being seen by [facility]. A colonoscopy was performed by [facility] 2 days ago with results pending. Yesterday patient was seen by REFERRAL RN . He received a lidocaine injection in her abdomen questionable pelvic nerve block. Patient has been referred to pain management. She states she is not currently on pain medications and they are looking into giving her a pain nerve stimulator. Patient is not vaccinated for Covid. She last tested negative for Covid 6 days ago. As per medical record review patient was here in August 2020 with multiple septic pulmonary emboli with a normal CHONG. Source of septic pulmonary emboli unclear and blood cultures were negative. - Related Data Home Medications Medication Instructions Recorded Confirmed Last Taken Duloxetine HCl [Cymbalta] 20 mg PO DAILY 08/22/20 08/22/20 Unknown Mirtazapine [Remeron] 15 mg PO DAILY 08/22/20 08/22/20 Unknown methIMAzole [Tapazole] 5 mg PO QDAY 08/22/20 08/22/20 Unknown Previous Rx's Medication Instructions Recorded Last Taken Type levETIRAcetam [Keppra] 5 ml PO BID 330 Days #300 ml 08/15/20 Unknown Rx methIMAzole [Tapazole] 5 mg PO BID #60 08/15/20 Unknown Rx Docusate Sodium [Colace ORAL LIQ] 50 mg PO BID #100 oralsyr 08/25/20 Unknown Rx Famotidine [Pepcid] 20 mg PO BID #60 tablet 08/25/20 Unknown Rx Allergies Allergy/AdvReac Type Severity Reaction Status Date / Time latex Allergy Rash Verified 02/18/20 08:22 Heart Score - HEART Score History: Slightly suspicious EKG: Normal Age: < 45 Risk factors: No known risk factors Troponin: < normal limit HEART Score: 0 - EKG Read Time Time EKG Completed: 11:22 EKG Read Time: 11:28 ED Review of Systems ROS: Stated complaint: CHEST PAIN FEELS LIKE HEART BURN Other details as noted in HPI ED Past Medical Hx - Past Medical History Previous Medical History?: Yes Hx Hypertension: No Hx Heart Attack/AMI: No Hx Congestive Heart Failure: No Hx Diabetes: No Hx Deep Vein Thrombosis: (unknown) Hx Pulmonary Embolism: Yes Hx Liver Disease: No Hx Renal Disease: No Hx Sickle Cell Disease: No Hx Seizures: Yes Hx Asthma: No Hx COPD: No Hx HIV: No Additional medical history: DIVERTICULITIS, OVARIAN CYST, Pulmonary Embolism, Diverticulitis, Graves Disease - Surgical History Past Surgical History?: Yes Hx Pacemaker: No Hx Internal Defibrillator: No Additional Surgical History: c/s x 3, ectopic - Social History Smoking Status: Never Smoker Substance Use Type: None - Medications Home Medications: Home Medications Medication Instructions Recorded Confirmed Last Taken Type levETIRAcetam [Keppra] 5 ml PO BID 330 Days #300 ml 08/15/20 08/22/20 Unknown Rx methIMAzole [Tapazole] 5 mg PO BID #60 08/15/20 08/22/20 Unknown Rx Duloxetine HCl [Cymbalta] 20 mg PO DAILY 08/22/20 08/22/20 Unknown History Mirtazapine [Remeron] 15 mg PO DAILY 08/22/20 08/22/20 Unknown History methIMAzole [Tapazole] 5 mg PO QDAY 08/22/20 08/22/20 Unknown History Docusate Sodium [Colace ORAL LIQ] 50 mg PO BID #100 oralsyr 08/25/20 Unknown Rx Famotidine [Pepcid] 20 mg PO BID #60 tablet 08/25/20 Unknown Rx ED Physical Exam - General Limitations: No Limitations - Other Other exam information: General: Tearful Head: Atraumatic Eyes: normal appearance ENT: Moist mucous membranes Neck: Normal appearance, no midline tenderness Chest: Clear to auscultation bilaterally, no chest wall tender CV: Regular rate and rhythm Abdomen: Soft, normal bowel sounds, tenderness with deep palpation in the left upper quadrant, nondistended, no rebound or guarding Back: Normal inspection Extremity: Normal inspection, full range of motion Neuro: Alert O x 3, no facial asymmetry, speech clear, no gross motor sensory deficit Psych: Tearful Skin: No rash ED Course Vital Signs 05/19/21 05/19/21 09:14 11:42 Temperature 98.4 F Pulse Rate 75 72 Respiratory 16 20 Rate Blood Pressure 140/77 Blood Pressure 134/70 [Left] O2 Sat by Pulse 99 Oximetry - Reevaluation(s) Reevaluation #1: 05/19/21 12:12 I was informed by nurse that patient left the department and took her things with her. Nursing staff was unable to obtain IV access after multiple attempts. Patient informed me that she was a difficult stick. We are awaiting arrival IV nurse so that CT scans could be performed her medications could be administered.Labs were drawn prior to patient elopement TESSA score - Tessa Score Age > 65: (0) No Aspirin use within the Past 7 Days: (0) No 3 or more CAD Risk Factors: (0) No 2 or more Angina events in past 24 hrs: (0) No Known CAD with more than 50% Stenosis: (0) No Elevated Cardiac Markers: (0) No ST Deviation Greater than 0.5mm: (0) No TESSA Score: 0 ED Medical Decision Making - Lab Data Result diagrams: 05/19/21 11:09 05/19/21 11:09 - EKG Data -: EKG Interpreted by Me EKG shows normal: sinus rhythm, ST-T waves (no semi) Rate: bradycardia (47) - Medical Decision Making 31 year-old female with history of chronic chest, thoracic, abdominal pain for greater than 1 year who has also had significant disease processes requiring admission included but not limited to seizures and septic pulmonary emboli without source. Patient denies clinically that anything has changed however symptoms are worsening and she is not getting any relief with outpatient management as she is not getting any diagnosis despite extensive outpatient work-up. Plan was to work-up patient with labs, EKG, and CT scan to rule out acute emergency however, it was very difficult to obtain IV access and while waiting for IV nurse to come to the department patient eloped from department. Critical Care Time: No Critical care attestation.: If time is entered above; I have spent that time in minutes in the direct care of this critically ill patient, excluding procedure time. ED Disposition Clinical Impression: Chronic pain Disposition: 07 LEFT AWOL/ELOPED Is pt being admited?: No Condition: Stable Time of Disposition: 12:15
[2021-05-19] MEDS ORDERED: SODIUM CHLORIDE 0.9% 1000 ML 1,000 ML IV ONE (11:08)
[2021-05-19 11:26] LABS: Basophils % (Auto) 0.9 % (0.0-1.8); Eosinophils % (Auto) 0.8 % (0.0-4.3); Hemoglobin 12.8 gm/dl (10.1-14.3); Lymphocytes # (Auto) 1.9 K/mm3 (1.2-5.4); Lymphocytes % (Auto) 40.4 % (13.4-35.0); Mean Corpuscular HGB Conc 34 % (30-34); Mean Corpuscular Volume 94 fl (79-97); Monocytes # (Auto) 0.3 K/mm3 (0.0-0.8); Platelet Count 159 K/mm3 (140-440); Red Blood Count 4.05 M/mm3 (3.65-5.03); Red Cell Distribution Width 15.8 % (13.2-15.2)
[2021-05-19 11:40] LABS: Alanine Aminotransferase 18 units/L (7-56); Albumin 4.5 g/dL (3.9-5); Blood Urea Nitrogen 5 mg/dL (7-17); Calcium 9.3 mg/dL (8.4-10.2); Hemolysis Index 10
[2021-05-19 11:45] LABS: BUN/Creatinine Ratio 8
[2021-05-19 12:00] VITALS: BP 140/77
--- NOTE | 2021-05-20 08:33 | Electrocardiograph Report ---
[facility] Test Date: 2021-05-19 Test Time: 11:22:58 Pat Name: JERMAINE ÁLVAREZ Department: Room: Gender: F Veterinary Practitioner: TREV : 1990-03-13 Requested By: HUMA UNDERWOOD Order Number: [id number] Reading MD: Cody Marroquin Measurements Intervals [place] Rate: 47 P: 42 SD: 185 QRS: 69 QRSD: 77 T: 62 QT: 466 QTc: 412 Interpretive Statements Sinus bradycardia No previous ECG available for comparison Electronically Signed On 05-20-2021 8:33:09 EDT by Cody Marroquin
== END 2021-05-19 12:16 | disposition left against medical advice (07) ==
LOC: ED 09:10
DX: G89.29 Other chronic pain (principal); K57.92 Diverticulitis of intestine, part unspecified, without perforation or abscess without bleeding; N83.209 Unspecified ovarian cyst, unspecified side; E05.00 Thyrotoxicosis with diffuse goiter without thyrotoxic crisis or storm; Z98.890 Other specified postprocedural states; Z91.040 Latex allergy status
CPT/HCPCS: 36415; 80053; 83690; 84484; 84703; 85025; 93005; 99283

== ENCOUNTER 2021-06-06 18:18 | Emergency (ER) | payer MEDICAID ==
[2021-06-06] MEDS ORDERED: levETIRAcetam 1000 MG/NS 0.75% 1,000 MG/100 ML BAG IV ONE (18:24)
[2021-06-06] MEDS ORDERED: NALOXONE 2 MG/2 ML INJ ONE (18:24)
[2021-06-06] MEDS ORDERED: LORazepam 2 MG/ML VIAL IV ONE ×2 (18:24)
[2021-06-06] MEDS ORDERED: levETIRAcetam 1,000 MG in SODIUM CHLORIDE 0.9% 100 ML IV ONE (18:24)
[2021-06-06] MEDS ORDERED: SODIUM CHLORIDE 0.9% 1000 ML 1,000 ML ONE (18:24)
[2021-06-06] MEDS ORDERED: LORazepam 2 MG/ML VIAL ONE (18:25)
--- NOTE | 2021-06-06 19:03 | Emergency Department Report ---
<GLENDARADHAYULIANA MarliBenjamin - Last Filed: 06/06/21 20:30> ED Abdominal Pain HPI - General Chief Complaint: Chest Pain Stated Complaint: AB PAIN Time Seen by Provider: 06/06/21 18:22 Source: patient, family Mode of arrival: Stretcher Limitations: No Limitations - History of Present Illness Initial Comments: 31-year-old female, history of seizure disorder, chronic abdominal pain, presents to ED for abdominal pain. According to patient's fianc, patient had some abdominal pain that started earlier today. While en route to the hospital, patient began having a seizure. Patient was seizing upon presentation to triage area, so patient was brought back immediately to a bed. Patient was initially given Ativan 2 mg IM, did require another 2 mg IV once IV was established. Patient was actively seizing at that time. Seizure abated with second dose of Ativan. Patient now awake alert and able to tell me that she is having some left lower quadrant abdominal pain. Patient states this is chronic. 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 States no one is able to figure out what is causing her pain. Patient states her left lower quadrant pain is in the same location that it usually is. She states it feels like cramping. She denies any vaginal bleeding or discharge. Patient reports tubal ligation. MD Complaint: abdominal pain -: This afternoon Location: LLQ Radiation: none Migration to: no migration Severity: moderate Quality: cramping Consistency: constant Improves With: nothing Worsens With: nothing Associated Symptoms: nausea. denies: fever - Related Data Home Medications Medication Instructions Recorded Confirmed Last Taken Duloxetine HCl [Cymbalta] 20 mg PO DAILY 08/22/20 08/22/20 Unknown Mirtazapine [Remeron] 15 mg PO DAILY 08/22/20 08/22/20 Unknown methIMAzole [Tapazole] 5 mg PO QDAY 08/22/20 08/22/20 Unknown Previous Rx's Medication Instructions Recorded Last Taken Type levETIRAcetam [Keppra] 5 ml PO BID 330 Days #300 ml 08/15/20 Unknown Rx methIMAzole [Tapazole] 5 mg PO BID #60 08/15/20 Unknown Rx Docusate Sodium [Colace ORAL LIQ] 50 mg PO BID #100 oralsyr 08/25/20 Unknown Rx Famotidine [Pepcid] 20 mg PO BID #60 tablet 08/25/20 Unknown Rx Naproxen [Naprosyn] 500 mg PO BID #20 tablet 06/06/21 Unknown Rx Ondansetron [Zofran Odt] 4 mg PO Q8HR PRN #20 tab.rapdis 06/06/21 Unknown Rx Allergies Allergy/AdvReac Type Severity Reaction Status Date / Time latex Allergy Rash Verified 02/18/20 08:22 ED Review of Systems Comment: All other systems reviewed and negative Constitutional: denies: fever Gastrointestinal: abdominal pain, nausea Genitourinary: other (Denies vaginal bleeding). denies: discharge ED Past Medical Hx - Past Medical History Previous Medical History?: Yes Hx Hypertension: No Hx Heart Attack/AMI: No Hx Congestive Heart Failure: No Hx Diabetes: No Hx Deep Vein Thrombosis: (unknown) Hx Pulmonary Embolism: Yes Hx Liver Disease: No Hx Renal Disease: No Hx Sickle Cell Disease: No Hx Seizures: Yes Hx Asthma: No Hx COPD: No Hx HIV: No Additional medical history: DIVERTICULITIS, OVARIAN CYST, Pulmonary Embolism, Diverticulitis, Graves Disease - Surgical History Past Surgical History?: Yes Hx Pacemaker: No Hx Internal Defibrillator: No Additional Surgical History: c/s x 3, ectopic - Social History Smoking Status: Never Smoker Substance Use Type: None - Medications Home Medications: Home Medications Medication Instructions Recorded Confirmed Last Taken Type levETIRAcetam [Keppra] 5 ml PO BID 330 Days #300 ml 08/15/20 08/22/20 Unknown Rx methIMAzole [Tapazole] 5 mg PO BID #60 08/15/20 08/22/20 Unknown Rx Duloxetine HCl [Cymbalta] 20 mg PO DAILY 08/22/20 08/22/20 Unknown History Mirtazapine [Remeron] 15 mg PO DAILY 08/22/20 08/22/20 Unknown History methIMAzole [Tapazole] 5 mg PO QDAY 08/22/20 08/22/20 Unknown History Docusate Sodium [Colace ORAL LIQ] 50 mg PO BID #100 oralsyr 08/25/20 Unknown Rx Famotidine [Pepcid] 20 mg PO BID #60 tablet 08/25/20 Unknown Rx Naproxen [Naprosyn] 500 mg PO BID #20 tablet 06/06/21 Unknown Rx Ondansetron [Zofran Odt] 4 mg PO Q8HR PRN #20 tab.rapdis 06/06/21 Unknown Rx ED Physical Exam - General Limitations: No Limitations General appearance: alert, in no apparent distress - Head Head exam: Present: atraumatic, normocephalic - Eye Eye exam: Present: normal appearance, EOMI - ENT ENT exam: Present: mucous membranes moist - Neck Neck exam: Present: normal inspection - Respiratory Respiratory exam: Present: normal lung sounds bilaterally. Absent: respiratory distress - Cardiovascular Cardiovascular Exam: Present: regular rate, normal rhythm - GI/Abdominal GI/Abdominal exam: Present: soft, tenderness (Mild left lower quadrant). Abse nt: distended - Extremities Exam Extremities exam: Present: normal inspection - Neurological Exam Neurological exam: Present: alert, oriented X3 - Psychiatric Psychiatric exam: Present: normal affect, normal mood - Skin Skin exam: Present: warm, dry, intact, normal color ED Course - Reevaluation(s) Reevaluation #1: 06/06/21 19:02 Patient is currently awake and alert, oriented x3. Not postictal. Reevaluation #2: 06/06/21 20:30 Witnessed patient sticking her fingers down her throat trying to induce vomiting. Advised patient to stop doing this. Still awaiting labs. ED Medical Decision Making - Medical Decision Making 31-year-old female initially presented to the ED for valuation for left lower quadrant abdominal pain, which patient reports is chronic in nature. Upon arrival patient had a seizure. Patient has no history of seizures, takes Keppra. Patient was given a total of Ativan 4 mg IV. Seizure abated, afterward patient did not have much of a postictal state. I witnessed patient sticking her fingers down her throat attempting to induce vomiting. I have advised her against doing this. We are still awaiting patient labs. Patient will be signed out to Dr. Cooley for dispo ED Disposition Clinical Impression: Seizure, Abdominal pain Disposition: HOME / SELF CARE / HOMELESS Condition: Stable Instructions: Abdominal Pain, Adult, Seizure, Adult Prescriptions: Naproxen [Naprosyn] 500 mg PO BID #20 tablet Ondansetron [Zofran Odt] 4 mg PO Q8HR PRN #20 tab.rapdis PRN Reason: Vomiting <NETO COOLEY S - Last Filed: 06/07/21 01:59> ED Review of Systems ROS: Stated complaint: AB PAIN Other details as noted in HPI ED Course Vital Signs 06/06/21 06/06/21 06/06/21 18:34 19:21 19:31 Temperature 99.7 F H Pulse Rate 56 L 95 H 99 H Respiratory 16 17 21 Rate Blood Pressure 139/89 Blood Pressure 130/82 [Left] O2 Sat by Pulse 95 100 Oximetry 06/06/21 06/06/21 06/06/21 19:32 19:45 20:01 Temperature Pulse Rate 85 117 H 122 H Respiratory 22 20 24 Rate Blood Pressure 127/72 133/94 Blood Pressure 139/89 [Left] O2 Sat by Pulse 98 100 Oximetry 06/06/21 20:18 Temperature Pulse Rate Respiratory Rate Blood Pressure 134/77 Blood Pressure [Left] O2 Sat by Pulse Oximetry ED Medical Decision Making - Lab Data Result diagrams: 06/06/21 20:29 06/06/21 20:29 - Medical Decision Making Patient's labs have been unremarkable including CBC, metabolic panel, lipase and the patient is not . I was waiting for urinalysis and UDS, but the patient continues to walk out of the room saying that she is ready for discharge. There has been no further vomiting or seizure-like activity. The patient has been given the discharge paperwork and prescriptions. Critical care attestation.: If time is entered above; I have spent that time in minutes in the direct care of this critically ill patient, excluding procedure time. ED Disposition Is pt being admited?: No
[2021-06-06] MEDS: MORPHINE 2 MG/1 ML INJ IV ONE ×2 (19:35→20:30)
[2021-06-06] MEDS: ONDANSETRON 4 MG/2 ML INJ IV ONE ×2 (19:35→20:30)
[2021-06-06 20:27] VITALS: BP 134/77
[2021-06-06 20:53] LABS: Basophils % (Auto) 0.6 % (0.0-1.8); Eosinophils % (Auto) 0.3 % (0.0-4.3); Hematocrit 39.1 % (30.3-42.9); Hemoglobin 12.9 gm/dl (10.1-14.3); Lymphocytes # (Auto) 1.8 K/mm3 (1.2-5.4); Lymphocytes % (Auto) 24.5 % (13.4-35.0); Mean Corpuscular HGB Conc 33 % (30-34); Mean Corpuscular Volume 95 fl (79-97); Monocytes # (Auto) 0.6 K/mm3 (0.0-0.8); Monocytes % (Auto) 8.3 % (0.0-7.3); Platelet Count 206 K/mm3 (140-440); Red Blood Count 4.14 M/mm3 (3.65-5.03); Red Cell Distribution Width 15.6 % (13.2-15.2)
[2021-06-06 21:26] LABS: Blood Urea Nitrogen 8 mg/dL (7-17); Hemolysis Index 12
[2021-06-06 21:27] LABS: BUN/Creatinine Ratio 13
[2021-06-06 21:31] LABS: Alanine Aminotransferase 27 units/L (7-56); Albumin 4.4 g/dL (3.9-5)
[2021-06-06 21:52] LABS: Bilirubin,Direct < 0.2 mg/dL (0-0.2)
== END 2021-06-06 22:35 | disposition home or self-care (01) ==
LOC: ED 18:18
DX: R56.9 Unspecified convulsions (principal); R10.32 Left lower quadrant pain; R07.89 Other chest pain; Z91.040 Latex allergy status; Z79.899 Other long term (current) drug therapy
CPT/HCPCS: 36415; 80048; 80076; 83690; 84703; 85025; 96365; 96375; 99283; J1953; J2270; J2310; J2405; J7030; J2060

== ENCOUNTER 2021-06-24 08:15 | Emergency (ER) | payer MEDICAID ==
[2021-06-24] MEDS ORDERED: levETIRAcetam 1,000 MG in SODIUM CHLORIDE 0.9% 100 ML IV ONE (08:22)
[2021-06-24] MEDS ORDERED: LORazepam 2 MG/ML VIAL IV ONE (08:22)
--- NOTE | 2021-06-24 08:24 | Emergency Department Report ---
ED Seizure HPI - General Stated Complaint: VOMITING Time Seen by Provider: 06/24/21 08:20 - History of Present Illness Initial Comments: 31-year-old female, history of seizure disorder, chronic abdominal pain, PE, presents to ED in private vehicle, actively seizing. Patient was apparently dropped off by her boyfriend. Patient is having some tonic-clonic movements and foaming at the mouth. IV obtained. Ativan 2 mg given. Complaint: seizure -: This morning Description of Episode: tonic-clonic movement Witnessed:: Yes Seizure History: known seizure disorder Treatments Prior to Arrival: none - Related Data Home Medications Medication Instructions Recorded Confirmed Last Taken methIMAzole [Tapazole] 5 mg PO QDAY 08/22/20 08/22/20 Unknown Apixaban [Eliquis] 5 mg PO DAILY 06/24/21 06/24/21 Unknown Previous Rx's Medication Instructions Recorded Last Taken Type levETIRAcetam [Keppra] 5 ml PO BID 330 Days #300 ml 08/15/20 Unknown Rx Allergies Allergy/AdvReac Type Severity Reaction Status Date / Time latex Allergy Rash Verified 02/18/20 08:22 ED Review of Systems ROS: Stated complaint: VOMITING Other details as noted in HPI Comment: Unobtainable due to pts medical conditions (Patient actively seizing) ED Past Medical Hx - Past Medical History Hx Hypertension: No Hx Heart Attack/AMI: No Hx Congestive Heart Failure: No Hx Diabetes: No Hx Deep Vein Thrombosis: (unknown) Hx Pulmonary Embolism: Yes Hx Liver Disease: No Hx Renal Disease: No Hx Sickle Cell Disease: No Hx Seizures: Yes Hx Asthma: No Hx COPD: No Hx HIV: No Additional medical history: DIVERTICULITIS, OVARIAN CYST, Pulmonary Embolism, Diverticulitis, Graves Disease - Surgical History Hx Pacemaker: No Hx Internal Defibrillator: No Additional Surgical History: c/s x 3, ectopic - Social History Smoking Status: Never Smoker Substance Use Type: None - Medications Home Medications: Home Medications Medication Instructions Recorded Confirmed Last Taken Type levETIRAcetam [Keppra] 5 ml PO BID 330 Days #300 ml 08/15/20 08/22/20 Unknown Rx methIMAzole [Tapazole] 5 mg PO QDAY 08/22/20 08/22/20 Unknown History Apixaban [Eliquis] 5 mg PO DAILY 06/24/21 06/24/21 Unknown History ED Physical Exam - Head Head exam: Present: atraumatic, normocephalic - Eye Eye exam: Present: normal appearance - Neck Neck exam: Present: normal inspection - Respiratory Respiratory exam: Present: normal lung sounds bilaterally. Absent: respiratory distress - Cardiovascular Cardiovascular Exam: Present: regular rate, normal rhythm - GI/Abdominal GI/Abdominal exam: Present: soft. Absent: distended - Extremities Exam Extremities exam: Present: normal inspection - Neurological Exam Neurological exam: Present: other (Tonic-clonic movements) - Skin Skin exam: Present: warm, dry, intact, normal color ED Course Vital Signs 06/24/21 06/24/21 06/24/21 08:24 08:30 08:32 Temperature 98 F Pulse Rate 82 84 81 Respiratory 17 13 14 Rate Blood Pressure 143/92 141/83 Blood Pressure [Left] O2 Sat by Pulse 100 100 100 Oximetry 06/24/21 06/24/21 06/24/21 08:45 09:00 09:15 Temperature Pulse Rate 72 71 66 Respiratory 16 19 16 Rate Blood Pressure 130/75 134/73 118/64 Blood Pressure [Left] O2 Sat by Pulse 100 100 100 Oximetry 06/24/21 06/24/21 06/24/21 09:30 09:45 10:00 Temperature Pulse Rate 74 78 75 Respiratory 26 H 28 H 22 Rate Blood Pressure 117/65 120/70 127/80 Blood Pressure [Left] O2 Sat by Pulse 100 100 100 Oximetry 06/24/21 06/24/21 06/24/21 10:15 10:30 10:56 Temperature 98.4 F Pulse Rate 72 76 91 H Respiratory 24 26 H 14 Rate Blood Pressure 122/79 110/66 Blood Pressure 109/61 [Left] O2 Sat by Pulse 100 100 97 Oximetry - Reevaluation(s) Reevaluation #1: 06/24/21 08:36 Pt is currently awake and alert. Reports compliance with Keppra, although she reports that she did not take it this morning. Very short postictal period gi delicia the fact that she also received Ativan. ED Medical Decision Making - Lab Data Result diagrams: 06/24/21 08:37 06/24/21 08:37 - Medical Decision Making Vital signs stable. Labs unremarkable. Patient reported to nurse that she has been purchasing OxyContin from a friend. Patient has history of chronic abdominal pain. No further seizure activity here in the ED. Patient will be discharged at this time. Outpatient follow-up advised, return precautions given. - Differential Diagnosis Seizure, pseudoseizure, medication noncompliance Critical care attestation.: If time is entered above; I have spent that time in minutes in the direct care o f this critically ill patient, excluding procedure time. ED Disposition Clinical Impression: Seizure Disposition: 01 HOME / SELF CARE / HOMELESS Is pt being admited?: No Condition: Stable Instructions: Seizure, Adult, [id number] Referrals: PRIMARY CARE, [Primary Care Provider] - 3-5 Days Time of Disposition: 10:16
[2021-06-24 09:02] LABS: Basophils # (Auto) 0.1 K/mm3 (0.0-0.1); Basophils % (Auto) 0.9 % (0.0-1.8); Eosinophils % (Auto) 0.1 % (0.0-4.3); Hemoglobin 12.1 gm/dl (10.1-14.3); Lymphocytes # (Auto) 1.2 K/mm3 (1.2-5.4); Mean Corpuscular HGB Conc 33 % (30-34); Mean Corpuscular Volume 95 fl (79-97); Monocytes # (Auto) 0.4 K/mm3 (0.0-0.8); Monocytes % (Auto) 6.6 % (0.0-7.3); Platelet Count 185 K/mm3 (140-440); Red Blood Count 3.89 M/mm3 (3.65-5.03); Red Cell Distribution Width 14.5 % (13.2-15.2)
[2021-06-24 09:15] LABS: Blood Urea Nitrogen 8 mg/dL (7-17); Hemolysis Index 49
[2021-06-24 09:17] LABS: BUN/Creatinine Ratio 16
[2021-06-24 10:04] LABS: Amorphous Crystals,Urine 2+; Bilirubin,Urine NEG (Negative); Blood,Urine NEG (Negative); Color,Urine Yellow (Yellow); Mucus,Urine FEW /HPF; Urobilinogen,Urine < 2.0 mg/dL (<2.0)
[2021-06-24 10:08] LABS: Amphetamine Screen,Urine Negative; Benzodiazepines Screen,Urine Negative; Cocaine Screen,Urine Negative; Methadone Screen,Urine Negative; Opiate Screen,Urine Negative
[2021-06-24 10:10] LABS: WBC,Urine < 1.0 /HPF (0.0-6.0)
[2021-06-24 10:23] LABS: Cannabinoid Screen,Urine Positive
[2021-06-24 10:57] VITALS: BP 109/61
== END 2021-06-24 10:57 | disposition home or self-care (01) ==
LOC: ED 08:15
DX: G40.909 Epilepsy, unspecified, not intractable, without status epilepticus (principal); Z86.711 Personal history of pulmonary embolism; Z79.899 Other long term (current) drug therapy; Z91.040 Latex allergy status; Z79.01 Long term (current) use of anticoagulants
CPT/HCPCS: 36415; 80048; 80307; 81001; 84703; 85025; 96374; 96375; 99284; J1953; 99283

== ENCOUNTER 2021-07-03 15:30 | Emergency (ER) | payer MEDICAID ==
--- NOTE | 2021-07-03 15:55 | Emergency Department Report ---
ED Seizure HPI - General Stated Complaint: SEIZURE Time Seen by Provider: 07/03/21 15:47 Source: patient - History of Present Illness Initial Comments: Patient is 31 years old female with history of seizure not on any medication. Patient well-known to us ER in the ER with frequent seizure. Patient brought by her boyfriend stated that she started seizing this few minutes ago. Patient was actively seizing in the ER however patient is answering questions and responding to commands. Patient seizure stopped in the emergency room by its own. Patient now is alert, oriented x3 no acute distress. Complaint: possible seizure - Related Data Home Medications Medication Instructions Recorded Confirmed Last Taken methIMAzole [Tapazole] 5 mg PO QDAY 08/22/20 08/22/20 Unknown Apixaban [Eliquis] 5 mg PO DAILY 06/24/21 06/24/21 Unknown Previous Rx's Medication Instructions Recorded Last Taken Type levETIRAcetam [Keppra] 5 ml PO BID 330 Days #300 ml 08/15/20 Unknown Rx Allergies Allergy/AdvReac Type Severity Reaction Status Date / Time latex Allergy Rash Verified 02/18/20 08:22 ED Review of Systems ROS: Stated complaint: SEIZURE Other details as noted in HPI Comment: All other systems reviewed and negative Constitutional: denies: chills, fever Respiratory: denies: cough, shortness of breath, SOB with exertion Cardiovascular: denies: chest pain, palpitations Gastrointestinal: denies: abdominal pain, nausea, vomiting, diarrhea, constipation, hematemesis Musculoskeletal: denies: back pain Neurological: denies: headache, weakness, numbness ED Past Medical Hx - Past Medical History Hx Hypertension: No Hx Heart Attack/AMI: No Hx Congestive Heart Failure: No Hx Diabetes: No Hx Deep Vein Thrombosis: (unknown) Hx Pulmonary Embolism: Yes Hx Liver Disease: No Hx Renal Disease: No Hx Sickle Cell Disease: No Hx Seizures: Yes Hx Asthma: No Hx COPD: No Hx HIV: No Additional medical history: DIVERTICULITIS, OVARIAN CYST, Pulmonary Embolism, Diverticulitis, Graves Disease - Surgical History Hx Pacemaker: No Hx Internal Defibrillator: No Additional Surgical History: c/s x 3, ectopic - Social History Smoking Status: Never Smoker Substance Use Type: None - Medications Home Medications: Home Medications Medication Instructions Recorded Confirmed Last Taken Type levETIRAcetam [Keppra] 5 ml PO BID 330 Days #300 ml 08/15/20 08/22/20 Unknown Rx methIMAzole [Tapazole] 5 mg PO QDAY 08/22/20 08/22/20 Unknown History Apixaban [Eliquis] 5 mg PO DAILY 06/24/21 06/24/21 Unknown History ED Physical Exam - General General appearance: alert, in no apparent distress - Head Head exam: Present: atraumatic, normocephalic, normal inspection - Eye Eye exam: Present: normal appearance - ENT ENT exam: Present: normal exam, normal orophraynx, mucous membranes moist - Neck Neck exam: Present: normal inspection, full ROM. Absent: tenderness, m eningismus - Respiratory Respiratory exam: Present: normal lung sounds bilaterally - Cardiovascular Cardiovascular Exam: Present: regular rate, normal rhythm, normal heart sounds - GI/Abdominal GI/Abdominal exam: Present: soft, normal bowel sounds. Absent: distended, tenderness, guarding, rebound, rigid, organomegaly, mass, bruit, pulsatile mass, hernia - Extremities Exam Extremities exam: Present: normal inspection, full ROM, normal capillary refill. Absent: tenderness - Back Exam Back exam: Present: normal inspection. Absent: tenderness, CVA tenderness (R), CVA tenderness (L) - Neurological Exam Neurological exam: Present: alert, oriented X3, CN II-XII intact, normal gait, reflexes normal. Absent: motor sensory deficit - Psychiatric Psychiatric exam: Present: normal mood - Skin Skin exam: Present: warm, intact, normal color ED Course Vital Signs 07/03/21 07/03/21 15:41 15:45 Pulse Rate 75 110 H Respiratory 20 20 Rate Blood Pressure 132/64 O2 Sat by Pulse 99 100 Oximetry ED Medical Decision Making - Lab Data Result diagrams: 07/03/21 16:10 07/03/21 16:10 - Medical Decision Making Patient is 31 years old female with history of seizure not on any medication. Patient well-known to us ER in the ER with frequent seizure. Patient brought by her boyfriend stated that she started seizing this few minutes ago. Patient was actively seizing in the ER however patient is answering questions and responding to commands. Patient seizure stopped in the emergency room by its own. Patient now is alert, oriented x3 no acute distress. Patient is here this is most likely pseudoseizure. Patient now is complaining of abdominal pain that has been going on for 1-1/2 years. Patient stated that she had a lot of work-up done and nobody told her what she she have. I reviewed patient record patient has CT abdomen and pelvis x3 last year with no acute abnormalities. Patient is asking for certain pain medication. Patient is exhibiting a narcotic seeking behavior. Patient advised to follow-up with pain clinic and her primary care physician in the next 2 to 3 days. Critical care attestation.: If time is entered above; I have spent that time in minutes in the direct care of this critically ill patient, excluding procedure time. ED Disposition Clinical Impression: Chronic abdominal pain, Drug-seeking behavior Disposition: HOME / SELF CARE / HOMELESS Is pt being admited?: No Condition: Stable Instructions: Abdominal Pain, Adult, [id number] Referrals: PRIMARY CARE, [Referring] - 3-5 Days
[2021-07-03 15:57] VITALS: BP 132/64
[2021-07-03] MEDS ORDERED: DICYCLOMINE 20 MG/2 ML INJ IM ONE ×2 (16:03→16:09)
[2021-07-03 16:32] LABS: Basophils # (Auto) 0.1 K/mm3 (0.0-0.1); Eosinophils % (Auto) 0.4 % (0.0-4.3); Hematocrit 40.3 % (30.3-42.9); Hemoglobin 13.1 gm/dl (10.1-14.3); Lymphocytes # (Auto) 2.2 K/mm3 (1.2-5.4); Lymphocytes % (Auto) 27.4 % (13.4-35.0); Mean Corpuscular HGB Conc 33 % (30-34); Mean Corpuscular Volume 97 fl (79-97); Monocytes # (Auto) 0.8 K/mm3 (0.0-0.8); Monocytes % (Auto) 10.7 % (0.0-7.3); Platelet Count 186 K/mm3 (140-440); Red Blood Count 4.16 M/mm3 (3.65-5.03)
[2021-07-03 16:57] LABS: Alanine Aminotransferase 14 units/L (7-56); Albumin 4.7 g/dL (3.9-5); Blood Urea Nitrogen 8 mg/dL (7-17); Calcium 9.5 mg/dL (8.4-10.2); Hemolysis Index 19
[2021-07-03 16:59] LABS: BUN/Creatinine Ratio 13
== END 2021-07-03 17:29 | disposition home or self-care (01) ==
LOC: ED 15:30
DX: G89.29 Other chronic pain (principal); R10.9 Unspecified abdominal pain; Z76.5 Malingerer [conscious simulation]; Z91.040 Latex allergy status
CPT/HCPCS: 36415; 80053; 84703; 85025; 96372; 99283; J0500

== ENCOUNTER 2021-08-24 09:08 | Emergency (ER) | payer MEDICAID ==
[2021-08-24] MEDS ORDERED: levETIRAcetam 1000 MG/NS 0.75% 1,000 MG/100 ML BAG IV ONE (09:16)
[2021-08-24] MEDS ORDERED: SODIUM CHLORIDE 0.9% 1000 ML 1,000 ML IV ONE (09:16)
--- NOTE | 2021-08-24 09:18 | Emergency Department Report ---
ED Seizure HPI - General Chief Complaint: Seizure Stated Complaint: SEIZURE Time Seen by Provider: 08/24/21 09:15 Source: family Mode of arrival: Wheelchair Limitations: Altered Mental Status, Other - History of Present Illness Initial Comments: Patient was dropped off by the boyfriend who is no longer present. The patient apparently was coming in for abdominal pain and then proceeded to have what appeared to be a seizure. She was lying in the floor as she slipped out of her wheelchair and started shaking. She was drooling. She could not provide any history. After the patient had been stabilized, she complained of pain in the left pelvis and left colon. She states that she had a colon infection and was on antibiotics and needed pain medication. The pain was sharp and stabbing. It did not radiate or migrate. She had no urinary symptoms. She does report she has a history of seizures. She is supposed to be on Keppra. She states that she took it yesterday but states then that she was vomiting and might not have kept it down. - Related Data Home Medications Medication Instructions Recorded Confirmed Last Taken methIMAzole [Tapazole] 5 mg PO QDAY 08/22/20 08/22/20 Unknown Apixaban [Eliquis] 5 mg PO DAILY 06/24/21 06/24/21 Unknown Previous Rx's Medication Instructions Recorded Last Taken Type Ketorolac [Toradol] 10 mg PO Q6H PRN #20 tablet 07/03/21 Unknown Rx Dicyclomine [Bentyl] 20 mg PO QID PRN #30 tablet 08/24/21 Unknown Rx levETIRAcetam [Keppra] 5 ml PO BID 330 Days #300 ml 08/24/21 Unknown Rx Allergies Allergy/AdvReac Type Severity Reaction Status Date / Time latex Allergy Rash Verified 02/18/20 08:22 ED Review of Systems ROS: Stated complaint: SEIZURE Other details as noted in HPI Comment: All other systems reviewed and negative (This was obtained after the patient was conversant) Constitutional: denies: fever Eyes: denies: vision change ENT: denies: epistaxis Respiratory: denies: cough Cardiovascular: denies: chest pain Endocrine: denies: unexplained weight loss Gastrointestinal: as per HPI Genitourinary: denies: dysuria Musculoskeletal: denies: back pain Skin: denies: rash Neurological: denies: headache Hematological/Lymphatic: denies: easy bruising ED Past Medical Hx - Past Medical History Hx Hypertension: No Hx Heart Attack/AMI: No Hx Congestive Heart Failure: No Hx Diabetes: No Hx Deep Vein Thrombosis: (unknown) Hx Pulmonary Embolism: Yes Hx Liver Disease: No Hx Renal Disease: No Hx Sickle Cell Disease: No Hx Seizures: Yes Hx Asthma: No Hx COPD: No Hx HIV: No Additional medical history: DIVERTICULITIS, OVARIAN CYST, Pulmonary Embolism, Diverticulitis, Graves Disease - Surgical History Hx Pacemaker: No Hx Internal Defibrillator: No Additional Surgical History: c/s x 3, ectopic - Family History Family history: hypertension - Social History Smoking Status: Never Smoker Substance Use Type: None - Medications Home Medications: Home Medications Medication Instructions Recorded Confirmed Last Taken Type methIMAzole [Tapazole] 5 mg PO QDAY 08/22/20 08/22/20 Unknown History Apixaban [Eliquis] 5 mg PO DAILY 06/24/21 06/24/21 Unknown History Ketorolac [Toradol] 10 mg PO Q6H PRN #20 tablet 07/03/21 Unknown Rx Dicyclomine [Bentyl] 20 mg PO QID PRN #30 tablet 08/24/21 Unknown Rx levETIRAcetam [Keppra] 5 ml PO BID 330 Days #300 ml 08/24/21 Unknown Rx ED Physical Exam - General Limitations: Altered Mental Status, Other (Pulse ox was noted and normal.) General appearance: other (Initially, the patient was shaking on the floor. This did not seem to be rhythmic consistent with seizure activity.) - Head Head exam: Present: atraumatic, normocephalic - Eye Eye exam: Present: normal appearance. Absent: scleral icterus - ENT ENT exam: Present: normal external ear exam - Neck Neck exam: Present: normal inspection, other (Trachea midline) - Respiratory Respiratory exam: Present: normal lung sounds bilaterally. Absent: respiratory distress - Cardiovascular Cardiovascular Exam: Present: regular rate, normal rhythm - GI/Abdominal GI/Abdominal exam: Present: other (Flat). Absent: distended - Extremities Exam Extremities exam: Present: normal capillary refill - Back Exam Back exam: Present: normal inspection - Neurological Exam Neurological exam: Present: other (Patient was shaking concerning for possible seizure) - Psychiatric Psychiatric exam: Present: other (Unresponsive) - Skin Skin exam: Present: warm, dry ED Course - Reevaluation(s) Reevaluation #1: 08/24/21 09:00 Patient was seen on arrival and seem to be actively seizing. IV could not be established quickly so Ativan 2 mg IM was administered. Patient still had some tremulous type activity, but seem to be resisting eye opening. Her respirations even. She then became arousable relatively quickly complaining of abdominal pain asking for pain medication. Old records reviewed. Labs ordered. Reevaluation #2: 08/24/21 09:30 Patient started shaking again. She was still resisting attempts to examine her pupils at this point. Haloperidol 5 mg IV was administered. As soon as the medicine was administered, she stopped shaking and started complaining of pain asking for pain medication. I do believe that the shaking episodes are pseudoseizure as opposed to true underlying seizure. Reevaluation #3: 08/24/21 11:32 Patient is resting but arousable. She is still sedate for medication. 08/24/21 11:33 Reevaluation #4: 08/24/21 13:57 After sedation and sleeping, patient was awoken. She had no complaint but she started to shake. She started to moan. She still complained of pain in the left abdomen. She reported having a colon infection. At this time, there is no clinical evidence of peritonitis. She is not . I do not believe that her shaking is a seizure in nature. She was discharged. ED Medical Decision Making - Lab Data Result diagrams: 08/24/21 10:12 08/24/21 10:12 Rhythm strip: Normal sinus rhythm without ectopy. Monitor observed in seconds. - Medical Decision Making Labs have been reviewed. Patient is not . Ectopic has been excluded. She is still somewhat sedate from medication. There is no evidence that she has any type of significant infectious process. White count is normal. She certainly does not have any peritoneal finding. There is no evidence of acute hepatitis or pancreatitis. She has not had any metabolic derangement that can be determined. I do not believe this really represented seizure activity. It would be unlikely for the patient to have seizure activity that responds instantaneously to medications being pushed. I suspect that there was some component of pseudoseizure to this. There is no indication for admission. She can be referred for outpatient evaluation. Critical Care Time: No Critical care attestation.: If time is entered above; I have spent that time in minutes in the direct care of this critically ill patient, excluding procedure time. ED Disposition Clinical Impression: Pseudoseizure, Lower abdominal pain Disposition: HOME / SELF CARE / HOMELESS Is pt being admited?: No Condition: Stable Instructions: Abdominal Pain, Adult, [id number], Pain Without a Known Cause, Managing Non-Epileptic Seizures, Adult Additional Instructions: Push fluids. Continue home medication. Return for problems. Follow-up with your regular doctor for recheck and further management. Prescriptions: Dicyclomine [Bentyl] 20 mg PO QID PRN #30 tablet PRN Reason: cramps levETIRAcetam [Keppra] 5 ml PO BID 330 Days #300 ml Referrals: PRIMARY CARE, [Primary Care Provider] - 3-5 Days
[2021-08-24] MEDS ORDERED: HALOPERIDOL LACTATE 5 MG/1 ML INJ ONE (09:26)
[2021-08-24] MEDS ORDERED: HALOPERIDOL LACTATE 5 MG/1 ML INJ IV ONE (09:33)
[2021-08-24 10:39] LABS: Basophils % (Auto) 0.4 % (0.0-1.8); Hematocrit 40.7 % (30.3-42.9); Hemoglobin 13.4 gm/dl (10.1-14.3); Lymphocytes # (Auto) 0.8 K/mm3 (1.2-5.4); Lymphocytes % (Auto) 8.7 % (13.4-35.0); Mean Corpuscular HGB Conc 33 % (30-34); Mean Corpuscular Volume 96 fl (79-97); Monocytes # (Auto) 0.4 K/mm3 (0.0-0.8); Monocytes % (Auto) 4.2 % (0.0-7.3); Platelet Count 148 K/mm3 (140-440); Red Blood Count 4.22 M/mm3 (3.65-5.03); Red Cell Distribution Width 13.8 % (13.2-15.2)
[2021-08-24 10:56] LABS: Alanine Aminotransferase 15 units/L (7-56); Albumin 4.6 g/dL (3.9-5); Blood Urea Nitrogen 10 mg/dL (7-17); Calcium 9.8 mg/dL (8.4-10.2); Hemolysis Index 19
[2021-08-24 11:00] LABS: BUN/Creatinine Ratio 17
== END 2021-08-24 15:19 | disposition home or self-care (01) ==
LOC: ED 09:08
DX: R10.30 Lower abdominal pain, unspecified (principal); R56.9 Unspecified convulsions; Z98.890 Other specified postprocedural states; Z91.040 Latex allergy status
CPT/HCPCS: 36415; 80053; 83735; 84703; 85025; 96374; 96375; 99283; J1630; J1953; J7030; Q0162

== ENCOUNTER 2021-11-11 21:05 | Emergency (ER) | payer MEDICAID ==
[2021-11-11] MEDS ORDERED: SODIUM CHLORIDE 0.9% 1000 ML 1,000 ML IV ONE (21:12)
[2021-11-11] MEDS ORDERED: ONDANSETRON 4 MG/2 ML INJ IV ONE (21:12)
--- NOTE | 2021-11-11 21:44 | XRay Report ---
ABDOMEN 2 VIEWS INDICATION / CLINICAL INFORMATION: Abdominal Pain. Recent colonoscopy earlier today COMPARISON: Abdomen x-ray 07/31/2020 FINDINGS: TUBES / LINES: None. BOWEL GAS PATTERN: No significant abnormality. FREE AIR / EXTRALUMINAL GAS: Small amount of free air ADDITIONAL FINDINGS: No significant additional findings. CHEST: Visualized chest shows no significant abnormality. IMPRESSION: 1. Pneumoperitoneum likely from colonic perforation given earlier colonoscopy. CRITICAL RESULT: Small pneumoperitoneum Time of Discovery ([employer]/CDT): 8:36 PM central time Time of Communication ([employer]/CDT): 8:40 PM Licensed Practitioner Receiving Report: Dr. Penaloza Read-Back Performed: Yes. Signer Name: Glynn Moreno MD Signed: 11/11/2021 9:39 PM Workstation Name: [id number]
[2021-11-11 22:06] LABS: BUN/Creatinine Ratio TNR; Blood Urea Nitrogen TNR mg/dL (7-17); Calcium TNR mg/dL (8.4-10.2); Hemolysis Index TNR
[2021-11-11] MEDS ORDERED: HALOPERIDOL LACTATE 5 MG/1 ML INJ IM ONE (22:06)
[2021-11-11] MEDS ORDERED: HALOPERIDOL LACTATE 5 MG/1 ML INJ ONE (22:08)
[2021-11-11 22:21] LABS: Hematocrit TNR % (30.3-42.9); Hemoglobin TNR gm/dl (10.1-14.3); Mean Corpuscular Volume TNR fl (79-97); Red Blood Count TNR M/mm3 (3.65-5.03)
[2021-11-11 22:22] LABS: Basophils % (Auto) TNR % (0.0-1.8); Eosinophils % (Auto) TNR % (0.0-4.3); Lymphocytes % (Auto) TNR % (13.4-35.0); Mean Corpuscular HGB Conc TNR % (30-34); Mean Platelet Volume TNR fl (6-12); Monocytes % (Auto) TNR % (0.0-7.3); Platelet Count TNR K/mm3 (140-440); Red Cell Distribution Width TNR % (13.2-15.2)
[2021-11-11 22:23] LABS: Basophils # (Auto) TNR K/mm3 (0.0-0.1); Eosinophils # (Auto) TNR K/mm3 (0.0-0.4); Lymphocytes # (Auto) TNR K/mm3 (1.2-5.4); Monocytes # (Auto) TNR K/mm3 (0.0-0.8)
[2021-11-11] MEDS ORDERED: MORPHINE 4 MG/1 ML INJ IV ONE (22:24)
--- NOTE | 2021-11-11 22:25 | Emergency Department Report ---
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 MD complaint: nausea, vomiting, abdominal pain -: Sudden, hour(s) Description of Vomiting: food contents, watery Associated Abdominal Pain: Yes Location: diffuse Radiation: none Severity: moderate Consistency: constant Worsens with: none Context: recent surgery/procedure Associated Symptoms: denies: denies other symptoms, myalgias, chest pain, cough, diaphoresis - Related Data Home Medications Medication Instructions Recorded Confirmed Last Taken methIMAzole [Tapazole] 5 mg PO QDAY 08/22/20 08/22/20 Unknown Apixaban [Eliquis] 5 mg PO DAILY 06/24/21 06/24/21 Unknown Previous Rx's Medication Instructions Recorded Last Taken Type Ketorolac [Toradol] 10 mg PO Q6H PRN #20 tablet 07/03/21 Unknown Rx Dicyclomine [Bentyl] 20 mg PO QID PRN #30 tablet 08/24/21 Unknown Rx levETIRAcetam [Keppra] 5 ml PO BID 330 Days #300 ml 08/24/21 Unknown Rx Allergies Allergy/AdvReac Type Severity Reaction Status Date / Time latex Allergy Rash Verified 02/18/20 08:22 ED Review of Systems ROS: Stated complaint: NAUSEA/VOMITING Other details as noted in HPI Comment: Unobtainable due to pts medical conditions ED Past Medical Hx - Past Medical History Previous Medical History?: Yes Hx Hypertension: No Hx Heart Attack/AMI: No Hx Congestive Heart Failure: No Hx Diabetes: No Hx Deep Vein Thrombosis: (unknown) Hx Pulmonary Embolism: Yes Hx Liver Disease: No Hx Renal Disease: No Hx Sickle Cell Disease: No Hx Seizures: Yes Hx Asthma: No Hx COPD: No Hx HIV: No Additional medical history: DIVERTICULITIS, OVARIAN CYST, Pulmonary Embolism, Diverticulitis, Graves Disease - Surgical History Past Surgical History?: Yes Hx Pacemaker: No Hx Internal Defibrillator: No Additional Surgical History: c/s x 3, ectopic - Social History Smoking Status: Current Every Day Smoker Substance Use Type: None - Medications Home Medications: Home Medications Medication Instructions Recorded Confirmed Last Taken Type methIMAzole [Tapazole] 5 mg PO QDAY 08/22/20 08/22/20 Unknown History Apixaban [Eliquis] 5 mg PO DAILY 06/24/21 06/24/21 Unknown History Ketorolac [Toradol] 10 mg PO Q6H PRN #20 tablet 07/03/21 Unknown Rx Dicyclomine [Bentyl] 20 mg PO QID PRN #30 tablet 08/24/21 Unknown Rx levETIRAcetam [Keppra] 5 ml PO BID 330 Days #300 ml 08/24/21 Unknown Rx ED Physical Exam - General Limitations: No Limitations General appearance: alert, anxious, in distress, other - Head Head exam: Present: atraumatic, normocephalic - Eye Eye exam: Present: normal appearance - ENT ENT exam: Present: mucous membranes moist - Neck Neck exam: Present: normal inspection - Respiratory Respiratory exam: Present: normal lung sounds bilaterally. Absent: respiratory distress - Cardiovascular Cardiovascular Exam: Present: regular rate, normal rhythm. Absent: systolic murmur, diastolic murmur, rubs, gallop - GI/Abdominal GI/Abdominal exam: Present: tenderness, guarding, hypoactive bowel sounds - Extremities Exam Extremities exam: Present: normal inspection - Back Exam Back exam: Present: normal inspection - Neurological Exam Neurological exam: Present: alert, oriented X3 - Psychiatric Psychiatric exam: Present: normal affect, normal mood - Skin Skin exam: Present: warm, dry, intact, normal color. Absent: rash ED Course Vital Signs 11/11/21 11/11/21 11/11/21 21:18 22:31 22:37 Temperature 98.5 F 98.5 F Pulse Rate 92 H 88 Respiratory 17 20 Rate Blood Pressure 121/69 116/82 [Left] O2 Sat by Pulse 100 100 99 Oximetry ED Medical Decision Making - Lab Data Result diagrams: 11/11/21 21:30 11/11/21 21:30 - Radiology Data Radiology results: report reviewed, image reviewed - Medical Decision Making PT IS HARD TO MANAGE BUT X RAY SHWOED AIR UNDER DIAPHRAGM SUSPICIOUS FOR PERFORATION, SPOKE WITH DR Trotter OVER [facility] WHO ACCEPTED TRANSFER WHO ACCEPTED er TO er TRANSFER Critical care attestation.: If time is entered above; I have spent that time in minutes in the direct care of this critically ill patient, excluding procedure time. ED Disposition Clinical Impression: Abdominal pain, Nausea & vomiting, Intractable abdominal pain, Intestinal perforation Disposition: 51 HOSPICE/MEDICAL FACILITY Is pt being admited?: No Does the pt Need Aspirin: No Condition: Fair Instructions: Abdominal Pain (ED) Referrals: SAPPHIRE SHAIKH MD [Primary Care Provider] - 3-5 Days
[2021-11-11 22:38] VITALS: BP 116/82
== END 2021-11-11 22:49 | disposition hospice, inpatient (51) ==
LOC: ED 21:05
DX: K63.1 Perforation of intestine (nontraumatic) (principal); R10.84 Generalized abdominal pain; R11.2 Nausea with vomiting, unspecified; F17.200 Nicotine dependence, unspecified, uncomplicated; Z91.040 Latex allergy status; Z79.899 Other long term (current) drug therapy
CPT/HCPCS: 36415; 74019; 80048; 82962; 85025; 96361; 96372; 96374; 96375; 99285; J1630; J2405; J7030; Q0162

== ENCOUNTER 2022-01-15 10:22 | Emergency (ER) | payer MEDICAID ==
[2022-01-15 11:03] VITALS: BP 112/79
[2022-01-15 12:18] LABS: Basophils % (Auto) 0.7 % (0.0-1.8); Eosinophils % (Auto) 0.7 % (0.0-4.3); Lymphocytes # (Auto) 2.3 K/mm3 (1.2-5.4); Mean Corpuscular HGB Conc 33 % (30-34); Mean Corpuscular Volume 96 fl (79-97); Monocytes # (Auto) 0.4 K/mm3 (0.0-0.8); Monocytes % (Auto) 6.3 % (0.0-7.3); Platelet Count 186 K/mm3 (140-440); Red Cell Distribution Width 13.1 % (13.2-15.2)
[2022-01-15 12:45] LABS: Alanine Aminotransferase 14 units/L (7-56); Albumin 5.1 g/dL (3.9-5); Blood Urea Nitrogen 9 mg/dL (7-17); Calcium 9.2 mg/dL (8.4-10.2); Hemolysis Index 28
[2022-01-15 12:46] LABS: BUN/Creatinine Ratio 13
[2022-01-15 13:14] LABS: Bacteria,Urine 1+ /HPF (Negative); Bilirubin,Urine NEG (Negative); Blood,Urine NEG (Negative); Color,Urine Yellow (Yellow); Mucus,Urine 2+ /HPF; Urobilinogen,Urine < 2.0 mg/dL (<2.0)
== END 2022-01-15 13:00 | disposition left against medical advice (07) ==
LOC: ED 10:22
DX: R10.32 Left lower quadrant pain (principal); Z53.21 Procedure and treatment not carried out due to patient leaving prior to being seen by health care provider
CPT/HCPCS: 36415; 80053; 81001; 85025

== ENCOUNTER 2022-05-10 09:11 | Emergency (ER) | payer MEDICAID ==
[2022-05-10] MEDS ORDERED: ONDANSETRON 4 MG/2 ML INJ IV ONE (09:50)
[2022-05-10] MEDS ORDERED: fentaNYL 100 MCG/2 ML INJ IV ONE ×2 (09:50→10:25)
[2022-05-10] MEDS ORDERED: SODIUM CHLORIDE 0.9% 1000 ML 1,000 ML IV ONE (09:50)
[2022-05-10] MEDS ORDERED: diphenhydrAMINE 50 MG/ML VIAL IV ONE (09:50)
--- NOTE | 2022-05-10 10:06 | Emergency Department Report ---
HPI - General Chief Complaint: Abdominal Pain Time Seen by Provider: 05/10/22 09:50 - HPI HPI: Room 18 The patient is a 32-year-old female present with a chief complaint of leg pain. The patient states she was awakened this morning at 02:00 with sharp pain in the left flank. Patient mitts to nausea vomiting. Patient denies dysuria or hematuria. Patient denies history of fever. The patient is in considerable pain, crying and writhing on stretcher limiting history ED Past Medical Hx - Past Medical History Hx Deep Vein Thrombosis: (unknown) Hx Pulmonary Embolism: Yes Hx Seizures: Yes Additional medical history: DIVERTICULITIS, OVARIAN CYST, Pulmonary Embolism, Diverticulitis, Graves Disease, Abdominal pain - Surgical History Additional Surgical History: c/s x 3, ectopic , Exploratory lap 11-11-2021 - Family History Family history: no significant - Social History Smoking Status: Never Smoker Substance Use Type: None - Medications Home Medications: Home Medications Medication Instructions Recorded Confirmed Last Taken Type methIMAzole [Tapazole] 5 mg PO QDAY 08/22/20 08/22/20 Unknown History Apixaban [Eliquis] 5 mg PO DAILY 06/24/21 06/24/21 Unknown History Ketorolac [Toradol] 10 mg PO Q6H PRN #20 tablet 07/03/21 Unknown Rx Dicyclomine [Bentyl] 20 mg PO QID PRN #30 tablet 08/24/21 Unknown Rx levETIRAcetam [Keppra] 5 ml PO BID 330 Days #300 ml 08/24/21 Unknown Rx ED Review of Systems ROS: Stated complaint: BODY PAIN/KIDNEY/BACK/LIVER Other details as noted in HPI Constitutional: no symptoms reported. denies: fever Eyes: denies: eye pain ENT: denies: throat pain Respiratory: no symptoms reported Cardiovascular: denies: chest pain Endocrine: no symptoms reported Gastrointestinal: abdominal pain, nausea, vomiting Genitourinary: denies: dysuria, hematuria Musculoskeletal: back pain Neurological: denies: headache Physical Exam - Physical Exam Vital Signs: Vital Signs 05/10/22 05/10/22 09:21 09:40 Temperature 97.7 F 98.3 F Pulse Rate 104 H 117 H Respiratory 14 18 Rate Blood Pressure 102/76 Blood Pressure 120/76 102/74 [Left] O2 Sat by Pulse 100 95 Oximetry Physical Exam: GENERAL: The patient is well-developed well-nourished female appearing to be in significant discomfort crying and writhing on stretcher. [] HEENT: Normocephalic. Atraumatic. Extraocular motions are intact. Patient has moist mucous membranes. NECK: Supple. Trachea midline CHEST/LUNGS: Clear to auscultation. There is no respiratory distress noted. HEART/CARDIOVASCULAR: Regular. There is no tachycardia. There is no gallop rub or murmur. ABDOMEN: Abdomen is soft, nontender. Patient has normal bowel sounds. There is no abdominal distention. SKIN: There is no rash. There is no edema. There is no diaphoresis. NEURO: The patient is awake, alert, and oriented. The patient is cooperative. The patient has no focal neurologic deficits. The patient has normal speech. GCS 15 MUSCULOSKELETAL: There is left CVA tenderness. There is no evidence of acute injury. ED Course Vital Signs 05/10/22 05/10/22 09:21 09:40 Temperature 97.7 F 98.3 F Pulse Rate 104 H 117 H Respiratory 14 18 Rate Blood Pressure 102/76 Blood Pressure 120/76 102/74 [Left] O2 Sat by Pulse 100 95 Oximetry ED Medical Decision Making - Lab Data Result diagrams: 05/10/22 10:11 05/10/22 10:11 Laboratory Tests 05/10/22 05/10/22 05/10/22 10:11 10:11 10:11 WBC 8.8 RBC 4.19 Hgb 13.6 Hct 40.0 MCV 95 MCH 33 H MCHC 34 RDW 13.8 Plt Count 169 Lymph % (Auto) 14.0 [place] % (Auto) 5.3 Eos % (Auto) 0.0 Baso % (Auto) 0.3 Lymph # (Auto) 1.2 [place] # (Auto) 0.5 Eos # (Auto) 0.0 Baso # (Auto) 0.0 Seg Neutrophils % 80.4 H Seg Neutrophils # 7.1 Sodium 139 Potassium 3.9 Chloride 102.9 Carbon Dioxide 21 L Anion Gap 19 BUN 9 Creatinine 0.7 Estimated GFR > 60 BUN/Creatinine Ratio 13 Glucose 111 H Calcium 9.2 Total Bilirubin 0.40 AST 23 ALT 14 Alkaline Phosphatase 38 Total Protein 7.4 Albumin 5.0 Albumin/Globulin Ratio 2.1 HCG, Qual Negative Urine Color Urine Turbidity Urine pH Ur Specific [place] Urine Protein Urine Glucose (UA) Urine Ketones Urine Blood Urine Nitrite Urine Bilirubin Urine Urobilinogen Ur Leukocyte Esterase Urine WBC (Auto) Urine RBC (Auto) U Epithel Cells (Auto) Urine Mucus 05/10/22 13:07 WBC RBC Hgb Hct MCV MCH MCHC RDW Plt Count Lymph % (Auto) [place] % (Auto) Eos % (Auto) Baso % (Auto) Lymph # (Auto) [place] # (Auto) Eos # (Auto) Baso # (Auto) Seg Neutrophils % Seg Neutrophils # Sodium Potassium Chloride Carbon Dioxide Anion Gap BUN Creatinine Estimated GFR BUN/Creatinine Ratio Glucose Calcium Total Bilirubin AST ALT Alkaline Phosphatase Total Protein Albumin Albumin/Globulin Ratio HCG, Qual Urine Color Yellow Urine Turbidity Clear Urine pH 6.0 Ur Specific [place] 1.026 Urine Protein 100 mg/dl Urine Glucose (UA) Neg Urine Ketones 80 Urine Blood Neg Urine Nitrite Neg Urine Bilirubin Neg Urine Urobilinogen < 2 Ur Leukocyte Esterase Neg Urine WBC (Auto) 2.0 Urine RBC (Auto) 2.0 U Epithel Cells (Auto) 4.0 Urine Mucus 1+ - Radiology Data Radiology results: report reviewed (CT abdomen pelvis), image reviewed (CT abdomen pelvis) [facility] [address] [place] [address] Cat Scan Report Signed Patient: JERMAINE ÁLVAREZ MR#: [id number] : 03/13/1990 Acct:[id number] Age/Sex: 32 / F A DM Date: 05/10/22 Loc: ED Attending Dr: Ordering Physician: CLARITZA ALVAREZ MD Date of Service: 05/10/22 Procedure(s): CT abdomen pelvis wo con Accession Number(s): [id number] cc: CLARITZA ALVAREZ MD CT ABDOMEN AND PELVIS WITHOUT CONTRAST HISTORY: Left flank pain COMPARISON: 07/20/2020 TECHNIQUE: Axial CT images were obtained through the abdomen and pelvis without IV contrast. Sagittal and coronal reformatted images. All CT scans at this location are p erformed using CT dose reduction for ALARA by means of automated exposure control. FINDINGS: CT ABDOMEN: Lung Bases: Clear. Liver: No significant abnormality. Biliary: No significant abnormality. Spleen: No significant abnormality. Unenlarged. Pancreas: No significant abnormality. Adrenals: No significant abnormality. Kidneys: No significant abnormality. Lymphatics: No lymphadenopathy. Vasculature: No significant abnormality. Bowel/Peritoneum: No significant abnormality. No free air. No free fluid. The appendix is not clearly identified. CT PELVIS: : No significant abnormality. Osseous Structures: No significant abnormality. Additional Findings: None IMPRESSION: No significant abnormality. No clear explanation for left flank pain. No significant change since 07/20/2020. Signer Name: Isaiah Baker Jr, MD Signed: 05/10/2022 12:22 PM Workstation Name: [id number] Transcribed By: TTR Dictated By: ISAIAH BAKER JR, MD Electronically Authenticated By: ISAIAH BAKER JR, MD Signed Date/Time: 05/10/22 1222 DD/ 1219 TD/TT: - Differential Diagnosis Renal colic, pyelonephritis Critical care attestation.: If time is entered above; I have spent that time in minutes in the direct care of this critically ill patient, excluding procedure time. ED Disposition Clinical Impression: Nausea & vomiting, Abdominal pain Disposition: 07 LEFT AWOL/ELOPED Is pt being admited?: No Does the pt Need Aspirin: No Condition: Undetermined Instructions: Abdominal Pain (ED) Time of Disposition: 13:56 (Patient eloped)
[2022-05-10] MEDS ORDERED: KETOROLAC 30 MG/1 ML INJ IV ONE (10:25)
[2022-05-10 11:01] LABS: Basophils % (Auto) 0.3 % (0.0-1.8); Hemoglobin 13.6 gm/dl (10.1-14.3); Lymphocytes # (Auto) 1.2 K/mm3 (1.2-5.4); Mean Corpuscular HGB Conc 34 % (30-34); Mean Corpuscular Volume 95 fl (79-97); Monocytes # (Auto) 0.5 K/mm3 (0.0-0.8); Monocytes % (Auto) 5.3 % (0.0-7.3); Platelet Count 169 K/mm3 (140-440); Red Blood Count 4.19 M/mm3 (3.65-5.03); Red Cell Distribution Width 13.8 % (13.2-15.2)
[2022-05-10 11:18] VITALS: BP 119/92
[2022-05-10 11:19] LABS: Alanine Aminotransferase 14 units/L (7-56); Blood Urea Nitrogen 9 mg/dL (7-17); Calcium 9.2 mg/dL (8.4-10.2); Hemolysis Index 29
[2022-05-10 11:24] LABS: BUN/Creatinine Ratio 13
[2022-05-10] MEDS ORDERED: MORPHINE 4 MG/1 ML INJ IV ONE (11:32)
--- NOTE | 2022-05-10 12:26 | Cat Scan Report ---
CT ABDOMEN AND PELVIS WITHOUT CONTRAST HISTORY: Left flank pain COMPARISON: 07/20/2020 TECHNIQUE: Axial CT images were obtained through the abdomen and pelvis without IV contrast. Sagittal and coronal reformatted images. All CT scans at this location are performed using CT dose reduction for ALARA by means of automated exposure control. FINDINGS: CT ABDOMEN: Lung Bases: Clear. Liver: No significant abnormality. Biliary: No significant abnormality. Spleen: No significant abnormality. Unenlarged. Pancreas: No significant abnormality. Adrenals: No significant abnormality. Kidneys: No significant abnormality. Lymphatics: No lymphadenopathy. Vasculature: No significant abnormality. Bowel/Peritoneum: No significant abnormality. No free air. No free fluid. The appendix is not clearly identified. CT PELVIS: : No significant abnormality. Osseous Structures: No significant abnormality. Additional Findings: None IMPRESSION: No significant abnormality. No clear explanation for left flank pain. No significant change since 07/20/2020. Signer Name: Isaiah Harris Jr, MD Signed: 05/10/2022 12:22 PM Workstation Name: [id number]
[2022-05-10 13:32] LABS: Bilirubin,Urine NEG (Negative); Blood,Urine NEG (Negative); Color,Urine Yellow (Yellow); Mucus,Urine 1+ /HPF; Urobilinogen,Urine < 2 mg/dL (<2.0)
[2022-05-10] MEDS ORDERED: HALOPERIDOL LACTATE 5 MG/1 ML INJ IM ONE (13:47)
[2022-05-10 16:21] LABS: Amphetamine Screen,Urine Negative; Benzodiazepines Screen,Urine Negative; Cocaine Screen,Urine Negative; Methadone Screen,Urine Negative
[2022-05-10 16:46] LABS: Cannabinoid Screen,Urine Positive; Opiate Screen,Urine Positive
== END 2022-05-10 13:59 | disposition left against medical advice (07) ==
LOC: ED 09:11
DX: R10.9 Unspecified abdominal pain (principal); R11.2 Nausea with vomiting, unspecified; R56.9 Unspecified convulsions; Z86.718 Personal history of other venous thrombosis and embolism; I26.99 Other pulmonary embolism without acute cor pulmonale
CPT/HCPCS: 36415; 74176; 80053; 80307; 81001; 84703; 85025; 96361; 96374; 96375; 96376; 99284; J1200; J1885; J2270; J2405; J3010